=== PATIENT | male | born 1960 | race African-American/Black ===

== ENCOUNTER 2016-10-07 19:50 | Inpatient (IN) ==
--- NOTE | 2016-10-07 20:29 | CT Report ---
CT head/brain wo con Indication: Altered mental status. Comparison: None. Technique: CT of the brain was performed without administration of intravenous contrast. The CT examination was performed using one or more of the following dose reduction techniques: Automatic exposure control, adjustment of the mA and kV according to patient size, use of acute or iterative reconstruction techniques. Findings: There is no evidence of acute intracranial hemorrhage, mass, or infarction. Ventricles appear within normal limits. The basal cisterns are patent. No significant abnormality is demonstrated to involve the posterior fossa or cerebellum. Orbits and globes demonstrate no evidence of significant pathology. The paranasal sinuses are clear. No significant abnormality is demonstrated to involve the mastoid air cells. The calvarium and overlying soft tissues demonstrate no evidence of acute pathology. Impression: 1. No CT evidence of acute intracranial pathology. 10/07/2016 8:25 PM PROCEDURE INTERPRETED AT [facility] DEPARTMENT OF RADIOLOGY Final Report Signed by: Dr. Braulio Lucia
[2016-10-07] MEDS ORDERED: SODIUM CHLORIDE 0.9% 500 ML IV STA (20:33)
[2016-10-07 20:43] LABS: Basophils % 0.1 % (0.0-0.8); Eosinophils # 0.1 10*3/uL (0.0-0.87); Eosinophils % 0.3 % (0.00-10.9); Hematocrit 35.8 VOL% (42.0-52.0); Hemoglobin 11.7 GM/DL (14.0-18.0); Immature Granulocytes % 0.6 %; Lymphocytes # 2.3 10*3/uL (1.4-4.0); Lymphocytes % 14.6 % (21.2-54.2); Mean Corpuscular HGB Conc 32.7 GM/DL (32-36); Mean Corpuscular Hemoglobin 32 PG (27-34); Mean Corpuscular Volume 97.5 FL (87-102); Mean Platelet Volume 12.6 FL (9.6-12.0); Monocytes # 1.4 10*3/uL (0.11-0.8); Monocytes % 9.1 % (1.7-12.7); Neutrophils # 11.7 10*3/uL (1.4-7.4); Neutrophils % 75.3 % (38.7-73.9); Platelet Count 181 T/CUMM (130-400); Red Blood Count 3.67 MC/CUMM (3.8-5.5); Red Cell Distribution Width 12.9 % (9.3-17.3); White Blood Count 15.5 T/CUMM (4-12)
[2016-10-07 20:50] LABS: Apearance,Urine CLOUDY (Clear); Bilirubin,Urine Negative (Negative); Blood, Urine Negative (Negative); Glucose,Urine (UA) Negative (Negative); Ketones,Urine Negative (Negative); Nitrite,Urine Negative (Negative); PT Patient Result 11.1 SECS; Protein,Urine 30 MG/DL; Urine Color Yellow (Yellow); Urine Specific Gravity 1.005 (1.001-1.035); Urine Urobilinogen < 2.0 EU/DL (0.2-1.0)
--- NOTE | 2016-10-07 20:56 | Emergency Department Note ---
Waylon Alves Mantricia, am scribing for, and in the presence of, Wilfredo Ryan MD 20:54. Connor Alves Charles R, MD, personally performed the services described in this documentation, ascribed by Poncho Connors in my presence, and it is both accurate and complete . Arrival - Arrival Chief Complaint: Neuro Stated Complaint: Possible stroke ED Nursing Triage Note: Spous states she found her brother this morning at approx 0630 this morning with altered mental and not speaking right. States he is normally able to walk, talk, and take care of himself normally. Last known well time per sister is 0630 this morning. Has right side paralysis. Mode of Arrival: Wheelchair Limitations: No Limitations Source: Family Time Seen by Provider: 10/07/16 20:04 - History of Present Illness HPI Narrative: Pt is a 56 y/o black male arriving to ED via wheelchair with c/o AMS that onset 0630 this morning. Sister reports that pt has not been able to talk or move. She reports that she noticed that pt had been shaking last night in his sleep, so she thought he was having a seizure. Pt has no Hx of seizures. She states that he is normally able to talk and ambulate on his own. Pt see Dr. Garrison regarding his blood pressure and back pain. Family admits that pt drinks a lot and they are not sure if he has consumed any marijuana. Sister reports that pt followed a normal routine yesterday; they went to a neighbor's and pt seemed normal. However, she states that pt and neighbor had known one another since youth days and think that he may be depressed from the . Pt is currently taking amitriptyline and topamax for depression and has a PMHx of right sided paralysis. During exam, pt is unresponsive and will not talk. However, when stated that a aparicio catheter would be placed, pt aroused and began to laugh and talk normally. The weird episode began to continue to and now pt is unresponsive again. No other complaints were reported to ED. Onset (ago): hour(s) Consistency: constant Severity: mild Allergies/Adverse Reactions: Allergies Allergy/AdvReac Type Severity Reaction Status Date / Time No Known Allergies Allergy Unverified 12/27/14 15:18 Home Medications: Home Medications Medication Instructions Recorded Confirmed Type Acetic Acid 2% Otic Soln [Vosol 2% 5 drop LEFT EAR QID #15 ml 12/27/14 Rx Otic Soln] Amitriptyline [Elavil] 25 mg PO BEDTIME 12/27/14 12/27/14 History Atorvastatin [Lipitor] 40 mg PO DAILY 12/27/14 12/27/14 History Citalopram [CeleXA] 40 mg PO DAILY 12/27/14 12/27/14 History Lisinopril 20 mg PO DAILY 12/27/14 12/27/14 History Metoprolol Tartrate 50 mg PO BID 12/27/14 12/27/14 History Ranitidine Tab [Zantac Tab] 150 mg PO BID 12/27/14 12/27/14 History Trazodone HCl 1 - 2 tablet PO BEDTIME PRN 12/27/14 12/27/14 History amLODIPine [Norvasc] 10 mg PO DAILY 12/27/14 12/27/14 History Review of System - Review of System 12 point system: reviewed and no additional remarkable complaints except as stated - Review of System Constitutional: Present: other (AMS episodes ). Absent: chills, diaphoresis, fever Eyes: Absent: pain Respiratory: Absent: cough Cardiovascular: Absent: chest pain, palpitations Gastrointestinal: Absent: abdominal pain, nausea, vomiting, diarrhea Musculoskeletal: Absent: arm pain, back pain, leg pain, neck pain Skin: Absent: rash, lesions Medical,Surgical,& Family Hx - Medical History Cardio: History of: Hypertension, Cardiovascular Problems (HEART MURMUR) Endocrine: History of: Dyslipidemia No history of: Diabetes Mellitus (IDDM), Diabetes Mellitus (NIDDM) Respiratory: No history of: Asthma, Bronchitis, Pneumonia Renal: No history of: Renal Failure, Renal Problems Gastrointestinal: No history of: Gastrointestinal Bleed, Liver Problems, GI Problems - Social History Smoking Status: Unknown if ever smoked Frequency of Alcohol Use: Unknown Type of Drug Use: Unknown Exam Vital Signs: Vital Signs Temperature 98.3 F 10/07/16 19:55 Pulse Rate 100 H 10/07/16 19:55 Respiratory Rate 14 10/07/16 19:55 Blood Pressure 108/68 10/07/16 19:55 O2 Sat by Pulse Oximetry 95 10/07/16 21:19 - General General appearance: alert, in no apparent distress, other (full ROM) - Head Head exam: Present: atraumatic, normocephalic, normal inspection - Eye Eye exam: Present: normal appearance, PERRL, EOMI - ENT ENT exam: Present: normal exam, normal oropharynx, mucous membranes moist, TM's normal bilaterally, normal external ear exam - Neck Neck exam: Present: normal inspection, full ROM, trachea midline. Absent: tenderness - Chest Chest inspection: Present: normal inspection, symmetric chest wall rise. Absent : tenderness - Respiratory Respiratory exam: Present: rhonchi (bilateral), wheezes - Cardiovascular Cardiovascular exam: Present: regular rate, normal rhythm, murmur (3/6 systolic) - Abdominal Exam Abdominal exam: Present: soft, normal bowel sounds. Absent: distention, tenderness, guarding, rebound - Extremities Exam Extremities exam: Present: normal inspection, full ROM, normal capillary refill. Absent: tenderness, pedal edema - Back Exam Back exam: Present: normal inspection, full ROM. Absent: tenderness - Neurological Exam Neurological exam: Present: other (nonverbal during AMS; no facial droop) - Psychiatric Psychiatric exam: Present: normal affect, normal mood - Skin Skin exam: Present: warm, dry, intact, normal color Course Course Narrative: The patient came in almost a catatonic state decreased responsiveness would not talk to me was mute would not respond to pain very well but was breathing normally. We attempted to pick Aparicio catheter the patient became very awake talking and laughing inappropriately moving all extremities without difficulties and asked him back to his normal self according family. I just checked on the patient at 2130 hrs. and the patient is back to his near catatonic state. Looking at his labs the patient is acute renal failure is positive for cocaine and opiates he also has elevated prolactin level which one would think that possibly this patient had a seizure and has been post ictal most of the day. It looks like the patient may have been having multiple seizures throughout the day this is in question based on the information provided the family has no idea if he does drugs or not they said he does not drink or do drugs but obviously he does because is positive for opiates and cocaine. CT the head did not show any acute changes chest x-ray shows passive heart failure - Consultations Consultation #1: Hospitalist will admit patient Time: 21:36 Results - Labs CBC & BMP: 10/07/16 20:03 10/07/16 20:03 Lab Results: I have reviewed the patients labs Critical Care Time Critical Care Time: Yes Total Critical Care Time: 60 Disposition Clinical Impression: Acute renal failure, Altered mental status, Cocaine intoxication, Seizure postictal, Hyperkalemia, Polysubstance abuse, Congestive heart failure, Encephalopathy acute Case discussed with: patient, patient's family Disposition: Still a Patient Condition: Guarded Time of Disposition: 21:38
[2016-10-07 20:57] LABS: Barbiturates Screen,Urine Negative (Negative); Benzodiazepines Screen,Urine Negative (Negative); Cannabinoid Screen,Urine Negative (Negative); Opiate Screen,Urine Positive (Negative); Phencyclidine Screen,Urine Negative (Negative)
[2016-10-07 21:05] LABS: Alanine Aminotransferase 53 U/L (16-61); Albumin 3.4 G/DL (3.4-5.0); Alkaline Phosphatase 85 U/L (45-117); Aspartate Amino Transferase 120 U/L (0-37); Bilirubin,Total < 0.39 MG/DL (0.2-1.0); Blood Urea Nitrogen 47 MG/DL (7-18); Glucose 91 MG/DL (74-106); Magnesium 2.6 MG/DL (1.8-2.4); Osmolality,Calculated 277.4 MOS/KG (273-304); Potassium 5.5 MMOL/L (3.5-5.1); Sodium 133 MMOL/L (136-145); Total Protein 7.6 G/DL (6.4-8.3)
[2016-10-07 21:08] LABS: Troponin I Only 0.046 NG/ML (0.00-0.045)
[2016-10-07 21:25] LABS: Ammonia 29 UMOL/L (11-32)
[2016-10-07] MEDS ORDERED: CALCIUM GLUCONATE 1,000 MG in SODIUM CHLORIDE 0.9% 100 ML IV ONE (21:27)
[2016-10-07] MEDS ORDERED: SODIUM BICARBONATE 50 MEQ/50 ML VIAL IV STA (21:27)
[2016-10-07] MEDS ORDERED: SODIUM BICARBONATE 50 MEQ/50 ML SYRINGE IV ONE (21:30)
[2016-10-07] MEDS ORDERED: CALCIUM CHLORIDE 1,000 MG/10 ML SYRINGE IV ONE (21:31)
[2016-10-07] MEDS ORDERED: CALCIUM GLUCONATE 1,000 MG/10 ML VIAL IV ONE (21:33)
[2016-10-07] MEDS ORDERED: methylPREDNISolone SOD SUC 125 MG/2 ML VIAL IV STA (21:37)
[2016-10-07] MEDS ORDERED: ALBUTEROL NEB SOLN 5 MG/ML 20 ML/BOTTLE CONT NEB STA (21:37)
[2016-10-07] MEDS ORDERED: methylPREDNISolone SOD SUC 125 MG/2 ML VIAL ONE (21:41)
[2016-10-07 21:53] LABS: Sedimentation Rate-Westergren 68 MM/HR (0-20)
[2016-10-07 22:27] LABS: CKMB % 0.8 %
[2016-10-07 22:28] LABS: Troponin I Only 0.059 NG/ML (0.00-0.045)
[2016-10-07] MEDS ORDERED: LORazepam 2 MG/1 ML VIAL ONE ×2 (23:31→23:33)
[2016-10-07] MEDS ORDERED: LORazepam 2 MG/1 ML VIAL IV STA (23:40)
[2016-10-07] MEDS ORDERED: LACOSAMIDE INJ 100 MG in SODIUM CHLORIDE 0.9% 50 ML IV ONE (23:41)
[2016-10-07] MEDS ORDERED: DOBUTamine 500 MG/250 ML PREMIX IV ONE (23:52)
[2016-10-07] MEDS ORDERED: LACOSAMIDE 200 MG/20 ML VIAL IV ONE (23:53)
[2016-10-08] MEDS ORDERED: ALBUTEROL 2.5 MG/3 ML NEB RESP TX PRN (00:15)
[2016-10-08] MEDS ORDERED: ONDANSETRON 4 MG/2 ML VIAL IV PRN (00:15)
[2016-10-08] MEDS ORDERED: MAGNESIUM SULF RIDER 2 GM in PREMIX 1 EACH IV PRN (00:15)
[2016-10-08] MEDS ORDERED: MAGNESIUM SULF RIDER 4 GM in PREMIX 1 EACH IV PRN (00:15)
[2016-10-08] MEDS ORDERED: ETOMIDATE 20 MG/10 ML VIAL IV ONE ×2 (00:50→00:59)
[2016-10-08] MEDS ORDERED: VECURONIUM 10 MG VIAL IV STA (00:52)
--- NOTE | 2016-10-08 00:57 | Hospitalist History & Physical ---
Assessment and Plan (1) Acute renal failure Status: Acute Current Visit: Yes (2) Altered mental status Status: Acute Current Visit: Yes (3) Cocaine intoxication Status: Acute Current Visit: Yes (4) Hyperkalemia Status: Acute Current Visit: Yes (5) Polysubstance abuse Status: Acute Current Visit: Yes (6) Congestive heart failure Status: Acute Current Visit: Yes (7) Encephalopathy acute Status: Acute Assessment and plan: Patient is being transferred to the ICU. We are going to repeat labs including troponins and and potassium now. ABG will be done in 30 minutes. A.m. labs will be drawn. Will get an echo and renal ultrasound. Patient appears to be having DT type symptoms. Possible seizure activity. Patient airway is protected. Will consult cardiology nephrology and pulmonary. Patient has complex and is very ill. Seems to stem from cocaine use. Patient could not have a full neurological exam secondary to his altered mental status. CT scan of his head was negative. Patient has elevated CPK that we will continue to trend. He appears to have congestive heart failure also. Patient's blood pressure significantly low in hopefully will respond to dobutamine. Repeat potassium was normal. We will continue gentle hydration through the night. Current Visit: Yes History of Present Illness Chief complaint: Altered mental status, confusion History of present illness: Mr. Day is a 56 year old male with past medical history significant for hypertension, depression, alcohol and drug abuse, and chronic back pain who presents to our ER tonight. Patient's family reports that he was in his normal state of health and doing just fine yesterday. When the got over to his house today he was not acting right complaining about headache and some back pain. Sister does not know any history of cocaine use he was cocaine positive. They report that he is a heavy alcoholic. They deny any history of kidney disease. Patient is going in and out of consciousness. Patient needed to be intubated in the emergency room to protect his airway. Patient is artery been started on dobutamine. Repeat troponins and potassium have already been ordered. Patient will be transferred to the ICU Home Medications Medication Instructions Recorded Confirmed Type Acetic Acid 2% Otic Soln [Vosol 2% 5 drop LEFT EAR QID #15 ml 12/27/14 Rx Otic Soln] Amitriptyline [Elavil] 25 mg PO BEDTIME 12/27/14 12/27/14 History Atorvastatin [Lipitor] 40 mg PO DAILY 12/27/14 12/27/14 History Citalopram [CeleXA] 40 mg PO DAILY 12/27/14 12/27/14 History Lisinopril 40 mg PO DAILY 12/27/14 12/27/14 History Metoprolol Tartrate 50 mg PO BID 12/27/14 12/27/14 History Ranitidine Tab [Zantac Tab] 150 mg PO BID 12/27/14 12/27/14 History Trazodone HCl 100 mg PO BEDTIME PRN 12/27/14 12/27/14 History amLODIPine [Norvasc] 5 mg PO DAILY 12/27/14 12/27/14 History Buspirone HCl 10 mg PO 10/07/16 History Gabapentin Cap/Tab [Neurontin 400 mg PO BID 10/07/16 10/07/16 History Cap/Tab] Meloxicam 7.5 mg PO 10/07/16 History Rosuvastatin [Crestor] 40 mg PO DAILY 10/07/16 10/07/16 History Topiramate [Topamax] 50 mg PO BID 10/07/16 10/07/16 History hydroCHLOROthiazide 25 mg PO DAILY 10/07/16 10/07/16 History [Hydrochlorothiazide] Allergies Allergy/AdvReac Type Severity Reaction Status Date / Time No Known Allergies Allergy Unverified 12/27/14 15:18 Medical,Surgical,& Family Hx - Medical History Cardio: History of: Hypertension, Cardiovascular Problems (HEART MURMUR) Endocrine: History of: Dyslipidemia No history of: Diabetes Mellitus (IDDM), Diabetes Mellitus (NIDDM) Respiratory: No history of: Asthma, Bronchitis, Pneumonia Renal: No history of: Renal Failure, Renal Problems Gastrointestinal: No history of: Gastrointestinal Bleed, Liver Problems, GI Problems - Surgical History Surgical History: noncontributory (Unable to obtain) - Family History Family History: Reports;: Family Cancer, Family Diabetes, Family Heart Disease, Family Hematology, Family Hypertension, Family Stroke - Social History Smoking Status: Unknown if ever smoked Frequency of Alcohol Use: Unknown Type of Drug Use: Unknown ROS unobtainable: due to mental status Exam - Constitutional Vitals: Period Temp Pulse Resp BP Sys/Carbone Pulse Ox Last 24 Hr 98.3 F-98.3 F 100-100 14-18 108-108/68-68 95-98 General appearance: over weight - Head Head exam: Present: normal inspection - Eye Eye exam: Present: EOMI Pupils: Present: DAE (Sluggish) - ENT ENT exam: Present: normal exam - Neck Neck exam: Present: other (ET tube in place) - Respiratory Respiratory exam: Present: rales - Cardiovascular Cardiovascular exam: Present: tachycardia - GI/Abdominal GI/Abdominal exam: Present: hypoactive bowel sounds - Extremities Exam Extremities exam: Present: normal inspection - Back Exam Back exam: Present: normal inspection - Neurological Exam Neurological exam: Present: altered - Psychiatric Psychiatric exam: Present: normal affect - Skin Skin exam: Present: normal color Results - Labs CBC & BMP: 10/07/16 20:03 10/08/16 01:26 Quality Measures - Stroke Onset of Symptoms Date: 10/07/16
[2016-10-08] MEDS ORDERED: VECURONIUM 10 MG VIAL IV ONE (00:59)
[2016-10-08] MEDS ORDERED: SODIUM CHLORIDE 0.9% 1,000 ML IV SCH (01:41)
[2016-10-08] MEDS ORDERED: MIDAZOLAM 2 MG/2 ML VIAL IV ONE (01:41)
[2016-10-08 01:56] LABS: ABG Base Excess -9.7 MMOL/L (-2.5-2.5); ABG HCO3 16.7 MMOL/L (20-26); ABG Oxygen Saturation 99.8 % (95-100); ABG PCO2 43.2 MM HG (35-48); ABG PH 7.221 (7.35-7.45); ABG TCO2 16.5 MMOL/L (23-27); Allen Test Positive; Pt O2 Delivery Device Ventilator
[2016-10-08] MEDS: PANTOPRAZOLE 40 MG VIAL IV SCH (02:05)
[2016-10-08 02:22] LABS: CKMB % 0.6 %; Troponin I Only 0.077 NG/ML (0.00-0.045)
--- NOTE | 2016-10-08 02:22 | EKG Report ---
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
[2016-10-08] MEDS ORDERED: SODIUM BICARBONATE 50 MEQ/50 ML SYRINGE IV ONE (02:36)
[2016-10-08] MEDS: DOBUTamine 500 MG/250 ML PREMIX IV SCH ×2 (06:01)
[2016-10-08 07:34] LABS: Basophils % 0.1 % (0.0-0.8); Hemoglobin 9.4 GM/DL (14.0-18.0); Immature Granulocytes % 0.4 %; Immature Granulocytes Absolute 0.05 #; Lymphocytes # 0.5 10*3/uL (1.4-4.0); Lymphocytes % 4.6 % (21.2-54.2); Mean Corpuscular HGB Conc 33.6 GM/DL (32-36); Mean Corpuscular Hemoglobin 31 PG (27-34); Mean Corpuscular Volume 93.6 FL (87-102); Mean Platelet Volume 12.5 FL (9.6-12.0); Monocytes # 0.3 10*3/uL (0.11-0.8); Monocytes % 2.5 % (1.7-12.7); Neutrophils # 10.9 10*3/uL (1.4-7.4); Neutrophils % 92.4 % (38.7-73.9); Platelet Count 161 T/CUMM (130-400); Red Blood Count 2.99 MC/CUMM (3.8-5.5); Red Cell Distribution Width 12.9 % (9.3-17.3); White Blood Count 11.8 T/CUMM (4-12)
--- NOTE | 2016-10-08 07:36 | XRay Report ---
XR chest 1V portable Indication: Altered mental status Comparison: Chest x-ray dated December 24, 2014 Technique: Single frontal view of the chest. Findings: The cardiomediastinal silhouette is stable in configuration. Low lung volumes with bronchovascular crowding. Bibasilar atelectasis/consolidation and scattered small pulmonary opacities may reflect pulmonary edema or pneumonia. Visualized osseous and surrounding soft tissue structures appear grossly unchanged. IMPRESSION: As above. PROCEDURE INTERPRETED AT [facility] DEPARTMENT OF RADIOLOGY Final Report Signed by: Dr Grady Nava
[2016-10-08] MEDS ORDERED: PROPOFOL 1,000 MG/100 ML BOTTLE IV ONE ×2 (07:47→15:13)
[2016-10-08 08:01] LABS: Lymphocytes 5 % (20-55); Segmented Neutrophils 91 % (50-85); Total Cells Counted 100
[2016-10-08 08:02] LABS: Microcytosis 1+; Platelet Estimate Adequate
--- NOTE | 2016-10-08 08:07 | Cardiology Consult Note ---
<Bria Goode E - Last Filed: 10/08/16 08:43> Assessment and Plan - Time spent with patient Time spent with patient: Greater than 30 minutes (due to assessment, plan, and documentation) Time spent discussing smoking cessation with patient: 3 to 10 minutes (will need to reiterate once alert and off mechanical ventilator) (1) Congestive heart failure Status: Acute Assessment and plan: See plan of care listed below. Current Visit: Yes (2) Altered mental status Status: Acute Assessment and plan: See plan of care listed below. Current Visit: Yes (3) Acute renal failure Status: Acute Assessment and plan: See plan of care listed below. Current Visit: Yes (4) Encephalopathy acute Status: Acute Assessment and plan: See plan of care listed below. Current Visit: Yes (5) Cocaine intoxication Status: Acute Assessment and plan: See plan of care listed below. Current Visit: Yes (6) Hyperkalemia Status: Acute Assessment and plan: See plan of care listed below. Current Visit: Yes (7) Polysubstance abuse Status: Acute Assessment and plan: See plan of care listed below. Current Visit: Yes (8) Hypertension Status: Chronic Assessment and plan: See plan of care listed below. Current Visit: Yes (9) Dyslipidemia Status: Chronic Assessment and plan: See plan of care listed below. Current Visit: Yes (10) Elevated troponin Status: Acute Assessment and plan: See plan of care listed below. Current Visit: Yes (11) Acute respiratory failure Status: Acute Assessment and plan: See plan of care listed below. Current Visit: Yes History of Present Illness - Data of Consult Patient: known to practice within the last 3 years (seen by Dr. Valle in 2014 ) Consult date: 10/08/16 Requesting Physician: Nash Gonzalez - Consult Narrative Reason for consult: CHF History of present illness: [place] Maker: Dr. Valle (last seen in 2014) Mr. Day is intubated on the mechanical ventilator. There is no family present at this time. Much of the history is taken from the electronic health record. Mr. Day is a 56 year old male with a history of hypertension , dyslipidemia, depression, alcohol and drug abuse, and chronic back pain. According to his family, he was in his usual state of health prior to arrival yesterday and then began complaining of a headache and back pain and was not "acting right." He presented to the emergency room and was in and out of consciousness and subsequently required intubation to protect his airway. His sister who was present was unaware of any history of cocaine use. He was positive for cocaine upon arrival. He was started on Dobutamine and transferred to the CCU for further monitoring. We were consulted to see him due to congestive heart failure. Chest x-ray on arrival revealed bibasilar atelectasis/consolidation and scattered small pulmonary opacities which may reflect pulmonary edema or pneumonia. He was noted to have an elevated CPK of 5430 on admission with CK-MB of 43.4 and troponin of 0.046. Cardiac biomarkers have now risen to CPK 5774, CK-MB 37.3, and troponin 0.077. This is in the setting of an elevated creatinine of 11.4. He was previously seen in clinic by Dr. Valle on 06/11/14 and was noted to have a murmur consistent with aortic sclerosis vs stenosis with radiation to both sides of the neck, vs bruits. Echocardiogram has been ordered. ASSESSMENT/PLAN: 1. CONGESTIVE HEART FAILURE - BNP pending. Echocardiogram has been ordered. Nephrology has been consulted. He is currently on dobutamine infusion and has had no urine output since his arrival. 2. ALTERED MENTAL STATUS - Patient is now intubated on mechanical ventilation. 3. ACUTE RENAL FAILURE - Creatinine 13 this morning. Will avoid nephrotoxic agents. 4. ACUTE ENCEPHALOPATHY - CT of the head was negative. Patient is poorly responsive at the present time. 5. COCAINE INTOXICATION - Acute. 6. HYPERKALEMIA - 5.5 on admission now down to 4.6. Will continue to monitor BMP. 7. POLYSUBSTANCE ABUSE 8. HYPERTENSION - We will try to have his home medications confirmed. Currently well controlled. Will continue to monitor and adjust accordingly. 9. DYSLIPIDEMIA - Will check lipid panel. 10. ELEVATED TROPONIN - EKG has shown no acute changes. Troponin now up to 0.271 with fluctuating CPK and CK-MB ([place] zone). Echocardiogram is pending. 11. ACUTE RESPIRATORY FAILURE - Pulmonology has been consulted for vent management. CC: Raya Lim MD - Home Medications and Allergies Home Medications: Home Medications Medication Instructions Recorded Confirmed Type Acetic Acid 2% Otic Soln [Vosol 2% 5 drop LEFT EAR QID #15 ml 12/27/14 Rx Otic Soln] Amitriptyline [Elavil] 25 mg PO BEDTIME 12/27/14 12/27/14 History Atorvastatin [Lipitor] 40 mg PO DAILY 12/27/14 12/27/14 History Citalopram [CeleXA] 40 mg PO DAILY 12/27/14 12/27/14 History Lisinopril 40 mg PO DAILY 12/27/14 12/27/14 History Metoprolol Tartrate 50 mg PO BID 12/27/14 12/27/14 History Ranitidine Tab [Zantac Tab] 150 mg PO BID 12/27/14 12/27/14 History Trazodone HCl 100 mg PO BEDTIME PRN 12/27/14 12/27/14 History amLODIPine [Norvasc] 5 mg PO DAILY 12/27/14 12/27/14 History Buspirone HCl 10 mg PO 10/07/16 History Gabapentin Cap/Tab [Neurontin 400 mg PO BID 10/07/16 10/07/16 History Cap/Tab] Meloxicam 7.5 mg PO 10/07/16 History Rosuvastatin [Crestor] 40 mg PO DAILY 10/07/16 10/07/16 History Topiramate [Topamax] 50 mg PO BID 10/07/16 10/07/16 History hydroCHLOROthiazide 25 mg PO DAILY 10/07/16 10/07/16 History [Hydrochlorothiazide] Allergies/Adverse Reactions: Allergies Allergy/AdvReac Type Severity Reaction Status Date / Time No Known Allergies Allergy Unverified 12/27/14 15:18 ROS unobtainable: due to endotracheal tube, due to encephalopathy Medical,Surgical,& Family Hx - Medical History Cardio: History of: Hypertension, Cardiovascular Problems (HEART MURMUR) Endocrine: History of: Dyslipidemia No history of: Diabetes Mellitus (IDDM), Diabetes Mellitus (NIDDM) Respiratory: No history of: Asthma, Bronchitis, Pneumonia Renal: No history of: Renal Failure, Renal Problems Gastrointestinal: No history of: Gastrointestinal Bleed, Liver Problems, GI Problems - Family History Family History: Reports;: Family Cancer, Family Diabetes, Family Heart Disease, Family Hematology, Family Hypertension, Family Stroke - Social History Smoking Status: Unknown if ever smoked Frequency of Alcohol Use: Unknown Type of Drug Use: Unknown Marital Status: Single Functional capacity: independent ambulation Physical Examination Vital Signs Temp Pulse Resp BP Pulse Ox 98.3 F 100 H 14 108/68 98 10/07/16 19:55 10/07/16 19:55 10/07/16 19:55 10/07/16 19:55 10/07/16 19:55 Exam: General appearance: Orally intubated and sedated on ventilator. Overweight, no acute distress. - Head Head exam: Present: normal inspection, normocephalic, atraumatic. Absent: hematoma, laceration - Eye Eye exam: Present: EOMI. Absent: conjunctival injection, nystagmus, periorbital swelling, scleral icterus, laceration to eyelids Pupils: Present: PERRL. Absent: constricted, dilated, fixed, irregular, unequal - ENT ENT exam: Present: Orally intubated, normal external ear exam - Neck Neck exam: Present: normal inspection. Absent: lymphadenopathy, meningismus, tenderness, thyromegaly - Respiratory Respiratory exam: Present: Mechanically ventilated breath sounds with diffuse rhonchi. Absent: accessory muscle use - Cardiovascular Cardiovascular exam: Present: regular rate and rhythm, Bilateral carotid bruit vs radiation of murmur, systolic murmur. Absent: gallop, JVD, rubs - GI/Abdominal GI/Abdominal exam: Present: normal bowel sounds, soft. Absent: distended, firm , guarding, hernia, mass, tenderness, rebound. - Extremities Exam Extremities exam: Present: normal inspection, normal capillary refill. Upper extremity pulses 2+. Lower extremity pulses 2+. Absent: calf tenderness, edema - Back Exam Back exam: Present: Unable to examine due to habitus. Sedated on mechanical ventilator. - Neurological Exam Neurological exam: Present: Limited due to habitus (on ventilator). Arousable to tactile stimuli at times, has been in and out of consciousness. No resting or essential tremor. - Psychiatric Psychiatric exam: Present: Unable to adequately assess due to patient being sedated and on mechanical ventilation. - Skin Skin exam: Present: normal color, warm, dry, intact. Absent: cyanosis, diaphoretic, rash, urticaria Result/EKG - Labs CBC & BMP: 10/08/16 07:00 10/08/16 07:00 Lab Results: I have reviewed the past 24 hour labs Labs: Laboratory Results - last 24 hr 10/07/16 10/07/16 10/07/16 20:03 20:03 20:03 WBC 15.5 H RBC 3.67 L Hgb 11.7 L Hct 35.8 L MCV 97.5 MCH 32 MCHC 32.7 RDW 12.9 Plt Count 181 MPV 12.6 H Neut % (Auto) 75.3 H Lymph % (Auto) 14.6 L [place] % (Auto) 9.1 Eos % (Auto) 0.3 Baso % (Auto) 0.1 Neut # (Auto) 11.7 H Lymph # (Auto) 2.3 [place] # (Auto) 1.4 H Eos # (Auto) 0.1 Baso # (Auto) 0.0 Total Counted Immature Gran % 0.6 Nucleated RBC % 0.0 Immature Gran # 0.10 Segmented Neutrophils Lymphocytes Monocytes Nucleated RBCs # 0.00 Platelet Estimate Immature Plt Fraction 0.0 [facility]osis [facility] 1.0 PT Patient/Control Mix 11.1 ABG pH ABG pCO2 ABG pO2 ABG HCO3 ABG Total CO2 ABG O2 Saturation ABG Base Excess FiO2 Sodium Potassium Chloride Carbon Dioxide Anion Gap BUN Creatinine GFR Calculation BUN/Creatinine Ratio Glucose POC Glucose Calculated Osmolality Calcium Magnesium Total Bilirubin AST ALT Alkaline Phosphatase Ammonia Total Creatine Kinase CK-MB (CK-2) CK and CKMB Interp Troponin I Total Protein Albumin Globulin Albumin/Globulin Ratio Free T4 TSH 3rd Generation Prolactin Urine Color Yellow Urine Appearance Cloudy Urine pH 5.0 Ur Specific [place] 1.005 Urine Protein 30 Urine Glucose (UA) Negative Urine Ketones Negative Urine Blood Negative Urine Nitrate Negative Urine Bilirubin Negative Urine Urobilinogen < 2.0 H Urine Leukocytes Negative Ur Culture Indicated? Not indicated Urine Opiates Screen Ur Barbiturates Screen Ur Phencyclidine Scrn U Amphetamine/Methamph U Benzodiazepines Scrn U Cocaine Metab Screen U Cannabinoids Screen Serum Alcohol 10/07/16 10/07/16 10/07/16 20:03 20:03 20:03 WBC RBC Hgb Hct MCV MCH MCHC RDW Plt Count MPV Neut % (Auto) Lymph % (Auto) [place] % (Auto) Eos % (Auto) Baso % (Auto) Neut # (Auto) Lymph # (Auto) [place] # (Auto) Eos # (Auto) Baso # (Auto) Total Counted Immature Gran % Nucleated RBC % Immature Gran # Segmented Neutrophils Lymphocytes Monocytes Nucleated RBCs # Platelet Estimate Immature Plt Fraction Microcytosis ESR Westergren INR PT Patient/Control Mix ABG pH ABG pCO2 ABG pO2 ABG HCO3 ABG Total CO2 ABG O2 Saturation ABG Base Excess FiO2 Sodium 133 L Potassium 5.5 H Chloride 100 Carbon Dioxide 20 L Anion Gap 18.5 H BUN 47 H Creatinine 11.40 H GFR Calculation 6 BUN/Creatinine Ratio 4.00 L Glucose 91 POC Glucose Calculated Osmolality 277.4 Calcium 9.0 Magnesium 2.6 H Total Bilirubin < 0.39 AST 120 H ALT 53 Alkaline Phosphatase 85 Ammonia 29 Total Creatine Kinase CK-MB (CK-2) CK and CKMB Interp Troponin I 0.046 H Total Protein 7.6 Albumin 3.4 Globulin 4.2 H Albumin/Globulin Ratio 0.8 L Free T4 0.80 TSH 3rd Generation 1.260 Prolactin 71.6 Urine Color Urine Appearance Urine pH Ur Specific [place] Urine Protein Urine Glucose (UA) Urine Ketones Urine Blood Urine Nitrate Urine Bilirubin Urine Urobilinogen Urine Leukocytes Ur Culture Indicated? Urine Opiates Screen Positive H Ur Barbiturates Screen Negative Ur Phencyclidine Scrn Negative U Amphetamine/Methamph Negative U Benzodiazepines Scrn Negative U Cocaine Metab Screen Positive H U Cannabinoids Screen Negative Serum Alcohol < 15 L 10/07/16 10/07/16 10/08/16 20:03 20:11 01:26 WBC RBC Hgb Hct MCV MCH MCHC RDW Plt Count MPV Neut % (Auto) Lymph % (Auto) [place] % (Auto) Eos % (Auto) Baso % (Auto) Neut # (Auto) Lymph # (Auto) [place] # (Auto) Eos # (Auto) Baso # (Auto) Total Counted Immature Gran % Nucleated RBC % Immature Gran # Segmented Neutrophils Lymphocytes Monocytes Nucleated RBCs # Platelet Estimate Immature Plt Fraction Microcytosis ESR Westergren INR PT Patient/Control Mix ABG pH ABG pCO2 ABG pO2 ABG HCO3 ABG Total CO2 ABG O2 Saturation ABG Base Excess FiO2 Sodium Potassium Chloride Carbon Dioxide Anion Gap BUN Creatinine GFR Calculation BUN/Creatinine Ratio Glucose POC Glucose 117 H Calculated Osmolality Calcium Magnesium Total Bilirubin AST ALT Alkaline Phosphatase Ammonia Total Creatine Kinase 5430 H 5774 H CK-MB (CK-2) 43.4 H 37.3 H D CK and CKMB Interp 0.8 0.6 Troponin I 0.059 H D 0.077 H D Total Protein Albumin Globulin Albumin/Globulin Ratio Free T4 TSH 3rd Generation Prolactin Urine Color Urine Appearance Urine pH Ur Specific [place] Urine Protein Urine Glucose (UA) Urine Ketones Urine Blood Urine Nitrate Urine Bilirubin Urine Urobilinogen Urine Leukocytes Ur Culture Indicated? Urine Opiates Screen Ur Barbiturates Screen Ur Phencyclidine Scrn U Amphetamine/Methamph U Benzodiazepines Scrn U Cocaine Metab Screen U Cannabinoids Screen Serum Alcohol 10/08/16 10/08/16 10/08/16 01:26 01:36 07:00 WBC 11.8 RBC 2.99 L Hgb 9.4 L D Hct 28.0 L MCV 93.6 MCH 31 MCHC 33.6 RDW 12.9 Plt Count 161 MPV 12.5 H Neut % (Auto) 92.4 H Lymph % (Auto) 4.6 L [place] % (Auto) 2.5 Eos % (Auto) 0.0 Baso % (Auto) 0.1 Neut # (Auto) 10.9 H Lymph # (Auto) 0.5 L [place] # (Auto) 0.3 Eos # (Auto) 0.0 Baso # (Auto) 0.0 Total Counted 100 Immature Gran % 0.4 Nucleated RBC % 0.0 Immature Gran # 0.05 Segmented Neutrophils 91 H Lymphocytes 5 L Monocytes 4 Nucleated RBCs # 0.00 Platelet Estimate Adequate Immature Plt Fraction 0.0 Microcytosis 1+ ESR Westergren INR PT Patient/Control Mix ABG pH 7.221 L ABG pCO2 43.2 ABG pO2 229.0 H ABG HCO3 16.7 L ABG Total CO2 16.5 L ABG O2 Saturation 99.8 ABG Base Excess -9.7 L FiO2 100.00 Sodium Potassium 4.6 Chloride Carbon Dioxide Anion Gap BUN Creatinine GFR Calculation BUN/Creatinine Ratio Glucose POC Glucose Calculated Osmolality Calcium Magnesium Total Bilirubin AST ALT Alkaline Phosphatase Ammonia Total Creatine Kinase CK-MB (CK-2) CK and CKMB Interp Troponin I Total Protein Albumin Globulin Albumin/Globulin Ratio Free T4 TSH 3rd Generation Prolactin Urine Color Urine Appearance Urine pH Ur Specific [place] Urine Protein Urine Glucose (UA) Urine Ketones Urine Blood Urine Nitrate Urine Bilirubin Urine Urobilinogen Urine Leukocytes Ur Culture Indicated? Urine Opiates Screen Ur Barbiturates Screen Ur Phencyclidine Scrn U Amphetamine/Methamph U Benzodiazepines Scrn U Cocaine Metab Screen U Cannabinoids Screen Serum Alcohol - EKG EKG results: interpreted by me, sinus rhythm Quality Measures - Stroke Onset of Symptoms Date: 10/07/16 <Alexia Corral - Last Filed: 10/08/16 10:16> History of Present Illness - Consult Narrative History of present illness: I have personally interviewed and evaluated the patient, reviewed the chart and discussed medical decision-making with practitioner Russel. I have read this note and agree with her documentation here in. On my exam, the patient is actually arousable and seems to be appropriately somewhat interactive nodding his head and shaking his head. His breath sounds are clear to anterior auscultation on my exam. He does not appear to be in heart failure. There is no jugular venous distention, no lower extremity edema and the lungs are clear. We will try to wean the dobutamine. We will need to follow-up echocardiogram. His exam is consistent with either an LVOT gradient or aortic stenosis. I suspect his cardiac biomarkers were elevated from the cocaine, the CK is disproportionately elevated compared to the MB and the troponin, particularly in the setting of severe acute renal failure. In general his presentation appears to be a secondary event from his substance use. We will continue to monitor and provide supportive care, follow-up on echo. CC: Raya Lim MD Physical Examination Vital Signs Temp Pulse Resp BP Pulse Ox 98.3 F 100 H 14 108/68 98 10/07/16 19:55 10/07/16 19:55 10/07/16 19:55 10/07/16 19:55 10/07/16 19:55 Result/EKG - Labs CBC & BMP: 10/08/16 07:00 10/08/16 07:00 Labs: Laboratory Results - last 24 hr 10/07/16 10/07/16 10/07/16 20:03 20:03 20:03 WBC 15.5 H RBC 3.67 L Hgb 11.7 L Hct 35.8 L MCV 97.5 MCH 32 MCHC 32.7 RDW 12.9 Plt Count 181 MPV 12.6 H Neut % (Auto) 75.3 H Lymph % (Auto) 14.6 L [place] % (Auto) 9.1 Eos % (Auto) 0.3 Baso % (Auto) 0.1 Neut # (Auto) 11.7 H Lymph # (Auto) 2.3 [place] # (Auto) 1.4 H Eos # (Auto) 0.1 Baso # (Auto) 0.0 Total Counted Immature Gran % 0.6 Nucleated RBC % 0.0 Immature Gran # 0.10 Segmented Neutrophils Lymphocytes Monocytes Nucleated RBCs # 0.00 Platelet Estimate Immature Plt Fraction 0.0 Microcytosis ESR Westergren 68 H INR 1.0 PT Patient/Control Mix 11.1 ABG pH ABG pCO2 ABG pO2 ABG HCO3 ABG Total CO2 ABG O2 Saturation ABG Base Excess FiO2 Sodium Potassium Chloride Carbon Dioxide Anion Gap BUN Creatinine GFR Calculation BUN/Creatinine Ratio Glucose POC Glucose Calculated Osmolality Calcium Magnesium Total Bilirubin AST ALT Alkaline Phosphatase Ammonia Total Creatine Kinase CK-MB (CK-2) CK and CKMB Interp Troponin I B-Natriuretic Peptide Total Protein Albumin Globulin Albumin/Globulin Ratio Triglycerides Cholesterol LDL Cholesterol VLDL Cholesterol HDL Cholesterol Heart Disease Risk Ratio Free T4 TSH 3rd Generation Prolactin Urine Color Yellow Urine Appearance Cloudy Urine pH 5.0 Ur Specific [place] 1.005 Urine Protein 30 Urine Glucose (UA) Negative Urine Ketones Negative Urine Blood Negative Urine Nitrate Negative Urine Bilirubin Negative Urine Urobilinogen < 2.0 H Urine Leukocytes Negative Ur Culture Indicated? Not indicated Urine Opiates Screen Ur Barbiturates Screen Ur Phencyclidine Scrn U Amphetamine/Methamph U Benzodiazepines Scrn U Cocaine Metab Screen U Cannabinoids Screen Serum Alcohol 10/07/16 10/07/16 10/07/16 20:03 20:03 20:03 WBC RBC Hgb Hct MCV MCH MCHC RDW Plt Count MPV Neut % (Auto) Lymph % (Auto) [place] % (Auto) Eos % (Auto) Baso % (Auto) Neut # (Auto) Lymph # (Auto) [place] # (Auto) Eos # (Auto) Baso # (Auto) Total Counted Immature Gran % Nucleated RBC % Immature Gran # Segmented Neutrophils Lymphocytes Monocytes Nucleated RBCs # Platelet Estimate Immature Plt Fraction Microcytosis ESR Westergren INR PT Patient/Control Mix ABG pH ABG pCO2 ABG pO2 ABG HCO3 ABG Total CO2 ABG O2 Saturation ABG Base Excess FiO2 Sodium 133 L Potassium 5.5 H Chloride 100 Carbon Dioxide 20 L Anion Gap 18.5 H BUN 47 H Creatinine 11.40 H GFR Calculation 6 BUN/Creatinine Ratio 4.00 L Glucose 91 POC Glucose Calculated Osmolality 277.4 Calcium 9.0 Magnesium 2.6 H Total Bilirubin < 0.39 AST 120 H ALT 53 Alkaline Phosphatase 85 Ammonia 29 Total Creatine Kinase CK-MB (CK-2) CK and CKMB Interp Troponin I 0.046 H B-Natriuretic Peptide Total Protein 7.6 Albumin 3.4 Globulin 4.2 H Albumin/Globulin Ratio 0.8 L Triglycerides Cholesterol LDL Cholesterol VLDL Cholesterol HDL Cholesterol Heart Disease Risk Ratio Free T4 0.80 TSH 3rd Generation 1.260 Prolactin 71.6 Urine Color Urine Appearance Urine pH Ur Specific [place] Urine Protein Urine Glucose (UA) Urine Ketones Urine Blood Urine Nitrate Urine Bilirubin Urine Urobilinogen Urine Leukocytes Ur Culture Indicated? Urine Opiates Screen Positive H Ur Barbiturates Screen Negative Ur Phencyclidine Scrn Negative U Amphetamine/Methamph Negative U Benzodiazepines Scrn Negative U Cocaine Metab Screen Positive H U Cannabinoids Screen Negative Serum Alcohol < 15 L 10/07/16 10/07/16 10/08/16 20:03 20:11 01:26 WBC RBC Hgb Hct MCV MCH MCHC RDW Plt Count MPV Neut % (Auto) Lymph % (Auto) [place] % (Auto) Eos % (Auto) Baso % (Auto) Neut # (Auto) Lymph # (Auto) [place] # (Auto) Eos # (Auto) Baso # (Auto) Total Counted Immature Gran % Nucleated RBC % Immature Gran # Segmented Neutrophils Lymphocytes Monocytes Nucleated RBCs # Platelet Estimate Immature Plt Fraction Microcytosis ESR Westergren INR PT Patient/Control Mix ABG pH ABG pCO2 ABG pO2 ABG HCO3 ABG Total CO2 ABG O2 Saturation ABG Base Excess FiO2 Sodium Potassium Chloride Carbon Dioxide Anion Gap BUN Creatinine GFR Calculation BUN/Creatinine Ratio Glucose POC Glucose 117 H Calculated Osmolality Calcium Magnesium Total Bilirubin AST ALT Alkaline Phosphatase Ammonia Total Creatine Kinase 5430 H 5774 H CK-MB (CK-2) 43.4 H 37.3 H D CK and CKMB Interp 0.8 0.6 Troponin I 0.059 H D 0.077 H D B-Natriuretic Peptide Total Protein Albumin Globulin Albumin/Globulin Ratio Triglycerides Cholesterol LDL Cholesterol VLDL Cholesterol HDL Cholesterol Heart Disease Risk Ratio Free T4 TSH 3rd Generation Prolactin Urine Color Urine Appearance Urine pH Ur Specific [place] Urine Protein Urine Glucose (UA) Urine Ketones Urine Blood Urine Nitrate Urine Bilirubin Urine Urobilinogen Urine Leukocytes Ur Culture Indicated? Urine Opiates Screen Ur Barbiturates Screen Ur Phencyclidine Scrn U Amphetamine/Methamph U Benzodiazepines Scrn U Cocaine Metab Screen U Cannabinoids Screen Serum Alcohol 10/08/16 10/08/16 10/08/16 01:26 01:36 07:00 WBC 11.8 RBC 2.99 L Hgb 9.4 L D Hct 28.0 L MCV 93.6 MCH 31 MCHC 33.6 RDW 12.9 Plt Count 161 MPV 12.5 H Neut % (Auto) 92.4 H Lymph % (Auto) 4.6 L [place] % (Auto) 2.5 Eos % (Auto) 0.0 Baso % (Auto) 0.1 Neut # (Auto) 10.9 H Lymph # (Auto) 0.5 L [place] # (Auto) 0.3 Eos # (Auto) 0.0 Baso # (Auto) 0.0 Total Counted 100 Immature Gran % 0.4 Nucleated RBC % 0.0 Immature Gran # 0.05 Segmented Neutrophils 91 H Lymphocytes 5 L Monocytes 4 Nucleated RBCs # 0.00 Platelet Estimate Adequate Immature Plt Fraction 0.0 Microcytosis 1+ ESR Westergren INR PT Patient/Control Mix ABG pH 7.221 L ABG pCO2 43.2 ABG pO2 229.0 H ABG HCO3 16.7 L ABG Total CO2 16.5 L ABG O2 Saturation 99.8 ABG Base Excess -9.7 L FiO2 100.00 Sodium Potassium 4.6 Chloride Carbon Dioxide Anion Gap BUN Creatinine GFR Calculation BUN/Creatinine Ratio Glucose POC Glucose Calculated Osmolality Calcium Magnesium Total Bilirubin AST ALT Alkaline Phosphatase Ammonia Total Creatine Kinase CK-MB (CK-2) CK and CKMB Interp Troponin I B-Natriuretic Peptide Total Protein Albumin Globulin Albumin/Globulin Ratio Triglycerides Cholesterol LDL Cholesterol VLDL Cholesterol HDL Cholesterol Heart Disease Risk Ratio Free T4 TSH 3rd Generation Prolactin Urine Color Urine Appearance Urine pH Ur Specific [place] Urine Protein Urine Glucose (UA) Urine Ketones Urine Blood Urine Nitrate Urine Bilirubin Urine Urobilinogen Urine Leukocytes Ur Culture Indicated? Urine Opiates Screen Ur Barbiturates Screen Ur Phencyclidine Scrn U Amphetamine/Methamph U Benzodiazepines Scrn U Cocaine Metab Screen U Cannabinoids Screen Serum Alcohol 10/08/16 10/08/16 10/08/16 07:00 07:00 07:00 WBC RBC Hgb Hct MCV MCH MCHC RDW Plt Count MPV Neut % (Auto) Lymph % (Auto) [place] % (Auto) Eos % (Auto) Baso % (Auto) Neut # (Auto) Lymph # (Auto) [place] # (Auto) Eos # (Auto) Baso # (Auto) Total Counted Immature Gran % Nucleated RBC % Immature Gran # Segmented Neutrophils Lymphocytes Monocytes Nucleated RBCs # Platelet Estimate Immature Plt Fraction Microcytosis ESR Westergren INR PT Patient/Control Mix ABG pH ABG pCO2 ABG pO2 ABG HCO3 ABG Total CO2 ABG O2 Saturation ABG Base Excess FiO2 Sodium 136 Potassium 4.1 Chloride 101 Carbon Dioxide 22 Anion Gap 17.1 H BUN 55 H Creatinine 13.00 H GFR Calculation 5 BUN/Creatinine Ratio 4.00 L Glucose 169 H POC Glucose Calculated Osmolality 290.0 Calcium 7.9 L Magnesium Total Bilirubin 0.90 AST 113 H ALT 48 Alkaline Phosphatase 64 Ammonia Total Creatine Kinase 5425 H CK-MB (CK-2) 33.3 H CK and CKMB Interp 0.6 Troponin I 0.271 H D B-Natriuretic Peptide 62 Total Protein 6.1 L Albumin 2.6 L Globulin 3.5 Albumin/Globulin Ratio 0.7 L Triglycerides Cholesterol LDL Cholesterol VLDL Cholesterol HDL Cholesterol Heart Disease Risk Ratio Free T4 TSH 3rd Generation Prolactin Urine Color Urine Appearance Urine pH Ur Specific [place] Urine Protein Urine Glucose (UA) Urine Ketones Urine Blood Urine Nitrate Urine Bilirubin Urine Urobilinogen Urine Leukocytes Ur Culture Indicated? Urine Opiates Screen Ur Barbiturates Screen Ur Phencyclidine Scrn U Amphetamine/Methamph U Benzodiazepines Scrn U Cocaine Metab Screen U Cannabinoids Screen Serum Alcohol 10/08/16 07:00 WBC RBC Hgb Hct MCV MCH MCHC RDW Plt Count MPV Neut % (Auto) Lymph % (Auto) [place] % (Auto) Eos % (Auto) Baso % (Auto) Neut # (Auto) Lymph # (Auto) [place] # (Auto) Eos # (Auto) Baso # (Auto) Total Counted Immature Gran % Nucleated RBC % Immature Gran # Segmented Neutrophils Lymphocytes Monocytes Nucleated RBCs # Platelet Estimate Immature Plt Fraction Microcytosis ESR [place] INR PT Patient/Control Mix ABG pH ABG pCO2 ABG pO2 ABG HCO3 ABG Total CO2 ABG O2 Saturation ABG Base Excess FiO2 Sodium Potassium Chloride Carbon Dioxide Anion Gap BUN Creatinine GFR Calculation BUN/Creatinine Ratio Glucose POC Glucose Calculated Osmolality Calcium Magnesium Total Bilirubin AST ALT Alkaline Phosphatase Ammonia Total Creatine Kinase CK-MB (CK-2) CK and CKMB Interp Troponin I B-Natriuretic Peptide Total Protein Albumin Globulin Albumin/Globulin Ratio Triglycerides 106 Cholesterol 191 LDL Cholesterol 120.0 VLDL Cholesterol 21.2 HDL Cholesterol 33 L Heart Disease Risk Ratio 5.79 Free T4 TSH 3rd Generation Prolactin Urine Color Urine Appearance Urine pH Ur Specific [place] Urine Protein Urine Glucose (UA) Urine Ketones Urine Blood Urine Nitrate Urine Bilirubin Urine Urobilinogen Urine Leukocytes Ur Culture Indicated? Urine Opiates Screen Ur Barbiturates Screen Ur Phencyclidine Scrn U Amphetamine/Methamph U Benzodiazepines Scrn U Cocaine Metab Screen U Cannabinoids Screen Serum Alcohol
[2016-10-08 08:08] LABS: Albumin 2.6 G/DL (3.4-5.0); Bilirubin,Total 0.9 MG/DL (0.2-1.0); Calcium 7.9 MG/DL (8.5-10.1); Potassium 4.1 MMOL/L (3.5-5.1); Total Protein 6.1 G/DL (6.4-8.3)
--- NOTE | 2016-10-08 08:08 | Pulmonology Consult Note ---
Assessment and Plan (1) Acute respiratory failure Status: Acute Assessment and plan: Patient came in obtunded and is now on the ventilator. Will continue with ventilatory support. Current Visit: Yes (2) Acute renal failure Status: Acute Assessment and plan: The patient's creatinine is over 11 now. Current Visit: Yes (3) Cocaine intoxication Status: Acute Assessment and plan: Patient apparently has had cocaine abuse. Current Visit: Yes (4) Polysubstance abuse Status: Acute Assessment and plan: The patient has a history of substance abuse. Current Visit: Yes (5) Encephalopathy acute Status: Acute Assessment and plan: Patient is poorly responsive at the present time. Current Visit: Yes History of Present Illness Chief complaint: Ventilator management History of present illness: Mr. Day is a 56 year old black male that apparently has a history of hypertension and depression and alcohol abuse. He apparently has a history of chronic back pain. The family reported that he was complaining of headaches and back pain. He apparently drinks fairly regularly. The patient came poorly responsive and was brought to the emergency room. He would arouse and then go back to sleep. He had to be intubated and started on pressors. He had a positive drug screen for narcotics and cocaine. He is not very responsive now on the ventilator. He does have a creatinine of over 11 and a metabolic acidosis. He is still on low-dose dobutamine. Home Medications Medication Instructions Recorded Confirmed Type Acetic Acid 2% Otic Soln [Vosol 2% 5 drop LEFT EAR QID #15 ml 12/27/14 Rx Otic Soln] Amitriptyline [Elavil] 25 mg PO BEDTIME 12/27/14 12/27/14 History Atorvastatin [Lipitor] 40 mg PO DAILY 12/27/14 12/27/14 History Citalopram [CeleXA] 40 mg PO DAILY 12/27/14 12/27/14 History Lisinopril 40 mg PO DAILY 12/27/14 12/27/14 History Metoprolol Tartrate 50 mg PO BID 12/27/14 12/27/14 History Ranitidine Tab [Zantac Tab] 150 mg PO BID 12/27/14 12/27/14 History Trazodone HCl 100 mg PO BEDTIME PRN 12/27/14 12/27/14 History amLODIPine [Norvasc] 5 mg PO DAILY 12/27/14 12/27/14 History Buspirone HCl 10 mg PO 10/07/16 History Gabapentin Cap/Tab [Neurontin 400 mg PO BID 10/07/16 10/07/16 History Cap/Tab] Meloxicam 7.5 mg PO 10/07/16 History Rosuvastatin [Crestor] 40 mg PO DAILY 10/07/16 10/07/16 History Topiramate [Topamax] 50 mg PO BID 10/07/16 10/07/16 History hydroCHLOROthiazide 25 mg PO DAILY 10/07/16 10/07/16 History [Hydrochlorothiazide] Allergies Allergy/AdvReac Type Severity Reaction Status Date / Time No Known Allergies Allergy Unverified 12/27/14 15:18 ROS unobtainable: due to endotracheal tube (Unable to give a history.) Exam (Pulmonay) H&P - Constitutional Vitals: Period Temp Pulse Resp BP Sys/Carbone Pulse Ox Last 24 Hr 98.3 F-99.1 F 88-109 12-18 92-118/46-68 95-100 General appearance: normal weight, no acute distress (The patient is unresponsive on the ventilator.) - Head Head exam: Present: normal inspection, normocephalic - Eye Eye exam: Absent: scleral icterus Pupils: Present: constricted - ENT ENT exam: Present: other (ET tube is in good position.) - Neck Neck exam: Present: normal inspection. Absent: lymphadenopathy, thyromegaly - Respiratory Respiratory exam: Present: clear to auscultation bilaterally. Absent: wheezes - Cardiovascular Cardiovascular exam: Present: regular rate and rhythm, tachycardia. Absent: gallop - GI/Abdominal GI/Abdominal exam: Present: hypoactive bowel sounds, soft. Absent: organomegaly , tenderness - Extremities Exam Extremities exam: Absent: calf tenderness, edema - Neurological Exam Neurological exam: Present: other (Patient is unresponsive on the ventilator.) - Psychiatric Psychiatric exam: Absent: anxious - Skin Skin exam: Present: warm, dry Medical,Surgical,& Family Hx - Medical History Cardio: History of: Hypertension, Cardiovascular Problems (HEART MURMUR) Endocrine: History of: Dyslipidemia No history of: Diabetes Mellitus (IDDM), Diabetes Mellitus (NIDDM) Respiratory: No history of: Asthma, Bronchitis, Pneumonia Renal: No history of: Renal Failure, Renal Problems Gastrointestinal: No history of: Gastrointestinal Bleed, Liver Problems, GI Problems - Family History Family History: Reports;: Family Cancer, Family Diabetes, Family Heart Disease, Family Hematology, Family Hypertension, Family Stroke - Social History Smoking Status: Unknown if ever smoked Frequency of Alcohol Use: Unknown Type of Drug Use: Unknown Results - Labs CBC & BMP: 10/08/16 07:00 10/08/16 01:26 - Diagnostic Findings Procedure: Chest x-ray: image reviewed by me, report reviewed by me (Chest x- ray shows small lung volumes before intubation.) Quality Measures - Stroke Onset of Symptoms Date: 10/07/16
[2016-10-08] MEDS: PROPOFOL 1,000 MG/100 ML BOTTLE IV SCH ×3 (08:12→21:40)
[2016-10-08 08:22] LABS: CKMB % 0.6 %
[2016-10-08 08:23] LABS: Troponin I Only 0.271 NG/ML (0.00-0.045)
[2016-10-08] MEDS: SODIUM CHLORIDE 0.9% 2,000 ML IV SCH ×2 (08:45→22:20)
[2016-10-08 08:51] LABS: Risk Ratio 5.79; VLDL CHOLESTEROL 21.2 MG/DL
--- NOTE | 2016-10-08 09:16 | EKG Report ---
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
[2016-10-08] MEDS: THIAMINE 200 MG/2 ML VIAL IV SCH (09:43)
[2016-10-08] MEDS: LACOSAMIDE INJ 100 MG in SODIUM CHLORIDE 0.9% 50 ML IV SCH ×2 (09:45→21:39)
[2016-10-08] MEDS: ENOXAPARIN 30 MG/0.3 ML SYRINGE SUBCUT SCH (09:46)
[2016-10-08] MEDS: MULTIVITAMIN (CENTRUM) TABLET PO SCH (09:46)
[2016-10-08] MEDS: FOLIC ACID 1 MG TABLET PO SCH (09:46)
--- NOTE | 2016-10-08 10:06 | Ultrasound Report ---
US carotid duplex BI Indication: Carotid bruit. Stroke. CAROTID ULTRASOUND Comparison: None. Findings: Grayscale, color Doppler and pulsed Doppler interrogation of the carotid and vertebral arteries performed. Severity of stenosis based on flow velocity measurements using NASCET criteria. Distal right ICA diameter: 4.0 mm Distal left ICA diameter: 3.3 mm Peak systolic flow velocities in centimeters per second are as follows: Right: CCA: 146 cm/s Proximal ICA: 222 Distal ICA: 108 ICA/CCA ratio: 1.5 Left: CCA: 172 cm/s Proximal ICA: 176 Distal ICA: 131 ICA/CCA ratio: 1.0 External carotid arteries: Both are patent with antegrade flow. Vertebral arteries: Both are patent with antegrade flow. Grayscale and color Doppler images: Diffuse mixed calcified and fibrofatty plaque deposition identified, with normal color Doppler flow present. Pulse Doppler waveform interrogation: No significant spectral broadening. Peak diastolic velocities of both ICA 40 cm/s or less. Impression: Elevated bilateral common carotid artery flow velocities detailed above with normal ICA/CCA ratios. With elevated bilateral ICA flow velocities, normal peak diastolic flow velocities of both ICA origins, and normal peak diastolic ratios present, there is 41 - 59% diameter stenosis of both ICA origins present. PROCEDURE INTERPRETED AT [facility] DEPARTMENT OF RADIOLOGY Final Report Signed by: Nash Chowdhury M.D.
--- NOTE | 2016-10-08 10:13 | Ultrasound Report ---
US renal Bilateral Indication: Kidney failure. Comparison: None. Technique: Multiple longitudinal and transverse real-time sonographic images of the kidneys are obtained. Findings: The right kidney measures 9.8 cm, and the left kidney measures 10.7 cm. There is no evidence of hydronephrosis. Bilateral cortical thinning suggested. Renal parenchyma somewhat hyperechoic suggestive of medical renal disease. IMPRESSION: Medical renal disease/renal atrophy without evidence of hydronephrosis. PROCEDURE INTERPRETED AT [facility] DEPARTMENT OF RADIOLOGY Final Report Signed by: Dr Grady Nava
--- NOTE | 2016-10-08 10:22 | XRay Report ---
XR chest 1V portable Indication: Tube placement Comparison: Chest x-ray dated October 07, 2016 Technique: Single frontal view of the chest. Findings: Interval placement of endotracheal tube with tip at the T2-3 level. Enteric tube tip projects over the proximal stomach. Interval increase atelectasis/consolidation within the left mid and lower lung. Scattered small pulmonary opacities and right basilar atelectasis/consolidation again noted. Low lung volumes again demonstrated. Visualized osseous and surrounding soft tissue structures appear grossly unchanged.. IMPRESSION: As above. PROCEDURE INTERPRETED AT [facility] DEPARTMENT OF RADIOLOGY Final Report Signed by: Dr Grady Nava
--- NOTE | 2016-10-08 13:04 | Nephrology Consult Note ---
History of Present Illness Chief complaint: Increased BUN and creatinine History of present illness: Mr. Day is a 56 year old male who was admitted on 10/08/2016 for altered mentation. The patient presented to the emergency room with altered mentation he was in and out of consciousness but his respiratory status continued to deteriorate while in the emergency room and required intubation. The patient apparently was found down by his sister on the day of admission. Patient was reportedly in normal state of health the day prior talking and walking without difficulty. We are asked see the patient for increased creatinine, yesterday his creatinine was around 11 mg/dL today it is up to 13 mg/dL. The patient apparently has no history of kidney problems. He does have a history of hypertension he was also positive for cocaine on drug screening as well as opiates on admission. The patient is followed by Dr. Garrison in the outpatient setting. The history is taken from the chart as the patient is unable to contribute to the history. Patient has been on IV fluid since admission. He has not received any contrast. He is not getting any nonsteroidal anti-inflammatory medications. The patient's CPK was elevated at 5300. Patient's urine output recorded since admission is around 300 cc. He does have a Jorgensen catheter in place. Renal ultrasound showed no masses or hydronephrosis it did show some thinning of the cortex consistent with medical renal disease. ROS unable to be obtained due to patient's medical condition PE: General: Acutely ill-appearing Eyes: Pupils are round and reactive, conjunctivae are clear ENT: Nose is clear, O/P is benign, he has a NG tube in place as well as an ET tube. Neck: Supple, no thyromegaly Lymphatics: No cervical, supraclavicular or axillary adenopathy Heart: Regular rate and rhythm, no edema Lungs: Clear to auscultation anteriorly, chest expansion symmetric Abdomen: Soft, normoactive bowel sounds, no hepatomegaly Musculoskeletal: No joint erythema or effusions or joint asymmetry Skin: Normal turgor, normal hydration, no rash Neuro/Psych: Patient is intubated and sedate, he has no response to verbal or pain stimuli, his extremities are nonrigid Home Medications Medication Instructions Recorded Confirmed Type Acetic Acid 2% Otic Soln [Vosol 2% 5 drop LEFT EAR QID #15 ml 12/27/14 Rx Otic Soln] Amitriptyline [Elavil] 25 mg PO BEDTIME 12/27/14 12/27/14 History Atorvastatin [Lipitor] 40 mg PO DAILY 12/27/14 12/27/14 History Citalopram [CeleXA] 40 mg PO DAILY 12/27/14 12/27/14 History Lisinopril 40 mg PO DAILY 12/27/14 12/27/14 History Metoprolol Tartrate 50 mg PO BID 12/27/14 12/27/14 History Ranitidine Tab [Zantac Tab] 150 mg PO BID 12/27/14 12/27/14 History Trazodone HCl 100 mg PO BEDTIME PRN 12/27/14 12/27/14 History amLODIPine [Norvasc] 5 mg PO DAILY 12/27/14 12/27/14 History Buspirone HCl 10 mg PO 10/07/16 History Gabapentin Cap/Tab [Neurontin 400 mg PO BID 10/07/16 10/07/16 History Cap/Tab] Meloxicam 7.5 mg PO 10/07/16 History Rosuvastatin [Crestor] 40 mg PO DAILY 10/07/16 10/07/16 History Topiramate [Topamax] 50 mg PO BID 10/07/16 10/07/16 History hydroCHLOROthiazide 25 mg PO DAILY 10/07/16 10/07/16 History [Hydrochlorothiazide] Allergies Allergy/AdvReac Type Severity Reaction Status Date / Time No Known Allergies Allergy Unverified 12/27/14 15:18 Medical,Surgical,& Family Hx - Medical History Cardio: History of: Hypertension, Cardiovascular Problems (HEART MURMUR) Endocrine: History of: Dyslipidemia No history of: Diabetes Mellitus (IDDM), Diabetes Mellitus (NIDDM) Respiratory: No history of: Asthma, Bronchitis, Pneumonia Renal: No history of: Renal Failure, Renal Problems Gastrointestinal: No history of: Gastrointestinal Bleed, Liver Problems, GI Problems - Family History Family History: Reports;: Family Cancer, Family Diabetes, Family Heart Disease, Family Hematology, Family Hypertension, Family Stroke - Social History Smoking Status: Unknown if ever smoked Frequency of Alcohol Use: Unknown Type of Drug Use: Cocaine Exam - Vital Signs Vital signs: Period Temp Pulse Resp BP Sys/Carbone Pulse Ox Last 24 Hr 97.1 F-99.1 F 88-109 7-24 75-121/45-68 95-100 Results - Labs CBC & BMP: 10/08/16 07:00 10/08/16 07:00 Assessment and Plan (1) Acute renal failure Status: Acute Assessment and plan: This patient presented with a creatinine of 11 is up to 13 mg/dL today. He had cocaine in his system his blood pressure has been at the low end of normal since admission. He is getting dobutamine. He has no history of kidney failure in the past. Will try and get some previous lab from Dr. Garrison's office. To see what his baseline creatinine is been. The patient is also noted to have an elevated CPK level. I would worry that he has an ATN injury related to his cocaine use also contributing could be his elevated CPK level. We will continue IV fluids for now and monitor for improvement. I do not see any acute indication for hemodialysis at this time. With his decreased urine output I am going to decrease his IV fluids to 150 cc an hour from 200 cc an hour. Current Visit: Yes (2) Anemia Status: Acute Assessment and plan: Patient's hematocrit is 28% Current Visit: Yes (3) Acute respiratory failure Status: Acute Assessment and plan: Continue vent support Current Visit: Yes (4) Altered mental status Status: Acute Current Visit: Yes (5) Cocaine intoxication Status: Acute Current Visit: Yes (6) Hyperkalemia Status: Acute Assessment and plan: His potassium is returning to the normal range Current Visit: Yes (7) Dyslipidemia Status: Chronic Current Visit: Yes (8) Hypertension Status: Chronic Assessment and plan: Patient's blood pressures at the low end of normal he is on dobutamine Current Visit: Yes (9) Metabolic acidosis Status: Acute Assessment and plan: Patient's bicarb is improved to 22 from 20 Current Visit: Yes
--- NOTE | 2016-10-08 13:44 | Hospitalist Progress Note ---
Assessment and Plan (1) Acute respiratory failure Status: Acute Assessment and plan: Intubated with bilateral opacities, BNP is normal, concerned about aspiration pneumonia will start Zosyn and add duonebs Current Visit: Yes (2) Acute renal failure Status: Acute Assessment and plan: Dr. Rob has seen him and feels the patient has ATN secondary to cocaine intoxication. Continue IV fluids and 150 an hour. Continue to monitor creatinine. Renal ultrasound scan shows medical renal disease suggesting he has baseline chronic kidney disease. Current Visit: Yes (3) Hyperkalemia Status: Acute Assessment and plan: Resolved. Current Visit: Yes (4) Polysubstance abuse Status: Acute Assessment and plan: Patient was positive for opiates and cocaine. Current Visit: Yes (5) Congestive heart failure Status: Acute Assessment and plan: Patient currently on dobutamine. BNP normal, Echocardiogram has been ordered but is pending Current Visit: Yes (6) Encephalopathy acute Status: Acute Assessment and plan: Possibly due to polysubstance abuse. Will get EEG to ensure no seizures. Current Visit: Yes (7) Elevated troponin Status: Acute Assessment and plan: Serial troponins positive, most likely due to cocaine abuse, cardiology is following, echo is pending Current Visit: Yes (8) Anemia Status: Acute Assessment and plan: Hemoglobin is dropped from 11.7 down to 9.4. I will guaiac his stool and continue him on protonix, monitor for bleeding Current Visit: Yes (9) Hypotension Status: Acute Assessment and plan: ns at 150 ml/hr Current Visit: Yes (10) Ileus Status: Acute Assessment and plan: KUB, hold off to feedings for now continue NG to low wall suction Current Visit: Yes Hospitalist: Subjective Interval history: Patient has bilateral rhonchi consistent with congestive heart failure however his creatinine has deteriorated and increased to 13. I have asked Dr. Rob to see him today. His normal saline was currently at 50 ML's per hour have increased it to [address] Rob is dropped back down to 150 ML's per hour. His creatinine does not improve he may require urgent dialysis. Patient becomes extremely agitated when his sedation is lightened. Exam - Constitutional Vitals: Period Temp Pulse Resp BP Sys/Carbone Pulse Ox Last 24 Hr 97.1 F-99.1 F 88-109 7-24 75-121/45-68 95-100 Exam: Heart Rate-[tachy] Lungs-[bilateral rhonchi ] GI-[diminished bs soft, NT] Ext-[no edema] Neuro moving all extremities, sedated on vent psych cannot assess General [no acute distress] Results - Labs CBC & BMP: 10/08/16 07:00 10/08/16 07:00 Lab Results: I have reviewed the past 24 hour labs Labs: Serial CPKs only in the 5000. Serial troponins are positive and increasing. Urine drug screen positive for opiates and cocaine. - Diagnostic Findings Procedure: Chest x-ray: image reviewed by me (Scattered bilateral opacities and right atelectasis), Ultrasound: report reviewed by me (Bilateral stenosis between 41 and 59%, renal ultrasound shows medical renal disease without evidence of hydronephrosis,) Quality Measures - Stroke Onset of Symptoms Date: 10/07/16
--- NOTE | 2016-10-08 14:35 | XRay Report ---
XR KUB Indication: Diminished bowel sounds. Comparison: None. Technique: Supine AP image of the abdomen was obtained. Findings: Lung bases are clear. There is no evidence of organomegaly. Bowel gas pattern is unremarkable. Renal contours are bilaterally symmetric. Bones and soft tissues demonstrate no significant abnormalities. NG tube is present within the gastric fundus. The tip is directed towards the left lateral abdominal wall. Impression: 1. No active process is demonstrated within the abdomen or pelvis. 10/08/2016 2:31 PM PROCEDURE INTERPRETED AT [facility] DEPARTMENT OF RADIOLOGY Final Report Signed by: Dr. Braulio Lucia
[2016-10-08] MEDS: PIPERACILLIN/TAZOBACTAM 3,375 MG in SODIUM CHLORIDE 0.9% 100 ML IV SCH (15:15)
[2016-10-08] MEDS: ALBUTEROL/IPRATROPIUM 3 ML NEB RESP TX SCH (19:33)
[2016-10-09] MEDS: ALBUTEROL/IPRATROPIUM 3 ML NEB RESP TX SCH ×4 (00:28→19:08)
[2016-10-09] MEDS: PROPOFOL 1,000 MG/100 ML BOTTLE IV SCH ×5 (02:21→23:35)
[2016-10-09] MEDS: PANTOPRAZOLE 40 MG VIAL IV SCH (02:25)
[2016-10-09] MEDS: PIPERACILLIN/TAZOBACTAM 3,375 MG in SODIUM CHLORIDE 0.9% 100 ML IV SCH ×2 (02:26→15:06)
[2016-10-09 03:48] LABS: Basophils % 0.1 % (0.0-0.8); Hematocrit 26.5 VOL% (42.0-52.0); Hemoglobin 8.9 GM/DL (14.0-18.0); Immature Granulocytes % 0.4 %; Immature Granulocytes Absolute 0.06 #; Lymphocytes # 0.7 10*3/uL (1.4-4.0); Lymphocytes % 4.5 % (21.2-54.2); Mean Corpuscular HGB Conc 33.6 GM/DL (32-36); Mean Corpuscular Hemoglobin 31 PG (27-34); Mean Corpuscular Volume 93.6 FL (87-102); Mean Platelet Volume 12.2 FL (9.6-12.0); Monocytes % 6.8 % (1.7-12.7); Neutrophils # 13.5 10*3/uL (1.4-7.4); Neutrophils % 88.2 % (38.7-73.9); Platelet Count 163 T/CUMM (130-400); Red Blood Count 2.83 MC/CUMM (3.8-5.5); Red Cell Distribution Width 12.6 % (9.3-17.3); White Blood Count 15.3 T/CUMM (4-12)
[2016-10-09 04:22] LABS: Calcium 7.3 MG/DL (8.5-10.1); Magnesium 2.6 MG/DL (1.8-2.4); Osmolality,Calculated 292.8 MOS/KG (273-304)
[2016-10-09 04:33] LABS: Anisocytosis Slight; Band Neutrophils 4 % (0-10); Lymphocytes 4 % (20-55); Microcytosis Slight; Platelet Estimate Normal; Segmented Neutrophils 86 % (50-85); Total Cells Counted 100
[2016-10-09 04:34] LABS: Potassium 6.2 MMOL/L (3.5-5.1)
[2016-10-09 04:36] LABS: Pt O2 Delivery Device Ventilator
[2016-10-09 04:45] LABS: ABG Base Excess -9.4 MMOL/L (-2.5-2.5); ABG HCO3 16.8 MMOL/L (20-26); ABG Oxygen Saturation 99.2 % (95-100); ABG PCO2 35.7 MM HG (35-48); ABG PH 7.276 (7.35-7.45); ABG TCO2 15.6 MMOL/L (23-27)
[2016-10-09] MEDS: SODIUM CHLORIDE 0.9% 2,000 ML IV SCH ×2 (04:45→10:26)
[2016-10-09] MEDS ORDERED: SODIUM POLYSTYRENE SULFATE 15 GM/60 ML BOTTLE PO ONE ×2 (06:06→08:45)
[2016-10-09] MEDS ORDERED: CALCIUM GLUCONATE 1,000 MG in SODIUM CHLORIDE 0.9% 100 ML IV ONE (06:06)
--- NOTE | 2016-10-09 06:48 | ECHO Report ---
Ernesto Day 10/08/2016 Exam Date: 08:59 Referring Physician: Ariana Prieto Technologist: NOMI Age: 56 Ht (in): 66 Wt (lb): 200 MExam Location: [facility] [place] Gender: Echo [id number]: Altered mental status, Acute kidney Indications:failure, unspecified, Cocaine intoxication, Hyperkalemia, Polysubstance abuse, Heart failure, unspecified, Essential (primary) hypertension, Acute encephalopathy BP: 104 / 50 HR: 102 SinusRhythm: PoorTechnical Quality: IMPRESSIONS Normal LV systolic and diastolic function. Mild mitral and tricuspid regurgitation. Mild aortic stenosis. Mild pulmonary hypertension, pulmonary artery pressure estimated at 46 mmHg. MEASUREMENTS (Male / Female) Normal Values 2D ECHO LV Diastolic Diameter PLAX 5.4 cm 4.2 - 5.9 / 3.9 - 5.3 cm LV Systolic Diameter PLAX 4.2 cm LV Fractional Shortening PLAX 22.9 % IVS Diastolic Thickness 1.1 cm 0.6 - 1.0 / 0.6 - 0.9 cm LVPW Diastolic Thickness 1.1 cm 0.6 - 1.0 / 0.6 - 0.9 cm RV Internal Dim ED PLAX 2.1 cm Aortic Root Diameter 3.2 cm LA Systolic Diameter LX 3.8 cm 3.0 - 4.0 / 2.7 - 3.8 cm DOPPLER TR Peak Velocity 299.0 cm/s TR Peak Gradient 35.8 mmHg FINDINGS Left Ventricle Normal left ventricular cavity size. Mild left ventricular hypertrophy. Left ventricular ejection fraction is estimated at 60%. Right Ventricle The right ventricle is normal in size and function. Right Atrium The right atrium is normal in size. Left Atrium The left atrium is normal in size. Mitral Valve Morphologically normal mitral valve. Mild mitral valve regurgitation. Aortic Valve Moderate aortic valve calcification. Mean gradient 21 mmHg, YOSSI 1.4 cm. No aortic valve regurgitation. Tricuspid Valve Morphologically normal tricuspid valve. Mild tricuspid valve regurgitation. Tricuspid regurgitation velocities suggest a PAP of 46 mmHg. Pulmonic Valve Morphologically normal pulmonic valve without significant stenosis. There is no pulmonic regurgitation. Pericardium Normal pericardium without effusion. Aorta Normal ascending aorta dimension. Alexia Corral MD (Electronically Signed) 09 October 2016 Final Date: 06:47
--- NOTE | 2016-10-09 07:57 | Cardiology Progress Note ---
<Bria Goode E - Last Filed: 10/09/16 11:59> Assessment and Plan - Time spent with patient Time spent with patient: Less than 30 minutes (1) Altered mental status Status: Acute Assessment and plan: See plan of care listed below. Current Visit: Yes (2) Acute renal failure Status: Acute Assessment and plan: See plan of care listed below. Current Visit: Yes (3) Encephalopathy acute Status: Acute Assessment and plan: See plan of care listed below. Current Visit: Yes (4) Cocaine intoxication Status: Acute Assessment and plan: See plan of care listed below. Current Visit: Yes (5) Hyperkalemia Status: Acute Assessment and plan: See plan of care listed below. Current Visit: Yes (6) Polysubstance abuse Status: Acute Assessment and plan: See plan of care listed below. Current Visit: Yes (7) Hypertension Status: Chronic Assessment and plan: See plan of care listed below. Current Visit: Yes (8) Dyslipidemia Status: Chronic Assessment and plan: See plan of care listed below. Current Visit: Yes (9) Elevated troponin Status: Acute Assessment and plan: See plan of care listed below. Current Visit: Yes (10) Acute respiratory failure Status: Acute Assessment and plan: See plan of care listed below. 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 Day is a 56 year old male with a history of hypertension, dyslipidemia, depression, alcohol and drug abuse, and chronic back pain who was admitted with altered mental status and subsequently intubated in the emergency room. He was positive for cocaine upon arrival. He was started on Dobutamine and transferred to the CCU for further monitoring. He was noted to have elevated cardiac biomarkers and suspected CHF and we were consulted to see him. Echocardiogram on 10/08/16 revealed normal systolic and diastolic function, mild MR, mild , mild pulmonary hypertension with PA pressure 46 mmHg. Carotid doppler ultrasound revealed 41-59% diameter stenosis of both ICA origins present. OCTOBER 09, 2016 UPDATE: Upon exam this morning, Mr. Day is on CPAP trial. His sedation has been decreased for this; however, he is very agitated and is continually attempting to reach for his ET tube. BNP yesterday was 62 and he has normal systolic and diastolic function per his echo. His lung sounds are clear and he has no perpheral edema. He does not appear to be in heart failure at this time. He has been weaned from the dobutamine. He remains in NSR with borderline hypotension, on diprivan for sedation. At this time, he is stable from a cardiac standpoint. Will further disuss with Dr. Corral and await her additional recommendations. ASSESSMENT/PLAN: 1. ALTERED MENTAL STATUS - Patient is now intubated on mechanical ventilation. 2. ACUTE RENAL FAILURE - Creatinine up to 13.6. Nephrology is following. 3. ACUTE ENCEPHALOPATHY - CT of the head was negative. 4. COCAINE INTOXICATION - Acute. 5. HYPERKALEMIA - Potassium 6.4 today. He has been given Kayexalate this morning. 6. POLYSUBSTANCE ABUSE 7. HYPERTENSION - We will try to have his home medications confirmed. Currently well controlled. Will continue to monitor and adjust accordingly. 8. DYSLIPIDEMIA - Lipid panel revealed triglycerides 106, cholesterol 191, LDL 120, HDL 33. 9. ELEVATED TROPONIN - EKG has shown no acute changes. Suspect his cardiac biomarkers were elevated from the cocaine, the CK is disproportionately elevated compared to the MB and the troponin, particularly in the setting of severe acute renal failure. 10. ACUTE RESPIRATORY FAILURE - Pulmonology has been consulted for vent management. Exam (Progress Note) - Constitutional Vitals: Period Temp Pulse Resp BP Sys/Carbone Pulse Ox Last 24 Hr 98 F-98.9 F 70-108 7-22 75-122/45-73 95-100 Exam: General appearance: Orally intubated and sedated on ventilator. Overweight, no acute distress. - Head Head exam: Present: normal inspection, normocephalic, atraumatic. Absent: hematoma, laceration - Eye Eye exam: Present: EOMI. Absent: conjunctival injection, nystagmus, periorbital swelling, scleral icterus, laceration to eyelids Pupils: Present: PERRL. Absent: constricted, dilated, fixed, irregular, unequal - ENT ENT exam: Present: Orally intubated, normal external ear exam - Neck Neck exam: Present: normal inspection. Absent: lymphadenopathy, meningismus, tenderness, thyromegaly - Respiratory Respiratory exam: Present: Mechanically ventilated breath sounds. Absent: accessory muscle use - Cardiovascular Cardiovascular exam: Present: regular rate and rhythm, Bilateral carotid bruit, systolic murmur. Absent: gallop, JVD, rubs - GI/Abdominal GI/Abdominal exam: Present: normal bowel sounds, soft. Absent: distended, firm , guarding, hernia, mass, tenderness, rebound. - Extremities Exam Extremities exam: Present: normal inspection, normal capillary refill. Upper extremity pulses 2+. Lower extremity pulses 2+. Absent: calf tenderness, edema - Back Exam Back exam: Present: Unable to examine due to habitus. Sedated on mechanical ventilator. - Neurological Exam Neurological exam: Present: Limited due to habitus (on ventilator). Agitated at present, attempting to pull ETT. Will sometimes follow commands. Moves all extremities spontaneously without difficulty. No resting or essential tremor. - Psychiatric Psychiatric exam: Present: Unable to adequately assess due to patient being sedated and on mechanical ventilation. - Skin Skin exam: Present: normal color, warm, dry, intact. Absent: cyanosis, diaphoretic, rash, urticaria Result/EKG - Labs CBC & BMP: 10/09/16 03:18 10/09/16 04:56 Lab Results: I have reviewed the past 24 hour labs Labs: Laboratory Results - last 24 hr 10/08/16 10/08/16 10/08/16 07:00 07:00 07:00 WBC RBC Hgb Hct MCV MCH MCHC RDW Plt Count MPV Neut % (Auto) Lymph % (Auto) [place] % (Auto) Eos % (Auto) Baso % (Auto) Neut # (Auto) Lymph # (Auto) [place] # (Auto) Eos # (Auto) Baso # (Auto) Total Counted 100 Immature Gran % Nucleated RBC % Immature Gran # Segmented Neutrophils 91 H Band Neutrophils Lymphocytes 5 L Monocytes 4 Nucleated RBCs # Platelet Estimate Adequate Immature Plt Fraction Anisocytosis Microcytosis 1+ ABG pH ABG pCO2 ABG pO2 ABG HCO3 ABG Total CO2 ABG O2 Saturation ABG Base Excess FiO2 Sodium 136 Potassium 4.1 Chloride 101 Carbon Dioxide 22 Anion Gap 17.1 H BUN 55 H Creatinine 13.00 H GFR Calculation 5 BUN/Creatinine Ratio 4.00 L Glucose 169 H Calculated Osmolality 290.0 Calcium 7.9 L Magnesium Total Bilirubin 0.90 AST 113 H ALT 48 Alkaline Phosphatase 64 Total Creatine Kinase CK-MB (CK-2) CK and CKMB Interp Troponin I B-Natriuretic Peptide 62 Total Protein 6.1 L Albumin 2.6 L Globulin 3.5 Albumin/Globulin Ratio 0.7 L Triglycerides Cholesterol LDL Cholesterol VLDL Cholesterol HDL Cholesterol Heart Disease Risk Ratio 10/08/16 10/08/16 10/09/16 07:00 07:00 03:18 WBC 15.3 H RBC 2.83 L Hgb 8.9 L Hct 26.5 L MCV 93.6 MCH 31 MCHC 33.6 RDW 12.6 Plt Count 163 MPV 12.2 H Neut % (Auto) 88.2 H Lymph % (Auto) 4.5 L [place] % (Auto) 6.8 Eos % (Auto) 0.0 Baso % (Auto) 0.1 Neut # (Auto) 13.5 H Lymph # (Auto) 0.7 L [place] # (Auto) 1.0 H Eos # (Auto) 0.0 Baso # (Auto) 0.0 Total Counted 100 Immature Gran % 0.4 Nucleated RBC % 0.0 Immature Gran # 0.06 Segmented Neutrophils 86 H Band Neutrophils 4 Lymphocytes 4 L Monocytes 6 Nucleated RBCs # 0.00 Platelet Estimate Normal Immature Plt Fraction 0.0 Anisocytosis Slight Microcytosis Slight ABG pH ABG pCO2 ABG pO2 ABG HCO3 ABG Total CO2 ABG O2 Saturation ABG Base Excess FiO2 Sodium Potassium Chloride Carbon Dioxide Anion Gap BUN Creatinine GFR Calculation BUN/Creatinine Ratio Glucose Calculated Osmolality Calcium Magnesium Total Bilirubin AST ALT Alkaline Phosphatase Total Creatine Kinase 5425 H CK-MB (CK-2) 33.3 H CK and CKMB Interp 0.6 Troponin I 0.271 H D B-Natriuretic Peptide Total Protein Albumin Globulin Albumin/Globulin Ratio Triglycerides 106 Cholesterol 191 LDL Cholesterol 120.0 VLDL Cholesterol 21.2 HDL Cholesterol 33 L Heart Disease Risk Ratio 5.79 10/09/16 10/09/16 10/09/16 03:18 04:30 04:56 WBC RBC Hgb Hct MCV MCH MCHC RDW Plt Count MPV Neut % (Auto) Lymph % (Auto) [place] % (Auto) Eos % (Auto) Baso % (Auto) Neut # (Auto) Lymph # (Auto) [place] # (Auto) Eos # (Auto) Baso # (Auto) Total Counted Immature Gran % Nucleated RBC % Immature Gran # Segmented Neutrophils Band Neutrophils Lymphocytes Monocytes Nucleated RBCs # Platelet Estimate Immature Plt Fraction Anisocytosis Microcytosis ABG pH 7.276 L ABG pCO2 35.7 ABG pO2 178.0 H ABG HCO3 16.8 L ABG Total CO2 15.6 L ABG O2 Saturation 99.2 ABG Base Excess -9.4 L FiO2 60.00 Sodium 137 Potassium 6.2 H* D 6.4 H* Chloride 104 Carbon Dioxide 19 L Anion Gap 20.2 H BUN 65 H D Creatinine 13.60 H GFR Calculation 5 BUN/Creatinine Ratio 4.00 L Glucose 112 H Calculated Osmolality 292.8 Calcium 7.3 L Magnesium 2.6 H Total Bilirubin AST ALT Alkaline Phosphatase Total Creatine Kinase CK-MB (CK-2) CK and CKMB Interp Troponin I B-Natriuretic Peptide Total Protein Albumin Globulin Albumin/Globulin Ratio Triglycerides Cholesterol LDL Cholesterol VLDL Cholesterol HDL Cholesterol Heart Disease Risk Ratio - EKG EKG results: interpreted by me, sinus rhythm Quality Measures - Stroke Onset of Symptoms Date: 10/07/16 <Alexia Corral - Last Filed: 10/09/16 19:54> Cardiology - PN: Subj Interval history: I have personally interviewed and evaluated the patient, reviewed the chart and discussed medical decision-making with practitioner Russel. I have read this note and agree with her documentation here in. No new recommendations Exam (Progress Note) - Constitutional Vitals: Period Temp Pulse Resp BP Sys/Carbone Pulse Ox Last 24 Hr 97.2 F-98.9 F 68-83 11-26 80-113/44-79 92-100 Result/EKG - Labs CBC & BMP: 10/09/16 03:18 10/09/16 11:55 Labs: Laboratory Results - last 24 hr 10/09/16 10/09/16 10/09/16 03:18 03:18 04:30 WBC 15.3 H RBC 2.83 L Hgb 8.9 L Hct 26.5 L MCV 93.6 MCH 31 MCHC 33.6 RDW 12.6 Plt Count 163 MPV 12.2 H Neut % (Auto) 88.2 H Lymph % (Auto) 4.5 L [place] % (Auto) 6.8 Eos % (Auto) 0.0 Baso % (Auto) 0.1 Neut # (Auto) 13.5 H Lymph # (Auto) 0.7 L [place] # (Auto) 1.0 H Eos # (Auto) 0.0 Baso # (Auto) 0.0 Total Counted 100 Immature Gran % 0.4 Nucleated RBC % 0.0 Immature Gran # 0.06 Segmented Neutrophils 86 H Band Neutrophils 4 Lymphocytes 4 L Monocytes 6 Nucleated RBCs # 0.00 Platelet Estimate Normal Immature Plt Fraction 0.0 Anisocytosis Slight Microcytosis Slight ABG pH 7.276 L ABG pCO2 35.7 ABG pO2 178.0 H ABG HCO3 16.8 L ABG Total CO2 15.6 L ABG O2 Saturation 99.2 ABG Base Excess -9.4 L FiO2 60.00 Sodium 137 Potassium 6.2 H* D Chloride 104 Carbon Dioxide 19 L Anion Gap 20.2 H BUN 65 H D Creatinine 13.60 H GFR Calculation 5 BUN/Creatinine Ratio 4.00 L Glucose 112 H POC Glucose Calculated Osmolality 292.8 Calcium 7.3 L Magnesium 2.6 H 10/09/16 10/09/16 10/09/16 04:56 11:43 11:55 WBC RBC Hgb Hct MCV MCH MCHC RDW Plt Count MPV Neut % (Auto) Lymph % (Auto) [place] % (Auto) Eos % (Auto) Baso % (Auto) Neut # (Auto) Lymph # (Auto) [place] # (Auto) Eos # (Auto) Baso # (Auto) Total Counted Immature Gran % Nucleated RBC % Immature Gran # Segmented Neutrophils Band Neutrophils Lymphocytes Monocytes Nucleated RBCs # Platelet Estimate Immature Plt Fraction Anisocytosis Microcytosis ABG pH ABG pCO2 ABG pO2 ABG HCO3 ABG Total CO2 ABG O2 Saturation ABG Base Excess FiO2 Sodium Potassium 6.4 H* 5.5 H Chloride Carbon Dioxide Anion Gap BUN Creatinine GFR Calculation BUN/Creatinine Ratio Glucose POC Glucose 189 H Calculated Osmolality Calcium Magnesium 10/09/16 17:29 WBC RBC Hgb Hct MCV MCH MCHC RDW Plt Count MPV Neut % (Auto) Lymph % (Auto) [place] % (Auto) Eos % (Auto) Baso % (Auto) Neut # (Auto) Lymph # (Auto) [place] # (Auto) Eos # (Auto) Baso # (Auto) Total Counted Immature Gran % Nucleated RBC % Immature Gran # Segmented Neutrophils Band Neutrophils Lymphocytes Monocytes Nucleated RBCs # Platelet Estimate Immature Plt Fraction Anisocytosis Microcytosis ABG pH ABG pCO2 ABG pO2 ABG HCO3 ABG Total CO2 ABG O2 Saturation ABG Base Excess FiO2 Sodium Potassium Chloride Carbon Dioxide Anion Gap BUN Creatinine GFR Calculation BUN/Creatinine Ratio Glucose POC Glucose 126 H Calculated Osmolality Calcium Magnesium
--- NOTE | 2016-10-09 08:23 | XRay Report ---
XR chest 1V portable Indication: Intubated Comparison: Chest x-ray dated October 08, 2016 at 12:58 AM Technique: Single frontal view of the chest. Findings: Endotracheal tube stable in positioning. Mild interval increase aeration of lungs. Low lung volumes are maintained. There is bibasilar atelectasis/consolidation with probable small left pleural fluid. Visualized osseous and surrounding soft tissue structures appear grossly unchanged.. IMPRESSION: As above. PROCEDURE INTERPRETED AT [facility] DEPARTMENT OF RADIOLOGY Final Report Signed by: Dr Grady Nava
[2016-10-09] MEDS ORDERED: DEXTROSE 50% 25 GM/50 ML SYRINGE IV ONE (08:45)
--- NOTE | 2016-10-09 08:45 | Pulmonology Progress Note ---
Pulmonary - PN: Subj Interval history: Patient is a 56-year-old black man that has a history of hypertension and alcohol abuse. He has had some chronic pain issues. He came into the emergency room lethargic and had positive drug screen for cocaine and opiates. He has been put on the ventilator. He has also developed acute renal failure. He had a fairly good night and now is waking up okay. He has been comfortable on the ventilator. His oxygenation has been excellent. His urine output is on the low side. His creatinine is still over 13. Exam (Progress Note) - Constitutional Vitals: Period Temp Pulse Resp BP Sys/Carbone Pulse Ox Last 24 Hr 98 F-98.9 F 70-108 7-15 75-122/45-73 96-100 Exam: General appearance: normal weight, no acute distress (The patient is responding easily now and is comfortable on the ventilator.) - Head Head exam: Present: normal inspection, normocephalic - Eye Eye exam: Absent: scleral icterus Pupils: Present: constricted - ENT ENT exam: Present: other (ET tube is in good position.) - Neck Neck exam: Present: normal inspection. Absent: lymphadenopathy, thyromegaly - Respiratory Respiratory exam: Present: clear to auscultation bilaterally. He has good breath sounds bilaterally is moving air well without any wheezing. - Cardiovascular Cardiovascular exam: Present: regular rate and rhythm, tachycardia. Absent: gallop - GI/Abdominal GI/Abdominal exam: Present: hypoactive bowel sounds, soft. Absent: organomegaly , tenderness - Extremities Exam Extremities exam: Absent: calf tenderness, edema - Neurological Exam Neurological exam: Present: other (Patient is more awake now.) - Psychiatric Psychiatric exam: Absent: anxious - Skin Skin exam: Present: warm, dry Results - Labs CBC & BMP: 10/09/16 03:18 10/09/16 04:56 Labs: His PO2 is 178 with a PCO2 of 35 and a pH of 7.27 - Diagnostic Findings Procedure: Chest x-ray: image reviewed by me, report reviewed by me (Chest x- ray is fairly clear.) Assessment and Plan (1) Acute respiratory failure Status: Acute Assessment and plan: Patient came in obtunded and is now on the ventilator. Will continue with ventilatory support. We will start CPAP trials. Current Visit: Yes (2) Acute renal failure Status: Acute Assessment and plan: The patient's creatinine is over 13 now. Current Visit: Yes (3) Cocaine intoxication Status: Acute Assessment and plan: Patient apparently has had cocaine abuse. Current Visit: Yes (4) Polysubstance abuse Status: Acute Assessment and plan: The patient has a history of substance abuse. Current Visit: Yes (5) Encephalopathy acute Status: Acute Assessment and plan: Patient is more alert and responding to commands now. Current Visit: Yes
[2016-10-09] MEDS ORDERED: INSULIN REGULAR 100 UNIT/ML IV ONE (08:46)
[2016-10-09] MEDS ORDERED: SODIUM POLYSTYRENE SULFATE 15 GM/60 ML BOTTLE RECTAL PRN (09:14)
[2016-10-09] MEDS ORDERED: SODIUM POLYSTYRENE SULFATE 15 GM/60 ML BOTTLE PO PRN (09:14)
--- NOTE | 2016-10-09 09:15 | Physician Query Form ---
CLICK EDIT DOCUMENT TO SELECT QUERY ANSWER --> OK --> SIGN Lety Lucia RN, CCDS Certified Clinical Flight Engineer Instructor W) [phone] (f) [phone] [email or web address] PROVIDERS: Make your selection(s) from the choices in EACH section by typing an "x" and enter comments in the comment section. Please use your independent medical judgment in providing your response. This request does not imply that any particular answer is desired or expected. CLINICAL INDICATORS: (Providers should not edit this section) The medical record indicates that the patient was admitted with cocaine intoxication, "needed to be intubated in the emergency room to protect his airway" and then "Acute respiratory failure" is mentioned. As the attending MD can you please clarify the status of the intubation? Based on the above, could you clarify the appropriate diagnosis, if significant , that supports the above abnormalities and additional evaluation, monitoring, and/or treatment rendered: ( x) Intubation was for airway protection ( ) Intubation was for respiratory failure ( ) Intubation was for airway protection and respiratory failure ( ) Other, please specify: ( ) Clinically unable to determine COMMENTS: PLEASE ALSO DOCUMENT RESPONSE IN PROGRESS NOTES AND/OR DISCHARGE SUMMARY Use of terms such as suspected, likely, or probable (associated with a specific diagnosis that is being evaluated, monitored, or treated as if it exists) are acceptable and can be restated in the discharge summary if not ruled out. MTDD
--- NOTE | 2016-10-09 09:32 | Hospitalist Progress Note ---
Assessment and Plan (1) Acute respiratory failure Status: Acute Assessment and plan: Intubated with bilateral opacities, cont zosyn to cover aspiration, patient not tolerating CPAP trails due to agitation, Dr Pelayo does not want to extubate until dialysis determined Current Visit: Yes (2) Acute renal failure Status: Acute Assessment and plan: Dr. Rob does not want to do dialysis, treating hyperkalemia with IV insulin, calcium gluconate, Kayexalate, amp of D50, recheck potassium at noon Current Visit: Yes (3) Hyperkalemia Status: Acute Assessment and plan: Treat with calcium gluconate, IV insulin, amp of D50, Kayexalate Current Visit: Yes (4) Polysubstance abuse Status: Acute Assessment and plan: Patient was positive for opiates and cocaine. Current Visit: Yes (5) Congestive heart failure Status: Acute Assessment and plan: Echocardiogram showed an EF of 65% and a normal BNP no evidence to suggest or support congestive heart failure at this time. Current Visit: Yes (6) Encephalopathy acute Status: Acute Assessment and plan: Possibly due to polysubstance abuse. Will get EEG to ensure no seizures. Current Visit: Yes (7) Elevated troponin Status: Acute Assessment and plan: Serial troponins positive, most likely due to cocaine abuse, cardiology is following, Current Visit: Yes (8) Anemia Status: Acute Assessment and plan: Hemoglobin trending down but not an alarming rate. Cont protonix Current Visit: Yes (9) Hypotension Status: Acute Assessment and plan: blood pressure better today cont at 100 ml/hr Current Visit: Yes (10) Ileus Status: Acute Assessment and plan: start tube feeding at low rate. Current Visit: Yes Hospitalist: Subjective Interval history: Patient extremely agitated. We renewed his restraints. He is can be very difficult to extubate. We try to put him on CPAP trials and becomes very combative and agitated. His urine output is only about 5/h. His potassium is rising and have notified Dr. Rob. Dr. Pelayo does not want to attempt to extubate him until we know if we have to dialyze Exam - Constitutional Vitals: Period Temp Pulse Resp BP Sys/Carbone Pulse Ox Last 24 Hr 98 F-98.9 F 70-108 12-13 75-122/45-73 96-100 Exam: Heart Rate-[regular rate and rhythm] Lungs-[bilateral rhonchi ] GI-[diminished bs soft, NT] Ext-[no edema] Neuro moving all extremities, sedated on vent psych cannot assess General [no acute distress] Results - Labs CBC & BMP: 10/09/16 03:18 10/09/16 04:56 Lab Results: I have reviewed the past 24 hour labs Labs: Blood cultures 2 negative no growth - Diagnostic Findings Procedure: Chest x-ray: report reviewed by me (Bilateral atelectasis), KUB x-ray : report reviewed by me (Nonspecific bowel gas pattern) Quality Measures - Stroke Onset of Symptoms Date: 10/07/16
[2016-10-09] MEDS: LACOSAMIDE INJ 100 MG in SODIUM CHLORIDE 0.9% 50 ML IV SCH ×2 (10:21→22:06)
[2016-10-09] MEDS: MULTIVITAMIN (CENTRUM) TABLET PO SCH (10:22)
[2016-10-09] MEDS: THIAMINE 200 MG/2 ML VIAL IV SCH (10:22)
[2016-10-09] MEDS: FOLIC ACID 1 MG TABLET PO SCH (10:23)
[2016-10-09] MEDS: ENOXAPARIN 30 MG/0.3 ML SYRINGE SUBCUT SCH (10:25)
[2016-10-09] MEDS: SODIUM BICARB INJ 150 MEQ in DEXTROSE 5% 1,000 ML IV SCH ×2 (10:25→22:50)
[2016-10-09] MEDS ORDERED: GLUCAGON 1 MG VIAL IM PRN (11:22)
--- NOTE | 2016-10-09 13:11 | Nephrology Progress Note ---
Nephrology - PN: Subj Interval history: Patient remains intubated and sedate. Physical exam general the patient is chronically ill-appearing, heart is regular rate and rhythm, he has no pitting edema, lungs are clear to auscultation anteriorly, abdomen is soft with positive bowel sounds Assessment/plan 1. Acute renal failure-patient's creatinine is around 13.6 mg/ dL, his blood urea nitrogen is around 70, his urine output is marginal. We will continue to monitor for improvement. I had like to try and give him a few more days to recover prior to initiating hemodialysis however if his potassium or metabolic acidosis become more problematic we may be forced to dialyze him sooner rather than later. 2. Hyperkalemia-patient's potassium is down to 5.5 with Kayexalate will continue to monitor this 2. Metabolic acidosis-we will continue his bicarb infusion 3. Cocaine toxicity 4. Respiratory failure continue vent support Exam (PN)-Nephrology - Vital Signs Vital signs: Period Temp Pulse Resp BP Sys/Carbone Pulse Ox Last 24 Hr 97.4 F-98.9 F 68-96 12-19 93-122/48-73 96-100 - Lab 10/09/16 03:18 10/09/16 11:55 Most recent lab results ABG pH 7.276 (7.35-7.45) L 10/09/16 04:30 ABG pCO2 35.7 MM HG (35-48) 10/09/16 04:30 ABG pO2 178.0 MM HG (80-95) H 10/09/16 04:30 ABG HCO3 16.8 MMOL/L (20-26) L 10/09/16 04:30 ABG O2 Saturation 99.2 % (95-100) 10/09/16 04:30 Calcium 7.3 MG/DL (8.5-10.1) L 10/09/16 03:18 Magnesium 2.6 MG/DL (1.8-2.4) H 10/09/16 03:18 Assessment and Plan (1) Acute renal failure Status: Acute Assessment and plan: This patient presented with a creatinine of 11 is up to 13 mg/dL today. He had cocaine in his system his blood pressure has been at the low end of normal since admission. He is getting dobutamine. He has no history of kidney failure in the past. Will try and get some previous lab from Dr. Garrison's office. To see what his baseline creatinine is been. The patient is also noted to have an elevated CPK level. I would worry that he has an ATN injury related to his cocaine use also contributing could be his elevated CPK level. We will continue IV fluids for now and monitor for improvement. I do not see any acute indication for hemodialysis at this time. With his decreased urine output I am going to decrease his IV fluids to 150 cc an hour from 200 cc an hour. Current Visit: Yes (2) Anemia Status: Acute Assessment and plan: Patient's hematocrit is 28% Current Visit: Yes (3) Acute respiratory failure Status: Acute Assessment and plan: Continue vent support Current Visit: Yes (4) Altered mental status Status: Acute Current Visit: Yes (5) Cocaine intoxication Status: Acute Current Visit: Yes (6) Hyperkalemia Status: Acute Assessment and plan: His potassium is returning to the normal range Current Visit: Yes (7) Dyslipidemia Status: Chronic Current Visit: Yes (8) Hypertension Status: Chronic Assessment and plan: Patient's blood pressures at the low end of normal he is on dobutamine Current Visit: Yes (9) Metabolic acidosis Status: Acute Assessment and plan: Patient's bicarb is improved to 22 from 20 Current Visit: Yes
[2016-10-09] MEDS: INSULIN REGULAR 100 UNIT/ML SUBCUT SCH ×2 (15:43→18:12)
[2016-10-09] MEDS: ERYTHROMYCIN INJ 250 MG in SODIUM CHLORIDE 0.9% 100 ML IV SCH ×2 (16:12→22:09)
[2016-10-10] MEDS: LORazepam 2 MG/1 ML VIAL IV PRN (00:06)
[2016-10-10] MEDS: INSULIN REGULAR 100 UNIT/ML SUBCUT SCH ×4 (00:17→18:17)
[2016-10-10] MEDS: ALBUTEROL/IPRATROPIUM 3 ML NEB RESP TX SCH ×4 (01:18→20:05)
[2016-10-10] MEDS: ERYTHROMYCIN INJ 250 MG in SODIUM CHLORIDE 0.9% 100 ML IV SCH ×4 (02:17→21:16)
[2016-10-10] MEDS: PANTOPRAZOLE 40 MG VIAL IV SCH (02:17)
[2016-10-10] MEDS: PROPOFOL 1,000 MG/100 ML BOTTLE IV SCH ×7 (02:30→21:32)
[2016-10-10] MEDS: PIPERACILLIN/TAZOBACTAM 3,375 MG in SODIUM CHLORIDE 0.9% 100 ML IV SCH ×2 (02:33→15:53)
[2016-10-10 02:54] LABS: ABG Base Excess -5.1 MMOL/L (-2.5-2.5); ABG HCO3 20.1 MMOL/L (20-26); ABG PH 7.351 (7.35-7.45); ABG PO2 63.9 MM HG (80-95); ABG TCO2 18.4 MMOL/L (23-27); Allen Test Positive; Pt O2 Delivery Device Ventilator
[2016-10-10] MEDS ORDERED: VECURONIUM 10 MG VIAL IV ONE (02:59)
[2016-10-10 04:14] LABS: Eosinophils % 0.2 % (0.00-10.9); Hematocrit 29.7 VOL% (42.0-52.0); Hemoglobin 10.4 GM/DL (14.0-18.0); Immature Granulocytes % 0.5 %; Immature Granulocytes Absolute 0.04 #; Lymphocytes % 12.6 % (21.2-54.2); Mean Corpuscular Hemoglobin 33 PG (27-34); Mean Corpuscular Volume 94.3 FL (87-102); Mean Platelet Volume 12.2 FL (9.6-12.0); Monocytes # 0.5 10*3/uL (0.11-0.8); Neutrophils # 6.6 10*3/uL (1.4-7.4); Neutrophils % 80.7 % (38.7-73.9); Platelet Count 162 T/CUMM (130-400); Red Blood Count 3.15 MC/CUMM (3.8-5.5); Red Cell Distribution Width 12.9 % (9.3-17.3); White Blood Count 8.2 T/CUMM (4-12)
[2016-10-10 04:44] LABS: Calcium 6.9 MG/DL (8.5-10.1); Magnesium 2.3 MG/DL (1.8-2.4); Osmolality,Calculated 299.5 MOS/KG (273-304); Potassium 4.2 MMOL/L (3.5-5.1)
[2016-10-10 05:58] LABS: Magnesium 2.3 MG/DL (1.8-2.4); Phosphorous 6.3 MG/DL (2.5-4.9); Prealbumin 21.9 MG/DL (20-40)
--- NOTE | 2016-10-10 07:41 | XRay Report ---
XR chest 1V portable Indication: Intubated Comparison: Chest x-ray dated October 09, 2016 Technique: Single frontal view of the chest. Findings: Cardiomediastinal silhouette is partially obscured. There has been interval increased opacification within them bilateral mid and lower lungs, greater on the left, suggesting pneumonia or pulmonary edema. Suspect small left pleural fluid. Low lung volumes are again noted. Visualized osseous and surrounding soft tissue structures appear grossly unchanged. Endotracheal tube stable in positioning. IMPRESSION: As above. PROCEDURE INTERPRETED AT [facility] DEPARTMENT OF RADIOLOGY Final Report Signed by: Dr Grady Nava
--- NOTE | 2016-10-10 07:43 | Nephrology Progress Note ---
Nephrology - PN: Subj Interval history: Patient remains intubated and sedate. The patient does follow commands per report, however he became very agitated on the ventilator last night and required re-sedation. Physical exam general the patient chronically ill-appearing, heart is regular rate and rhythm, he has no pitting edema, lungs are clear to auscultation anteriorly, abdomen is soft with positive bowel sounds Urine output is 4 cc in the past 24 hours Assessment/plan 1. Acute renal failure-this patient's urine output is minimal his creatinine is increased to 14 mg/dL his blood urea nitrogen level is 70, at this point it seems as injury is very dense to his kidneys, I do not foresee any significant improvement in the next few days. Will go ahead and ask surgery for a HD catheter placement and will anticipate initiating dialysis within the next 1-2 days. 2. Cocaine toxicity 3. Hyperkalemia this has normalized 4. Metabolic acidosis his bicarbonate is 22 today. Exam (PN)-Nephrology - Vital Signs Vital signs: Period Temp Pulse Resp BP Sys/Carbone Pulse Ox Last 24 Hr 97.2 F-99.9 F 68-108 11-28 80-121/41-79 81-100 - Lab 10/10/16 03:35 10/10/16 03:35 Most recent lab results ABG pH 7.351 (7.35-7.45) 10/10/16 02:35 ABG pCO2 36.0 MM HG (35-48) 10/10/16 02:35 ABG pO2 63.9 MM HG (80-95) L 10/10/16 02:35 ABG HCO3 20.1 MMOL/L (20-26) 10/10/16 02:35 ABG O2 Saturation 91.0 % (95-100) L 10/10/16 02:35 Calcium 6.9 MG/DL (8.5-10.1) L 10/10/16 03:35 Phosphorus 6.3 MG/DL (2.5-4.9) H 10/10/16 03:35 Magnesium 2.3 MG/DL (1.8-2.4) 10/10/16 03:35 Assessment and Plan (1) Acute renal failure Status: Acute Assessment and plan: This patient presented with a creatinine of 11 is up to 13 mg/dL today. He had cocaine in his system his blood pressure has been at the low end of normal since admission. He is getting dobutamine. He has no history of kidney failure in the past. Will try and get some previous lab from Dr. Garrison's office. To see what his baseline creatinine is been. The patient is also noted to have an elevated CPK level. I would worry that he has an ATN injury related to his cocaine use also contributing could be his elevated CPK level. We will continue IV fluids for now and monitor for improvement. I do not see any acute indication for hemodialysis at this time. With his decreased urine output I am going to decrease his IV fluids to 150 cc an hour from 200 cc an hour. Current Visit: Yes (2) Anemia Status: Acute Assessment and plan: Patient's hematocrit is 28% Current Visit: Yes (3) Acute respiratory failure Status: Acute Assessment and plan: Continue vent support Current Visit: Yes (4) Altered mental status Status: Acute Current Visit: Yes (5) Cocaine intoxication Status: Acute Current Visit: Yes (6) Hyperkalemia Status: Acute Assessment and plan: His potassium is returning to the normal range Current Visit: Yes (7) Dyslipidemia Status: Chronic Current Visit: Yes (8) Hypertension Status: Chronic Assessment and plan: Patient's blood pressures at the low end of normal he is on dobutamine Current Visit: Yes (9) Metabolic acidosis Status: Acute Assessment and plan: Patient's bicarb is improved to 22 from 20 Current Visit: Yes
--- NOTE | 2016-10-10 08:56 | Pulmonology Progress Note ---
Pulmonary - PN: Subj Interval history: Patient is a 56-year-old black man that has a history of hypertension and alcohol abuse. He has had some chronic pain issues. He came into the emergency room lethargic and had positive drug screen for cocaine and opiates. He has been put on the ventilator. He has also developed acute renal failure. During the night he had worsening hypoxemia and is on more PEEP and FiO2. His chest x-ray is getting worse. His creatinine is over 14 now. He is sedated on the ventilator. Exam (Progress Note) - Constitutional Vitals: Period Temp Pulse Resp BP Sys/Carbone Pulse Ox Last 24 Hr 97.2 F-99.9 F 68-108 11-28 80-121/41-79 81-100 Exam: General appearance: normal weight, no acute distress (The patient is sedated now. ) - Head Head exam: Present: normal inspection, normocephalic - Eye Eye exam: Absent: scleral icterus Pupils: Present: constricted - ENT ENT exam: Present: other (ET tube is in good position.) - Neck Neck exam: Present: normal inspection. Absent: lymphadenopathy, thyromegaly - Respiratory Respiratory exam: Present: He has good breath sounds bilaterally but they are coarse. - Cardiovascular Cardiovascular exam: Present: regular rate and rhythm, tachycardia. Absent: gallop - GI/Abdominal GI/Abdominal exam: Present: hypoactive bowel sounds, soft. Absent: organomegaly , tenderness - Extremities Exam Extremities exam: Absent: calf tenderness, edema - Neurological Exam Neurological exam: Present: Patient is sedated at present. - Psychiatric Psychiatric exam: Absent: anxious - Skin Skin exam: Present: warm, dry Results - Labs CBC & BMP: 10/10/16 03:35 10/10/16 03:35 Labs: PO2 63 with a PCO2 of 36 and a pH of 7.35 - Diagnostic Findings Procedure: Chest x-ray: image reviewed by me, report reviewed by me (Chest x- ray is worse with bilateral infiltrates.) Assessment and Plan (1) Acute respiratory failure Status: Acute Assessment and plan: Patient came in obtunded and is now on the ventilator. The patient's chest x- ray is getting worse and requiring more PEEP and FiO2. He will probably need dialysis soon. Current Visit: Yes (2) Acute renal failure Status: Acute Assessment and plan: The patient's creatinine is over 14 now. Current Visit: Yes (3) Cocaine intoxication Status: Acute Assessment and plan: Patient apparently has had cocaine abuse. Current Visit: Yes (4) Polysubstance abuse Status: Acute Assessment and plan: The patient has a history of substance abuse. Current Visit: Yes (5) Encephalopathy acute Status: Acute Assessment and plan: Patient is more alert and responding to commands now. He did have to require sedation on the ventilator. Current Visit: Yes
[2016-10-10] MEDS: SODIUM BICARB INJ 150 MEQ in DEXTROSE 5% 1,000 ML IV SCH (10:02)
--- NOTE | 2016-10-10 10:21 | Physician Query Form ---
CLICK EDIT DOCUMENT TO SELECT QUERY ANSWER --> OK --> SIGN Lety Lucia RN, CCDS Certified Clinical [employer] Technician W) [phone] (f) [phone] [email or web address] PROVIDERS: Make your selection(s) from the choices in EACH section by typing an "x" and enter comments in the comment section. Please use your independent medical judgment in providing your response. This request does not imply that any particular answer is desired or expected. CLINICAL INDICATORS: (Providers should not edit this section) The medical record indicates that the patient was admitted with cocaine intoxication, encephalopathy {acute} is mentioned, and the patient had a CT of the brain done. Can you please provide further clarification regarding Encephalopathy? ETIOLOGY: ( ) Alcoholic ( ) Hepatic ( ) with Coma ( ) without Coma ( ) Hypertensive ( ) Toxic ( ) Traumatic (x ) Metabolic ( ) Septic ( ) Drug Induced ( ) Due to other condition, please specify: ( ) Clinically unable to determine COMMENTS: PLEASE ALSO DOCUMENT RESPONSE IN PROGRESS NOTES AND/OR DISCHARGE SUMMARY Use of terms such as suspected, likely, or probable (associated with a specific diagnosis that is being evaluated, monitored, or treated as if it exists) are acceptable and can be restated in the discharge summary if not ruled out. MTDD
--- NOTE | 2016-10-10 10:42 | XRay Report ---
XR chest 1V portable Indication: HD catheter placement Comparison: Chest x-ray dated October 10, 2016 at 3:21 AM Technique: Single frontal view of the chest. Findings: Right-sided internal jugular approach central venous catheter tip projects over the atriocaval junction. Endotracheal tube tip remains at the clavicular level. Cardiomediastinal silhouette remains obscured. Mildly progressed bilateral pulmonary consolidation. Low lung volumes remain. Visualized osseous and surrounding soft tissue structures appear grossly unchanged. IMPRESSION: As above. PROCEDURE INTERPRETED AT [facility] DEPARTMENT OF RADIOLOGY Final Report Signed by: Dr Grady Nava
--- NOTE | 2016-10-10 10:53 | Cardiology Progress Note ---
<Bria Goode E - Last Filed: 10/10/16 10:49> Assessment and Plan - Time spent with patient Time spent with patient: Less than 30 minutes (1) Altered mental status Status: Acute Assessment and plan: See plan of care listed below. Current Visit: Yes (2) Acute renal failure Status: Acute Assessment and plan: See plan of care listed below. Current Visit: Yes (3) Encephalopathy acute Status: Acute Assessment and plan: See plan of care listed below. Current Visit: Yes (4) Cocaine intoxication Status: Acute Assessment and plan: See plan of care listed below. Current Visit: Yes (5) Hyperkalemia Status: Acute Assessment and plan: See plan of care listed below. Current Visit: Yes (6) Polysubstance abuse Status: Acute Assessment and plan: See plan of care listed below. Current Visit: Yes (7) Hypertension Status: Chronic Assessment and plan: See plan of care listed below. Current Visit: Yes (8) Dyslipidemia Status: Chronic Assessment and plan: See plan of care listed below. Current Visit: Yes (9) Elevated troponin Status: Acute Assessment and plan: See plan of care listed below. Current Visit: Yes (10) Acute respiratory failure Status: Acute Assessment and plan: See plan of care listed below. Current Visit: Yes Cardiology - PN: Subj Interval history: Global Compensation Director: Dr. Valle (last seen in 2014) SUMMARY: Mr. Day is a 56 year old male with a history of hypertension, dyslipidemia, depression, alcohol and drug abuse, and chronic back pain who was admitted with altered mental status and subsequently intubated in the emergency room. He was positive for cocaine upon arrival. He was started on Dobutamine and transferred to the CCU for further monitoring. He was noted to have elevated cardiac biomarkers and suspected CHF and we were consulted to see him. Echocardiogram on 10/08/16 revealed normal systolic and diastolic function, mild MR, mild , mild pulmonary hypertension with PA pressure 46 mmHg. Carotid doppler ultrasound revealed 41-59% diameter stenosis of both ICA origins present. OCTOBER 10, 2016 UPDATE: Upon exam this morning, Mr. Day is sedated and resting comfortably on the mechanical ventilator. BNP was 62 and he has normal systolic and diastolic function per his echo. He has no perpheral edema. He does not appear to be in heart failure at this time. He has been weaned from the dobutamine. He remains in NSR with borderline hypotension, on diprivan for sedation. At this time, he is stable from a cardiac standpoint. Will further disuss with Dr. Corral and await her additional recommendations. ASSESSMENT/PLAN: 1. ALTERED MENTAL STATUS - Patient is now intubated on mechanical ventilation. 2. ACUTE RENAL FAILURE - Creatinine up to 14.6. Nephrology is following. He is to start dialysis today. 3. ACUTE ENCEPHALOPATHY - CT of the head was negative. 4. COCAINE INTOXICATION - Acute. 5. HYPERKALEMIA - Potassium 4.2 today. 6. POLYSUBSTANCE ABUSE 7. HYPERTENSION - We will try to have his home medications confirmed. Currently well controlled. Will continue to monitor and adjust accordingly. 8. DYSLIPIDEMIA - Lipid panel revealed triglycerides 106, cholesterol 191, LDL 120, HDL 33. 9. ELEVATED TROPONIN - EKG has shown no acute changes. Suspect his cardiac biomarkers were elevated from the cocaine, the CK is disproportionately elevated compared to the MB and the troponin, particularly in the setting of severe acute renal failure. 10. ACUTE RESPIRATORY FAILURE - Pulmonology has been consulted for vent management. Chest x-ray this morning shows mildly progressed bilateral pulmonary consolidation. Exam (Progress Note) - Constitutional Vitals: Period Temp Pulse Resp BP Sys/Carbone Pulse Ox Last 24 Hr 97.2 F-99.9 F 71-108 11-28 80-121/41-79 81-100 Exam: General appearance: Orally intubated and sedated on ventilator. Overweight, no acute distress. - Head Head exam: Present: normal inspection, normocephalic, atraumatic. Absent: hematoma, laceration - Eye Eye exam: Present: EOMI. Absent: conjunctival injection, nystagmus, periorbital swelling, scleral icterus, laceration to eyelids Pupils: Present: PERRL. Absent: constricted, dilated, fixed, irregular, unequal - ENT ENT exam: Present: Orally intubated, normal external ear exam - Neck Neck exam: Present: normal inspection. Absent: lymphadenopathy, meningismus, tenderness, thyromegaly - Respiratory Respiratory exam: Present: Mechanically ventilated breath sounds, more coarse today. Absent: accessory muscle use - Cardiovascular Cardiovascular exam: Present: regular rate and rhythm, Bilateral carotid bruit, systolic murmur. Absent: gallop, JVD, rubs - GI/Abdominal GI/Abdominal exam: Present: normal bowel sounds, soft. Absent: distended, firm , guarding, hernia, mass, tenderness, rebound. - Extremities Exam Extremities exam: Present: normal inspection, normal capillary refill. Upper extremity pulses 2+. Lower extremity pulses 2+. Absent: calf tenderness, edema - Back Exam Back exam: Present: Unable to examine due to habitus. Sedated on mechanical ventilator. - Neurological Exam Neurological exam: Present: Limited due to habitus (on ventilator). Will sometimes follow commands. Moves all extremities spontaneously without difficulty. No resting or essential tremor. - Psychiatric Psychiatric exam: Present: Unable to adequately assess due to patient being sedated and on mechanical ventilation. - Skin Skin exam: Present: normal color, warm, dry, intact. Absent: cyanosis, diaphoretic, rash, urticaria Result/EKG - Labs CBC & BMP: 10/10/16 03:35 10/10/16 03:35 Lab Results: I have reviewed the past 24 hour labs Labs: Laboratory Results - last 24 hr 10/09/16 10/09/16 10/09/16 11:43 11:55 17:29 WBC RBC Hgb Hct MCV MCH MCHC RDW Plt Count MPV Neut % (Auto) Lymph % (Auto) [place] % (Auto) Eos % (Auto) Baso % (Auto) Neut # (Auto) Lymph # (Auto) [place] # (Auto) Eos # (Auto) Baso # (Auto) Immature Gran % Nucleated RBC % Immature Gran # Nucleated RBCs # Immature Plt Fraction ABG pH ABG pCO2 ABG pO2 ABG HCO3 ABG Total CO2 ABG O2 Saturation ABG Base Excess FiO2 Sodium Potassium 5.5 H Chloride Carbon Dioxide Anion Gap BUN Creatinine GFR Calculation BUN/Creatinine Ratio Glucose POC Glucose 189 H 126 H Calculated Osmolality Calcium Phosphorus Magnesium Prealbumin 10/10/16 10/10/16 10/10/16 00:12 02:35 03:35 WBC RBC Hgb Hct MCV MCH MCHC RDW Plt Count MPV Neut % (Auto) Lymph % (Auto) [place] % (Auto) Eos % (Auto) Baso % (Auto) Neut # (Auto) Lymph # (Auto) [place] # (Auto) Eos # (Auto) Baso # (Auto) Immature Gran % Nucleated RBC % Immature Gran # Nucleated RBCs # Immature Plt Fraction ABG pH 7.351 ABG pCO2 36.0 ABG pO2 63.9 L ABG HCO3 20.1 ABG Total CO2 18.4 L ABG O2 Saturation 91.0 L ABG Base Excess -5.1 L FiO2 70.00 Sodium Potassium Chloride Carbon Dioxide Anion Gap BUN Creatinine GFR Calculation BUN/Creatinine Ratio Glucose POC Glucose 118 H Calculated Osmolality Calcium Phosphorus 6.3 H Magnesium 2.3 Prealbumin 21.9 10/10/16 10/10/16 10/10/16 03:35 03:35 06:19 WBC 8.2 D RBC 3.15 L Hgb 10.4 L Hct 29.7 L MCV 94.3 MCH 33 MCHC 35.0 RDW 12.9 Plt Count 162 MPV 12.2 H Neut % (Auto) 80.7 H Lymph % (Auto) 12.6 L [place] % (Auto) 6.0 Eos % (Auto) 0.2 Baso % (Auto) 0.0 Neut # (Auto) 6.6 Lymph # (Auto) 1.0 L [place] # (Auto) 0.5 Eos # (Auto) 0.0 Baso # (Auto) 0.0 Immature Gran % 0.5 Nucleated RBC % 0.0 Immature Gran # 0.04 Nucleated RBCs # 0.00 Immature Plt Fraction 0.0 ABG pH ABG pCO2 ABG pO2 ABG HCO3 ABG Total CO2 ABG O2 Saturation ABG Base Excess FiO2 Sodium 139 Potassium 4.2 Chloride 102 Carbon Dioxide 22 Anion Gap 19.2 H BUN 70 H Creatinine 14.60 H GFR Calculation 4 BUN/Creatinine Ratio 4.00 L Glucose 141 H POC Glucose 145 H Calculated Osmolality 299.5 Calcium 6.9 L Phosphorus Magnesium 2.3 Prealbumin 10/10/16 07:09 WBC RBC Hgb Hct MCV MCH MCHC RDW Plt Count MPV Neut % (Auto) Lymph % (Auto) [place] % (Auto) Eos % (Auto) Baso % (Auto) Neut # (Auto) Lymph # (Auto) [place] # (Auto) Eos # (Auto) Baso # (Auto) Immature Gran % Nucleated RBC % Immature Gran # Nucleated RBCs # Immature Plt Fraction ABG pH ABG pCO2 ABG pO2 ABG HCO3 ABG Total CO2 ABG O2 Saturation ABG Base Excess FiO2 Sodium Potassium Chloride Carbon Dioxide Anion Gap BUN Creatinine GFR Calculation BUN/Creatinine Ratio Glucose POC Glucose 124 H Calculated Osmolality Calcium Phosphorus Magnesium Prealbumin - EKG EKG results: interpreted by me, sinus rhythm Quality Measures - Stroke Onset of Symptoms Date: 10/07/16 <Alexia Corral - Last Filed: 10/10/16 16:18> Cardiology - PN: Subj Interval history: I have personally interviewed and evaluated the patient, reviewed the chart and discussed medical decision-making with practitioner Russel. I have read this note and agree with her documentation here in. The patient has required high support for oxygenation. He is undergoing dialysis for this reason. However, his BNP is only 62 despite his acute renal failure, suggesting that his respiratory failure may be confounded by an additional process. He has preserved systolic function. No further cardiac recommendations at this time. Exam (Progress Note) - Constitutional Vitals: Period Temp Pulse Resp BP Sys/Carbone Pulse Ox Last 24 Hr 98.4 F-99.9 F 74-108 11-28 80-125/41-79 79-99 Result/EKG - Labs CBC & BMP: 10/10/16 03:35 10/10/16 03:35 Labs: Laboratory Results - last 24 hr 10/09/16 10/10/16 10/10/16 17:29 00:12 02:35 WBC RBC Hgb Hct MCV MCH MCHC RDW Plt Count MPV Neut % (Auto) Lymph % (Auto) [place] % (Auto) Eos % (Auto) Baso % (Auto) Neut # (Auto) Lymph # (Auto) [place] # (Auto) Eos # (Auto) Baso # (Auto) Immature Gran % Nucleated RBC % Immature Gran # Nucleated RBCs # Immature Plt Fraction ABG pH 7.351 ABG pCO2 36.0 ABG pO2 63.9 L ABG HCO3 20.1 ABG Total CO2 18.4 L ABG O2 Saturation 91.0 L ABG Base Excess -5.1 L FiO2 70.00 Sodium Potassium Chloride Carbon Dioxide Anion Gap BUN Creatinine GFR Calculation BUN/Creatinine Ratio Glucose POC Glucose 126 H 118 H Calculated Osmolality Calcium Phosphorus Magnesium Prealbumin Hepatitis A IgM Ab Hep Bs Antigen Hep B Core IgM Ab Hepatitis C Antibody 10/10/16 10/10/16 10/10/16 03:35 03:35 03:35 WBC 8.2 D RBC 3.15 L Hgb 10.4 L Hct 29.7 L MCV 94.3 MCH 33 MCHC 35.0 RDW 12.9 Plt Count 162 MPV 12.2 H Neut % (Auto) 80.7 H Lymph % (Auto) 12.6 L [place] % (Auto) 6.0 Eos % (Auto) 0.2 Baso % (Auto) 0.0 Neut # (Auto) 6.6 Lymph # (Auto) 1.0 L [place] # (Auto) 0.5 Eos # (Auto) 0.0 Baso # (Auto) 0.0 Immature Gran % 0.5 Nucleated RBC % 0.0 Immature Gran # 0.04 Nucleated RBCs # 0.00 Immature Plt Fraction 0.0 ABG pH ABG pCO2 ABG pO2 ABG HCO3 ABG Total CO2 ABG O2 Saturation ABG Base Excess FiO2 Sodium 139 Potassium 4.2 Chloride 102 Carbon Dioxide 22 Anion Gap 19.2 H BUN 70 H Creatinine 14.60 H GFR Calculation 4 BUN/Creatinine Ratio 4.00 L Glucose 141 H POC Glucose Calculated Osmolality 299.5 Calcium 6.9 L Phosphorus 6.3 H Magnesium 2.3 2.3 Prealbumin 21.9 Hepatitis A IgM Ab Hep Bs Antigen Hep B Core IgM Ab Hepatitis C Antibody 10/10/16 10/10/16 10/10/16 06:19 07:09 11:14 WBC RBC Hgb Hct MCV MCH MCHC RDW Plt Count MPV Neut % (Auto) Lymph % (Auto) [place] % (Auto) Eos % (Auto) Baso % (Auto) Neut # (Auto) Lymph # (Auto) [place] # (Auto) Eos # (Auto) Baso # (Auto) Immature Gran % Nucleated RBC % Immature Gran # Nucleated RBCs # Immature Plt Fraction ABG pH ABG pCO2 ABG pO2 ABG HCO3 ABG Total CO2 ABG O2 Saturation ABG Base Excess FiO2 Sodium Potassium Chloride Carbon Dioxide Anion Gap BUN Creatinine GFR Calculation BUN/Creatinine Ratio Glucose POC Glucose 145 H 124 H 126 H Calculated Osmolality Calcium Phosphorus Magnesium Prealbumin Hepatitis A IgM Ab Hep Bs Antigen Hep B Core IgM Ab Hepatitis C Antibody 10/10/16 11:55 WBC RBC Hgb Hct MCV MCH MCHC RDW Plt Count MPV Neut % (Auto) Lymph % (Auto) [place] % (Auto) Eos % (Auto) Baso % (Auto) Neut # (Auto) Lymph # (Auto) [place] # (Auto) Eos # (Auto) Baso # (Auto) Immature Gran % Nucleated RBC % Immature Gran # Nucleated RBCs # Immature Plt Fraction ABG pH ABG pCO2 ABG pO2 ABG HCO3 ABG Total CO2 ABG O2 Saturation ABG Base Excess FiO2 Sodium Potassium Chloride Carbon Dioxide Anion Gap BUN Creatinine GFR Calculation BUN/Creatinine Ratio Glucose POC Glucose Calculated Osmolality Calcium Phosphorus Magnesium Prealbumin Hepatitis A IgM Ab Negative Hep Bs Antigen Negative Hep B Core IgM Ab Negative Hepatitis C Antibody Negative
[2016-10-10] MEDS: THIAMINE 200 MG/2 ML VIAL IV SCH (11:24)
[2016-10-10] MEDS: LACOSAMIDE INJ 100 MG in SODIUM CHLORIDE 0.9% 50 ML IV SCH ×2 (11:25→21:15)
[2016-10-10] MEDS: MULTIVITAMIN (CENTRUM) TABLET PO SCH (11:25)
[2016-10-10] MEDS: FOLIC ACID 1 MG TABLET PO SCH (11:25)
[2016-10-10] MEDS: ENOXAPARIN 30 MG/0.3 ML SYRINGE SUBCUT SCH (11:26)
--- NOTE | 2016-10-10 11:38 | Operative Note ---
Date of procedure: 10/10/16 Pre-op diagnosis: Acute renal failure Post-op diagnosis: same Procedure: Procedure performed placement of right internal jugular temporary hemodialysis catheter Procedure in detail: With the patient lying supine he was placed in Trendelenburg position and the right neck was prepped and draped in usual sterile fashion. Ultrasound was brought over through a sterile sleeve cover. After procedural pause ultrasound the right neck performed and there was a patent and compressible right internal jugular vein. Right internal jugular vein was then accessed using an 18-gauge Seldinger needle under ultrasound guidance on the first attempt. There is return of nonpulsatile dark red blood. Guidewire inserted without resistance. The guidewire seem to be coursing through the visualized portion of the right internal jugular vein on ultrasound. Small incision was made around the guidewire and the tract was dilated. A non-cuffed hemodialysis catheter was then placed over the guidewire using Seldinger technique. The guidewire was removed. All ports withdrew and flushed easily. They were locked with saline. The catheter was secured in place with 2-0 silk suture. Patient tolerated the procedure well. Anesthesia: local Surgeon / Physician: Regan Constantino Estimated blood loss: other (Less than 10 cc) Specimens: none sent Condition: stable Disposition: no change Results - Labs CBC & BMP: 10/10/16 03:35 10/10/16 03:35 Discharge Plan - Discharge Medications No Action Lisinopril 40 mg PO DAILY Citalopram [CeleXA] 40 mg PO DAILY Amitriptyline [Elavil] 25 mg PO BEDTIME amLODIPine [Norvasc] 5 mg PO DAILY Atorvastatin [Lipitor] 40 mg PO DAILY Trazodone HCl 100 mg PO BEDTIME PRN PRN Reason: Sleep Metoprolol Tartrate 50 mg PO BID Ranitidine Tab [Zantac Tab] 150 mg PO BID Acetic Acid 2% Otic Soln [Vosol 2% Otic Soln] 5 drop LEFT EAR QID #15 ml Rosuvastatin [Crestor] 40 mg PO DAILY Gabapentin Cap/Tab [Neurontin Cap/Tab] 400 mg PO BID Meloxicam 7.5 mg PO Buspirone HCl 10 mg PO hydroCHLOROthiazide [Hydrochlorothiazide] 25 mg PO DAILY Topiramate [Topamax] 50 mg PO BID - Follow Up or Referral - Forms/Instructions
--- NOTE | 2016-10-10 12:09 | Hospitalist Progress Note ---
Assessment and Plan (1) Acute respiratory failure Status: Acute Assessment and plan: Intubated with with pulmonary edema requiring maximum oxygenation with higher levels of PEEP. Despite all this his sats are dropping down to 81. Patient requires emergency dialysis, cont zosyn to cover aspiration, Dr Pelayo managing Current Visit: Yes (2) Acute renal failure Status: Acute Assessment and plan: Worsening renal failure practically no urine output requiring dialysis today. Dr. Rob Current Visit: Yes (3) Hyperkalemia Status: Acute Assessment and plan: Resolved Current Visit: Yes (4) Polysubstance abuse Status: Acute Assessment and plan: Patient was positive for opiates and cocaine. Current Visit: Yes (5) Congestive heart failure Status: Acute Assessment and plan: Echocardiogram showed an EF of 65%. Patient now in volume overload due to renal failure will require emergency dialysis Current Visit: Yes (6) Encephalopathy acute Status: Acute Assessment and plan: Patient has metabolic encephalopathy secondary to need for dialysis. EEG done but reading pending Current Visit: Yes (7) Elevated troponin Status: Acute Assessment and plan: Serial troponins positive, most likely due to cocaine abuse, cardiology is following, Current Visit: Yes (8) Anemia Status: Acute Assessment and plan: Hemoglobin trending down but increased today, Guaiac 3+ stool, cont protonix Current Visit: Yes (9) Hypotension Status: Acute Assessment and plan: will need pressors soon Current Visit: Yes (10) Ileus Status: Acute Assessment and plan: cont tube feeding at low rate. Current Visit: Yes Hospitalist: Subjective Interval history: Patient is not putting out any urine. We have stopped his IV fluids. He has developed worsening anasarca. Dialysis catheter was placed by Dr. Constantino today. We have contacted Dr. Rob to let him know that we can no longer keep his saturations within normal limits and he is on 100% FiO2 with a PEEP already at 7. Met patient's daughter yesterday she is 25 years old and will be the decision maker for her father. Exam - Constitutional Vitals: Period Temp Pulse Resp BP Sys/Carbone Pulse Ox Last 24 Hr 97.8 F-99.9 F 74-108 11-28 80-121/41-79 81-100 Exam: Heart Rate-[tacky] Lungs-[bilateral crackles ] GI-[diminished bs distended] Ext-anasarca Neuro sedated on vent psych cannot assess General [mod acute respiratory distress] Results - Labs CBC & BMP: 10/10/16 03:35 10/10/16 03:35 Lab Results: I have reviewed the past 24 hour labs Labs: Blood cultures negative no growth, stool is positive for 3+ blood. - Diagnostic Findings Procedure: Chest x-ray: report reviewed by me (Pulmonary edema) Quality Measures - Stroke Onset of Symptoms Date: 10/07/16
[2016-10-10] MEDS ORDERED: NOREPINEPHRINE 4 MG/4 ML VIAL IV ONE (12:33)
[2016-10-10 13:25] LABS: Hepatitis A Ab IgM Quant 0.14 Index; Hepatitis A Ab IgM Result Negative (Negative); Hepatitis B Core IgM Quant 0.16 Index; Hepatitis B Core IgM Result Negative (Negative); Hepatitis B Surface Ag Quant 0.29 Index; Hepatitis B Surface Ag Result Negative (Negative); Hepatitis C Virus Ab Quant 0.09 Index; Hepatitis C Virus Ab Result Negative (Negative)
[2016-10-10] MEDS: NOREPINEPHRINE 16 MG in SODIUM CHLORIDE 0.9% 234 ML IV SCH (14:21)
--- NOTE | 2016-10-10 14:59 | Neurology Consult Note ---
History of Present Illness History of present illness: Patient is unable to provide me any history. History basically obtained from the chart. Mr. aDy is a 56 year old -[place] gentleman with past medical history significant for hypertension, depression, alcohol abuse, chronic back pain, headaches history of drug abuse admitted to the hospital with the increasing headaches and back pain. He drinks fairly regularly. Patient came into the hospital and was poorly responsive. He would arouse and then go back to sleep. He had to be intubated and started on pressors agent. He had a positive drug screen for narcotics and cocaine. At the present time he would wake up and get very restless and agitated and try to get out of the bed. He was found to have a creatinine of over 11 and metabolic acidosis. He is getting dialysis now. Head CT and carotid ultrasound been unremarkable. Echocardiogram apparently is unremarkable as well. Home Medications Medication Instructions Recorded Confirmed Type Acetic Acid 2% Otic Soln [Vosol 2% 5 drop LEFT EAR QID #15 ml 12/27/14 Rx Otic Soln] Amitriptyline [Elavil] 25 mg PO BEDTIME 12/27/14 12/27/14 History Atorvastatin [Lipitor] 40 mg PO DAILY 12/27/14 12/27/14 History Citalopram [CeleXA] 40 mg PO DAILY 12/27/14 12/27/14 History Lisinopril 40 mg PO DAILY 12/27/14 12/27/14 History Metoprolol Tartrate 50 mg PO BID 12/27/14 12/27/14 History Ranitidine Tab [Zantac Tab] 150 mg PO BID 12/27/14 12/27/14 History Trazodone HCl 100 mg PO BEDTIME PRN 12/27/14 12/27/14 History amLODIPine [Norvasc] 5 mg PO DAILY 12/27/14 12/27/14 History Buspirone HCl 10 mg PO 10/07/16 History Gabapentin Cap/Tab [Neurontin 400 mg PO BID 10/07/16 10/07/16 History Cap/Tab] Meloxicam 7.5 mg PO 10/07/16 History Rosuvastatin [Crestor] 40 mg PO DAILY 10/07/16 10/07/16 History Topiramate [Topamax] 50 mg PO BID 07/30/17 07/30/17 History hydroCHLOROthiazide 25 mg PO DAILY 10/07/16 10/07/16 History [Hydrochlorothiazide] Allergies Allergy/AdvReac Type Severity Reaction Status Date / Time No Known Allergies Allergy Unverified 12/27/14 15:18 ROS unobtainable: due to endotracheal tube, due to mental status Medical,Surgical,& Family Hx - Medical History Cardio: History of: Hypertension, Cardiovascular Problems (HEART MURMUR) Endocrine: History of: Dyslipidemia No history of: Diabetes Mellitus (IDDM), Diabetes Mellitus (NIDDM) Respiratory: No history of: Asthma, Bronchitis, Pneumonia Renal: No history of: Renal Failure, Renal Problems Gastrointestinal: No history of: Gastrointestinal Bleed, Liver Problems, GI Problems - Family History Family History: Reports;: Family Cancer, Family Diabetes, Family Heart Disease, Family Hematology, Family Hypertension, Family Stroke - Social History Smoking Status: Unknown if ever smoked Frequency of Alcohol Use: Unknown Type of Drug Use: Cocaine Exam - Constitutional Vitals: Period Temp Pulse Resp BP Sys/Carbone Pulse Ox Last 24 Hr 97.8 F-99.9 F 74-108 11-28 80-125/41-79 79-99 Exam: GENERAL: Patient is in no acute distress. NECK: Neck is supple. There is no JVD. No carotid bruits present. No thyroid masses. CVS: First and second heart sounds are normal. There is no S3 present. Regular rate and rhythm. RESPIRATORY: Lungs are clear to auscultation without any rales or rhonchi. ABDOMEN: Soft and non-tender. Bowel sounds are present. There is no hepatosplenomegaly. EXT: There is no palpable edema. Peripheral pulses are present. Skin: No rashes Central Nervous system: General: Unresponsive and sedated Speech: None Comprehension: None Facial expressions: Normal Cranial Nerves: Pupils are equally reactive to light. Doll's head eye movements are positive. No facial asymmetry is seen Motor: Bulk and Tone is normal. Strength cannot be assessed Sensory: Cannot be assessed Reflexes: 1+ and symmetrical Cerebellar function: Cannot be assessed Toes: Equivocal Gait: Cannot be assessed Results - Labs CBC & BMP: 10/10/16 03:35 10/10/16 03:35 Assessment and Plan (1) Toxic metabolic encephalopathy Status: Acute Assessment and plan: Patient apparently suffering from toxic metabolic encephalopathy including acute kidney injury and cocaine abuse. No evidence of a stroke, seizures, epilepsy EEG done and will review it. Continue present supportive management at this time Thank you for the consult Current Visit: Yes
[2016-10-10] MEDS ORDERED: HEPARIN 10,000 UNIT/10 ML VIAL IV PRN (15:06)
[2016-10-10] MEDS: ACETAMINOPHEN 325 MG TABLET PO PRN (21:15)
[2016-10-11] MEDS: INSULIN REGULAR 100 UNIT/ML SUBCUT SCH ×5 (00:25→23:05)
[2016-10-11] MEDS: PROPOFOL 1,000 MG/100 ML BOTTLE IV SCH ×6 (00:46→19:43)
[2016-10-11] MEDS: ALBUTEROL/IPRATROPIUM 3 ML NEB RESP TX SCH ×4 (00:53→19:59)
[2016-10-11] MEDS: PANTOPRAZOLE 40 MG VIAL IV SCH (02:35)
[2016-10-11] MEDS: ERYTHROMYCIN INJ 250 MG in SODIUM CHLORIDE 0.9% 100 ML IV SCH ×4 (02:57→21:17)
[2016-10-11] MEDS: PIPERACILLIN/TAZOBACTAM 3,375 MG in SODIUM CHLORIDE 0.9% 100 ML IV SCH ×2 (02:57→14:41)
[2016-10-11] MEDS: ACETAMINOPHEN 325 MG TABLET PO PRN ×2 (02:58→07:23)
[2016-10-11 03:01] LABS: ABG Base Excess -4.2 MMOL/L (-2.5-2.5); ABG HCO3 20.8 MMOL/L (20-26); ABG Oxygen Saturation 91.2 % (95-100); ABG PCO2 38.8 MM HG (35-48); ABG PH 7.345 (7.35-7.45); ABG TCO2 19.4 MMOL/L (23-27)
[2016-10-11 04:58] LABS: Basophils % 0.1 % (0.0-0.8); Eosinophils # 0.1 10*3/uL (0.0-0.87); Eosinophils % 0.9 % (0.00-10.9); Hematocrit 26.3 VOL% (42.0-52.0); Hemoglobin 10.6 GM/DL (14.0-18.0); Immature Granulocytes % 0.9 %; Immature Granulocytes Absolute 0.12 #; Lymphocytes # 1.5 10*3/uL (1.4-4.0); Lymphocytes % 10.5 % (21.2-54.2); Mean Corpuscular HGB Conc 40.3 GM/DL (32-36); Mean Corpuscular Hemoglobin 38 PG (27-34); Mean Corpuscular Volume 92.9 FL (87-102); Mean Platelet Volume 12.8 FL (9.6-12.0); Monocytes # 0.8 10*3/uL (0.11-0.8); Monocytes % 5.9 % (1.7-12.7); Neutrophils # 11.3 10*3/uL (1.4-7.4); Neutrophils % 81.7 % (38.7-73.9); Platelet Count 151 T/CUMM (130-400); Red Blood Count 2.83 MC/CUMM (3.8-5.5); Red Cell Distribution Width 12.9 % (9.3-17.3); White Blood Count 13.8 T/CUMM (4-12)
[2016-10-11 05:13] LABS: Lymphocytes 9 % (20-55); Platelet Estimate Adequate; Segmented Neutrophils 87 % (50-85); Total Cells Counted 100
[2016-10-11 05:23] LABS: Calcium 6.2 MG/DL (8.5-10.1); Magnesium 1.9 MG/DL (1.8-2.4); Osmolality,Calculated 288.1 MOS/KG (273-304); Potassium 4.8 MMOL/L (3.5-5.1)
--- NOTE | 2016-10-11 08:04 | Pulmonology Progress Note ---
Pulmonary - PN: Subj Interval history: Patient is a 56-year-old black man that has a history of hypertension and alcohol abuse. He has had some chronic pain issues. He came into the emergency room lethargic and had positive drug screen for cocaine and opiates. He has been put on the ventilator. He has also developed acute renal failure. During the night he had worsening hypoxemia and is on more PEEP and FiO2. His chest x-ray is getting worse. Now he has bilateral infiltrates. His lung compliance is not terrible but he still has a large A-a O2 gradient. He did do fairly well on dialysis yesterday. He will continue with dialysis today. He continues to be sedated. He will continue full ventilatory support. Exam (Progress Note) - Constitutional Vitals: Period Temp Pulse Resp BP Sys/Carbone Pulse Ox Last 24 Hr 97.4 F-102.3 F 88-107 12-28 75-125/45-79 79-99 Exam: General appearance: normal weight, no acute distress (The patient is sedated now. His O2 saturations are still around 90%.) - Head Head exam: Present: normal inspection, normocephalic - Eye Eye exam: Absent: scleral icterus Pupils: Present: constricted - ENT ENT exam: Present: other (ET tube is in good position.) - Neck Neck exam: Present: normal inspection. Absent: lymphadenopathy, thyromegaly - Respiratory Respiratory exam: Present: He has good breath sounds bilaterally but they are coarse. His lung compliance is a little worse. - Cardiovascular Cardiovascular exam: Present: regular rate and rhythm, tachycardia. Absent: gallop - GI/Abdominal GI/Abdominal exam: Present: hypoactive bowel sounds, soft. Absent: organomegaly , tenderness - Extremities Exam Extremities exam: Absent: calf tenderness, edema - Neurological Exam Neurological exam: Present: Patient is sedated at present. - Psychiatric Psychiatric exam: Absent: anxious - Skin Skin exam: Present: warm, dry Results - Labs CBC & BMP: 10/11/16 03:32 10/11/16 03:32 Labs: His PO2 is 66 with a PCO2 of 38 and a pH of 7.34. This is on 100% O2 with PEEP of 10 - Diagnostic Findings Procedure: Chest x-ray: image reviewed by me, report reviewed by me (Chest x- ray shows bilateral infiltrates worse on the left.) Assessment and Plan (1) Acute respiratory failure Status: Acute Assessment and plan: Patient came in obtunded and is now on the ventilator. The patient's chest x- ray is getting worse and requiring more PEEP and FiO2. He may be developing ARDS. His lung compliance is not the greatest. Will adjust his ventilator. Current Visit: Yes (2) Acute renal failure Status: Acute Assessment and plan: The patient's creatinine is 12.7 and he had dialysis yesterday. He will probably have dialysis again today. Current Visit: Yes (3) Cocaine intoxication Status: Acute Assessment and plan: Patient apparently has had cocaine abuse. Current Visit: Yes (4) Polysubstance abuse Status: Acute Assessment and plan: The patient has a history of substance abuse. Current Visit: Yes (5) Encephalopathy acute Status: Acute Assessment and plan: Patient is more alert and responding to commands now. He does require sedation. He is getting an EEG. He is extremely ill at the present time. Current Visit: Yes
--- NOTE | 2016-10-11 08:15 | XRay Report ---
XR chest 1V portable Indication: Intubated Comparison: Chest x-ray dated October 10, 2016 Technique: Single frontal view of the chest. Findings: Lines and tubes appear grossly unchanged. Heart remains obscured. Continued low lung volumes with bilateral pulmonary opacification not significant changed considering change in technique. Visualized osseous and surrounding soft tissue structures appear grossly unchanged. IMPRESSION: No significant interval change. PROCEDURE INTERPRETED AT [facility] DEPARTMENT OF RADIOLOGY Final Report Signed by: Dr Grady Nava
--- NOTE | 2016-10-11 09:07 | Cardiology Progress Note ---
<Bria Goode E - Last Filed: 10/11/16 11:22> Assessment and Plan - Time spent with patient Time spent with patient: Less than 30 minutes (1) Altered mental status Status: Acute Assessment and plan: See plan of care listed below. Current Visit: Yes (2) Acute renal failure Status: Acute Assessment and plan: See plan of care listed below. Current Visit: Yes (3) Encephalopathy acute Status: Acute Assessment and plan: See plan of care listed below. Current Visit: Yes (4) Cocaine intoxication Status: Acute Assessment and plan: See plan of care listed below. Current Visit: Yes (5) Hyperkalemia Status: Acute Assessment and plan: See plan of care listed below. Current Visit: Yes (6) Polysubstance abuse Status: Acute Assessment and plan: See plan of care listed below. Current Visit: Yes (7) Hypertension Status: Chronic Assessment and plan: See plan of care listed below. Current Visit: Yes (8) Dyslipidemia Status: Chronic Assessment and plan: See plan of care listed below. Current Visit: Yes (9) Elevated troponin Status: Acute Assessment and plan: See plan of care listed below. Current Visit: Yes (10) Acute respiratory failure Status: Acute Assessment and plan: See plan of care listed below. 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 Valle (last seen in 2014) SUMMARY: Mr. Day is a 56 year old male with a history of hypertension, dyslipidemia, depression, alcohol and drug abuse, and chronic back pain who was admitted with altered mental status and subsequently intubated in the emergency room. He was positive for cocaine upon arrival. He was started on Dobutamine and transferred to the CCU for further monitoring. He was noted to have elevated cardiac biomarkers and suspected CHF and we were consulted to see him. Echocardiogram on 10/08/16 revealed normal systolic and diastolic function, mild MR, mild , mild pulmonary hypertension with PA pressure 46 mmHg. Carotid doppler ultrasound revealed 41-59% diameter stenosis of both ICA origins present. OCTOBER 11, 2016 UPDATE: Upon exam this morning, Mr. Day is sedated and resting comfortably on the mechanical ventilator. BNP was 62 and he has normal systolic and diastolic function per his echo. He has no perpheral edema. He does not appear to be in heart failure at this time but has required high support for oxygenation. He is undergoing dialysis for this reason. However, his BNP is only 62 despite his acute renal failure, suggesting that his respiratory failure may be confounded by an additional process, possibly infectious process. Initial blood cultures were negative but he has spiked a temperature of 102.9 with elevated WBC of 13.8 and left shift today. He is in sinus tachycardia today which I suspect is related to his fever or possibly his worsening pulmonary function. Will further disuss with Dr. Corral and await her additional recommendations. ASSESSMENT/PLAN: 1. ALTERED MENTAL STATUS - Patient is now intubated on mechanical ventilation. 2. ACUTE RENAL FAILURE - Creatinine remains elevated at 12.7. He was dialyzed yesterday and will dialyze again today. 3. ACUTE ENCEPHALOPATHY - CT of the head was negative. Neurology is following. 4. COCAINE INTOXICATION - Acute. 5. HYPERKALEMIA - Potassium 4.8 today. 6. POLYSUBSTANCE ABUSE 7. HYPERTENSION - Currently well controlled. Will continue to monitor and adjust accordingly. 8. DYSLIPIDEMIA - Lipid panel revealed triglycerides 106, cholesterol 191, LDL 120, HDL 33. 9. ELEVATED TROPONIN - EKG has shown no acute changes. Suspect his cardiac biomarkers were elevated from the cocaine, the CK is disproportionately elevated compared to the MB and the troponin, particularly in the setting of severe acute renal failure. 10. ACUTE RESPIRATORY FAILURE - Pulmonology has been consulted for vent management. Chest x-ray has been worsening and he is requiring higher PEEP and FiO2 on the ventilator. Exam (Progress Note) - Constitutional Vitals: Period Temp Pulse Resp BP Sys/Carbone Pulse Ox Last 24 Hr 97.4 F-102.3 F 90-112 12-29 75-125/45-79 79-99 Exam: General appearance: Orally intubated and sedated on ventilator. Overweight, no acute distress. - Head Head exam: Present: normal inspection, normocephalic, atraumatic. Absent: hematoma, laceration - Eye Eye exam: Present: EOMI. Absent: conjunctival injection, nystagmus, periorbital swelling, scleral icterus, laceration to eyelids Pupils: Present: PERRL. Absent: constricted, dilated, fixed, irregular, unequal - ENT ENT exam: Present: Orally intubated, normal external ear exam - Neck Neck exam: Present: normal inspection. Absent: lymphadenopathy, meningismus, tenderness, thyromegaly - Respiratory Respiratory exam: Present: Mechanically ventilated breath sounds, more coarse today. Absent: accessory muscle use - Cardiovascular Cardiovascular exam: Present: regular rate and rhythm, Bilateral carotid bruit, systolic murmur. Absent: gallop, JVD, rubs - GI/Abdominal GI/Abdominal exam: Present: normal bowel sounds, soft. Absent: distended, firm , guarding, hernia, mass, tenderness, rebound. - Extremities Exam Extremities exam: Present: normal inspection, normal capillary refill. Upper extremity pulses 2+. Lower extremity pulses 2+. Absent: calf tenderness, edema - Back Exam Back exam: Present: Unable to examine due to habitus. Sedated on mechanical ventilator. - Neurological Exam Neurological exam: Present: Limited due to habitus (sedated on ventilator). Will sometimes follow commands. No resting or essential tremor. - Psychiatric Psychiatric exam: Present: Unable to adequately assess due to patient being sedated and on mechanical ventilation. - Skin Skin exam: Present: normal color, warm, dry, intact. Absent: cyanosis, diaphoretic, rash, urticaria Result/EKG - Labs CBC & BMP: 10/11/16 03:32 10/11/16 03:32 Lab Results: I have reviewed the past 24 hour labs Labs: Laboratory Results - last 24 hr 10/10/16 10/10/16 10/10/16 11:14 11:55 17:57 WBC RBC Hgb Hct MCV MCH MCHC RDW Plt Count MPV Neut % (Auto) Lymph % (Auto) [place] % (Auto) Eos % (Auto) Baso % (Auto) Neut # (Auto) Lymph # (Auto) [place] # (Auto) Eos # (Auto) Baso # (Auto) Total Counted Immature Gran % Nucleated RBC % Immature Gran # Segmented Neutrophils Lymphocytes Monocytes Nucleated RBCs # Platelet Estimate Immature Plt Fraction ABG pH ABG pCO2 ABG pO2 ABG HCO3 ABG Total CO2 ABG O2 Saturation ABG Base Excess Sodium Potassium Chloride Carbon Dioxide Anion Gap BUN Creatinine GFR Calculation BUN/Creatinine Ratio Glucose POC Glucose 126 H 119 H Calculated Osmolality Calcium Magnesium Hepatitis A IgM Ab Negative Hep Bs Antigen Negative Hep B Core IgM Ab Negative Hepatitis C Antibody Negative 10/11/16 10/11/16 10/11/16 00:25 02:50 03:32 WBC 13.8 H D RBC 2.83 L Hgb 10.6 L Hct 26.3 L MCV 92.9 MCH 38 H MCHC 40.3 H RDW 12.9 Plt Count 151 MPV 12.8 H Neut % (Auto) 81.7 H Lymph % (Auto) 10.5 L [place] % (Auto) 5.9 Eos % (Auto) 0.9 Baso % (Auto) 0.1 Neut # (Auto) 11.3 H Lymph # (Auto) 1.5 [place] # (Auto) 0.8 Eos # (Auto) 0.1 Baso # (Auto) 0.0 Total Counted 100 Immature Gran % 0.9 Nucleated RBC % 0.0 Immature Gran # 0.12 Segmented Neutrophils 87 H Lymphocytes 9 L Monocytes 4 Nucleated RBCs # 0.00 Platelet Estimate Adequate Immature Plt Fraction 0.0 ABG pH 7.345 L ABG pCO2 38.8 ABG pO2 66.0 L ABG HCO3 20.8 ABG Total CO2 19.4 L ABG O2 Saturation 91.2 L ABG Base Excess -4.2 L Sodium Potassium Chloride Carbon Dioxide Anion Gap BUN Creatinine GFR Calculation BUN/Creatinine Ratio Glucose POC Glucose 134 H Calculated Osmolality Calcium Magnesium Hepatitis A IgM Ab Hep Bs Antigen Hep B Core IgM Ab Hepatitis C Antibody 10/11/16 10/11/16 03:32 06:08 WBC RBC Hgb Hct MCV MCH MCHC RDW Plt Count MPV Neut % (Auto) Lymph % (Auto) [place] % (Auto) Eos % (Auto) Baso % (Auto) Neut # (Auto) Lymph # (Auto) [place] # (Auto) Eos # (Auto) Baso # (Auto) Total Counted Immature Gran % Nucleated RBC % Immature Gran # Segmented Neutrophils Lymphocytes Monocytes Nucleated RBCs # Platelet Estimate Immature Plt Fraction ABG pH ABG pCO2 ABG pO2 ABG HCO3 ABG Total CO2 ABG O2 Saturation ABG Base Excess Sodium 135 L Potassium 4.8 Chloride 100 Carbon Dioxide 22 Anion Gap 17.8 H BUN 54 H D Creatinine 12.70 H GFR Calculation 5 BUN/Creatinine Ratio 4.00 L Glucose 177 H POC Glucose 124 H Calculated Osmolality 288.1 Calcium 6.2 L Magnesium 1.9 Hepatitis A IgM Ab Hep Bs Antigen Hep B Core IgM Ab Hepatitis C Antibody - EKG EKG results: interpreted by me, sinus rhythm EKG shows: tachycardia Quality Measures - Stroke Onset of Symptoms Date: 10/07/16 <Alexia Corral - Last Filed: 10/11/16 17:13> Cardiology - PN: Subj Interval history: I have personally interviewed and evaluated the patient, reviewed the chart and discussed medical decision-making with practitioner Russel. I have read this note and agree with her documentation here in. Exam (Progress Note) - Constitutional Vitals: Period Temp Pulse Resp BP Sys/Carbone Pulse Ox Last 24 Hr 98.4 F-102.9 F 81-115 12-29 75-158/45-91 87-99 Result/EKG - Labs CBC & BMP: 10/11/16 03:32 10/11/16 03:32 Labs: Laboratory Results - last 24 hr 10/10/16 10/11/16 10/11/16 17:57 00:25 02:50 WBC RBC Hgb Hct MCV MCH MCHC RDW Plt Count MPV Neut % (Auto) Lymph % (Auto) [place] % (Auto) Eos % (Auto) Baso % (Auto) Neut # (Auto) Lymph # (Auto) [place] # (Auto) Eos # (Auto) Baso # (Auto) Total Counted Immature Gran % Nucleated RBC % Immature Gran # Segmented Neutrophils Lymphocytes Monocytes Nucleated RBCs # Platelet Estimate Immature Plt Fraction ABG pH 7.345 L ABG pCO2 38.8 ABG pO2 66.0 L ABG HCO3 20.8 ABG Total CO2 19.4 L ABG O2 Saturation 91.2 L ABG Base Excess -4.2 L Sodium Potassium Chloride Carbon Dioxide Anion Gap BUN Creatinine GFR Calculation BUN/Creatinine Ratio Glucose POC Glucose 119 H 134 H Calculated Osmolality Calcium Magnesium 10/11/16 10/11/16 10/11/16 03:32 03:32 06:08 WBC 13.8 H D RBC 2.83 L Hgb 10.6 L Hct 26.3 L MCV 92.9 MCH 38 H MCHC 40.3 H RDW 12.9 Plt Count 151 MPV 12.8 H Neut % (Auto) 81.7 H Lymph % (Auto) 10.5 L [place] % (Auto) 5.9 Eos % (Auto) 0.9 Baso % (Auto) 0.1 Neut # (Auto) 11.3 H Lymph # (Auto) 1.5 [place] # (Auto) 0.8 Eos # (Auto) 0.1 Baso # (Auto) 0.0 Total Counted 100 Immature Gran % 0.9 Nucleated RBC % 0.0 Immature Gran # 0.12 Segmented Neutrophils 87 H Lymphocytes 9 L Monocytes 4 Nucleated RBCs # 0.00 Platelet Estimate Adequate Immature Plt Fraction 0.0 ABG pH ABG pCO2 ABG pO2 ABG HCO3 ABG Total CO2 ABG O2 Saturation ABG Base Excess Sodium 135 L Potassium 4.8 Chloride 100 Carbon Dioxide 22 Anion Gap 17.8 H BUN 54 H D Creatinine 12.70 H GFR Calculation 5 BUN/Creatinine Ratio 4.00 L Glucose 177 H POC Glucose 124 H Calculated Osmolality 288.1 Calcium 6.2 L Magnesium 1.9 10/11/16 11:49 WBC RBC Hgb Hct MCV MCH MCHC RDW Plt Count MPV Neut % (Auto) Lymph % (Auto) [place] % (Auto) Eos % (Auto) Baso % (Auto) Neut # (Auto) Lymph # (Auto) [place] # (Auto) Eos # (Auto) Baso # (Auto) Total Counted Immature Gran % Nucleated RBC % Immature Gran # Segmented Neutrophils Lymphocytes Monocytes Nucleated RBCs # Platelet Estimate Immature Plt Fraction ABG pH ABG pCO2 ABG pO2 ABG HCO3 ABG Total CO2 ABG O2 Saturation ABG Base Excess Sodium Potassium Chloride Carbon Dioxide Anion Gap BUN Creatinine GFR Calculation BUN/Creatinine Ratio Glucose POC Glucose 113 H Calculated Osmolality Calcium Magnesium
[2016-10-11] MEDS: FOLIC ACID 1 MG TABLET PO SCH (09:30)
[2016-10-11] MEDS: THIAMINE 200 MG/2 ML VIAL IV SCH (09:30)
[2016-10-11] MEDS: MULTIVITAMIN (CENTRUM) TABLET PO SCH (09:30)
[2016-10-11] MEDS: ENOXAPARIN 30 MG/0.3 ML SYRINGE SUBCUT SCH (09:30)
--- NOTE | 2016-10-11 10:11 | Nephrology Progress Note ---
Nephrology - PN: Subj Interval history: Patient is seen on hemodialysis, he is tolerating this well. He is going to have a 3 hour treatment time, his UF goal is around 3 EKGs his heart rates 98 his blood pressure is 84/64 his O2 sat is 98% Physical exam general patient is chronically ill-appearing, heart is regular rate and rhythm, he has no pitting edema, lungs are clear to auscultation anteriorly, abdomen is soft with positive bowel sounds Assessment/plan 1. Acute renal failure-we will continue hemodialysis support, he has minimal urine output presently, will continue to try and ultrafilter however his blood pressure seems to be becoming a little tenuous with ultrafiltration. I am not sure that his lung infiltrates are pure volume overload as opposed to an acute lung injury with inflammatory changes and capillary leakage of fluid, if this is the case it may prove difficult to improve his gas exchange with dialysis. 2. Cocaine toxicity 3. Respiratory failure-continue ventilator support 4. Anemia-patient's hematocrit around 26% Exam (PN)-Nephrology - Vital Signs Vital signs: Period Temp Pulse Resp BP Sys/Carbone Pulse Ox Last 24 Hr 97.4 F-102.3 F 90-112 12-29 75-125/45-79 79-99 - Lab 10/11/16 03:32 10/11/16 03:32 Most recent lab results ABG pH 7.345 (7.35-7.45) L 10/11/16 02:50 ABG pCO2 38.8 MM HG (35-48) 10/11/16 02:50 ABG pO2 66.0 MM HG (80-95) L 10/11/16 02:50 ABG HCO3 20.8 MMOL/L (20-26) 10/11/16 02:50 ABG O2 Saturation 91.2 % (95-100) L 10/11/16 02:50 Calcium 6.2 MG/DL (8.5-10.1) L 10/11/16 03:32 Phosphorus 6.3 MG/DL (2.5-4.9) H 10/10/16 03:35 Magnesium 1.9 MG/DL (1.8-2.4) 10/11/16 03:32 Assessment and Plan (1) Acute renal failure Status: Acute Assessment and plan: This patient presented with a creatinine of 11 is up to 13 mg/dL today. He had cocaine in his system his blood pressure has been at the low end of normal since admission. He is getting dobutamine. He has no history of kidney failure in the past. Will try and get some previous lab from Dr. Garrison's office. To see what his baseline creatinine is been. The patient is also noted to have an elevated CPK level. I would worry that he has an ATN injury related to his cocaine use also contributing could be his elevated CPK level. We will continue IV fluids for now and monitor for improvement. I do not see any acute indication for hemodialysis at this time. With his decreased urine output I am going to decrease his IV fluids to 150 cc an hour from 200 cc an hour. Current Visit: Yes (2) Anemia Status: Acute Assessment and plan: Patient's hematocrit is 28% Current Visit: Yes (3) Acute respiratory failure Status: Acute Assessment and plan: Continue vent support Current Visit: Yes (4) Altered mental status Status: Acute Current Visit: Yes (5) Cocaine intoxication Status: Acute Current Visit: Yes (6) Hyperkalemia Status: Acute Assessment and plan: His potassium is returning to the normal range Current Visit: Yes (7) Dyslipidemia Status: Chronic Current Visit: Yes (8) Hypertension Status: Chronic Assessment and plan: Patient's blood pressures at the low end of normal he is on dobutamine Current Visit: Yes (9) Metabolic acidosis Status: Acute Assessment and plan: Patient's bicarb is improved to 22 from 20 Current Visit: Yes
[2016-10-11] MEDS: LACOSAMIDE INJ 100 MG in SODIUM CHLORIDE 0.9% 50 ML IV SCH (10:15)
[2016-10-11] MEDS ORDERED: VECURONIUM 10 MG VIAL IV ONE (11:22)
[2016-10-11] MEDS: NOREPINEPHRINE 16 MG in SODIUM CHLORIDE 0.9% 234 ML IV SCH (11:41)
--- NOTE | 2016-10-11 15:41 | Hospitalist Progress Note ---
Assessment and Plan (1) Acute respiratory failure Status: Acute Assessment and plan: Spoke with Dr. Pelayo about his agonal breathing which improved with norcuron once and prn Current Visit: Yes (2) Acute renal failure Status: Acute Assessment and plan: Still not making urine. Dialysis again today. Current Visit: Yes (3) Hyperkalemia Status: Acute Assessment and plan: Resolved Current Visit: Yes (4) Polysubstance abuse Status: Acute Assessment and plan: Patient was positive for opiates and cocaine. Current Visit: Yes (5) Congestive heart failure Status: Acute Assessment and plan: Echocardiogram showed an EF of 65%. 1000 mL of fluid was removed by dialysis today. We are still unable to wean his FiO2. Current Visit: Yes (6) Encephalopathy acute Status: Acute Assessment and plan: Patient has metabolic encephalopathy due to kidney failure and cocaine abuse will do lumbar puncture in a.m. Current Visit: Yes (7) Elevated troponin Status: Acute Assessment and plan: Serial troponins positive, most likely due to cocaine abuse, cardiology is following, Current Visit: Yes (8) Anemia Status: Acute Assessment and plan: Hemoglobin stable today. Last Dr. Mario to see him due to 3+ blood in his stools. Continue to monitor Current Visit: Yes (9) Hypotension Status: Acute Assessment and plan: Blood pressure is holding no use of pressors required at this point. Current Visit: Yes (10) Ileus Status: Acute Assessment and plan: Patient is tolerating tube feedings. Current Visit: Yes (11) Leukocytosis Status: Acute Assessment and plan: Patient running fever today. He is having diarrhea. Will check for C. difficile. He is already on Zosyn for aspiration. Dr. Frances he has seen him today and recommends a lumbar puncture. Patient has already received DVT prophylaxis Lovenox today and it will be done tomorrow. We have repeated his head CT in preparation for lumbar puncture in am. Patient is not making any urine to test for infection. Will add vancomycin to Zosyn. repeat blood cx times 2 Current Visit: Yes (12) Altered mental status Status: Acute Assessment and plan: EEG is done but pending evaluation. Dr. Sierra does not feel patient has any evidence to suggest seizure activity. Patient was placed on Vimpat and as needed Ativan on October 08. This will affect her evaluation. We will stop the Vimpat for now. Current Visit: Yes Hospitalist: Subjective Interval history: Patient is running a fever today, patient is still having diarrhea will test for C. difficile, will collect a sputum specimen, we will DC his Jorgensen as he is not producing any urine. I have asked Dr. Frances to see him. His bowel sounds are still diminished. He is receiving dialysis today but they were only able to take off 800 mL's. He is more agonal breathing on the vent today. Also going Dr. Pelayo we will try giving Norcuron to see if additional sedation would benefit. He still requiring 100% FiO2 and high PEEP of 10 and his saturations are approximately still 92%. Patient is no longer agonal breathing after receiving Norcuron. Exam - Constitutional Vitals: Period Temp Pulse Resp BP Sys/Carbone Pulse Ox Last 24 Hr 97.4 F-102.9 F 81-115 12-29 75-158/45-91 87-99 Exam: Heart Rate-[tachy] Lungs-[bilateral crackles ] GI-[diminished bs ,nontender ] Ext-anasarca improving Neuro agonal breathing on vent psych cannot assess due to sedation General [mod acute respiratory distress, agonal breathing on vent ] Results - Labs CBC & BMP: 10/11/16 03:32 10/11/16 03:32 Lab Results: I have reviewed the past 24 hour labs - Diagnostic Findings Procedure: Chest x-ray: report reviewed by me (bilateral pulmonary opacities. ) Quality Measures - Stroke Onset of Symptoms Date: 10/07/16
[2016-10-11] MEDS ORDERED: VANCOMYCIN INJ 1,000 MG in SODIUM CHLORIDE 0.9% 250 ML IV ONE (15:56)
--- NOTE | 2016-10-11 15:58 | Infectious Disease Consult ---
History of Present Illness Chief complaint: Fever, leukocytosis History of present illness: History obtained from chart as patient sedated on the vent. Mr. Day is a 56 year old male who apparently abuses drugs but was well until the day before presentation. He was found down at home by assistance of brought to the emergency room. He was in and out of consciousness and had deteriorating respiratory status and he was intubated but on the vent. Over the past 24 hours he has had worsening respiratory status requiring maximum FiO2 and increased PEEP now to 10. He started having fever last night tube more than 101 and today spiked to 102.9. He has been on Zosyn since admission. No significant endotracheal secretions, he has been having diarrhea although that is a bit better today. He has been oliguric since admission and today is actually anuric. He started dialysis yesterday because of creatinine more than 10. Spell that his renal function probably will not return to normal. I am asked to assist with management in light of the new fever and also leukocytosis. Impression: 1. Fever and leukocytosis, cause unclear. There is a possibility of pneumonia given worsening chest x-ray and oxygen requirement since admission. Bloodstream infection also possibility. Because of the confusion I think we should rule out meningitis. No evidence of urinary tract infection. 2. Acute renal failure requiring dialysis 3. Polysubstance abuse Recommendations: 1. Send sputum for Gram stain and culture 2. Lumbar puncture to evaluate for possible meningitis. CSF samples to be sent for routine studies along with HSV PCR and West Nile virus antibodies 3. HIV serology 4. Add vancomycin for empiric MRSA coverage. Consult pharmacy to assist with dosing and monitoring. He will be dosed intermittently based on levels. 5. Continue Zosyn Thank you very much for the consult. Will follow Discussed with Dr. Lim Home Medications Medication Instructions Recorded Confirmed Type Acetic Acid 2% Otic Soln [Vosol 2% 5 drop LEFT EAR QID #15 ml 12/27/14 Rx Otic Soln] Amitriptyline [Elavil] 25 mg PO BEDTIME 12/27/14 12/27/14 History Atorvastatin [Lipitor] 40 mg PO DAILY 12/27/14 12/27/14 History Citalopram [CeleXA] 40 mg PO DAILY 12/27/14 12/27/14 History Lisinopril 40 mg PO DAILY 12/27/14 12/27/14 History Metoprolol Tartrate 50 mg PO BID 12/27/14 12/27/14 History Ranitidine Tab [Zantac Tab] 150 mg PO BID 12/27/14 12/27/14 History Trazodone HCl 100 mg PO BEDTIME PRN 12/27/14 12/27/14 History amLODIPine [Norvasc] 5 mg PO DAILY 12/27/14 12/27/14 History Buspirone HCl 10 mg PO 10/07/16 History Gabapentin Cap/Tab [Neurontin 400 mg PO BID 10/07/16 10/07/16 History Cap/Tab] Meloxicam 7.5 mg PO 10/07/16 History Rosuvastatin [Crestor] 40 mg PO DAILY 10/07/16 10/07/16 History Topiramate [Topamax] 50 mg PO BID 10/07/16 10/07/16 History hydroCHLOROthiazide 25 mg PO DAILY 10/07/16 10/07/16 History [Hydrochlorothiazide] Allergies Allergy/AdvReac Type Severity Reaction Status Date / Time No Known Allergies Allergy Unverified 12/27/14 15:18 ROS unobtainable: due to endotracheal tube, due to mental status Medical,Surgical,& Family Hx - Medical History Cardio: History of: Hypertension, Cardiovascular Problems (HEART MURMUR) Endocrine: History of: Dyslipidemia No history of: Diabetes Mellitus (IDDM), Diabetes Mellitus (NIDDM) Respiratory: No history of: Asthma, Bronchitis, Pneumonia Renal: No history of: Renal Failure, Renal Problems Gastrointestinal: No history of: Gastrointestinal Bleed, Liver Problems, GI Problems - Family History Family History: Reports;: Family Cancer, Family Diabetes, Family Heart Disease, Family Hematology, Family Hypertension, Family Stroke - Social History Smoking Status: Unknown if ever smoked Frequency of Alcohol Use: Unknown Type of Drug Use: Cocaine Infectious Disease Exam H&P - Constitutional Vitals: Vital Signs Temp Pulse Resp BP Pulse Ox 98.4 F 102 H 24 136/78 94 L 10/11/16 11:00 10/11/16 14:00 10/11/16 14:00 10/11/16 14:00 10/11/16 14:00 Intake and Output 10/10/16 10/11/16 10/11/16 23:59 07:59 15:59 Intake Total 650 / 650 595 / 595 290 / 290 Output Total 3920 / 3920 300 / 300 1000 / 1000 Balance -3270 / -3270 295 / 295 -710 / -710 Intake: IV 560 / 560 400 / 400 260 / 260 Erythromycin Inj 500 mg 200 / 200 100 / 100 100 / 100 In Ns 100 ml @ 100 mls/hr IV Q6H LIEN Rx#: [id number] Vimpat Inj 100 mg In Ns 60 / 60 60 / 60 50 ml @ 100 mls/hr IV BID LIEN Rx#:[id number] Zosyn 3,375 mg In Ns 100 100 / 100 100 / 100 ml @ 200 mls/hr IV Q12H [facility]EN Rx#:[id number] DIPRIVAN 1,000 mg In 100 200 / 200 300 / 300 ml @ 5 MCG/KG/MIN 2.474 mls/hr IV TITRATE LIEN Rx# :[id number] Tube Feeding Flush 90 / 90 120 / 120 30 / 30 Bowel Management Flush 75 / 75 Output: Urine 20 / 20 0 / 0 0 / 0 Stool 1000 / 1000 300 / 300 Hemodialysis 2900 / 2900 1000 / 1000 Other: Tube Feeding 30 30 30 Voiding Method Indwelling Catheter Indwelling Catheter Indwelling Catheter Weight 87.498 kg Patient Weight 10/11/16 23:59 Weight 87.498 kg Exam: General: Patient sedated and paralyzed on the vent HEENT: Mucous membranes pink and moist, anicteric acyanotic, DAE, ET tube in situ Neck: Supple, no thyroid gland enlargement Respiratory system: Breath sounds vesicular, no crepitations or wheezes Cardiovascular: Normal S1 and S2, no murmurs appreciated Abdomen: Normal bowel sounds, soft nontender throughout, no organomegaly or mass Genitourinary: No suprapubic pain or bladder distention, no urine from Jorgensen catheter Extremities: Mild to moderate bilateral lower extremity dependent edema Skin: No rash Reports - Labs CBC & BMP: 10/11/16 03:32 10/11/16 03:32 Labs: Laboratory Results - last 24 hr 10/10/16 10/11/16 10/11/16 17:57 00:25 02:50 WBC RBC Hgb Hct MCV MCH MCHC RDW Plt Count MPV Neut % (Auto) Lymph % (Auto) Hyde % (Auto) Eos % (Auto) Baso % (Auto) Neut # (Auto) Lymph # (Auto) Hyde # (Auto) Eos # (Auto) Baso # (Auto) Total Counted Immature Gran % Nucleated RBC % Immature Gran # Segmented Neutrophils Lymphocytes Monocytes Nucleated RBCs # Platelet Estimate Immature Plt Fraction ABG pH 7.345 L ABG pCO2 38.8 ABG pO2 66.0 L ABG HCO3 20.8 ABG Total CO2 19.4 L ABG O2 Saturation 91.2 L ABG Base Excess -4.2 L Sodium Potassium Chloride Carbon Dioxide Anion Gap BUN Creatinine GFR Calculation BUN/Creatinine Ratio Glucose POC Glucose 119 H 134 H Calculated Osmolality Calcium Magnesium 10/11/16 10/11/16 10/11/16 03:32 03:32 06:08 WBC 13.8 H D RBC 2.83 L Hgb 10.6 L Hct 26.3 L MCV 92.9 MCH 38 H MCHC 40.3 H RDW 12.9 Plt Count 151 MPV 12.8 H Neut % (Auto) 81.7 H Lymph % (Auto) 10.5 L Hyde % (Auto) 5.9 Eos % (Auto) 0.9 Baso % (Auto) 0.1 Neut # (Auto) 11.3 H Lymph # (Auto) 1.5 Hyde # (Auto) 0.8 Eos # (Auto) 0.1 Baso # (Auto) 0.0 Total Counted 100 Immature Gran % 0.9 Nucleated RBC % 0.0 Immature Gran # 0.12 Segmented Neutrophils 87 H Lymphocytes 9 L Monocytes 4 Nucleated RBCs # 0.00 Platelet Estimate Adequate Immature Plt Fraction 0.0 ABG pH ABG pCO2 ABG pO2 ABG HCO3 ABG Total CO2 ABG O2 Saturation ABG Base Excess Sodium 135 L Potassium 4.8 Chloride 100 Carbon Dioxide 22 Anion Gap 17.8 H BUN 54 H D Creatinine 12.70 H GFR Calculation 5 BUN/Creatinine Ratio 4.00 L Glucose 177 H POC Glucose 124 H Calculated Osmolality 288.1 Calcium 6.2 L Magnesium 1.9 10/11/16 11:49 WBC RBC Hgb Hct MCV MCH MCHC RDW Plt Count MPV Neut % (Auto) Lymph % (Auto) Hyde % (Auto) Eos % (Auto) Baso % (Auto) Neut # (Auto) Lymph # (Auto) Hyde # (Auto) Eos # (Auto) Baso # (Auto) Total Counted Immature Gran % Nucleated RBC % Immature Gran # Segmented Neutrophils Lymphocytes Monocytes Nucleated RBCs # Platelet Estimate Immature Plt Fraction ABG pH ABG pCO2 ABG pO2 ABG HCO3 ABG Total CO2 ABG O2 Saturation ABG Base Excess Sodium Potassium Chloride Carbon Dioxide Anion Gap BUN Creatinine GFR Calculation BUN/Creatinine Ratio Glucose POC Glucose 113 H Calculated Osmolality Calcium Magnesium - Reports Microbiology: Microbiology 10/07/16 21:15 Blood Culture - Preliminary Blood No growth at 3 days 10/07/16 20:50 Blood Culture - Preliminary Blood No growth at 3 days - Diagnostic Findings Procedure: Chest x-ray: image reviewed by me, report reviewed by me (Worsening specialist since admission with bilateral opacities, left more than right), CT: report reviewed by me (No acute pathology and CT head), Ultrasound: report reviewed by me (Medical renal disease on renal ultrasound)
[2016-10-11] MEDS: VECURONIUM 10 MG VIAL IV PRN (17:40)
[2016-10-11] MEDS ORDERED: VANCOMYCIN INJ 1,750 MG in SODIUM CHLORIDE 0.9% 500 ML IV ONE (18:30)
--- NOTE | 2016-10-11 18:31 | CT Report ---
CT head/brain wo con Indication: Unresponsiveness. Comparison: CT head 10/07/2016. Technique: CT of the brain was performed without administration of intravenous contrast. The CT examination was performed using one or more of the following dose reduction techniques: Automatic exposure control, adjustment of the mA and kV according to patient size, use of acute or iterative reconstruction techniques. Findings: Bilateral areas of periventricular white matter hypoattenuation are stable compared to previous study. There is no evidence of interval hemorrhage. No infarctions are present. Ventricles are stable. The basal cisterns are patent. No significant abnormality is demonstrated to involve the posterior fossa or cerebellum. Orbits and globes demonstrate no evidence of significant pathology. Mucoperiosteal thickening involving ethmoid air cells and bilateral sphenoid sinuses is present having increased somewhat since comparison study. No significant abnormality is demonstrated to involve the mastoid air cells. The calvarium and overlying soft tissues demonstrate no evidence of acute pathology. Impression: 1. No CT evidence of acute intracranial pathology. Stable interval appearance of the brain. 2. Worsening paranasal sinus disease is present. 10/11/2016 6:27 PM PROCEDURE INTERPRETED AT [facility] DEPARTMENT OF RADIOLOGY Final Report Signed by: Dr. Braulio Lucia
[2016-10-12] MEDS: ALBUTEROL/IPRATROPIUM 3 ML NEB RESP TX SCH ×4 (00:06→19:12)
[2016-10-12] MEDS: ACETAMINOPHEN 325 MG TABLET PO PRN ×2 (00:34→23:42)
[2016-10-12] MEDS: PROPOFOL 1,000 MG/100 ML BOTTLE IV SCH ×7 (00:34→23:34)
[2016-10-12] MEDS: VECURONIUM 10 MG VIAL IV PRN ×2 (01:49→14:02)
[2016-10-12 03:37] LABS: ABG Base Excess -5.8 MMOL/L (-2.5-2.5); ABG PCO2 46.5 MM HG (35-48); ABG PH 7.272 (7.35-7.45); ABG PO2 261.4 MM HG (80-95); ABG TCO2 22.4 MMOL/L (23-27)
[2016-10-12] MEDS: PANTOPRAZOLE 40 MG VIAL IV SCH (03:54)
[2016-10-12] MEDS: ERYTHROMYCIN INJ 250 MG in SODIUM CHLORIDE 0.9% 100 ML IV SCH ×4 (03:55→20:19)
[2016-10-12] MEDS: PIPERACILLIN/TAZOBACTAM 3,375 MG in SODIUM CHLORIDE 0.9% 100 ML IV SCH ×2 (03:55→16:34)
[2016-10-12] MEDS: INSULIN REGULAR 100 UNIT/ML SUBCUT SCH ×4 (05:56→23:51)
[2016-10-12 05:59] LABS: HIV Antigen/Antibody Result Nonreactive (Nonreactive)
[2016-10-12 06:04] LABS: Basophils % 0.1 % (0.0-0.8); Eosinophils # 0.2 10*3/uL (0.0-0.87); Eosinophils % 1.5 % (0.00-10.9); Hemoglobin 9.7 GM/DL (14.0-18.0); Immature Granulocytes % 0.6 %; Lymphocytes % 6.1 % (21.2-54.2); Mean Corpuscular HGB Conc 38.8 GM/DL (32-36); Mean Corpuscular Hemoglobin 36 PG (27-34); Mean Corpuscular Volume 92.6 FL (87-102); Mean Platelet Volume 12.4 FL (9.6-12.0); Monocytes # 1.1 10*3/uL (0.11-0.8); Monocytes % 7.2 % (1.7-12.7); Neutrophils # 13.2 10*3/uL (1.4-7.4); Neutrophils % 84.5 % (38.7-73.9); Platelet Count 154 T/CUMM (130-400); Red Cell Distribution Width 12.9 % (9.3-17.3); White Blood Count 15.6 T/CUMM (4-12)
[2016-10-12 06:16] LABS: Calcium 7.1 MG/DL (8.5-10.1); Magnesium 2.3 MG/DL (1.8-2.4); Osmolality,Calculated 284.8 MOS/KG (273-304); Potassium 5.2 MMOL/L (3.5-5.1)
[2016-10-12 06:20] LABS: Hypochromasia Slight; Microcytosis 2+
--- NOTE | 2016-10-12 07:04 | XRay Report ---
Exam: XR chest 1V portable Date: 10/12/2016 4:00 AM Indication: Follow-up ventilator respiratory failure Comparison: 10/11/2016 Technical AP Findings: Endotracheal tube nasogastric tube and right IJ catheter present. Mild cardiac prominence present. Alveolar edema is present. No obvious pneumothorax. Tiny effusions are present. Mediastinum is otherwise intact Impression: 1. No significant change in the life support tubing 2. Slight improving aeration in the bilateral perihilar regions with persistent patchy infiltrates present however there some clearing present left greater than right PROCEDURE INTERPRETED AT [facility] DEPARTMENT OF RADIOLOGY Final Report Signed by: Dr. Mayo Quijano
[2016-10-12] MEDS: THIAMINE 200 MG/2 ML VIAL IV SCH (08:04)
[2016-10-12] MEDS: MULTIVITAMIN (CENTRUM) TABLET PO SCH (08:07)
[2016-10-12] MEDS: FOLIC ACID 1 MG TABLET PO SCH (08:07)
[2016-10-12] MEDS ORDERED: VANCOMYCIN INJ 750 MG in SODIUM CHLORIDE 0.9% 250 ML IV PRN (09:00)
[2016-10-12 09:27] LABS: Allen Test Positive; Pt O2 Delivery Device Ventilator
[2016-10-12 09:28] LABS: ABG Base Excess -6.3 MMOL/L (-2.5-2.5); ABG HCO3 19.3 MMOL/L (20-26); ABG PCO2 40.5 MM HG (35-48); ABG PH 7.297 (7.35-7.45); ABG TCO2 18.5 MMOL/L (23-27)
--- NOTE | 2016-10-12 09:33 | Pulmonology Progress Note ---
Pulmonary - PN: Subj Interval history: Patient is a 56-year-old black man that has a history of hypertension and alcohol abuse. He has had some chronic pain issues. He came into the emergency room lethargic and had positive drug screen for cocaine and opiates. He has been put on the ventilator. He has also developed acute renal failure. Yesterday he is somewhat agitated and had to be paralyzed. He did have dialysis. His chest x-ray is better today and his oxygenation has improved. His creatinine is down to 9.8. He apparently is going for lumbar puncture later on. He actually is responding a little better also. Exam (Progress Note) - Constitutional Vitals: Period Temp Pulse Resp BP Sys/Carbone Pulse Ox Last 24 Hr 98.4 F-101.8 F 78-107 12-119 80-158/58-91 91-100 Exam: General appearance: normal weight, no acute distress (The patient is opening his eyes and looking around. He looks more comfortable today.) - Head Head exam: Present: normal inspection, normocephalic - Eye Eye exam: Absent: scleral icterus Pupils: Present: constricted - ENT ENT exam: Present: other (ET tube is in good position.) - Neck Neck exam: Present: normal inspection. Absent: lymphadenopathy, thyromegaly - Respiratory Respiratory exam: Present: He has good breath sounds bilaterally and his lungs sound a little better today. His lung compliance is better. - Cardiovascular Cardiovascular exam: Present: regular rate and rhythm, tachycardia. Absent: gallop - GI/Abdominal GI/Abdominal exam: Present: hypoactive bowel sounds, soft. Absent: organomegaly , tenderness - Extremities Exam Extremities exam: Absent: calf tenderness, edema - Neurological Exam Neurological exam: Present: Patient is opening his eyes and responding some. - Psychiatric Psychiatric exam: Absent: anxious - Skin Skin exam: Present: warm, dry Results - Labs CBC & BMP: 10/12/16 04:15 10/12/16 04:15 Labs: His PO2 is 154 with a PCO2 of 40 and a pH of 7.29 on 80% O2. - Diagnostic Findings Procedure: Chest x-ray: image reviewed by me, report reviewed by me (Chest x- ray is improving with less infiltrates.) Assessment and Plan (1) Acute respiratory failure Status: Acute Assessment and plan: Patient has had a difficult time and is on the ventilator with respiratory failure. His infiltrates are better now and his x-ray is improving. His oxygenation is better. Current Visit: Yes (2) Acute renal failure Status: Acute Assessment and plan: The patient has done fairly well with dialysis and his creatinine is down to 9.8. He will probably dialyze again today. Current Visit: Yes (3) Cocaine intoxication Status: Acute Assessment and plan: Patient apparently has had cocaine abuse. Current Visit: Yes (4) Polysubstance abuse Status: Acute Assessment and plan: The patient has a history of substance abuse. He certainly could have withdrawal symptoms. Current Visit: Yes (5) Encephalopathy acute Status: Acute Assessment and plan: Patient is more alert and responding to commands now. He is getting an LP later today. Current Visit: Yes
--- NOTE | 2016-10-12 11:04 | Nephrology Progress Note ---
Nephrology - PN: Subj Interval history: Patient is intubated and sedate. Physical exam general patient is chronically ill-appearing, heart is regular rate and rhythm, he has no pitting edema, lungs are clear to auscultation anteriorly, abdomen is soft with positive bowel sounds, neuro--the patient open his eyes spontaneously to verbal stimuli Assessment/plan 1. Acute renal failure-patient remains anuric-patient is dialyzed 2 days in a row, I am going to hold on his dialysis today and will plan on hemodialysis tomorrow 2. Cocaine abuse 3. Chronic pain 4. Hyperkalemia-patient's potassium is 5.2, this should be okay until dialysis tomorrow 5. Respiratory failure-patient continues on the ventilator, he has a component of respiratory acidosis as well as some metabolic acidosis Exam (PN)-Nephrology - Vital Signs Vital signs: Period Temp Pulse Resp BP Sys/Carbone Pulse Ox Last 24 Hr 99.1 F-101.8 F 78-107 12-119 98-158/58-91 91-100 - Lab 10/12/16 04:15 10/12/16 04:15 Most recent lab results ABG pH 7.297 (7.35-7.45) L 10/12/16 09:20 ABG pCO2 40.5 MM HG (35-48) 10/12/16 09:20 ABG pO2 154.0 MM HG (80-95) H 10/12/16 09:20 ABG HCO3 19.3 MMOL/L (20-26) L 10/12/16 09:20 ABG O2 Saturation 99.0 % (95-100) 10/12/16 09:20 Calcium 7.1 MG/DL (8.5-10.1) L 10/12/16 04:15 Phosphorus 6.3 MG/DL (2.5-4.9) H 10/10/16 03:35 Magnesium 2.3 MG/DL (1.8-2.4) 10/12/16 04:15 Assessment and Plan (1) Acute renal failure Status: Acute Assessment and plan: This patient presented with a creatinine of 11 is up to 13 mg/dL today. He had cocaine in his system his blood pressure has been at the low end of normal since admission. He is getting dobutamine. He has no history of kidney failure in the past. Will try and get some previous lab from Dr. Garrison's office. To see what his baseline creatinine is been. The patient is also noted to have an elevated CPK level. I would worry that he has an ATN injury related to his cocaine use also contributing could be his elevated CPK level. We will continue IV fluids for now and monitor for improvement. I do not see any acute indication for hemodialysis at this time. With his decreased urine output I am going to decrease his IV fluids to 150 cc an hour from 200 cc an hour. Current Visit: Yes (2) Anemia Status: Acute Assessment and plan: Patient's hematocrit is 28% Current Visit: Yes (3) Acute respiratory failure Status: Acute Assessment and plan: Continue vent support Current Visit: Yes (4) Altered mental status Status: Acute Current Visit: Yes (5) Cocaine intoxication Status: Acute Current Visit: Yes (6) Hyperkalemia Status: Acute Assessment and plan: His potassium is returning to the normal range Current Visit: Yes (7) Dyslipidemia Status: Chronic Current Visit: Yes (8) Hypertension Status: Chronic Assessment and plan: Patient's blood pressures at the low end of normal he is on dobutamine Current Visit: Yes (9) Metabolic acidosis Status: Acute Assessment and plan: Patient's bicarb is improved to 22 from 20 Current Visit: Yes
--- NOTE | 2016-10-12 11:40 | Gastrointestinal Consult Note ---
<RockyyessyLazara Kady - Last Filed: 10/12/16 11:34> Assessment and Plan (1) Anemia Status: Acute Assessment and plan: 10/12-findings of drop in H&H from admission in conjunction with 3+ positive stools for occult blood. Long-term history of cocaine and alcohol use. Currently on hemodialysis for acute renal failure. Lovenox injections on hold. No overt bleeding has been reported at this time. No prior history in facility database. Continue to monitor H&H at this time and transfuse as necessary. Further plan an addendum to follow Dr. Mario. Current Visit: Yes History of Present Illness Chief complaint: Anemia, Hemoccult stool positive History of present illness: Mr. Day is a 56 year old male who was admitted to the hospital on 10/08 with onset of altered mental status and confusion. Patient is currently sedated and intubated therefore information is obtained from chart review. Patient has a prior history of hypertension, depression, alcohol and drug abuse and chronic back pain. Patient was brought to the emergency room by family after being found with some changes in his mental status as well as going in and out of consciousness. Upon arrival to the emergency room he was immediately intubated and transferred to critical care unit. Patient has an current history of ongoing alcohol and cocaine use which was positive on his drug screen on admission. On admission CT scan of head was negative. He was initially on pressure support however this is been held at this time. Patient has no prior history of kidney disease however was found to have elevated creatinine of 13 and since admission has began hemodialysis and at this time remains anuric with a creatinine of 9.8. On admission his H&H was noted to be 11/35 however this is trended down now to / and he has findings of a 3+ positive occult blood in his stool. He currently has a BMS in place with negative findings for Clostridium difficile. He is also noted to be for a lumbar puncture this morning. He did have a negative hepatitis and HIV panel. Upon review patient' s home medications he is noted to take Mobic however uncertain as if this is current and daily. No known prior history of endoscopy in the past. Home Medications Medication Instructions Recorded Confirmed Type Acetic Acid 2% Otic Soln [Vosol 2% 5 drop LEFT EAR QID #15 ml 12/27/14 Rx Otic Soln] Amitriptyline [Elavil] 25 mg PO BEDTIME 12/27/14 12/27/14 History Atorvastatin [Lipitor] 40 mg PO DAILY 12/27/14 12/27/14 History Citalopram [CeleXA] 40 mg PO DAILY 12/27/14 12/27/14 History Lisinopril 40 mg PO DAILY 12/27/14 12/27/14 History Metoprolol Tartrate 50 mg PO BID 12/27/14 12/27/14 History Ranitidine Tab [Zantac Tab] 150 mg PO BID 12/27/14 12/27/14 History Trazodone HCl 100 mg PO BEDTIME PRN 12/27/14 12/27/14 History amLODIPine [Norvasc] 5 mg PO DAILY 12/27/14 12/27/14 History Buspirone HCl 10 mg PO 10/07/16 History Gabapentin Cap/Tab [Neurontin 400 mg PO BID 10/07/16 10/07/16 History Cap/Tab] Meloxicam 7.5 mg PO 10/07/16 History Rosuvastatin [Crestor] 40 mg PO DAILY 10/07/16 10/07/16 History Topiramate [Topamax] 50 mg PO BID 10/07/16 10/07/16 History hydroCHLOROthiazide 25 mg PO DAILY 10/07/16 10/07/16 History [Hydrochlorothiazide] Allergies Allergy/AdvReac Type Severity Reaction Status Date / Time No Known Allergies Allergy Unverified 12/27/14 15:18 Medical,Surgical,& Family Hx - Medical History Cardio: History of: Hypertension, Cardiovascular Problems (HEART MURMUR) Endocrine: History of: Dyslipidemia No history of: Diabetes Mellitus (IDDM), Diabetes Mellitus (NIDDM) Respiratory: No history of: Asthma, Bronchitis, Pneumonia Renal: No history of: Renal Failure, Renal Problems Gastrointestinal: No history of: Gastrointestinal Bleed, Liver Problems, GI Problems - Family History Family History: Reports;: Family Cancer, Family Diabetes, Family Heart Disease, Family Hematology, Family Hypertension, Family Stroke - Social History Smoking Status: Unknown if ever smoked Frequency of Alcohol Use: Unknown Type of Drug Use: Cocaine ROS unobtainable: due to mental status Exam - Constitutional Vitals: Period Temp Pulse Resp BP Sys/Carbone Pulse Ox Last 24 Hr 99.1 F-101.8 F 78-107 12-119 98-158/58-91 91-100 General appearance: normal weight, no acute distress - Head Head exam: Present: normal inspection, normocephalic - Eye Eye exam: Present: other (Lids and conjunctivae are unremarkable). Absent: scleral icterus - ENT ENT exam: Present: normal exam, normal oropharynx - Neck Neck exam: Present: normal inspection - Respiratory Respiratory exam: Present: clear to auscultation bilaterally. Absent: rales, rhonchi, wheezes - Cardiovascular Cardiovascular exam: Present: regular rate and rhythm. Absent: diastolic murmur , JVD, systolic murmur - GI/Abdominal GI/Abdominal exam: Present: normal bowel sounds, soft. Absent: ascites, distended, mass, organomegaly, tenderness - Extremities Exam Extremities exam: Present: normal inspection, full ROM - Back Exam Back exam: Present: normal inspection - Neurological Exam Neurological exam: Present: altered - Psychiatric Psychiatric exam: Present: other - Skin Skin exam: Present: normal color, warm, dry Results - Labs CBC & BMP: 10/12/16 04:15 10/12/16 04:15 Lab Results: I have reviewed the past 24 hour labs Quality Measures - Stroke Onset of Symptoms Date: 10/07/16 <Pancho Mario - Last Filed: 10/12/16 16:14> History of Present Illness History of present illness: Mr. Day is a 56 year old male Exam - Constitutional Vitals: Period Temp Pulse Resp BP Sys/Carbone Pulse Ox Last 24 Hr 97.9 F-101.8 F 74-119 13-119 98-147/57-103 91-100 Results - Labs CBC & BMP: 10/12/16 04:15 10/12/16 04:15
--- NOTE | 2016-10-12 11:54 | Infectious Disease Progress ---
Assessment and Plan (1) Pneumonia Status: Acute Assessment and plan: Pulmonary status somewhat improved today with less oxygen requirements with patient still having fever. Gram-negative rods growing in sputum. Recommendations: Continue current empiric antibiotics and follow-up finalized culture results. Current Visit: Yes (2) Acute renal failure Status: Acute Assessment and plan: Patient anuric and has had a few sessions of dialysis. Will likely continue to need dialysis. Current Visit: Yes (3) Acute respiratory failure Status: Acute Current Visit: Yes (4) Altered mental status Status: Acute Assessment and plan: LP is pending for today to make sure the patient does not have meningitis. Discussed with Dr. Lim. Current Visit: Yes (5) Cocaine intoxication Status: Acute Current Visit: Yes Infectious Disease - PN: Subj Interval history: Patient still having fever, up to 101.8 overnight. Pulmonary status somewhat improved with FiO2 down to 70% from 100% yesterday. Sedation also decreased and he is waking up some and not fighting the vent as much as before. He remains anuric. Infectious Disease Exam (PN) - Constitutional Vitals: Temp Pulse Resp BP Pulse Ox 99.1 F 78 19 115/59 100 10/12/16 04:00 10/12/16 07:43 10/12/16 11:08 10/12/16 06:00 10/12/16 07:43 General appearance: normal weight, no acute distress Exam: General appearance: Sedated but arousable - Eye Eye exam: Present: EOMI. no icterus Pupils: Present: DAE - ENT ENT exam: ET tube in situ - Respiratory Respiratory exam: Occasional rhonchi - Cardiovascular Cardiovascular exam: regular rate and rhythm, no murmurs - GI/Abdominal GI/Abdominal exam: normal bowel sounds, soft, non-tender, no organomegaly or mass - Extremities Exam Extremities exam: no edema - Skin Skin exam: no rash Results - Labs CBC & BMP: 10/12/16 04:15 10/12/16 04:15 Lab Results: I have reviewed the past 24 hour labs (Heavy growth of gram- negative rods from sputum, Gram stain had significant white blood cells, HIV serology negative) Quality Measures - Stroke Onset of Symptoms Date: 10/07/16
--- NOTE | 2016-10-12 12:46 | Hospitalist Progress Note ---
Assessment and Plan (1) Acute respiratory failure Status: Acute Assessment and plan: His agonal breathing has resolved. His infiltrates are improving on chest x- ray. We were able to wean down on his oxygen to 70% Current Visit: Yes (2) Acute renal failure Status: Acute Assessment and plan: Still not making urine. No dialysis today. Current Visit: Yes (3) Polysubstance abuse Status: Acute Assessment and plan: Patient was positive for opiates and cocaine. Current Visit: Yes (4) Congestive heart failure Status: Acute Assessment and plan: Echocardiogram showed an EF of 65%. No dialysis today. Current Visit: Yes (5) Encephalopathy acute Status: Acute Assessment and plan: Patient has metabolic encephalopathy due to kidney failure and cocaine abuse will do lumbar puncture in a.m. Current Visit: Yes (6) Elevated troponin Status: Acute Assessment and plan: Serial troponins positive, most likely due to cocaine abuse, cardiology is following, Current Visit: Yes (7) Anemia Status: Acute Assessment and plan: Hemoglobin drifting down but no blood in transfusion required at this time. Continue SCDs for DVT prophylaxis Current Visit: Yes (8) Hypotension Status: Acute Assessment and plan: Blood pressure is holding no use of pressors required at this point. He is developing some tachycardia but he cannot afford any beta blockers at this time. Current Visit: Yes (9) Ileus Status: Acute Assessment and plan: Resolved Current Visit: Yes (10) Leukocytosis Status: Acute Assessment and plan: White count continued to rise. Continues to have high temperatures of 100.2. Chest x-ray shows clearing of the infiltrates in his lung. His stool is negative for C. difficile. His sputum culture is showing gram-negative rods. His repeat blood cultures 2 were negative no growth Current Visit: Yes (11) Altered mental status Status: Acute Assessment and plan: Dr. Sierra does not feel patient has any evidence to suggest seizure activity. Spinal tap Current Visit: Yes Hospitalist: Subjective Interval history: Patient with had a head CT last night. We are waiting for his lumbar puncture today. He will not be dialyzed today. He is breathing much better and we are able to wean down his oxygen and PEEP. I have lowered his oxygen to 80% and his PEEP to 7. Dr. Pelayo has decreased his function down to 70% after reviewing his blood gas. Exam - Constitutional Vitals: Period Temp Pulse Resp BP Sys/Carbone Pulse Ox Last 24 Hr 99.1 F-101.8 F 78-107 13-119 98-158/58-91 91-100 Exam: Heart Rate-[tachy] Lungs-[bilateral rhonchi] GI-[+bs ,nontender ] Ext-anasarca improving Neuro following simple commands today. Agonal breathing has resolved psych cannot assess due to sedation General [no acute respiratory distress Results - Labs CBC & BMP: 10/12/16 04:15 10/12/16 04:15 Lab Results: I have reviewed the past 24 hour labs Labs: Sputum growing gram-negative rods, blood cultures 2 negative downgrowth. - Diagnostic Findings Procedure: Chest x-ray: report reviewed by me (Perihilar infiltrates are improving) Quality Measures - Stroke Onset of Symptoms Date: 10/07/16
--- NOTE | 2016-10-12 13:50 | Interventional Radiology Rpt ---
IR lumbar puncture diagnostic Indication: Altered mental status. Lumbar puncture with fluoroscopy Description: Formal timeout was performed. Maximum sterile barrier technique used. The patient was placed left lateral decubitus on the fluoroscopy table. The low back was prepped and draped in a sterile fashion. A midline lumbar puncture was then performed at the L3-4 interspace using a 22-gauge spinal needle. Fluoroscopic guidance was used and a captured image documents the needle position. An opening pressure of 40 cm water was obtained, although the patient is intubated and overbreathing the present causing quite a bit of straining. 8 cc clear, colorless CSF was withdrawn and sent to laboratory. Needle was removed and a bandage placed the puncture site. Fluoroscopy time: 1.1 minutes. Impression: Lumbar puncture as described. Elevated opening pressure 40 cm measured with the patient straining quite a bit. Suspect this pressure is elevated but not quite as severe as indicated on the manometer. PROCEDURE INTERPRETED AT [facility] DEPARTMENT OF RADIOLOGY Final Report Signed by: Nash Chowdhury M.D.
--- NOTE | 2016-10-12 14:44 | Cardiology Progress Note ---
<Bria Goode E - Last Filed: 10/12/16 16:42> Assessment and Plan - Time spent with patient Time spent with patient: Less than 30 minutes (1) Altered mental status Status: Acute Assessment and plan: See plan of care listed below. Current Visit: Yes (2) Acute renal failure Status: Acute Assessment and plan: See plan of care listed below. Current Visit: Yes (3) Encephalopathy acute Status: Acute Assessment and plan: See plan of care listed below. Current Visit: Yes (4) Cocaine intoxication Status: Acute Assessment and plan: See plan of care listed below. Current Visit: Yes (5) Hyperkalemia Status: Acute Assessment and plan: See plan of care listed below. Current Visit: Yes (6) Polysubstance abuse Status: Acute Assessment and plan: See plan of care listed below. Current Visit: Yes (7) Hypertension Status: Chronic Assessment and plan: See plan of care listed below. Current Visit: Yes (8) Dyslipidemia Status: Chronic Assessment and plan: See plan of care listed below. Current Visit: Yes (9) Elevated troponin Status: Acute Assessment and plan: See plan of care listed below. Current Visit: Yes (10) Acute respiratory failure Status: Acute Assessment and plan: See plan of care listed below. 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 Day is a 56 year old male with a history of hypertension, dyslipidemia, depression, alcohol and drug abuse, and chronic back pain who was admitted with altered mental status and subsequently intubated in the emergency room. He was positive for cocaine upon arrival. He was started on Dobutamine and transferred to the CCU for further monitoring. He was noted to have elevated cardiac biomarkers and suspected CHF and we were consulted to see him. Echocardiogram on 10/08/16 revealed normal systolic and diastolic function, mild MR, mild , mild pulmonary hypertension with PA pressure 46 mmHg. Carotid doppler ultrasound revealed 41-59% diameter stenosis of both ICA origins present. OCTOBER 12, 2016 UPDATE: Upon exam this morning, Mr. Day is sedated and resting comfortably on the mechanical ventilator. He has no perpheral edema. He does not appear to be in heart failure at this time but has required high support for oxygenation. He is undergoing dialysis for this reason. His BNP is only 62 despite his acute renal failure and he has normal systolic and diastolic function per his echo, suggesting that his respiratory failure may be confounded by an additional process, possibly infectious process. Initial blood cultures were negative but he has spiked a temperature of 102.9 with elevated WBC of 13.8 and left shift and has undergone lumbar punture today. He is in sinus tachycardia which I suspect is related to his fever or possibly his worsening pulmonary function. He has been hypotensive and would likely not tolerate beta kimberlee at this time. Will further discuss with Dr. Corral and await her additional recommendations. ASSESSMENT/PLAN: 1. ALTERED MENTAL STATUS - Patient is now intubated on mechanical ventilation. 2. ACUTE RENAL FAILURE - Creatinine remains elevated at 9.8. 3. ACUTE ENCEPHALOPATHY - CT of the head was negative. Neurology is following. 4. COCAINE INTOXICATION - Acute. 5. HYPERKALEMIA - Potassium 4.8 today. 6. POLYSUBSTANCE ABUSE 7. HYPERTENSION - Currently well controlled. Will continue to monitor and adjust accordingly. 8. DYSLIPIDEMIA - Lipid panel revealed triglycerides 106, cholesterol 191, LDL 120, HDL 33. 9. ELEVATED TROPONIN - EKG has shown no acute changes. Suspect his cardiac biomarkers were elevated from the cocaine, the CK is disproportionately elevated compared to the MB and the troponin, particularly in the setting of severe acute renal failure. 10. ACUTE RESPIRATORY FAILURE - Pulmonology has been consulted for vent management. Chest x-ray has been worsening and he is requiring higher PEEP and FiO2 on the ventilator. Exam (Progress Note) - Constitutional Vitals: Period Temp Pulse Resp BP Sys/Carbone Pulse Ox Last 24 Hr 97.9 F-101.8 F 74-119 13-119 98-150/57-103 91-100 Exam: General appearance: Orally intubated and sedated on ventilator. Overweight, no acute distress. - Head Head exam: Present: normal inspection, normocephalic, atraumatic. Absent: hematoma, laceration - Eye Eye exam: Present: EOMI. Absent: conjunctival injection, nystagmus, periorbital swelling, scleral icterus, laceration to eyelids Pupils: Present: PERRL. Absent: constricted, dilated, fixed, irregular, unequal - ENT ENT exam: Present: Orally intubated, normal external ear exam - Neck Neck exam: Present: normal inspection. Absent: lymphadenopathy, meningismus, tenderness, thyromegaly - Respiratory Respiratory exam: Present: Mechanically ventilated breath sounds, coarse. Absent: accessory muscle use - Cardiovascular Cardiovascular exam: Present: regular rate and rhythm, Bilateral carotid bruit, systolic murmur. Absent: gallop, JVD, rubs - GI/Abdominal GI/Abdominal exam: Present: normal bowel sounds, soft. Absent: distended, firm , guarding, hernia, mass, tenderness, rebound. - Extremities Exam Extremities exam: Present: normal inspection, normal capillary refill. Upper extremity pulses 2+. Lower extremity pulses 2+. Absent: calf tenderness, edema - Back Exam Back exam: Present: Unable to examine due to habitus. Sedated on mechanical ventilator. - Neurological Exam Neurological exam: Present: Limited due to habitus (sedated on ventilator). Will sometimes follow commands. No resting or essential tremor. - Psychiatric Psychiatric exam: Present: Unable to adequately assess due to patient being sedated and on mechanical ventilation. - Skin Skin exam: Present: normal color, warm, dry, intact. Absent: cyanosis, diaphoretic, rash, urticaria Result/EKG - Labs CBC & BMP: 10/12/16 04:15 10/12/16 04:15 Lab Results: I have reviewed the past 24 hour labs Labs: Laboratory Results - last 24 hr 10/11/16 10/11/16 10/11/16 03:33 18:09 22:58 WBC RBC Hgb Hct MCV MCH MCHC RDW Plt Count MPV Neut % (Auto) Lymph % (Auto) [place] % (Auto) Eos % (Auto) Baso % (Auto) Neut # (Auto) Lymph # (Auto) [place] # (Auto) Eos # (Auto) Baso # (Auto) Immature Gran % Nucleated RBC % Immature Gran # Nucleated RBCs # Immature Plt Fraction Hypochromasia Microcytosis ABG pH ABG pCO2 ABG pO2 ABG HCO3 ABG Total CO2 ABG O2 Saturation ABG Base Excess FiO2 Sodium Potassium Chloride Carbon Dioxide Anion Gap BUN Creatinine GFR Calculation BUN/Creatinine Ratio Glucose POC Glucose 148 H 126 H Calculated Osmolality Calcium Magnesium CSF Glucose CSF Total Protein HIV 1&2 Antigen & Ab Nonreactive 10/12/16 10/12/16 10/12/16 03:22 04:15 04:15 WBC 15.6 H RBC 2.70 L Hgb 9.7 L Hct 25.0 L MCV 92.6 MCH 36 H MCHC 38.8 H RDW 12.9 Plt Count 154 MPV 12.4 H Neut % (Auto) 84.5 H Lymph % (Auto) 6.1 L [place] % (Auto) 7.2 Eos % (Auto) 1.5 Baso % (Auto) 0.1 Neut # (Auto) 13.2 H Lymph # (Auto) 1.0 L [place] # (Auto) 1.1 H Eos # (Auto) 0.2 Baso # (Auto) 0.0 Immature Gran % 0.6 Nucleated RBC % 0.0 Immature Gran # 0.10 Nucleated RBCs # 0.00 Immature Plt Fraction 0.0 Hypochromasia Slight Microcytosis 2+ ABG pH 7.272 L ABG pCO2 46.5 ABG pO2 261.4 H ABG HCO3 21.0 ABG Total CO2 22.4 L ABG O2 Saturation 99.0 ABG Base Excess -5.8 L FiO2 Sodium 137 Potassium 5.2 H Chloride 101 Carbon Dioxide 21 Anion Gap 20.2 H BUN 42 H Creatinine 9.80 H GFR Calculation 7 BUN/Creatinine Ratio 4.00 L Glucose 125 H POC Glucose Calculated Osmolality 284.8 Calcium 7.1 L Magnesium 2.3 CSF Glucose CSF Total Protein HIV 1&2 Antigen & Ab 10/12/16 10/12/16 10/12/16 05:54 09:20 11:47 WBC RBC Hgb Hct MCV MCH MCHC RDW Plt Count MPV Neut % (Auto) Lymph % (Auto) [place] % (Auto) Eos % (Auto) Baso % (Auto) Neut # (Auto) Lymph # (Auto) [place] # (Auto) Eos # (Auto) Baso # (Auto) Immature Gran % Nucleated RBC % Immature Gran # Nucleated RBCs # Immature Plt Fraction Hypochromasia Microcytosis ABG pH 7.297 L ABG pCO2 40.5 ABG pO2 154.0 H ABG HCO3 19.3 L ABG Total CO2 18.5 L ABG O2 Saturation 99.0 ABG Base Excess -6.3 L FiO2 80.00 Sodium Potassium Chloride Carbon Dioxide Anion Gap BUN Creatinine GFR Calculation BUN/Creatinine Ratio Glucose POC Glucose 75 74 Calculated Osmolality Calcium Magnesium CSF Glucose CSF Total Protein HIV 1&2 Antigen & Ab 10/12/16 10/12/16 Unknown Unknown WBC RBC Hgb Hct MCV MCH MCHC RDW Plt Count MPV Neut % (Auto) Lymph % (Auto) [place] % (Auto) Eos % (Auto) Baso % (Auto) Neut # (Auto) Lymph # (Auto) [place] # (Auto) Eos # (Auto) Baso # (Auto) Immature Gran % Nucleated RBC % Immature Gran # Nucleated RBCs # Immature Plt Fraction Hypochromasia Microcytosis ABG pH ABG pCO2 ABG pO2 ABG HCO3 ABG Total CO2 ABG O2 Saturation ABG Base Excess FiO2 Sodium Potassium Chloride Carbon Dioxide Anion Gap BUN Creatinine GFR Calculation BUN/Creatinine Ratio Glucose POC Glucose Calculated Osmolality Calcium Magnesium CSF Glucose 50 CSF Total Protein 30 HIV 1&2 Antigen & Ab - EKG EKG results: interpreted by me, sinus rhythm EKG shows: tachycardia Quality Measures - Stroke Onset of Symptoms Date: 10/07/16 <Alexia Corral - Last Filed: 10/12/16 17:44> Cardiology - PN: Subj Interval history: I have personally interviewed and evaluated the patient, reviewed the chart and discussed medical decision-making with practitioner Russel. I have read this note and agree with her documentation here in. Exam (Progress Note) - Constitutional Vitals: Period Temp Pulse Resp BP Sys/Carbone Pulse Ox Last 24 Hr 97.9 F-101.8 F 74-119 13-119 98-147/57-103 91-100 Result/EKG - Labs CBC & BMP: 10/12/16 04:15 10/12/16 04:15 Labs: Laboratory Results - last 24 hr 10/11/16 10/11/16 10/11/16 03:33 18:09 22:58 WBC RBC Hgb Hct MCV MCH MCHC RDW Plt Count MPV Neut % (Auto) Lymph % (Auto) [place] % (Auto) Eos % (Auto) Baso % (Auto) Neut # (Auto) Lymph # (Auto) [place] # (Auto) Eos # (Auto) Baso # (Auto) Immature Gran % Nucleated RBC % Immature Gran # Nucleated RBCs # Immature Plt Fraction Hypochromasia Microcytosis ABG pH ABG pCO2 ABG pO2 ABG HCO3 ABG Total CO2 ABG O2 Saturation ABG Base Excess FiO2 Sodium Potassium Chloride Carbon Dioxide Anion Gap BUN Creatinine GFR Calculation BUN/Creatinine Ratio Glucose POC Glucose 148 H 126 H Calculated Osmolality Calcium Magnesium CSF Appearance CSF Color CSF WBC CSF RBC CSF Diff Total Count CSF Neutrophils CSF Lymphocytes CSF Monocytes CSF Glucose CSF Total Protein HIV 1&2 Antigen & Ab Nonreactive 10/12/16 10/12/16 10/12/16 03:22 04:15 04:15 WBC 15.6 H RBC 2.70 L Hgb 9.7 L Hct 25.0 L MCV 92.6 MCH 36 H MCHC 38.8 H RDW 12.9 Plt Count 154 MPV 12.4 H Neut % (Auto) 84.5 H Lymph % (Auto) 6.1 L [place] % (Auto) 7.2 Eos % (Auto) 1.5 Baso % (Auto) 0.1 Neut # (Auto) 13.2 H Lymph # (Auto) 1.0 L [place] # (Auto) 1.1 H Eos # (Auto) 0.2 Baso # (Auto) 0.0 Immature Gran % 0.6 Nucleated RBC % 0.0 Immature Gran # 0.10 Nucleated RBCs # 0.00 Immature Plt Fraction 0.0 Hypochromasia Slight Microcytosis 2+ ABG pH 7.272 L ABG pCO2 46.5 ABG pO2 261.4 H ABG HCO3 21.0 ABG Total CO2 22.4 L ABG O2 Saturation 99.0 ABG Base Excess -5.8 L FiO2 Sodium 137 Potassium 5.2 H Chloride 101 Carbon Dioxide 21 Anion Gap 20.2 H BUN 42 H Creatinine 9.80 H GFR Calculation 7 BUN/Creatinine Ratio 4.00 L Glucose 125 H POC Glucose Calculated Osmolality 284.8 Calcium 7.1 L Magnesium 2.3 CSF Appearance CSF Color CSF WBC CSF RBC CSF Diff Total Count CSF Neutrophils CSF Lymphocytes CSF Monocytes CSF Glucose CSF Total Protein HIV 1&2 Antigen & Ab 10/12/16 10/12/16 10/12/16 05:54 09:20 11:47 WBC RBC Hgb Hct MCV MCH MCHC RDW Plt Count MPV Neut % (Auto) Lymph % (Auto) [place] % (Auto) Eos % (Auto) Baso % (Auto) Neut # (Auto) Lymph # (Auto) [place] # (Auto) Eos # (Auto) Baso # (Auto) Immature Gran % Nucleated RBC % Immature Gran # Nucleated RBCs # Immature Plt Fraction Hypochromasia Microcytosis ABG pH 7.297 L ABG pCO2 40.5 ABG pO2 154.0 H ABG HCO3 19.3 L ABG Total CO2 18.5 L ABG O2 Saturation 99.0 ABG Base Excess -6.3 L FiO2 80.00 Sodium Potassium Chloride Carbon Dioxide Anion Gap BUN Creatinine GFR Calculation BUN/Creatinine Ratio Glucose POC Glucose 75 74 Calculated Osmolality Calcium Magnesium CSF Appearance CSF Color CSF WBC CSF RBC CSF Diff Total Count CSF Neutrophils CSF Lymphocytes CSF Monocytes CSF Glucose CSF Total Protein HIV 1&2 Antigen & Ab 10/12/16 10/12/16 10/12/16 17:07 Unknown Unknown WBC RBC Hgb Hct MCV MCH MCHC RDW Plt Count MPV Neut % (Auto) Lymph % (Auto) [place] % (Auto) Eos % (Auto) Baso % (Auto) Neut # (Auto) Lymph # (Auto) [place] # (Auto) Eos # (Auto) Baso # (Auto) Immature Gran % Nucleated RBC % Immature Gran # Nucleated RBCs # Immature Plt Fraction Hypochromasia Microcytosis ABG pH ABG pCO2 ABG pO2 ABG HCO3 ABG Total CO2 ABG O2 Saturation ABG Base Excess FiO2 Sodium Potassium Chloride Carbon Dioxide Anion Gap BUN Creatinine GFR Calculation BUN/Creatinine Ratio Glucose POC Glucose 77 Calculated Osmolality Calcium Magnesium CSF Appearance Clear CSF Color Colorless CSF WBC 4 CSF RBC 10 CSF Diff Total Count 100 CSF Neutrophils 10 CSF Lymphocytes 61 CSF Monocytes 29 CSF Glucose 50 CSF Total Protein HIV 1&2 Antigen & Ab 10/12/16 Unknown WBC RBC Hgb Hct MCV MCH MCHC RDW Plt Count MPV Neut % (Auto) Lymph % (Auto) [place] % (Auto) Eos % (Auto) Baso % (Auto) Neut # (Auto) Lymph # (Auto) [place] # (Auto) Eos # (Auto) Baso # (Auto) Immature Gran % Nucleated RBC % Immature Gran # Nucleated RBCs # Immature Plt Fraction Hypochromasia Microcytosis ABG pH ABG pCO2 ABG pO2 ABG HCO3 ABG Total CO2 ABG O2 Saturation ABG Base Excess FiO2 Sodium Potassium Chloride Carbon Dioxide Anion Gap BUN Creatinine GFR Calculation BUN/Creatinine Ratio Glucose POC Glucose Calculated Osmolality Calcium Magnesium CSF Appearance CSF Color CSF WBC CSF RBC CSF Diff Total Count CSF Neutrophils CSF Lymphocytes CSF Monocytes CSF Glucose CSF Total Protein 30 HIV 1&2 Antigen & Ab
[2016-10-12 15:25] LABS: Appearance,CSF Clear; Red Blood Cell,CSF 10 C/CUMM; White Blood Cell,CSF 4 C/CUMM
[2016-10-12 16:36] LABS: Lymphocytes,CSF 61 %; Monocytes,CSF 29 %; Neutrophils,CSF 10 %
[2016-10-12] MEDS: LORazepam 2 MG/1 ML VIAL IV PRN (23:28)
[2016-10-13] MEDS: ALBUTEROL/IPRATROPIUM 3 ML NEB RESP TX SCH ×4 (01:10→20:11)
[2016-10-13] MEDS: PANTOPRAZOLE 40 MG VIAL IV SCH (02:33)
[2016-10-13] MEDS: ERYTHROMYCIN INJ 250 MG in SODIUM CHLORIDE 0.9% 100 ML IV SCH ×4 (02:33→20:11)
[2016-10-13] MEDS: PIPERACILLIN/TAZOBACTAM 3,375 MG in SODIUM CHLORIDE 0.9% 100 ML IV SCH ×2 (02:33→15:20)
[2016-10-13] MEDS: PROPOFOL 1,000 MG/100 ML BOTTLE IV SCH ×8 (02:46→23:13)
[2016-10-13 05:22] LABS: Basophils % 0.1 % (0.0-0.8); Eosinophils # 0.4 10*3/uL (0.0-0.87); Eosinophils % 2.9 % (0.00-10.9); Hematocrit 22.7 VOL% (42.0-52.0); Hemoglobin 8.8 GM/DL (14.0-18.0); Immature Granulocytes % 1.1 %; Immature Granulocytes Absolute 0.16 #; Lymphocytes # 0.8 10*3/uL (1.4-4.0); Lymphocytes % 5.5 % (21.2-54.2); Mean Corpuscular HGB Conc 38.8 GM/DL (32-36); Mean Corpuscular Hemoglobin 36 PG (27-34); Mean Corpuscular Volume 91.9 FL (87-102); Mean Platelet Volume 11.4 FL (9.6-12.0); Monocytes % 6.6 % (1.7-12.7); Neutrophils # 12.2 10*3/uL (1.4-7.4); Neutrophils % 83.8 % (38.7-73.9); Platelet Count 168 T/CUMM (130-400); Red Blood Count 2.47 MC/CUMM (3.8-5.5); Red Cell Distribution Width 13.1 % (9.3-17.3); White Blood Count 14.5 T/CUMM (4-12)
[2016-10-13] MEDS: INSULIN REGULAR 100 UNIT/ML SUBCUT SCH ×4 (05:29→23:37)
[2016-10-13 05:56] LABS: Calcium 6.9 MG/DL (8.5-10.1); Magnesium 2.5 MG/DL (1.8-2.4); Osmolality,Calculated 289.1 MOS/KG (273-304); Potassium 5.6 MMOL/L (3.5-5.1)
[2016-10-13 06:07] LABS: Band Neutrophils 1 % (0-10); Eosinophils 1 % (0-10); Lymphocytes 3 % (20-55); Metamyelocytes 1 %; Segmented Neutrophils 92 % (50-85); Total Cells Counted 100
[2016-10-13 06:08] LABS: Platelet Estimate Normal
[2016-10-13] MEDS: PHENYLEPHRINE DRIP 40 MG/250 ML PREMIX IV SCH (06:22)
--- NOTE | 2016-10-13 06:40 | Pulmonology Progress Note ---
Pulmonary - PN: Subj Interval history: Patient is a 56-year-old black man that has a history of hypertension and alcohol abuse. He has had some chronic pain issues. He came into the emergency room lethargic and had positive drug screen for cocaine and opiates. He has been put on the ventilator. He has also developed acute renal failure. He did develop worsening infiltrates and was hard to ventilate. He may be a little better now. His chest x-ray has improved and his compliance is better. His oxygenation has been a little better. He did require some sedation during the night and his blood pressure is on the low side. He did have an LP yesterday that was unremarkable. He will probably get dialysis today. He will likely need pressors Exam (Progress Note) - Constitutional Vitals: Period Temp Pulse Resp BP Sys/Carbone Pulse Ox Last 24 Hr 97.7 F-100.2 F 74-119 14-27 75-140/46-103 90-100 Exam: General appearance: normal weight, no acute distress (The patient is mildly sedated now. ) - Head Head exam: Present: normal inspection, normocephalic - Eye Eye exam: Absent: scleral icterus Pupils: Present: constricted - ENT ENT exam: Present: other (ET tube is in good position.) - Neck Neck exam: Present: normal inspection. Absent: lymphadenopathy, thyromegaly - Respiratory Respiratory exam: Present: He has good breath sounds bilaterally and his lungs sound a little better today. His lung compliance is better. - Cardiovascular Cardiovascular exam: Present: regular rate and rhythm, tachycardia. Absent: gallop - GI/Abdominal GI/Abdominal exam: Present: hypoactive bowel sounds, soft. Absent: organomegaly , tenderness - Extremities Exam Extremities exam: Absent: calf tenderness, edema - Neurological Exam Neurological exam: Present: Patient is opening his eyes and responding some. - Psychiatric Psychiatric exam: Absent: anxious - Skin Skin exam: Present: warm, dry Results - Labs CBC & BMP: 10/13/16 05:06 10/13/16 05:06 - Diagnostic Findings Procedure: Chest x-ray: image reviewed by me, report reviewed by me (Chest x- ray is better but he still has some mild infiltrates.) Assessment and Plan (1) Acute respiratory failure Status: Acute Assessment and plan: Patient has had a difficult time and is on the ventilator with respiratory failure. His infiltrates are better now and his x-ray is improving. His oxygenation is better. He will continue with ventilatory support. Current Visit: Yes (2) Acute renal failure Status: Acute Assessment and plan: The patient has done fairly well with dialysis and his creatinine is 11.3. He will likely dialyze today. Current Visit: Yes (3) Cocaine intoxication Status: Acute Assessment and plan: Patient apparently has had cocaine abuse. Current Visit: Yes (4) Polysubstance abuse Status: Acute Assessment and plan: The patient has a history of substance abuse. He certainly could have withdrawal symptoms. Current Visit: Yes (5) Encephalopathy acute Status: Acute Assessment and plan: Patient is more alert and responding to commands now. His LP did not show signs of infection. Current Visit: Yes
[2016-10-13] MEDS: VECURONIUM 10 MG VIAL IV PRN (07:50)
--- NOTE | 2016-10-13 09:17 | Operative Note ---
Date of procedure: 10/13/16 Pre-op diagnosis: Respiratory failure Post-op diagnosis: other (Mucous plugging or retained secretions) Procedure: Patient is on the ventilator and is having some trouble with secretions. He is requiring an increased FiO2. A therapeutic bronchoscopy will be done to assess and clear airways. Procedure: The patient is sedated in the ICU. The fiberoptic bronchoscope was passed to the ET tube into the airways. The bronchopulmonary segment were identified and specimens obtained. Findings: There is a large plug in the distal ET tube that had to be removed with the bronchoscope. There is some thick secretions and plugs in the airways that were washed and cleared and sent for culture. The right upper lobe, right middle lobe, and right lower lobe are open. The left upper lobe, lingula, and left lower lobe are open. Once the airways were clear the procedure was stopped. He tolerated the procedure fairly well without problems. Impression: Mucous plugging and retained secretions . Plan: We will continue ventilatory support for now. Anesthesia: conscious sedation Surgeon / Physician: Jesus Alberto Pelayo Estimated blood loss: none Specimens: other (Washings were sent for culture.) Condition: critical Disposition: ICU Results - Labs CBC & BMP: 10/13/16 05:06 10/13/16 05:06 Discharge Plan - Discharge Medications No Action Lisinopril 40 mg PO DAILY Citalopram [CeleXA] 40 mg PO DAILY Amitriptyline [Elavil] 25 mg PO BEDTIME amLODIPine [Norvasc] 5 mg PO DAILY Atorvastatin [Lipitor] 40 mg PO DAILY Trazodone HCl 100 mg PO BEDTIME PRN PRN Reason: Sleep Metoprolol Tartrate 50 mg PO BID Ranitidine Tab [Zantac Tab] 150 mg PO BID Acetic Acid 2% Otic Soln [Vosol 2% Otic Soln] 5 drop LEFT EAR QID #15 ml Rosuvastatin [Crestor] 40 mg PO DAILY Gabapentin Cap/Tab [Neurontin Cap/Tab] 400 mg PO BID Meloxicam 7.5 mg PO Buspirone HCl 10 mg PO hydroCHLOROthiazide [Hydrochlorothiazide] 25 mg PO DAILY Topiramate [Topamax] 50 mg PO BID - Follow Up or Referral - Forms/Instructions
--- NOTE | 2016-10-13 09:26 | Hospitalist Progress Note ---
Assessment and Plan (1) Acute respiratory failure Status: Acute Assessment and plan: s/p bronch, cont vent support with paralytics as needed. Bilateral infiltrate on xray Current Visit: Yes (2) Acute renal failure Status: Acute Assessment and plan: Still not making urine. dialysis planned for today Current Visit: Yes (3) Polysubstance abuse Status: Acute Assessment and plan: Patient was positive for opiates and cocaine. Current Visit: Yes (4) Congestive heart failure Status: Acute Assessment and plan: Echocardiogram showed an EF of 65%. dialysis today. Current Visit: Yes (5) Encephalopathy acute Status: Acute Assessment and plan: Patient has metabolic encephalopathy. Lumbar puncture showed no evidence of meningitis Current Visit: Yes (6) Elevated troponin Status: Acute Assessment and plan: Serial troponins positive, most likely due to cocaine abuse, cardiology is following, Current Visit: Yes (7) Anemia Status: Acute Assessment and plan: 2 units of PRBC with dialysis Current Visit: Yes (8) Hypotension Status: Acute Assessment and plan: started pressors at 4 am Current Visit: Yes (9) Ileus Status: Acute Assessment and plan: KUB pending hold tube feeding Current Visit: Yes (10) Leukocytosis Status: Acute Assessment and plan: worsening infiltatrate, may be developing ards, s/p bronch with mucous plugs, cont vanco and zosyn Current Visit: Yes (11) Altered mental status Status: Acute Assessment and plan: Dr. Sierra does not feel patient has any evidence to suggest seizure activity. Spinal tap negative for meningitis Current Visit: Yes Hospitalist: Subjective Interval history: patient having more difficulty breathing, agonal, bilateral rhonchi, suctioning mccarty sputum out of ET. Called Dr. Pelayo concerned about pneumonia and mucous plugging. Saturation dropped to low 80s. Dr. Pelayo bronch him and he had alot of nasty secretions with large mucous plugs. Will attempt to wean down the vent after he recovers from bronch. Exam - Constitutional Vitals: Period Temp Pulse Resp BP Sys/Carbone Pulse Ox Last 24 Hr 97.7 F-100.2 F 81-119 14-27 75-140/46-103 90-99 Exam: Heart Rate-[tachy] Lungs-[bilateral rhonchi worse today] GI-[no bowel sound, abdomen distended and tender ] Ext-anasarca improving Neuro too agitated on cpap psych agitated General [severe acute respiratory distress Results - Labs CBC & BMP: 10/13/16 05:06 10/13/16 05:06 Lab Results: I have reviewed the past 24 hour labs Labs: Repeat blood cultures 2 negative no growth, sputum culture growing gram- negative rods. - Diagnostic Findings Procedure: Chest x-ray: image reviewed by me (bilateral infiltrates. ) Quality Measures - Stroke Onset of Symptoms Date: 10/07/16
--- NOTE | 2016-10-13 09:48 | XRay Report ---
History: Diminished bowel sounds Date: 10/13/2016 Study: KUB Comparison exam: October 08, 2016 The nasogastric tube overlies the proximal to mid stomach body level. There is no foreign bowel obstruction. There is a relative paucity of bowel gas over the abdomen. There is mild lumbar spondylosis. Impression: The nasogastric tube is well-positioned. No adverse interval changes. No definite acute process PROCEDURE INTERPRETED AT [facility] DEPARTMENT OF RADIOLOGY Final Report Signed by: Dr. Siri Renee
--- NOTE | 2016-10-13 09:51 | XRay Report ---
History: Patient on ventilator Date: 10/13/2016 Study: Chest x-ray AP portable Comparison exam: October 12, 2016 chest x-ray The endotracheal and nasogastric tubes remain in stable position. The right IJ central venous line is stable. The cardiomediastinal silhouette is unchanged. There is increasing patchy and hazy edema/infiltrate throughout the left lung compared to the previous study. Patchy and strandy atelectasis/obstructive the right lung base is actually improved to a mild degree. There may be a small amount of pleural effusion on the left. There is extrinsic tubing superimposed over the chest bilaterally. The osseous structures are unchanged. Impression: Increasing infiltrate throughout the left lung compared to the previous study. This could represent developing or worsening pneumonia. Slightly improved aeration in the right lung base PROCEDURE INTERPRETED AT [facility] DEPARTMENT OF RADIOLOGY Final Report Signed by: Dr. Siri Renee
[2016-10-13] MEDS: FOLIC ACID 1 MG TABLET PO SCH (10:05)
[2016-10-13] MEDS: THIAMINE 200 MG/2 ML VIAL IV SCH (10:06)
[2016-10-13] MEDS: MULTIVITAMIN (CENTRUM) TABLET PO SCH (10:14)
--- NOTE | 2016-10-13 10:18 | Nephrology Progress Note ---
Nephrology - PN: Subj Interval history: Pt intubated and sedated. Getting blood this am. Exam (PN)-Nephrology - Vital Signs Vital signs: Period Temp Pulse Resp BP Sys/Carbone Pulse Ox Last 24 Hr 97.7 F-100.2 F 81-121 14-28 75-140/46-103 90-99 - General Appearance General appearance: chronically ill, sedated on ventilator, intubated EENT: ATNC, mucous membranes dry Neck: no JVD, no thyromegaly Respiratory: no kyphosis, clear Cardiology: no murmurs, no rub Gastrointestinal: normoactive bowel sounds, no tenderness Integumentary: no rash, warm and dry Neurologic: obtunded Musculoskeletal: no deformities, no erythema - Lab 10/13/16 05:06 10/13/16 05:06 Most recent lab results ABG pH 7.297 (7.35-7.45) L 10/12/16 09:20 ABG pCO2 40.5 MM HG (35-48) 10/12/16 09:20 ABG pO2 154.0 MM HG (80-95) H 10/12/16 09:20 ABG HCO3 19.3 MMOL/L (20-26) L 10/12/16 09:20 ABG O2 Saturation 99.0 % (95-100) 10/12/16 09:20 Calcium 6.9 MG/DL (8.5-10.1) L 10/13/16 05:06 Phosphorus 6.3 MG/DL (2.5-4.9) H 10/10/16 03:35 Magnesium 2.5 MG/DL (1.8-2.4) H 10/13/16 05:06 Assessment and Plan (1) PHUC (acute kidney injury) Problem details: Requiring HD. Status: Acute Assessment and plan: Routine CHD today. Transfuse 2u while on HD. UF as tolerated by hemodynamics. Current Visit: Yes
[2016-10-13] MEDS ORDERED: SODIUM CHLORIDE 0.9% 250 ML IV PRN (12:06)
--- NOTE | 2016-10-13 12:26 | Gastrointestinal Progress Note ---
Assessment and Plan - Time spent with patient Time spent with patient: Greater than 30 minutes (1) Anemia Status: Acute Assessment and plan: PLEASE NOTE -- automatic citation of patient information is unavoidable in this electronic note. I have made a reasonable effort to review the information cited , but it is not a part of my evaluation, impression, or recommendation unless specifically discussed in the dictated text that follows. As well, voice recognition software was used in the creation of this clinical note. Reasonable effort was made to identify and correct gross errors. Despite proofreading, errors in special events driver may be present, including nonsense verbiage at times. If you encounter such an error, please contact me at [phone] for discussion and correction. -- Bill Chief complaint: Anemia with admission for altered mental status due to multi- substance abuse, no acute GI bleeding observed. Initially on pressors, requiring acute hemodialysis. Hemoglobin dropped from 11-9 after admission, 3+ positive occult blood in his stool. C. difficile negative home medications with Mobic, and chronic back pain. 24 hour events: Hemoglobin dropped from 9.7 to 8.8 today. Patient still ventilated. Underwent bronchoscopy today and found to have significant mucus plugging. Patient with rectal tube in place with continued stool output daily, no blood, no melena. Subjective: Mr. Day is intubated and sedated Medications: reviewed with no gastrointestinal related changes noted -Protonix IV daily REVIEW OF SYSTEMS: unable to assess due to intubation/sedation PHYSICAL EXAMINATION: CONSTITUTIONAL: Vital signs reviewed as documented above. Sedated and intubated EYES: closed MOUTH: ET tube, OG LUNGS: intubated. No increased work of breathing or accessory muscle use. GI/ABDOMEN: overweight abdomen, soft, mildly distended, but soft and compressible. SKIN: No concerning rash on face, arms, or hands. MUSCULOSKELETAL: Muscle tone appears normal without any abnormal movements. PSYCH: unable to assess Neuro: chemically sedated, unable to otherwise assess Laboratory: Personally reviewed Radiology: Personally reviewed reports and images with no pertinent changes unless noted here: Assessments: #Acute anemia. Continued drop today of additional unit. No evidence of GI bleeding at this time. Patient on NSAIDs as an outpatient based on prior medication list, cocaine and other drug toxicity would be risk factors for GI tract injury and blood loss. #Other specified counseling -- The patient was seen for greater than 30 minutes. The patient was counseled for greater than 50% of this time regarding differential diagnosis, likely diagnosis, diagnostic and therapeutic alternatives, risks/benefits/alternatives of medications and procedures, and plan of care generally. The patient expressed understanding and wishes to proceed. Recommendations: -no indication for acute endoscopy at this time -consider endoscopy once patient more stable, or if acute bleeding becomes evident -check iron and fasting ferritin at next lab draw-ordered -continue with IV PPI, if bleeding occurs, will need to increase to BID dosing -recommend restarting tube feeds to prevent bacterial translocation and reduce risk of sepsis. Patient appears to be moving his bowels well. Guerita Khan MD, MPH STAFF TRA[employer]ER MECH[employer]IC Current Visit: Yes Exam (Progress Note) - Constitutional Vitals: Period Temp Pulse Resp BP Sys/Carbone Pulse Ox Last 24 Hr 97.7 F-100.2 F 76-121 14-28 75-140/46-103 90-100 Results - Labs CBC & BMP: 10/13/16 05:06 10/13/16 05:06
[2016-10-13 12:50] LABS: Ferritin 427.8 ng/ml (26-388)
--- NOTE | 2016-10-13 13:06 | Cardiology Progress Note ---
Assessment and Plan (1) Acute renal failure Status: Acute Current Visit: Yes (2) Altered mental status Status: Acute Current Visit: Yes (3) Cocaine intoxication Status: Acute Current Visit: Yes (4) Hyperkalemia Status: Acute Current Visit: Yes (5) Polysubstance abuse Status: Acute Current Visit: Yes (6) Acute respiratory failure Status: Acute Current Visit: Yes (7) Hypertension Status: Chronic Current Visit: Yes (8) Dyslipidemia Status: Chronic Current Visit: Yes (9) Elevated troponin Status: Acute Current Visit: Yes (10) Anemia Status: Acute Current Visit: Yes Cardiology - PN: Subj Interval history: Interval history: Spring 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 Valle (last seen in 2014) SUMMARY:Hx of hypertension, dyslipidemia, depression, alcohol and drug abuse, and chronic back pain who was admitted with altered mental status and subsequently intubated in the emergency room. He was positive for cocaine upon arrival. He was noted to have elevated cardiac biomarkers and suspected CHF and we were consulted to see him. Echocardiogram on 10/08/16 revealed normal systolic and diastolic function, mild MR, mild , mild pulmonary hypertension with PA pressure 46 mmHg. Carotid doppler ultrasound revealed 41-59% diameter stenosis of both ICA origins present. OCTOBER 13, 2016 UPDATE: Overnight he had a deterioration with some hypotension, hypoxemia requiring increased ventilatory support. He underwent bronchoscopy and a large mainstem plug was removed which seemed to improve his hemodynamic and pulmonary status. He continues to spike temperatures intermittently, there has not been any meaningful neurologic interaction, although there is response to painful stimuli and some spontaneous movement. His hemoglobin has dropped and GI was consulted. ASSESSMENT/PLAN: 1. ALTERED MENTAL STATUS - Patient is now intubated on mechanical ventilation. There is likely anoxic encephalopathy. 2. ACUTE RENAL FAILURE -this persists and the patient undergoes hemodialysis. 3. ACUTE ENCEPHALOPATHY - CT of the head was negative. Neurology is following. This is likely due to his anoxia. 4. COCAINE INTOXICATION - Acute. 5. HYPERKALEMIA -he is to undergo dialysis. 6. POLYSUBSTANCE ABUSE 7. HYPERTENSION - Currently well controlled. Will continue to monitor and adjust accordingly. 8. DYSLIPIDEMIA - Lipid panel revealed triglycerides 106, cholesterol 191, LDL 120, HDL 33. 9. ELEVATED TROPONIN - EKG has shown no acute changes. Suspect his cardiac biomarkers were elevated from the cocaine, the CK is disproportionately elevated compared to the MB and the troponin, particularly in the setting of severe acute renal failure. He certainly not a candidate right now for invasive evaluation. 10. ACUTE RESPIRATORY FAILURE - Pulmonology is following and treating. 11. Anemia- he has heme positive stools, this is going to be managed conservatively currently. Exam (Progress Note) - Constitutional Vitals: Period Temp Pulse Resp BP Sys/Carbone Pulse Ox Last 24 Hr 97.7 F-100.2 F 76-121 14-28 75-127/46-103 90-100 Exam: General appearance: normal weight, no acute distress, intubated, not spontaneously arousable during the exam, although will respond to stimulation. - Head Head exam: Present: normocephalic, atraumatic,. Absent: hematoma, laceration - Eye Eye exam: Present: Periorbital swelling. Absent: laceration to eyelids Pupils: Present: DAE. Absent: constricted, dilated, fixed, irregular, unequal - ENT ENT exam: Present: normal exam, normal external ear exam - Neck Neck exam: Present: normal inspection. Absent: lymphadenopathy, meningismus, tenderness, thyromegaly - Respiratory Respiratory exam: Present: Upper airway rhonchi throughout bilaterally, there is normal rise with ventilated breaths. Absent: accessory muscle use, - Cardiovascular Cardiovascular exam: Present: regular rate and rhythm. Absent: carotid bruit, gallop, JVD, rubs - GI/Abdominal GI/Abdominal exam: Present: normal bowel sounds. Absent: distended, firm, guarding, hernia, mass, tenderness, rebound, soft - Extremities Exam Extremities exam: Present: Mild edema. Absent: Joint effusions - Back Exam Back exam: Unable to assess due to patient being on the ventilator - Neurological Exam Neurological exam: Unable to fully assess due to patient being on the ventilator. She does appear to move all 4 extremities. - Psychiatric Psychiatric exam: Unable to assess due to patient being on the ventilator. - Skin Skin exam: Present: normal color, warm, dry, intact. Absent: cyanosis, diaphoretic, rash, urticaria Result/EKG - Labs CBC & BMP: 10/13/16 05:06 10/13/16 05:06 Lab Results: I have reviewed the past 24 hour labs Labs: Laboratory Results - last 24 hr 10/12/16 10/12/16 10/12/16 17:07 23:30 Unknown WBC RBC Hgb Hct MCV MCH MCHC RDW Plt Count MPV Neut % (Auto) Lymph % (Auto) [place] % (Auto) Eos % (Auto) Baso % (Auto) Neut # (Auto) Lymph # (Auto) [place] # (Auto) Eos # (Auto) Baso # (Auto) Total Counted Immature Gran % Nucleated RBC % Immature Gran # Segmented Neutrophils Band Neutrophils Lymphocytes Monocytes Eosinophils Metamyelocytes Nucleated RBCs # Platelet Estimate Immature Plt Fraction Sodium Potassium Chloride Carbon Dioxide Anion Gap BUN Creatinine GFR Calculation BUN/Creatinine Ratio Glucose POC Glucose 77 68 L Calculated Osmolality Calcium Magnesium Iron Ferritin CSF Appearance Clear CSF Color Colorless CSF WBC 4 CSF RBC 10 CSF Diff Total Count 100 CSF Neutrophils 10 CSF Lymphocytes 61 CSF Monocytes 29 CSF Glucose CSF Total Protein Blood Type Antibody Screen Crossmatch 10/12/16 10/12/16 10/13/16 Unknown Unknown 04:53 WBC RBC Hgb Hct MCV MCH MCHC RDW Plt Count MPV Neut % (Auto) Lymph % (Auto) [place] % (Auto) Eos % (Auto) Baso % (Auto) Neut # (Auto) Lymph # (Auto) [place] # (Auto) Eos # (Auto) Baso # (Auto) Total Counted Immature Gran % Nucleated RBC % Immature Gran # Segmented Neutrophils Band Neutrophils Lymphocytes Monocytes Eosinophils Metamyelocytes Nucleated RBCs # Platelet Estimate Immature Plt Fraction Sodium Potassium Chloride Carbon Dioxide Anion Gap BUN Creatinine GFR Calculation BUN/Creatinine Ratio Glucose POC Glucose Calculated Osmolality Calcium Magnesium Iron 17 L Ferritin 427.8 H CSF Appearance CSF Color CSF WBC CSF RBC CSF Diff Total Count CSF Neutrophils CSF Lymphocytes CSF Monocytes CSF Glucose 50 CSF Total Protein 30 Blood Type Antibody Screen Crossmatch 10/13/16 10/13/16 10/13/16 05:06 05:06 05:26 WBC 14.5 H RBC 2.47 L Hgb 8.8 L Hct 22.7 L MCV 91.9 MCH 36 H MCHC 38.8 H RDW 13.1 Plt Count 168 MPV 11.4 Neut % (Auto) 83.8 H Lymph % (Auto) 5.5 L [place] % (Auto) 6.6 Eos % (Auto) 2.9 Baso % (Auto) 0.1 Neut # (Auto) 12.2 H Lymph # (Auto) 0.8 L [place] # (Auto) 1.0 H Eos # (Auto) 0.4 Baso # (Auto) 0.0 Total Counted 100 Immature Gran % 1.1 Nucleated RBC % 0.0 Immature Gran # 0.16 Segmented Neutrophils 92 H Band Neutrophils 1 Lymphocytes 3 L Monocytes 2 Eosinophils 1 Metamyelocytes 1 Nucleated RBCs # 0.00 Platelet Estimate Normal Immature Plt Fraction 0.0 Sodium 135 L Potassium 5.6 H Chloride 101 Carbon Dioxide 19 L Anion Gap 20.6 H BUN 64 H Creatinine 11.30 H GFR Calculation 6 BUN/Creatinine Ratio 5.00 L Glucose 127 H POC Glucose 98 Calculated Osmolality 289.1 Calcium 6.9 L Magnesium 2.5 H Iron Ferritin CSF Appearance CSF Color CSF WBC CSF RBC CSF Diff Total Count CSF Neutrophils CSF Lymphocytes CSF Monocytes CSF Glucose CSF Total Protein Blood Type Antibody Screen Crossmatch 10/13/16 10/13/16 10/13/16 11:13 12:14 Unknown WBC RBC Hgb Hct MCV MCH MCHC RDW Plt Count MPV Neut % (Auto) Lymph % (Auto) [place] % (Auto) Eos % (Auto) Baso % (Auto) Neut # (Auto) Lymph # (Auto) [place] # (Auto) Eos # (Auto) Baso # (Auto) Total Counted Immature Gran % Nucleated RBC % Immature Gran # Segmented Neutrophils Band Neutrophils Lymphocytes Monocytes Eosinophils Metamyelocytes Nucleated RBCs # Platelet Estimate Immature Plt Fraction Sodium Potassium Chloride Carbon Dioxide Anion Gap BUN Creatinine GFR Calculation BUN/Creatinine Ratio Glucose POC Glucose 96 Calculated Osmolality Calcium Magnesium Iron Ferritin CSF Appearance CSF Color CSF WBC CSF RBC CSF Diff Total Count CSF Neutrophils CSF Lymphocytes CSF Monocytes CSF Glucose CSF Total Protein Blood Type O POSITIVE O POSITIVE Antibody Screen Negative Crossmatch See Detail - Diagnostic Findings Procedure: Chest x-ray: report reviewed by me Quality Measures - Stroke Onset of Symptoms Date: 10/07/16
[2016-10-13] MEDS ORDERED: VANCOMYCIN INJ 750 MG in SODIUM CHLORIDE 0.9% 250 ML IV ONE (15:00)
[2016-10-13] MEDS: DEXTROSE 50% 25 GM/50 ML SYRINGE IV PRN (17:15)
[2016-10-13] MEDS: ACETAMINOPHEN 325 MG TABLET PO PRN (20:33)
[2016-10-14] MEDS: ALBUTEROL/IPRATROPIUM 3 ML NEB RESP TX SCH ×4 (02:08→19:29)
[2016-10-14] MEDS: ERYTHROMYCIN INJ 250 MG in SODIUM CHLORIDE 0.9% 100 ML IV SCH ×4 (02:27→20:00)
[2016-10-14] MEDS: PANTOPRAZOLE 40 MG VIAL IV SCH (02:27)
[2016-10-14] MEDS: PIPERACILLIN/TAZOBACTAM 3,375 MG in SODIUM CHLORIDE 0.9% 100 ML IV SCH (02:27)
[2016-10-14] MEDS: PROPOFOL 1,000 MG/100 ML BOTTLE IV SCH ×9 (02:28→23:31)
[2016-10-14] MEDS: INSULIN REGULAR 100 UNIT/ML SUBCUT SCH ×4 (05:21→23:31)
[2016-10-14 05:38] LABS: Basophils % 0.1 % (0.0-0.8); Eosinophils # 0.6 10*3/uL (0.0-0.87); Eosinophils % 4.4 % (0.00-10.9); Hematocrit 28.8 VOL% (42.0-52.0); Hemoglobin 10.9 GM/DL (14.0-18.0); Immature Granulocytes % 0.9 %; Immature Granulocytes Absolute 0.11 #; Lymphocytes # 0.6 10*3/uL (1.4-4.0); Lymphocytes % 4.9 % (21.2-54.2); Mean Corpuscular HGB Conc 37.8 GM/DL (32-36); Mean Corpuscular Hemoglobin 35 PG (27-34); Mean Corpuscular Volume 91.7 FL (87-102); Mean Platelet Volume 11.3 FL (9.6-12.0); Monocytes # 0.7 10*3/uL (0.11-0.8); Monocytes % 5.5 % (1.7-12.7); Neutrophils # 10.8 10*3/uL (1.4-7.4); Neutrophils % 84.2 % (38.7-73.9); Platelet Count 169 T/CUMM (130-400); Red Blood Count 3.14 MC/CUMM (3.8-5.5); Red Cell Distribution Width 13.8 % (9.3-17.3); White Blood Count 12.8 T/CUMM (4-12)
[2016-10-14 06:05] LABS: Eosinophils 6 % (0-10); Lymphocytes 7 % (20-55); Segmented Neutrophils 83 % (50-85); Total Cells Counted 100
[2016-10-14 06:06] LABS: Platelet Estimate Adequate
[2016-10-14] MEDS: LORazepam 2 MG/1 ML VIAL IV PRN (06:19)
[2016-10-14 07:22] LABS: Potassium 4.6 MMOL/L (3.5-5.1)
--- NOTE | 2016-10-14 07:39 | Pulmonology Progress Note ---
Pulmonary - PN: Subj Interval history: Patient is a 56-year-old black man that has a history of hypertension and alcohol abuse. He has had some chronic pain issues. He came into the emergency room lethargic and had positive drug screen for cocaine and opiates. He has been put on the ventilator. He has also developed acute renal failure. He did develop worsening infiltrates and was hard to ventilate. He may be a little better now. His chest x-ray has improved and his compliance is better. His oxygenation has been a little better. Yesterday we did a therapeutic bronchoscopy and remove some thick secretions. He has been relatively stable. He did get dialysis yesterday. His oxygenation is fair. His chest x-ray looks a little better. He is still very ill and will continue with support. Exam (Progress Note) - Constitutional Vitals: Period Temp Pulse Resp BP Sys/Carbone Pulse Ox Last 24 Hr 96.4 F-100.2 F 72-121 12-28 86-146/45-90 83-100 Exam: General appearance: normal weight, no acute distress (The patient is sedated and gets agitated easily. He apparently does follow commands however.) - Head Head exam: Present: normal inspection, normocephalic - Eye Eye exam: Absent: scleral icterus Pupils: Present: constricted - ENT ENT exam: Present: other (ET tube is in good position.) - Neck Neck exam: Present: normal inspection. Absent: lymphadenopathy, thyromegaly - Respiratory Respiratory exam: Present: He has good breath sounds bilaterally and he has fairly good air movement. He still has some coarse breath sounds. - Cardiovascular Cardiovascular exam: Present: regular rate and rhythm, tachycardia. Absent: gallop - GI/Abdominal GI/Abdominal exam: Present: hypoactive bowel sounds, soft. Absent: organomegaly , tenderness - Extremities Exam Extremities exam: Absent: calf tenderness, edema - Neurological Exam Neurological exam: Present: Patient is opening his eyes and responding some. He still requires a lot of sedation. - Psychiatric Psychiatric exam: Absent: anxious - Skin Skin exam: Present: warm, dry Results - Labs CBC & BMP: 10/14/16 04:30 10/13/16 05:06 - Diagnostic Findings Procedure: Chest x-ray: image reviewed by me, report reviewed by me (Chest x- ray still shows bilateral infiltrates but are better.) Assessment and Plan (1) Acute respiratory failure Status: Acute Assessment and plan: Patient has had a difficult time and is on the ventilator with respiratory failure. He is ventilating a little better and his x-ray is improving. We will continue supportive care. Current Visit: Yes (2) Acute renal failure Status: Acute Assessment and plan: The patient has done fairly well with dialysis and his creatinine is 11.3. He did dialyze yesterday. Current Visit: Yes (3) Cocaine intoxication Status: Acute Assessment and plan: Patient apparently has had cocaine abuse. Current Visit: Yes (4) Polysubstance abuse Status: Acute Assessment and plan: The patient has a history of substance abuse. He certainly could have withdrawal symptoms. Current Visit: Yes (5) Encephalopathy acute Status: Acute Assessment and plan: Patient is more alert and responding to commands now. His LP did not show signs of infection. Current Visit: Yes (6) Anemia Status: Acute Assessment and plan: The patient was transfused yesterday and hematocrit is 28.8 today. Current Visit: Yes
[2016-10-14 08:14] LABS: Calcium 8.3 MG/DL (8.5-10.1); Osmolality,Calculated 281.2 MOS/KG (273-304)
--- NOTE | 2016-10-14 09:03 | XRay Report ---
History: Patient on ventilator Date: 10/14/2016 Study: Chest x-ray AP portable Comparison exam: 10/13/2016 The supporting tubes are unchanged. The cardiomediastinal silhouette is stable. There is patchy and hazy and strandy parenchymal disease throughout the left lung and also in the right lower lung. These changes are slightly improved in the left lung base. There is no increasing pleural effusion. There is no pneumothorax. Osseous structures are similar. Impression: Continued bilateral infiltrate, left more than right. Improved aeration in the left lung base PROCEDURE INTERPRETED AT [facility] DEPARTMENT OF RADIOLOGY Final Report Signed by: Dr. Siri Renee
[2016-10-14] MEDS: CEFEPIME 1,000 MG in SODIUM CHLORIDE 0.9% 100 ML IV SCH (09:15)
[2016-10-14] MEDS ORDERED: PROPOFOL 200 MG/20 ML VIAL IV ONE (09:34)
[2016-10-14] MEDS ORDERED: SUCCINYLCHOLINE 200 MG/10 ML VIAL ONE (09:35)
--- NOTE | 2016-10-14 09:50 | Anesthesia Procedures ---
Anesthesia Procedures - Intubation Time out performed intubation: Yes Sedative: other (Propofol) Mg given sedative: 100 Paralytic: Succinylcholine Mg given paralytic: 200 Laryngoscope: other (GLidescope #3 Blade) Assist Device Used: Bougie ET Tube Size: other (The ET cuff migrated anteriorly of the glottic opening. Deflated the cuff and placed posteriorly of glottic opening and re-inflated cuff.) Tube Secured Depth (cm): 25 Tube Secured Location: teeth Tube Placement Confirmation: visualized tube passing through cords, equal breath sounds bilaterally, confirmation detector color change Patient tolerated procedure intubation: well Intubation Complications: none
--- NOTE | 2016-10-14 09:57 | Cardiology Progress Note ---
Assessment and Plan (1) Acute renal failure Status: Acute Current Visit: Yes (2) Altered mental status Status: Acute Current Visit: Yes (3) Cocaine intoxication Status: Acute Current Visit: Yes (4) Hyperkalemia Status: Acute Current Visit: Yes (5) Polysubstance abuse Status: Acute Current Visit: Yes (6) Acute respiratory failure Status: Acute Current Visit: Yes (7) Hypertension Status: Chronic Current Visit: Yes (8) Dyslipidemia Status: Chronic Current Visit: Yes (9) Elevated troponin Status: Acute Current Visit: Yes (10) Anemia Status: Acute Current Visit: Yes Cardiology - PN: Subj Interval history: Business Development Representative: Dr. Valle (last seen in 2014) SUMMARY:Hx of hypertension, dyslipidemia, depression, alcohol and drug abuse, and chronic back pain who was admitted with altered mental status and subsequently intubated in the emergency room. He was positive for cocaine upon arrival. He was noted to have elevated cardiac biomarkers and suspected CHF and we were consulted to see him. Echocardiogram on 10/08/16 revealed normal systolic and diastolic function, mild MR, mild , mild pulmonary hypertension with PA pressure 46 mmHg. Carotid doppler ultrasound revealed 41-59% diameter stenosis of both ICA origins present. OCTOBER 13, 2016 UPDATE: Overnight he had a deterioration with some hypotension, hypoxemia requiring increased ventilatory support. He underwent bronchoscopy and a large mainstem plug was removed which seemed to improve his hemodynamic and pulmonary status. He continues to spike temperatures intermittently, there has not been any meaningful neurologic interaction, although there is response to painful stimuli and some spontaneous movement. His hemoglobin has dropped and GI was consulted. October 14, 2016: Overall the evening was uneventful, he remains hemodynamically stable. He has developed an air leak and anesthesiology was changing out his tube. When sedation is lifted he does become "wild", he certainly moving all of his extremities. So far there has not been any meaningful neurologic interaction in this brief episodes. The cardiac status remained stable. ASSESSMENT/PLAN: 1. ALTERED MENTAL STATUS - There is likely anoxic encephalopathy. 2. ACUTE RENAL FAILURE -this persists and the patient undergoes hemodialysis. 3. ACUTE ENCEPHALOPATHY - CT of the head was negative. Neurology is following. This is likely due to his anoxia. 4. COCAINE INTOXICATION - Acute upon admission. 5. HYPERKALEMIA -he is undergoing dialysis as needed. 6. POLYSUBSTANCE ABUSE 7. HYPERTENSION - Currently well controlled. Will continue to monitor and adjust accordingly. 8. DYSLIPIDEMIA - Lipid panel revealed triglycerides 106, cholesterol 191, LDL 120, HDL 33. 9. ELEVATED TROPONIN - EKG has shown no acute changes. Suspect his cardiac biomarkers were elevated from the cocaine, the CK is disproportionately elevated compared to the MB and the troponin, particularly in the setting of severe acute renal failure. He certainly not a candidate right now for invasive evaluation. 10. ACUTE RESPIRATORY FAILURE - Pulmonology is following and treating. 11. Anemia- he has heme positive stools, this is going to be managed conservatively currently. Exam (Progress Note) - Constitutional Vitals: Period Temp Pulse Resp BP Sys/Carbone Pulse Ox Last 24 Hr 96.4 F-100.2 F 72-114 12-28 86-146/45-90 92-100 Exam: General appearance: normal weight, no acute distress, intubated, not spontaneously arousable during the exam, although will respond to stimulation. - Head Head exam: Present: normocephalic, atraumatic,. Absent: hematoma, laceration - Eye Eye exam: Present: Periorbital swelling. Absent: laceration to eyelids Pupils: Present: DAE. Absent: constricted, dilated, fixed, irregular, unequal - ENT ENT exam: Present: normal exam, normal external ear exam - Neck Neck exam: Present: normal inspection. Absent: lymphadenopathy, meningismus, tenderness, thyromegaly - Respiratory Respiratory exam: Present: Upper airway rhonchi throughout bilaterally, there is normal rise with ventilated breaths. Absent: accessory muscle use, - Cardiovascular Cardiovascular exam: Present: regular rate and rhythm. Absent: carotid bruit, gallop, JVD, rubs - GI/Abdominal GI/Abdominal exam: Present: normal bowel sounds. Absent: distended, firm, guarding, hernia, mass, tenderness, rebound, soft - Extremities Exam Extremities exam: Present: Mild edema. Absent: Joint effusions - Back Exam Back exam: Unable to assess due to patient being on the ventilator - Neurological Exam Neurological exam: Unable to fully assess due to patient being on the ventilator. She does appear to move all 4 extremities. - Psychiatric Psychiatric exam: Unable to assess due to patient being on the ventilator. - Skin Skin exam: Present: normal color, warm, dry, intact. Absent: cyanosis, diaphoretic, rash, urticaria Result/EKG - Labs CBC & BMP: 10/14/16 04:30 10/14/16 04:30 Lab Results: I have reviewed the past 24 hour labs Labs: Laboratory Results - last 24 hr 10/13/16 10/13/16 10/13/16 04:53 11:13 12:14 WBC RBC Hgb Hct MCV MCH MCHC RDW Plt Count MPV Neut % (Auto) Lymph % (Auto) [place] % (Auto) Eos % (Auto) Baso % (Auto) Neut # (Auto) Lymph # (Auto) [place] # (Auto) Eos # (Auto) Baso # (Auto) Total Counted Immature Gran % Nucleated RBC % Immature Gran # Segmented Neutrophils Lymphocytes Monocytes Eosinophils Nucleated RBCs # Platelet Estimate Immature Plt Fraction Pappenheimer Bodies Sodium Potassium Chloride Carbon Dioxide Anion Gap BUN Creatinine GFR Calculation BUN/Creatinine Ratio Glucose POC Glucose 96 Calculated Osmolality Calcium Iron 17 L Ferritin 427.8 H Blood Type O POSITIVE Antibody Screen Negative Crossmatch See Detail 10/13/16 10/13/16 10/13/16 17:07 17:38 23:30 WBC RBC Hgb Hct MCV MCH MCHC RDW Plt Count MPV Neut % (Auto) Lymph % (Auto) [place] % (Auto) Eos % (Auto) Baso % (Auto) Neut # (Auto) Lymph # (Auto) [place] # (Auto) Eos # (Auto) Baso # (Auto) Total Counted Immature Gran % Nucleated RBC % Immature Gran # Segmented Neutrophils Lymphocytes Monocytes Eosinophils Nucleated RBCs # Platelet Estimate Immature Plt Fraction Pappenheimer Bodies Sodium Potassium Chloride Carbon Dioxide Anion Gap BUN Creatinine GFR Calculation BUN/Creatinine Ratio Glucose POC Glucose 69 L 161 H 89 Calculated Osmolality Calcium Iron Ferritin Blood Type Antibody Screen Crossmatch 10/13/16 10/14/16 10/14/16 Unknown 04:30 04:30 WBC 12.8 H RBC 3.14 L D Hgb 10.9 L D Hct 28.8 L MCV 91.7 MCH 35 H MCHC 37.8 H RDW 13.8 Plt Count 169 MPV 11.3 Neut % (Auto) 84.2 H Lymph % (Auto) 4.9 L [place] % (Auto) 5.5 Eos % (Auto) 4.4 Baso % (Auto) 0.1 Neut # (Auto) 10.8 H Lymph # (Auto) 0.6 L [place] # (Auto) 0.7 Eos # (Auto) 0.6 Baso # (Auto) 0.0 Total Counted 100 Immature Gran % 0.9 Nucleated RBC % 0.0 Immature Gran # 0.11 Segmented Neutrophils 83 Lymphocytes 7 L Monocytes 4 Eosinophils 6 Nucleated RBCs # 0.00 Platelet Estimate Adequate Immature Plt Fraction 0.0 Pappenheimer Bodies [employer]addy Sodium 134 L Potassium 4.6 Chloride 98 Carbon Dioxide 21 Anion Gap 19.6 H BUN 46 H D Creatinine 7.90 H GFR Calculation 9 BUN/Creatinine Ratio 5.00 L Glucose 126 H POC Glucose Calculated Osmolality 281.2 Calcium 8.3 L D Iron Ferritin Blood Type O POSITIVE Antibody Screen Crossmatch 10/14/16 05:14 WBC RBC Hgb Hct MCV MCH MCHC RDW Plt Count MPV Neut % (Auto) Lymph % (Auto) [place] % (Auto) Eos % (Auto) Baso % (Auto) Neut # (Auto) Lymph # (Auto) [place] # (Auto) Eos # (Auto) Baso # (Auto) Total Counted Immature Gran % Nucleated RBC % Immature Gran # Segmented Neutrophils Lymphocytes Monocytes Eosinophils Nucleated RBCs # Platelet Estimate Immature Plt Fraction Pappenheimer Bodies Sodium Potassium Chloride Carbon Dioxide Anion Gap BUN Creatinine GFR Calculation BUN/Creatinine Ratio Glucose POC Glucose 80 Calculated Osmolality Calcium Iron Ferritin Blood Type Antibody Screen Crossmatch Quality Measures - Stroke Onset of Symptoms Date: 10/07/16
[2016-10-14] MEDS: PHENYLEPHRINE DRIP 40 MG/250 ML PREMIX IV SCH (10:00)
[2016-10-14] MEDS: MULTIVITAMIN (CENTRUM) TABLET PO SCH (10:05)
[2016-10-14] MEDS: FOLIC ACID 1 MG TABLET PO SCH (10:05)
[2016-10-14] MEDS: THIAMINE 200 MG/2 ML VIAL IV SCH (10:15)
--- NOTE | 2016-10-14 10:23 | Gastrointestinal Progress Note ---
Assessment and Plan - Time spent with patient Time spent with patient: Greater than 30 minutes (1) Anemia Status: Acute Assessment and plan: PLEASE NOTE -- automatic citation of patient information is unavoidable in this electronic note. I have made a reasonable effort to review the information cited , but it is not a part of my evaluation, impression, or recommendation unless specifically discussed in the dictated text that follows. As well, voice recognition software was used in the creation of this clinical note. Reasonable effort was made to identify and correct gross errors. Despite proofreading, errors in shredder picker may be present, including nonsense verbiage at times. If you encounter such an error, please contact me at [phone] for discussion and correction. -- Bill Chief complaint: Anemia with admission for altered mental status due to multi- substance abuse, no acute GI bleeding observed. Initially on pressors, requiring acute hemodialysis. Hemoglobin dropped from 11-9 after admission, 3+ positive occult blood in his stool. C. difficile negative home medications with Mobic, and chronic back pain. 24 hour events: Hemoglobin stable and >10, iron returned low at 17. bronch yesterday with mucus plugging, NG tubes have been off for approx 24 hours. Patient still ventilated. Patient with rectal tube in place with continued stool output daily, no blood, no melena. Subjective: Mr. Day is intubated and sedated Medications: reviewed with no gastrointestinal related changes noted -Protonix IV daily -NG tube feeds held REVIEW OF SYSTEMS: unable to assess due to intubation/sedation PHYSICAL EXAMINATION: CONSTITUTIONAL: Vital signs reviewed as documented above. Sedated and intubated EYES: closed MOUTH: ET tube, OG LUNGS: intubated. No increased work of breathing or accessory muscle use. GI/ABDOMEN: trace bowel sounds, overweight abdomen, soft, mildly distended, but soft and compressible. SKIN: No concerning rash on face, arms, or hands. MUSCULOSKELETAL: Muscle tone appears normal without any abnormal movements. PSYCH: unable to assess Neuro: chemically sedated, unable to otherwise assess Laboratory: Personally reviewed Hgb 10.7 iron 17 ferritin elevated Radiology: Personally reviewed reports and images with no pertinent changes unless noted here: Assessments: #Acute anemia. with iron deficiency. Stable Hgb now. No evidence of active bleeding. No evidence of GI bleeding at this time. Patient on NSAIDs as an outpatient based on prior medication list, cocaine and other drug toxicity would be risk factors for GI tract injury and blood loss. Iron deficiency component of anemia, most likely chronic, but could have acute component. #Other specified counseling -- The patient was seen for greater than 30 minutes. The patient was counseled for greater than 50% of this time regarding differential diagnosis, likely diagnosis, diagnostic and therapeutic alternatives, risks/benefits/alternatives of medications and procedures, and plan of care generally. The patient expressed understanding and wishes to proceed. Recommendations: -no indication for acute endoscopy at this time -consider endoscopy once patient more stable, or if acute bleeding becomes evident -replace iron, depending on transfusion load of iron given, with either IV supplementation or oral once able -continue with IV PPI, if bleeding occurs, will need to increase to BID dosing -recommend restarting tube feeds to prevent bacterial translocation and reduce risk of sepsis. Patient appears to be moving his bowels well. -OK from GI standpoint to restart lovenox, as benefit likely > risk in this critically ill patient After discussion with Dr. Lim, GI will sign off at this time, and re-engage GI when needed Guerita Khan MD, MPH STAFF [employer] Current Visit: Yes Exam (Progress Note) - Constitutional Vitals: Period Temp Pulse Resp BP Sys/Carbone Pulse Ox Last 24 Hr 96.4 F-100.2 F 72-114 12-28 86-146/45-90 92-100 Results - Labs CBC & BMP: 10/14/16 04:30 10/14/16 04:30
[2016-10-14] MEDS: ENOXAPARIN 30 MG/0.3 ML SYRINGE SUBCUT SCH (10:26)
--- NOTE | 2016-10-14 12:11 | Nephrology Progress Note ---
Nephrology - PN: Subj Interval history: Tolerated CHD yesterday s complications. Intubated, sedated. Exam (PN)-Nephrology - Vital Signs Vital signs: Period Temp Pulse Resp BP Sys/Carbone Pulse Ox Last 24 Hr 96.4 F-100.2 F 72-114 12-28 90-146/51-90 92-100 - General Appearance General appearance: sedated on ventilator, intubated EENT: ATNC, PERRL Neck: no JVD, no thyromegaly Respiratory: no kyphosis, clear Cardiology: no murmurs, no rub Gastrointestinal: normoactive bowel sounds, no tenderness Integumentary: no rash, warm and dry Neurologic: obtunded Musculoskeletal: no deformities, no erythema - Lab 10/14/16 04:30 10/14/16 04:30 Most recent lab results ABG pH 7.297 (7.35-7.45) L 10/12/16 09:20 ABG pCO2 40.5 MM HG (35-48) 10/12/16 09:20 ABG pO2 154.0 MM HG (80-95) H 10/12/16 09:20 ABG HCO3 19.3 MMOL/L (20-26) L 10/12/16 09:20 ABG O2 Saturation 99.0 % (95-100) 10/12/16 09:20 Calcium 8.3 MG/DL (8.5-10.1) L D 10/14/16 04:30 Phosphorus 6.3 MG/DL (2.5-4.9) H 10/10/16 03:35 Magnesium 2.5 MG/DL (1.8-2.4) H 10/13/16 05:06 Assessment and Plan (1) PHUC (acute kidney injury) Problem details: Requiring HD. Status: Acute Assessment and plan: No indication for HD today. Next scheduled for Saturday. Current Visit: Yes
--- NOTE | 2016-10-14 12:54 | Hospitalist Progress Note ---
Assessment and Plan (1) Acute respiratory failure Status: Acute Assessment and plan: s/p bronch, continue cefepime for Acinetobacter. Patient may need a trach. Gave an update to his daughter today. Current Visit: Yes (2) Acute renal failure Status: Acute Assessment and plan: Still not making urine. dialysis planned for saturday Current Visit: Yes (3) Polysubstance abuse Status: Acute Assessment and plan: Patient was positive for opiates and cocaine. Current Visit: Yes (4) Congestive heart failure Status: Acute Assessment and plan: Echocardiogram showed an EF of 65%. dialysis on Saturday Current Visit: Yes (5) Encephalopathy acute Status: Acute Assessment and plan: Patient has metabolic encephalopathy. Lumbar puncture showed no evidence of meningitis Current Visit: Yes (6) Elevated troponin Status: Acute Assessment and plan: No cardiac intervention planned at this point Current Visit: Yes (7) Anemia Status: Acute Assessment and plan: GI has seen him and still recommends DVT prophylaxis Lovenox. Would continue to follow hemoglobin and transfuse as needed. At some point she feels he needs an EGD and colonoscopy. Current Visit: Yes (8) Hypotension Status: Acute Assessment and plan: Off pressors Current Visit: Yes (9) Ileus Status: Acute Assessment and plan: KUB shows no obstruction restart low-dose tube feeding Current Visit: Yes (10) Leukocytosis Status: Acute Assessment and plan: s/p bronch with mucous plugs, white count improving cont cefepime Current Visit: Yes (11) Altered mental status Status: Acute Assessment and plan: Dr. Sierra does not feel patient has any evidence to suggest seizure activity. Spinal tap negative for meningitis Current Visit: Yes Hospitalist: Subjective Interval history: GI had seen patient and appreciate her input. She agrees with restarting the tube feedings. KUB is nonspecific. She also would restart him on DVT prophylaxis Lovenox. We have renewed his restraints. Patient is off pressors. Exam - Constitutional Vitals: Period Temp Pulse Resp BP Sys/Carbone Pulse Ox Last 24 Hr 96.4 F-100.2 F 72-114 12-28 90-146/54-90 92-100 Exam: Heart Rate-[tachy] Lungs-[clear] GI-[no bowel sound, abdomen less distended Ext-anasarca improving Neuro sedated and intubated psych sedated and intubated General [no acute respiratory distress Results - Labs CBC & BMP: 10/14/16 04:30 10/14/16 04:30 Lab Results: I have reviewed the past 24 hour labs Labs: Bronchial washings growing gram-negative rods. Sputum culture growing acid needed factor. Blood cultures 2 negative no growth. CSF no growth - Diagnostic Findings Procedure: Chest x-ray: report reviewed by me (Bilateral infiltrate) Quality Measures - Stroke Onset of Symptoms Date: 10/07/16
[2016-10-14] MEDS: ACETAMINOPHEN 325 MG TABLET PO PRN (20:01)
[2016-10-15] MEDS: ALBUTEROL/IPRATROPIUM 3 ML NEB RESP TX SCH ×4 (00:07→20:25)
[2016-10-15] MEDS: PANTOPRAZOLE 40 MG VIAL IV SCH (01:52)
[2016-10-15] MEDS: PROPOFOL 1,000 MG/100 ML BOTTLE IV SCH ×7 (02:47→20:38)
[2016-10-15] MEDS: ERYTHROMYCIN INJ 250 MG in SODIUM CHLORIDE 0.9% 100 ML IV SCH ×4 (02:47→21:44)
[2016-10-15 02:48] LABS: ABG Base Excess -8.2 MMOL/L (-2.5-2.5); ABG HCO3 17.8 MMOL/L (20-26); ABG Oxygen Saturation 99.1 % (95-100); ABG PCO2 34.1 MM HG (35-48); ABG PH 7.311 (7.35-7.45); ABG TCO2 15.8 MMOL/L (23-27); Allen Test Positive; Pt O2 Delivery Device Ventilator
[2016-10-15] MEDS: PHENYLEPHRINE DRIP 40 MG/250 ML PREMIX IV SCH (05:36)
[2016-10-15] MEDS: INSULIN REGULAR 100 UNIT/ML SUBCUT SCH ×4 (05:36→23:53)
[2016-10-15 07:39] LABS: Basophils % 0.1 % (0.0-0.8); Eosinophils # 0.5 10*3/uL (0.0-0.87); Eosinophils % 3.9 % (0.00-10.9); Hematocrit 26.6 VOL% (42.0-52.0); Hemoglobin 10.2 GM/DL (14.0-18.0); Immature Granulocytes % 1.4 %; Immature Granulocytes Absolute 0.18 #; Lymphocytes # 0.6 10*3/uL (1.4-4.0); Lymphocytes % 4.6 % (21.2-54.2); Mean Corpuscular HGB Conc 38.3 GM/DL (32-36); Mean Corpuscular Hemoglobin 36 PG (27-34); Mean Platelet Volume 11.2 FL (9.6-12.0); Monocytes # 0.6 10*3/uL (0.11-0.8); Monocytes % 4.2 % (1.7-12.7); Neutrophils # 11.3 10*3/uL (1.4-7.4); Neutrophils % 85.8 % (38.7-73.9); Platelet Count 193 T/CUMM (130-400); Red Blood Count 2.86 MC/CUMM (3.8-5.5); Red Cell Distribution Width 14.3 % (9.3-17.3); White Blood Count 13.2 T/CUMM (4-12)
--- NOTE | 2016-10-15 07:42 | Pulmonology Progress Note ---
Pulmonary - PN: Subj Interval history: Patient is a 56-year-old black man that has a history of hypertension and alcohol abuse. He has had some chronic pain issues. He came into the emergency room lethargic and had positive drug screen for cocaine and opiates. He has been put on the ventilator. He has also developed acute renal failure. He did develop worsening infiltrates and was hard to ventilate. He may be a little better now. His chest x-ray has improved and his compliance is better. His oxygenation has been a little better. He was fairly stable yesterday and is sedated and comfortable on the ventilator. He will probably have dialysis today. His PO2 is improved and will decrease his FiO2. Exam (Progress Note) - Constitutional Vitals: Period Temp Pulse Resp BP Sys/Carbone Pulse Ox Last 24 Hr 99.1 F-101.3 F 82-112 14-32 98-132/54-72 92-99 Exam: General appearance: normal weight, no acute distress (The patient is sedated and gets agitated easily. He apparently does follow commands however.) - Head Head exam: Present: normal inspection, normocephalic - Eye Eye exam: Absent: scleral icterus Pupils: Present: constricted - ENT ENT exam: Present: other (ET tube is in good position.) - Neck Neck exam: Present: normal inspection. Absent: lymphadenopathy, thyromegaly - Respiratory Respiratory exam: Present: He has good breath sounds bilaterally and he has fairly good air movement. His lungs sound a little better. - Cardiovascular Cardiovascular exam: Present: regular rate and rhythm, tachycardia. Absent: gallop - GI/Abdominal GI/Abdominal exam: Present: hypoactive bowel sounds, soft. Absent: organomegaly , tenderness - Extremities Exam Extremities exam: Absent: calf tenderness, edema - Neurological Exam Neurological exam: Present: Patient is opening his eyes and responding some. He still requires a lot of sedation. - Psychiatric Psychiatric exam: Absent: anxious - Skin Skin exam: Present: warm, dry Results - Labs CBC & BMP: 10/14/16 04:30 10/14/16 04:30 Labs: His PO2 is 178 with a PCO2 of 34 and a pH of 7.3 Assessment and Plan (1) Acute respiratory failure Status: Acute Assessment and plan: Patient has had a difficult time and is on the ventilator with respiratory failure. His lung compliance is better and his oxygenation has improved. Will adjust his ventilator. Current Visit: Yes (2) Acute renal failure Status: Acute Assessment and plan: The patient will continue to require dialysis. Current Visit: Yes (3) Cocaine intoxication Status: Acute Assessment and plan: Patient apparently has had cocaine abuse. Current Visit: Yes (4) Polysubstance abuse Status: Acute Assessment and plan: The patient has a history of substance abuse. He certainly could have withdrawal symptoms. He is sedated at present. Current Visit: Yes (5) Encephalopathy acute Status: Acute Assessment and plan: Patient is more alert and responding to commands now. His LP did not show signs of infection. Current Visit: Yes (6) Anemia Status: Acute Assessment and plan: The patient was transfused yesterday and hematocrit is 28.8 today. Current Visit: Yes
[2016-10-15 08:07] LABS: Hypochromasia 2+; Macrocytosis 1+; Microcytosis 2+
--- NOTE | 2016-10-15 08:10 | Cardiology Progress Note ---
<Bria Goode E - Last Filed: 10/15/16 08:11> Assessment and Plan - Time spent with patient Time spent with patient: Less than 30 minutes (1) Altered mental status Status: Acute Assessment and plan: See plan of care listed below. Current Visit: Yes (2) Acute renal failure Status: Acute Assessment and plan: See plan of care listed below. Current Visit: Yes (3) Encephalopathy acute Status: Acute Assessment and plan: See plan of care listed below. Current Visit: Yes (4) Cocaine intoxication Status: Acute Assessment and plan: See plan of care listed below. Current Visit: Yes (5) Hyperkalemia Status: Acute Assessment and plan: See plan of care listed below. Current Visit: Yes (6) Polysubstance abuse Status: Acute Assessment and plan: See plan of care listed below. Current Visit: Yes (7) Hypertension Status: Chronic Assessment and plan: See plan of care listed below. Current Visit: Yes (8) Dyslipidemia Status: Chronic Assessment and plan: See plan of care listed below. Current Visit: Yes (9) Elevated troponin Status: Acute Assessment and plan: See plan of care listed below. Current Visit: Yes (10) Acute respiratory failure Status: Acute Assessment and plan: See plan of care listed below. Current Visit: Yes (11) Anemia Status: Acute Assessment and plan: See plan of care listed below. 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 He was positive for cocaine upon arrival. He was noted to have elevated cardiac biomarkers and suspected CHF and we were consulted to see him. Echocardiogram on 10/08/16 revealed normal systolic and diastolic function, mild MR, mild , mild pulmonary hypertension with PA pressure 46 mmHg. Carotid doppler ultrasound revealed 41-59% diameter stenosis of both ICA origins present. OCTOBER 15, 2016 UPDATE: Patient remains sedated on mechanical ventilation. He will arouse when sedation is held but has not followed commands. He will move all extremities spontaneously. He remains hemodynamically stable. Over the weekend, he underwent bronchoscopy with removal of a large mainstem plug. Hemoglobin also dropped and GI was consulted. ASSESSMENT/PLAN: 1. ALTERED MENTAL STATUS - There is likely anoxic encephalopathy. 2. ACUTE RENAL FAILURE -this persists and the patient undergoes hemodialysis. 3. ACUTE ENCEPHALOPATHY - CT of the head was negative. Neurology is following. This is likely due to his anoxia. 4. COCAINE INTOXICATION - Acute upon admission. 5. HYPERKALEMIA -he is undergoing dialysis as needed. 6. POLYSUBSTANCE ABUSE 7. HYPERTENSION - Currently well controlled. Will continue to monitor and adjust accordingly. 8. DYSLIPIDEMIA - Lipid panel revealed triglycerides 106, cholesterol 191, LDL 120, HDL 33. 9. ELEVATED TROPONIN - EKG has shown no acute changes. Suspect his cardiac biomarkers were elevated from the cocaine, the CK is disproportionately elevated compared to the MB and the troponin, particularly in the setting of severe acute renal failure. He certainly not a candidate right now for invasive evaluation. 10. ACUTE RESPIRATORY FAILURE - Pulmonology is following and treating. 11. ANEMIA - he has heme positive stools, this is going to be managed conservatively currently. Exam (Progress Note) - Constitutional Vitals: Period Temp Pulse Resp BP Sys/Carbone Pulse Ox Last 24 Hr 99.1 F-101.3 F 82-112 14-32 98-132/54-72 92-99 Exam: General appearance: Orally intubated and sedated on ventilator. Overweight, no acute distress. - Head Head exam: Present: normal inspection, normocephalic, atraumatic. Absent: hematoma, laceration - Eye Eye exam: Absent: conjunctival injection, laceration to eyelids Pupils: Present: PERRL. Absent: constricted, dilated, fixed, irregular, unequal - ENT ENT exam: Present: Orally intubated, normal external ear exam - Neck Neck exam: Present: normal inspection. Absent: lymphadenopathy, meningismus, tenderness, thyromegaly - Respiratory Respiratory exam: Present: Mechanically ventilated breath sounds, coarse. Absent: accessory muscle use - Cardiovascular Cardiovascular exam: Present: regular rate and rhythm, Bilateral carotid bruit, systolic murmur. Absent: gallop, JVD, rubs - GI/Abdominal GI/Abdominal exam: Present: normal bowel sounds, soft. Absent: distended, firm , guarding, hernia, mass, tenderness, rebound. - Extremities Exam Extremities exam: Present: normal inspection, normal capillary refill. Upper extremity pulses 2+. Lower extremity pulses 2+. Absent: calf tenderness, edema - Back Exam Back exam: Present: Unable to examine due to habitus. Sedated on mechanical ventilator. - Neurological Exam Neurological exam: Present: Limited due to habitus (sedated on ventilator). He is opening his eyes and will move spontaneously but still requires a lot of sedation. No resting or essential tremor. - Psychiatric Psychiatric exam: Present: Unable to adequately assess due to patient being sedated and on mechanical ventilation. - Skin Skin exam: Present: normal color, warm, dry, intact. Absent: cyanosis, diaphoretic, rash, urticaria Result/EKG - Labs CBC & BMP: 10/15/16 06:56 10/14/16 04:30 Lab Results: I have reviewed the past 24 hour labs Labs: Laboratory Results - last 24 hr 10/14/16 10/14/16 10/14/16 04:30 11:57 12:39 WBC RBC Hgb Hct MCV MCH MCHC RDW Plt Count MPV Neut % (Auto) Lymph % (Auto) [place] % (Auto) Eos % (Auto) Baso % (Auto) Neut # (Auto) Lymph # (Auto) [place] # (Auto) Eos # (Auto) Baso # (Auto) Immature Gran % Nucleated RBC % Immature Gran # Nucleated RBCs # Immature Plt Fraction ABG pH ABG pCO2 ABG pO2 ABG HCO3 ABG Total CO2 ABG O2 Saturation ABG Base Excess FiO2 Sodium 134 L Potassium 4.6 Chloride 98 Carbon Dioxide 21 Anion Gap 19.6 H BUN 46 H D Creatinine 7.90 H GFR Calculation 9 BUN/Creatinine Ratio 5.00 L Glucose 126 H POC Glucose 71 L 98 Calculated Osmolality 281.2 Calcium 8.3 L D 10/14/16 10/14/16 10/15/16 18:16 23:24 02:40 WBC RBC Hgb Hct MCV MCH MCHC RDW Plt Count MPV Neut % (Auto) Lymph % (Auto) [place] % (Auto) Eos % (Auto) Baso % (Auto) Neut # (Auto) Lymph # (Auto) [place] # (Auto) Eos # (Auto) Baso # (Auto) Immature Gran % Nucleated RBC % Immature Gran # Nucleated RBCs # Immature Plt Fraction ABG pH 7.311 L ABG pCO2 34.1 L ABG pO2 178.0 H ABG HCO3 17.8 L ABG Total CO2 15.8 L ABG O2 Saturation 99.1 ABG Base Excess -8.2 L FiO2 70.00 Sodium Potassium Chloride Carbon Dioxide Anion Gap BUN Creatinine GFR Calculation BUN/Creatinine Ratio Glucose POC Glucose 94 103 Calculated Osmolality Calcium 10/15/16 10/15/16 05:34 06:56 WBC 13.2 H RBC 2.86 L Hgb 10.2 L Hct 26.6 L MCV 93.0 MCH 36 H MCHC 38.3 H RDW 14.3 Plt Count 193 MPV 11.2 Neut % (Auto) 85.8 H Lymph % (Auto) 4.6 L [place] % (Auto) 4.2 Eos % (Auto) 3.9 Baso % (Auto) 0.1 Neut # (Auto) 11.3 H Lymph # (Auto) 0.6 L [place] # (Auto) 0.6 Eos # (Auto) 0.5 Baso # (Auto) 0.0 Immature Gran % 1.4 Nucleated RBC % 0.0 Immature Gran # 0.18 Nucleated RBCs # 0.00 Immature Plt Fraction 0.0 ABG pH ABG pCO2 ABG pO2 ABG HCO3 ABG Total CO2 ABG O2 Saturation ABG Base Excess FiO2 Sodium Potassium Chloride Carbon Dioxide Anion Gap BUN Creatinine GFR Calculation BUN/Creatinine Ratio Glucose POC Glucose 133 H Calculated Osmolality Calcium - EKG EKG results: interpreted by me, sinus rhythm Quality Measures - Stroke Onset of Symptoms Date: 10/07/16 <Micheal Gaston - Last Filed: 10/15/16 08:37> Exam (Progress Note) - Constitutional Vitals: Period Temp Pulse Resp BP Sys/Carbone Pulse Ox Last 24 Hr 99.1 F-101.3 F 82-112 14-32 98-132/55-72 92-99 Result/EKG - Labs CBC & BMP: 10/15/16 06:56 10/14/16 04:30 Labs: Laboratory Results - last 24 hr 10/14/16 10/14/16 10/14/16 11:57 12:39 18:16 WBC RBC Hgb Hct MCV MCH MCHC RDW Plt Count MPV Neut % (Auto) Lymph % (Auto) [place] % (Auto) Eos % (Auto) Baso % (Auto) Neut # (Auto) Lymph # (Auto) [place] # (Auto) Eos # (Auto) Baso # (Auto) Immature Gran % Nucleated RBC % Immature Gran # Nucleated RBCs # Immature Plt Fraction Hypochromasia Microcytosis Macrocytosis ABG pH ABG pCO2 ABG pO2 ABG HCO3 ABG Total CO2 ABG O2 Saturation ABG Base Excess FiO2 POC Glucose 71 L 98 94 10/14/16 10/15/16 10/15/16 23:24 02:40 05:34 WBC RBC Hgb Hct MCV MCH MCHC RDW Plt Count MPV Neut % (Auto) Lymph % (Auto) [place] % (Auto) Eos % (Auto) Baso % (Auto) Neut # (Auto) Lymph # (Auto) [place] # (Auto) Eos # (Auto) Baso # (Auto) Immature Gran % Nucleated RBC % Immature Gran # Nucleated RBCs # Immature Plt Fraction Hypochromasia Microcytosis Macrocytosis ABG pH 7.311 L ABG pCO2 34.1 L ABG pO2 178.0 H ABG HCO3 17.8 L ABG Total CO2 15.8 L ABG O2 Saturation 99.1 ABG Base Excess -8.2 L FiO2 70.00 POC Glucose 103 133 H 10/15/16 06:56 WBC 13.2 H RBC 2.86 L Hgb 10.2 L Hct 26.6 L MCV 93.0 MCH 36 H MCHC 38.3 H RDW 14.3 Plt Count 193 MPV 11.2 Neut % (Auto) 85.8 H Lymph % (Auto) 4.6 L [place] % (Auto) 4.2 Eos % (Auto) 3.9 Baso % (Auto) 0.1 Neut # (Auto) 11.3 H Lymph # (Auto) 0.6 L [place] # (Auto) 0.6 Eos # (Auto) 0.5 Baso # (Auto) 0.0 Immature Gran % 1.4 Nucleated RBC % 0.0 Immature Gran # 0.18 Nucleated RBCs # 0.00 Immature Plt Fraction 0.0 Hypochromasia 2+ Microcytosis 2+ Macrocytosis 1+ ABG pH ABG pCO2 ABG pO2 ABG HCO3 ABG Total CO2 ABG O2 Saturation ABG Base Excess FiO2 POC Glucose
[2016-10-15 08:37] LABS: Osmolality,Calculated 284.7 MOS/KG (273-304); Potassium 4.4 MMOL/L (3.5-5.1)
[2016-10-15 08:41] LABS: Magnesium 2.9 MG/DL (1.8-2.4); Phosphorous 7.3 MG/DL (2.5-4.9)
[2016-10-15 08:42] LABS: Prealbumin 70.3 MG/DL (20-40)
--- NOTE | 2016-10-15 08:59 | Hospitalist Progress Note ---
Assessment and Plan (1) Altered mental status Status: Acute Assessment and plan: 1)metabolic encephalopathy- restless when diprivan turned down, does not follow commands. Dr Rigo avendaño. 2)CHF with preserved EF- dialysis 3)acute resp failure- FIO2 turned down to 50% this morning. Has not started CPAP trials. Dr Pelayo. 4)pneumonia due to acinetobacter- on Cefepime per ID. 5)elevated troponin 6)anemia- GI to scope when more stable. No foreign bleeding, but guaiac positive stool. transfuse prn. 7)nutrition- tolerating tube feeds that were restarted yesterday. 8)polysubstance abuse- alcoholic per family, positive for cocaine and opiates on arrival. 9)acute renal failure- HD per nephrology. 10)dispo- on vent, dialysis. excellent LTAC candidate, but no payor source at this time per . Current Visit: Yes (2) Acute renal failure Status: Acute Current Visit: Yes (3) Polysubstance abuse Status: Acute Current Visit: Yes (4) Congestive heart failure Status: Acute Current Visit: Yes (5) Encephalopathy acute Status: Acute Current Visit: Yes (6) Acute respiratory failure Status: Acute Current Visit: Yes (7) Elevated troponin Status: Acute Current Visit: Yes (8) Pneumonia Status: Acute Current Visit: Yes Hospitalist: Subjective Interval history: No events. Nurses report that he does not follow commands when his propofol is turned down, but does become very restless and moves all 4 extremities. He is tolerating tube feeds. Exam - Constitutional Vitals: Period Temp Pulse Resp BP Sys/Carbone Pulse Ox Last 24 Hr 99.1 F-101.3 F 82-112 14-32 98-132/55-72 92-99 General appearance: no acute distress, over weight - Eye Eye exam: Present: EOMI. Absent: scleral icterus - Respiratory Respiratory exam: Present: rhonchi - Cardiovascular Cardiovascular exam: Present: regular rate and rhythm, tachycardia - GI/Abdominal GI/Abdominal exam: Present: normal bowel sounds, soft. Absent: tenderness - Extremities Exam Extremities exam: Present: edema (hands puffy) - Skin Skin exam: Present: warm, dry Results - Labs CBC & BMP: 10/15/16 06:56 10/15/16 06:56 Lab Results: I have reviewed the past 24 hour labs Quality Measures - Stroke Onset of Symptoms Date: 10/07/16
--- NOTE | 2016-10-15 09:04 | Neurology Progress Note ---
Neurology - PN : Subjective Interval history: Patient seems to be doing about the same. No seizure-like activity reported. Moving extremities spontaneously but not following any commands. Exam (Progress Note) - Constitutional Vitals: Period Temp Pulse Resp BP Sys/Carbone Pulse Ox Last 24 Hr 99.1 F-101.3 F 82-112 14-32 98-132/55-72 92-99 Exam: GENERAL: Patient is in no acute distress. NECK: Neck is supple. There is no JVD. No carotid bruits present. No thyroid masses. CVS: First and second heart sounds are normal. There is no S3 present. Regular rate and rhythm. RESPIRATORY: Lungs are clear to auscultation without any rales or rhonchi. ABDOMEN: Soft and non-tender. Bowel sounds are present. There is no hepatosplenomegaly. EXT: There is no palpable edema. Peripheral pulses are present. Skin: No rashes Central Nervous system: General: Unresponsive and sedated Speech: None Comprehension: None Facial expressions: Normal Cranial Nerves: Pupils are equally reactive to light. Doll's head eye movements are positive. No facial asymmetry is seen Motor: Bulk and Tone is normal. Strength cannot be assessed Sensory: Cannot be assessed Reflexes: 1+ and symmetrical Cerebellar function: Cannot be assessed Toes: Equivocal Gait: Cannot be assessed Results - Labs CBC & BMP: 10/15/16 06:56 10/15/16 06:56 Assessment and Plan (1) Toxic metabolic encephalopathy Status: Acute Assessment and plan: Patient apparently suffering from toxic metabolic encephalopathy including acute kidney injury and cocaine abuse. No evidence of a stroke, seizures, epilepsy EEG revealed moderate to severe encephalopathy but no seizure activity Continue present supportive management at this time No new recommendations from neuro standpoint Current Visit: Yes Quality Measures - Stroke Onset of Symptoms Date: 10/07/16
[2016-10-15] MEDS: FOLIC ACID 1 MG TABLET PO SCH (09:56)
[2016-10-15] MEDS: MULTIVITAMIN (CENTRUM) TABLET PO SCH (09:56)
[2016-10-15] MEDS: ACETAMINOPHEN 325 MG TABLET PO PRN ×2 (09:56→20:21)
[2016-10-15] MEDS: ENOXAPARIN 30 MG/0.3 ML SYRINGE SUBCUT SCH (09:57)
[2016-10-15] MEDS: THIAMINE 200 MG/2 ML VIAL IV SCH (09:57)
[2016-10-15] MEDS: CEFEPIME 1,000 MG in SODIUM CHLORIDE 0.9% 100 ML IV SCH (10:00)
[2016-10-15] MEDS: LORazepam 2 MG/1 ML VIAL IV PRN ×2 (10:05→20:29)
--- NOTE | 2016-10-15 12:39 | Infectious Disease Progress ---
Assessment and Plan (1) Pneumonia Status: Acute Assessment and plan: Pneumonia due to Acinetobacter. Recommendations: Given presence of rash I am going to stop the cefepime up with the patient on levofloxacin. Current Visit: Yes (2) Acute renal failure Status: Acute Assessment and plan: Patient anuric and has had a few sessions of dialysis. Will likely continue to need dialysis. Current Visit: Yes (3) Acute respiratory failure Status: Acute Current Visit: Yes (4) Altered mental status Status: Acute Assessment and plan: CSF analysis negative for meningitis Current Visit: Yes (5) Cocaine intoxication Status: Acute Current Visit: Yes (6) Drug rash Status: Acute Assessment and plan: Patient has diffuse rash today not present on Saturday. Suspect medication induced, possibly beta lactams. He was on Zosyn before and was changed to cefepime yesterday. I will stop the cefepime and he will be put on levofloxacin for the Acinetobacter in the sputum. Current Visit: Yes Infectious Disease - PN: Subj Interval history: Patient doing fair, would wake up off sedation but gets very agitated and not following commands. Still with intermittent fevers. Infectious Disease Exam (PN) - Constitutional Vitals: Temp Pulse Resp BP Pulse Ox 100.6 F H 103 H 26 H 114/56 96 10/15/16 10:56 10/15/16 11:00 10/15/16 12:00 10/15/16 11:00 10/15/16 11:00 General appearance: no acute distress, over weight Exam: General appearance: Sedated - Eye Eye exam: Present: EOMI. no icterus Pupils: Present: DAE - ENT ENT exam: ET tube in situ - Respiratory Respiratory exam: No added sounds - Cardiovascular Cardiovascular exam: regular rate and rhythm, no murmurs - GI/Abdominal GI/Abdominal exam: normal bowel sounds, soft, non-tender, no organomegaly or mass - Extremities Exam Extremities exam: no edema - Skin Skin exam: Diffuse blanching erythematous macular rash all over body including face and limbs less so on the legs. Results - Labs CBC & BMP: 10/15/16 06:56 10/15/16 06:56 Lab Results: I have reviewed the past 24 hour labs (CSF analysis negative for meningitis, Acinetobacter from sputum culture) Quality Measures - Stroke Onset of Symptoms Date: 10/07/16
[2016-10-15] MEDS ORDERED: LEVOFLOXACIN INJ 750 MG in PREMIX 1 EACH IV ONE (13:00)
--- NOTE | 2016-10-15 13:07 | Nephrology Progress Note ---
Nephrology - PN: Subj Interval history: Patient is intubated and sedate. Physical exam general patient is chronically ill-appearing, heart is regular rate and rhythm, he has slight edema in his thighs, lungs are clear to auscultation anteriorly, abdomen is soft with positive bowel sounds Assessment/plan 1. Acute renal failure-this patient has minimal urine output his creatinine continues to rise at a anephric rate, will plan on thrice weekly dialysis for now. He will either dialyzed today or tomorrow depending on logistics. 2. Cocaine abuse 3. Hyperkalemia this is resolved 4. Metabolic acidosis this has improved with hemodialysis. Exam (PN)-Nephrology - Vital Signs Vital signs: Period Temp Pulse Resp BP Sys/Carbone Pulse Ox Last 24 Hr 98.8 F-101.3 F 82-119 14-32 98-145/55-93 93-99 - Lab 10/15/16 06:56 10/15/16 06:56 Most recent lab results ABG pH 7.311 (7.35-7.45) L 10/15/16 02:40 ABG pCO2 34.1 MM HG (35-48) L 10/15/16 02:40 ABG pO2 178.0 MM HG (80-95) H 10/15/16 02:40 ABG HCO3 17.8 MMOL/L (20-26) L 10/15/16 02:40 ABG O2 Saturation 99.1 % (95-100) 10/15/16 02:40 Calcium 7.0 MG/DL (8.5-10.1) L 10/15/16 06:56 Phosphorus 7.3 MG/DL (2.5-4.9) H 10/15/16 06:56 Magnesium 2.9 MG/DL (1.8-2.4) H 10/15/16 06:56 Assessment and Plan (1) Acute renal failure Status: Acute Assessment and plan: This patient presented with a creatinine of 11 is up to 13 mg/dL today. He had cocaine in his system his blood pressure has been at the low end of normal since admission. He is getting dobutamine. He has no history of kidney failure in the past. Will try and get some previous lab from Dr. Garrison's office. To see what his baseline creatinine is been. The patient is also noted to have an elevated CPK level. I would worry that he has an ATN injury related to his cocaine use also contributing could be his elevated CPK level. We will continue IV fluids for now and monitor for improvement. I do not see any acute indication for hemodialysis at this time. With his decreased urine output I am going to decrease his IV fluids to 150 cc an hour from 200 cc an hour. Current Visit: Yes (2) Anemia Status: Acute Assessment and plan: Patient's hematocrit is 28% Current Visit: Yes (3) Acute respiratory failure Status: Acute Assessment and plan: Continue vent support Current Visit: Yes (4) Altered mental status Status: Acute Current Visit: Yes (5) Cocaine intoxication Status: Acute Current Visit: Yes (6) Hyperkalemia Status: Acute Assessment and plan: His potassium is returning to the normal range Current Visit: Yes (7) Dyslipidemia Status: Chronic Current Visit: Yes (8) Hypertension Status: Chronic Assessment and plan: Patient's blood pressures at the low end of normal he is on dobutamine Current Visit: Yes (9) Metabolic acidosis Status: Acute Assessment and plan: Patient's bicarb is improved to 22 from 20 Current Visit: Yes
--- NOTE | 2016-10-15 13:48 | Physician Query Form ---
CLICK EDIT DOCUMENT TO SELECT QUERY ANSWER --> OK --> SIGN Lety Lucia RN, CCDS Certified Clinical Waste Paper [employer] Operator W) [phone] (f) [phone] [email or web address] PROVIDERS: Make your selection(s) from the choices in EACH section by typing an "x" and enter comments in the comment section. Please use your independent medical judgment in providing your response. This request does not imply that any particular answer is desired or expected. CLINICAL INDICATORS: (Providers should not edit this section) The below diagnosis was documented in the record, but is not consistently noted in subsequent documentation. The medical record indicates that the patient was admitted with cocaine intoxication, later developed acute renal failure, "I would worry that he has an ATN injury related to his cocaine use also contributing could be his elevated CPK level" and nephrology consultation. In your clinical opinion can you please clarify if the ATN was ? Diagnosis: ATN Please clarify the following: ( x) The above diagnosis was monitored, evaluated, and/or treated and is a confirmed diagnosis ( ) The above diagnosis was ruled out ( ) The above diagnosis is still a likely, suspected, probable diagnosis ( ) Other, please specify: ( ) Clinically unable to determine COMMENTS: PLEASE ALSO DOCUMENT RESPONSE IN PROGRESS NOTES AND/OR DISCHARGE SUMMARY Use of terms such as suspected, likely, or probable (associated with a specific diagnosis that is being evaluated, monitored, or treated as if it exists) are acceptable and can be restated in the discharge summary if not ruled out. MTDD
--- NOTE | 2016-10-15 15:38 | Electroencephalogram ---
HISTORY: A 56-year-old gentleman with a history of questionable seizures. INTRODUCTION: A digital EEG was performed using the standard 10/20 system of electrode placement wit h one channel of EKG monitoring. Photic stimulation was performed. DESCRIPTION OF RECORD: The background is very disorganized consists of 6 to 7 hertz low amplitude bi laterally symmetrical rhythm. Photic stimulation elicits a driving response at slower flash frequenc ies. Hyperventilation was not performed. There are no focal, sharp wave, spike or wave activity see n. Heart rate is 60 beats per minute. IMPRESSION: ABNORMAL ELECTROENCEPHALOGRAM DUE TO GENERALIZED SLOWING. 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 No epileptiform/seizure activity seen. Clinical correlation is suggested. CC:
[2016-10-16] MEDS: ALBUTEROL/IPRATROPIUM 3 ML NEB RESP TX SCH ×4 (01:27→20:02)
[2016-10-16] MEDS: ERYTHROMYCIN INJ 250 MG in SODIUM CHLORIDE 0.9% 100 ML IV SCH ×2 (03:00→09:17)
[2016-10-16] MEDS: PROPOFOL 1,000 MG/100 ML BOTTLE IV SCH ×5 (03:00→20:41)
[2016-10-16] MEDS: PANTOPRAZOLE 40 MG VIAL IV SCH (03:54)
[2016-10-16] MEDS: ACETAMINOPHEN 325 MG TABLET PO PRN (03:57)
[2016-10-16] MEDS: LORazepam 2 MG/1 ML VIAL IV PRN ×4 (04:29→19:00)
[2016-10-16] MEDS: IBUPROFEN 600 MG TABLET PO PRN ×2 (04:42→19:59)
[2016-10-16 04:48] LABS: Calcium 6.6 MG/DL (8.5-10.1); Osmolality,Calculated 286.1 MOS/KG (273-304); Potassium 4.8 MMOL/L (3.5-5.1)
[2016-10-16] MEDS: INSULIN REGULAR 100 UNIT/ML SUBCUT SCH ×4 (05:52→23:37)
[2016-10-16] MEDS: PHENYLEPHRINE DRIP 40 MG/250 ML PREMIX IV SCH ×3 (08:13→20:40)
--- NOTE | 2016-10-16 08:29 | Pulmonology Progress Note ---
Pulmonary - PN: Subj Interval history: Patient is a 56-year-old black man that has a history of hypertension and alcohol abuse. He has had some chronic pain issues. He came into the emergency room lethargic and had positive drug screen for cocaine and opiates. He has been put on the ventilator. He has also developed acute renal failure. He did develop worsening infiltrates and was hard to ventilate. He may be a little better now. His chest x-ray has improved and his compliance is better. His oxygenation has been a little better. He still gets tachypneic on the ventilator. His oxygenation looks okay however. He will continue with hemodialysis. Exam (Progress Note) - Constitutional Vitals: Period Temp Pulse Resp BP Sys/Carbone Pulse Ox Last 24 Hr 98.2 F-101.0 F 31-119 14-66 85-145/47-93 93-100 Exam: General appearance: normal weight, no acute distress (The patient is sedated and gets agitated easily. He apparently does follow commands however.) - Head Head exam: Present: normal inspection, normocephalic - Eye Eye exam: Absent: scleral icterus Pupils: Present: constricted - ENT ENT exam: Present: other (ET tube is in good position.) - Neck Neck exam: Present: normal inspection. Absent: lymphadenopathy, thyromegaly - Respiratory Respiratory exam: Present: He has good breath sounds bilaterally and he has fairly good air movement. He still has mild rhonchi present. - Cardiovascular Cardiovascular exam: Present: regular rate and rhythm, tachycardia. Absent: gallop - GI/Abdominal GI/Abdominal exam: Present: hypoactive bowel sounds, soft. Absent: organomegaly , tenderness - Extremities Exam Extremities exam: Absent: calf tenderness, edema - Neurological Exam Neurological exam: Present: Patient is opening his eyes and responding some. He still requires a lot of sedation. - Psychiatric Psychiatric exam: Absent: anxious - Skin Skin exam: Present: warm, dry Results - Labs CBC & BMP: 10/15/16 06:56 10/16/16 04:03 Assessment and Plan (1) Acute respiratory failure Status: Acute Assessment and plan: Patient has had a difficult time and is on the ventilator with respiratory failure. His lung compliance is better and his oxygenation has improved. He still gets tachypneic at times. Current Visit: Yes (2) Acute renal failure Status: Acute Assessment and plan: The patient will continue to require dialysis. Current Visit: Yes (3) Cocaine intoxication Status: Acute Assessment and plan: Patient apparently has had cocaine abuse. Current Visit: Yes (4) Polysubstance abuse Status: Acute Assessment and plan: The patient has a history of substance abuse. He certainly could have withdrawal symptoms. He is sedated at present. Current Visit: Yes (5) Encephalopathy acute Status: Acute Assessment and plan: Patient is more alert and responding to commands now. His LP did not show signs of infection. He does have an abnormal EEG. He has not had any seizures recently. Current Visit: Yes (6) Anemia Status: Acute Assessment and plan: The patient was transfused yesterday and hematocrit is 28.8. Current Visit: Yes
[2016-10-16] MEDS: MULTIVITAMIN (CENTRUM) TABLET PO SCH (09:17)
[2016-10-16] MEDS: THIAMINE 200 MG/2 ML VIAL IV SCH (09:17)
[2016-10-16] MEDS: FOLIC ACID 1 MG TABLET PO SCH (09:17)
--- NOTE | 2016-10-16 09:45 | Dialysis Note ---
Dialysis Note - Dialysis Note S: Pt seen on dialysis. Intubated,sedated mechanically ventilated. O: VS reviewed. A: [facility] requiring HD. Tolerating well s complications at this time. P: Continue routine CHD as prescribed.
[2016-10-16] MEDS: ENOXAPARIN 30 MG/0.3 ML SYRINGE SUBCUT SCH (10:47)
--- NOTE | 2016-10-16 11:12 | Hospitalist Progress Note ---
Assessment and Plan (1) Altered mental status Status: Acute Assessment and plan: 1)metabolic encephalopathy- restless when diprivan turned down, does not follow commands. Dr Sierra seeing. EEG without sign of seizure. LP without meningitis. 2)CHF with preserved EF- dialysis 3)acute resp failure- FIO2 turned down to 50% and his oxygenation has held. Has not started CPAP trials. Dr Pelayo. 4)pneumonia due to acinetobacter- on levaquin now since cefepime caused rash. still with some fever intermittently. 5)elevated troponin 6)anemia- GI to scope when more stable. No foreign bleeding, but guaiac positive stool. transfuse prn. 7)nutrition- tolerating tube feeds that were restarted yesterday. On erythromycin- hold and see if he needs it now that ileus resolved. 8)polysubstance abuse- alcoholic per family, positive for cocaine and opiates on arrival. 9)acute renal failure- HD per nephrology. 10)dispo- on vent, dialysis. excellent LTAC candidate, but no payor source at this time per . Current Visit: Yes (2) Acute renal failure Status: Acute Current Visit: Yes (3) Polysubstance abuse Status: Acute Current Visit: Yes (4) Congestive heart failure Status: Acute Current Visit: Yes (5) Encephalopathy acute Status: Acute Current Visit: Yes (6) Acute respiratory failure Status: Acute Current Visit: Yes (7) Elevated troponin Status: Acute Current Visit: Yes (8) Pneumonia Status: Acute Current Visit: Yes Hospitalist: Subjective Interval history: Mr Day has had no new events. He is on dilayisis this morning. He is sedated. He continues to move all 4 when his sedation is decreased but does not follow commands. Exam - Constitutional Vitals: Period Temp Pulse Resp BP Sys/Carbone Pulse Ox Last 24 Hr 98.2 F-101.0 F 31-115 14-66 54-126/36-83 94-100 General appearance: no acute distress, over weight - Eye Eye exam: Present: EOMI. Absent: scleral icterus - Respiratory Respiratory exam: Present: rales. Absent: wheezes - Cardiovascular Cardiovascular exam: Present: regular rate and rhythm - GI/Abdominal GI/Abdominal exam: Present: normal bowel sounds, soft. Absent: tenderness - Extremities Exam Extremities exam: Present: edema - Neurological Exam Neurological exam: Present: other (sedated) Results - Labs CBC & BMP: 10/15/16 06:56 10/16/16 04:03 Lab Results: I have reviewed the past 24 hour labs Quality Measures - Stroke Onset of Symptoms Date: 10/07/16
--- NOTE | 2016-10-16 12:22 | Nephrology Progress Note ---
Nephrology - PN: Subj Interval history: Patient intubated and sedate Physical exam general the patient is chronically ill-appearing, heart is regular rate and rhythm, he has no pitting edema, lungs are clear to auscultation anteriorly, abdomen is soft with positive bowel sounds Assessment/plan 1. End-stage renal disease-patient was dialyzed today 2. Respiratory failure continue vent support 3. Pneumonia continue antibiotics Exam (PN)-Nephrology - Vital Signs Vital signs: Period Temp Pulse Resp BP Sys/Carbone Pulse Ox Last 24 Hr 98.2 F-101.0 F 31-115 14-66 54-126/36-83 94-100 - Lab 10/15/16 06:56 10/16/16 04:03 Most recent lab results ABG pH 7.311 (7.35-7.45) L 10/15/16 02:40 ABG pCO2 34.1 MM HG (35-48) L 10/15/16 02:40 ABG pO2 178.0 MM HG (80-95) H 10/15/16 02:40 ABG HCO3 17.8 MMOL/L (20-26) L 10/15/16 02:40 ABG O2 Saturation 99.1 % (95-100) 10/15/16 02:40 Calcium 6.6 MG/DL (8.5-10.1) L 10/16/16 04:03 Phosphorus 7.3 MG/DL (2.5-4.9) H 10/15/16 06:56 Magnesium 2.9 MG/DL (1.8-2.4) H 10/15/16 06:56 Assessment and Plan (1) Acute renal failure Status: Acute Assessment and plan: This patient presented with a creatinine of 11 is up to 13 mg/dL today. He had cocaine in his system his blood pressure has been at the low end of normal since admission. He is getting dobutamine. He has no history of kidney failure in the past. Will try and get some previous lab from Dr. Garrison's office. To see what his baseline creatinine is been. The patient is also noted to have an elevated CPK level. I would worry that he has an ATN injury related to his cocaine use also contributing could be his elevated CPK level. We will continue IV fluids for now and monitor for improvement. I do not see any acute indication for hemodialysis at this time. With his decreased urine output I am going to decrease his IV fluids to 150 cc an hour from 200 cc an hour. Current Visit: Yes (2) Anemia Status: Acute Assessment and plan: Patient's hematocrit is 28% Current Visit: Yes (3) Acute respiratory failure Status: Acute Assessment and plan: Continue vent support Current Visit: Yes (4) Altered mental status Status: Acute Current Visit: Yes (5) Cocaine intoxication Status: Acute Current Visit: Yes (6) Hyperkalemia Status: Acute Assessment and plan: His potassium is returning to the normal range Current Visit: Yes (7) Dyslipidemia Status: Chronic Current Visit: Yes (8) Hypertension Status: Chronic Assessment and plan: Patient's blood pressures at the low end of normal he is on dobutamine Current Visit: Yes (9) Metabolic acidosis Status: Acute Assessment and plan: Patient's bicarb is improved to 22 from 20 Current Visit: Yes
--- NOTE | 2016-10-16 15:19 | Infectious Disease Progress ---
Assessment and Plan (1) Pneumonia Status: Acute Assessment and plan: Pneumonia due to Acinetobacter. Recommendations: Continue levofloxacin. Current Visit: Yes (2) Acute renal failure Status: Acute Assessment and plan: Patient anuric and still requiring dialysis Current Visit: Yes (3) Acute respiratory failure Status: Acute Current Visit: Yes (4) Altered mental status Status: Acute Assessment and plan: CSF analysis negative for meningitis Current Visit: Yes (5) Cocaine intoxication Status: Acute Current Visit: Yes (6) Drug rash Status: Acute Assessment and plan: Patient has diffuse rash which has not yet improved. Cause unclear. It is further worsened tomorrow then it would mean that beta lactams are not the cause. Current Visit: Yes Infectious Disease - PN: Subj Interval history: Patient doing fair, less FiO2 requirements. He has not had fever. Still has evidence of the rash even though stop beta lactams yesterday. Infectious Disease Exam (PN) - Constitutional Vitals: Temp Pulse Resp BP Pulse Ox 99.6 F 87 23 119/62 98 10/16/16 08:00 10/16/16 15:00 10/16/16 15:00 10/16/16 15:00 10/16/16 15:00 General appearance: no acute distress, over weight Exam: General appearance: Sedated - Eye Eye exam: Present: EOMI. no icterus Pupils: Present: DAE - ENT ENT exam: ET tube in situ - Respiratory Respiratory exam: No added sounds - Cardiovascular Cardiovascular exam: regular rate and rhythm, no murmurs - GI/Abdominal GI/Abdominal exam: normal bowel sounds, soft, non-tender, no organomegaly or mass - Extremities Exam Extremities exam: no edema - Skin Skin exam: Still with diffuse blanching erythematous macular rash all over body including face and limbs less so on the legs, it is not better but may be worse. Results - Labs CBC & BMP: 10/15/16 06:56 10/16/16 04:03 Lab Results: I have reviewed the past 24 hour labs Quality Measures - Stroke Onset of Symptoms Date: 10/07/16
[2016-10-16] MEDS ORDERED: MORPHINE 2 MG/1 ML SYRINGE IV PRN (21:11)
[2016-10-16] MEDS ORDERED: LORazepam 2 MG/1 ML VIAL IV ONE (21:12)
[2016-10-16] MEDS ORDERED: IBUPROFEN 600 MG TABLET PO ONE (21:13)
[2016-10-16] MEDS: DEXTROSE 50% 25 GM/50 ML SYRINGE IV PRN (23:21)
[2016-10-17] MEDS: ALBUTEROL/IPRATROPIUM 3 ML NEB RESP TX SCH ×5 (00:18→19:35)
[2016-10-17] MEDS: ACETAMINOPHEN 325 MG TABLET PO PRN ×3 (00:40→20:54)
[2016-10-17] MEDS: LORazepam 2 MG/1 ML VIAL IV PRN ×3 (00:40→20:56)
[2016-10-17] MEDS: PROPOFOL 1,000 MG/100 ML BOTTLE IV SCH ×3 (00:48→10:30)
[2016-10-17] MEDS: PANTOPRAZOLE 40 MG VIAL IV SCH (01:16)
[2016-10-17] MEDS: PHENYLEPHRINE DRIP 40 MG/250 ML PREMIX IV SCH ×3 (01:54→10:31)
[2016-10-17 03:33] LABS: ABG Base Excess -8.2 MMOL/L (-2.5-2.5); ABG HCO3 16.8 MMOL/L (20-26); ABG Oxygen Saturation 98.7 % (95-100); ABG PCO2 32.6 MM HG (35-48); ABG PH 7.329 (7.35-7.45); ABG PO2 182.1 MM HG (80-95); ABG TCO2 17.8 MMOL/L (23-27); Allen Test Positive; Pt O2 Delivery Device Ventilator
[2016-10-17] MEDS: INSULIN REGULAR 100 UNIT/ML SUBCUT SCH ×3 (05:23→18:59)
--- NOTE | 2016-10-17 07:56 | XRay Report ---
XR chest 1V portable Indication: Ventilator patient Comparison: 14 October 2016 Findings: The heart and mediastinum are stable in size and configuration. The lines and tubes are unchanged in position. The pulmonary vascularity is normal in caliber. Pain areas of pulmonary density are similar to previous exam. No other lung infiltrates, effusions, pneumothorax or other abnormality is demonstrated. Impression: No significant change PROCEDURE INTERPRETED AT [facility] DEPARTMENT OF RADIOLOGY Final Report Signed by: Dr. Jaspreet Simpson
--- NOTE | 2016-10-17 08:16 | Pulmonology Progress Note ---
Pulmonary - PN: Subj Interval history: Patient is a 56-year-old black man that has a history of hypertension and alcohol abuse. He has had some chronic pain issues. He came into the emergency room lethargic and had positive drug screen for cocaine and opiates. He has been put on the ventilator. He has also developed acute renal failure. He did develop worsening infiltrates and was hard to ventilate. Now he has been improving and his chest x-ray is much better. He did dialyze yesterday. He is hard to manage and does require sedation. His chest x-ray is much better and his oxygenation has improved. Hopefully we can extubate him soon. Exam (Progress Note) - Constitutional Vitals: Period Temp Pulse Resp BP Sys/Carbone Pulse Ox Last 24 Hr 98.3 F-102 F 78-114 12-50 71-142/38-83 94-100 Exam: General appearance: normal weight, no acute distress (The patient is sedated and gets agitated easily. He apparently does follow commands however.) - Head Head exam: Present: normal inspection, normocephalic - Eye Eye exam: Absent: scleral icterus Pupils: Present: constricted - ENT ENT exam: Present: other (ET tube is in good position.) - Neck Neck exam: Present: normal inspection. Absent: lymphadenopathy, thyromegaly - Respiratory Respiratory exam: Present: He has good breath sounds bilaterally and he has fairly good air movement. His lungs sound better overall. - Cardiovascular Cardiovascular exam: Present: regular rate and rhythm. Absent: gallop - GI/Abdominal GI/Abdominal exam: Present: hypoactive bowel sounds, soft. Absent: organomegaly , tenderness - Extremities Exam Extremities exam: Absent: calf tenderness, edema - Neurological Exam Neurological exam: Present: Patient is opening his eyes and responding some. He still requires a lot of sedation. - Psychiatric Psychiatric exam: Absent: anxious - Skin Skin exam: Present: warm, dry, he has a skin rash Results - Labs CBC & BMP: 10/15/16 06:56 10/16/16 04:03 Labs: His PO2 is 182 with a PCO2 of 32 and a pH of 7.32 - Diagnostic Findings Procedure: Chest x-ray: image reviewed by me, report reviewed by me (Chest x- ray has improved.) Assessment and Plan (1) Acute respiratory failure Status: Acute Assessment and plan: Patient has had a difficult time and is on the ventilator with respiratory failure. His lung compliance is better and his oxygenation has improved. He still gets agitated easily. Hopefully we can extubate him soon. Current Visit: Yes (2) Acute renal failure Status: Acute Assessment and plan: The patient will continue to require dialysis. He had dialysis yesterday. Current Visit: Yes (3) Cocaine intoxication Status: Acute Assessment and plan: Patient apparently has had cocaine abuse. Current Visit: Yes (4) Polysubstance abuse Status: Acute Assessment and plan: The patient has a history of substance abuse. He certainly could have withdrawal symptoms. He is sedated at present. Current Visit: Yes (5) Encephalopathy acute Status: Acute Assessment and plan: Patient still gets very restless and mainly has to get some sedation. Current Visit: Yes (6) Anemia Status: Acute Assessment and plan: The patient has an hematocrit of 26.6 yesterday. Current Visit: Yes
[2016-10-17] MEDS: THIAMINE 200 MG/2 ML VIAL IV SCH (09:10)
[2016-10-17] MEDS: FOLIC ACID 1 MG TABLET PO SCH (09:13)
[2016-10-17] MEDS: MULTIVITAMIN (CENTRUM) TABLET PO SCH (09:13)
[2016-10-17] MEDS ORDERED: VANCOMYCIN INJ 750 MG in SODIUM CHLORIDE 0.9% 250 ML IV PRN (10:01)
[2016-10-17] MEDS: MEROPENEM 500 MG in SODIUM CHLORIDE 0.9% 100 ML IV SCH (10:29)
[2016-10-17] MEDS: ENOXAPARIN 30 MG/0.3 ML SYRINGE SUBCUT SCH (10:29)
[2016-10-17] MEDS ORDERED: VANCOMYCIN INJ 1,750 MG in SODIUM CHLORIDE 0.9% 500 ML IV ONE (11:00)
--- NOTE | 2016-10-17 11:18 | Infectious Disease Progress ---
Assessment and Plan (1) Pneumonia Status: Acute Assessment and plan: Pneumonia due to Acinetobacter. Recommendations: Continue levofloxacin. Current Visit: Yes (2) Acute renal failure Status: Acute Assessment and plan: Patient anuric and still requiring dialysis Current Visit: Yes (3) Acute respiratory failure Status: Acute Current Visit: Yes (4) Altered mental status Status: Acute Assessment and plan: CSF analysis negative for meningitis. Likely multifactorial toxic metabolic encephalopathy. Current Visit: Yes (5) Cocaine intoxication Status: Acute Current Visit: Yes (6) Drug rash Status: Acute Assessment and plan: Patient has diffuse rash which has not yet improved. I do not think beta lactams are the cause as the rash of started improving by now with him having been off these drugs for over 48 hours. Need to consider another medication as the cause of this rash. Current Visit: Yes (7) Hypotension Status: Acute Assessment and plan: Hypotensive shock requiring vasopressor support. Possibly septic given the fever and prolonged hospitalization. Recommendations: 1. Add meropenem renally dose of 500 g daily 2. We add vancomycin 3. Continue levofloxacin for now 4. Follow-up blood cultures done last night Discussed with Dr. Lisa Current Visit: Yes Infectious Disease - PN: Subj Interval history: Patient continues to be febrile, up to 102 last night, and last night he developed persistent hypotension requiring vasopressor support. He still requiring a lot of sedation and even paralytics due to respiratory distress, with tachypnea in the 50s, when he is off sedation. Oxygen requirements have improved however with FiO2 down to 40%, and his PEEP is down to 5. Infectious Disease Exam (PN) - Constitutional Vitals: Temp Pulse Resp BP Pulse Ox 100.5 F H 117 H 28 H 119/62 95 10/17/16 08:00 10/17/16 10:00 10/17/16 11:10 10/17/16 10:00 10/17/16 10:00 General appearance: no acute distress, over weight Exam: General appearance: Sedated - Eye Eye exam: Present: EOMI. no icterus Pupils: Present: DAE - ENT ENT exam: ET tube in situ, a lot of oral secretions - Respiratory Respiratory exam: Decreased breath sounds in bases, no added sounds - Cardiovascular Cardiovascular exam: regular rate and rhythm, no murmurs - GI/Abdominal GI/Abdominal exam: normal bowel sounds, soft, non-tender, no organomegaly or mass - Extremities Exam Extremities exam: Generalized edema present - Skin Skin exam: There has been no improvement in the diffuse erythematous macular rash all over his body Results - Labs CBC & BMP: 10/15/16 06:56 10/16/16 04:03 Lab Results: I have reviewed the past 24 hour labs Quality Measures - Stroke Onset of Symptoms Date: 10/07/16
--- NOTE | 2016-10-17 12:50 | Hospitalist Progress Note ---
Assessment and Plan (1) Altered mental status Status: Acute Assessment and plan: 1)metabolic encephalopathy- restless when diprivan turned down, does not follow commands. Dr Sierra seeing. EEG without sign of seizure. LP without meningitis. concern for anoxic brain injury or withdrawal, though he has been here a long time and withdrawal should be finished. 2)CHF with preserved EF- dialysis 3)acute resp failure- FIO2 turned down to 40% and his oxygenation has held. Has not started CPAP trials today they are deferred due to hypotension. Dr Pelayo. 4)pneumonia due to acinetobacter- on levaquin now since cefepime caused rash. still with some fever intermittently. 5)sepsis- on pressors now. antibiotics broadened. bolus with 500cc NS. 6)anemia- GI to scope when more stable. No foreign bleeding, but guaiac positive stool. transfuse prn. 7)nutrition- tolerating tube feeds that were restarted yesterday. 8)polysubstance abuse- alcoholic per family, positive for cocaine and opiates on arrival. 9)acute renal failure- HD per nephrology. 10)dispo- on vent, dialysis. excellent LTAC candidate, but no payor source at this time per . I did not get an answer when I called his daughter Erum Martinez to update her. Current Visit: Yes (2) Acute renal failure Status: Acute Current Visit: Yes (3) Polysubstance abuse Status: Acute Current Visit: Yes (4) Congestive heart failure Status: Acute Current Visit: Yes (5) Encephalopathy acute Status: Acute Current Visit: Yes (6) Acute respiratory failure Status: Acute Current Visit: Yes (7) Elevated troponin Status: Acute Current Visit: Yes (8) Pneumonia Status: Acute Current Visit: Yes Hospitalist: Subjective Interval history: Mr Day is now hypotensive. He is on Rg. I discussed his case with Dr Yvrose Ritter to coordinate care and have added vanc and merrem. Confirmed that BCx were done last night. Exam - Constitutional Vitals: Period Temp Pulse Resp BP Sys/Carbone Pulse Ox Last 24 Hr 98.3 F-102.2 F 81-117 12-50 69-142/38-74 93-100 General appearance: no acute distress, over weight - Head Head exam: Present: normocephalic, atraumatic - Eye Eye exam: Present: EOMI. Absent: scleral icterus - Respiratory Respiratory exam: Present: clear to auscultation bilaterally, rhonchi - Cardiovascular Cardiovascular exam: Present: regular rate and rhythm - GI/Abdominal GI/Abdominal exam: Present: normal bowel sounds, soft. Absent: tenderness - Extremities Exam Extremities exam: Absent: edema - Neurological Exam Neurological exam: Present: alert, oriented X3 - Skin Skin exam: Present: warm, dry Results - Labs CBC & BMP: 10/15/16 06:56 10/16/16 04:03 Lab Results: I have reviewed the past 24 hour labs Quality Measures - Stroke Onset of Symptoms Date: 10/07/16
[2016-10-17] MEDS ORDERED: SODIUM CHLORIDE 0.9% 500 ML IV ONE ×2 (12:57→13:45)
[2016-10-17] MEDS: LEVOFLOXACIN INJ 500 MG in PREMIX 1 EACH IV SCH (13:09)
--- NOTE | 2016-10-17 13:21 | Nephrology Progress Note ---
Nephrology - PN: Subj Interval history: Patient remains intubated and sedate. Physical exam general the patient is chronically ill-appearing, heart is regular rate and rhythm, he has 1-2+ thigh edema, lungs are clear to auscultation anteriorly, abdomen is soft with positive bowel sounds Assessment/plan 1. Acute renal failure-we will continue hemodialysis support 2. Cocaine intoxication 3. Hyperkalemia this is resolved 4. Metabolic acidosis this is resolved 5. Pneumonia-continue antibiotics 6. Respiratory failure continue vent support Exam (PN)-Nephrology - Vital Signs Vital signs: Period Temp Pulse Resp BP Sys/Carbone Pulse Ox Last 24 Hr 98.3 F-102.2 F 81-117 12-50 69-142/38-74 93-100 - Lab 10/15/16 06:56 10/16/16 04:03 Most recent lab results ABG pH 7.329 (7.35-7.45) L 10/17/16 03:15 ABG pCO2 32.6 MM HG (35-48) L 10/17/16 03:15 ABG pO2 182.1 MM HG (80-95) H 10/17/16 03:15 ABG HCO3 16.8 MMOL/L (20-26) L 10/17/16 03:15 ABG O2 Saturation 98.7 % (95-100) 10/17/16 03:15 Calcium 6.6 MG/DL (8.5-10.1) L 10/16/16 04:03 Phosphorus 7.3 MG/DL (2.5-4.9) H 10/15/16 06:56 Magnesium 2.9 MG/DL (1.8-2.4) H 10/15/16 06:56 Assessment and Plan (1) Acute renal failure Status: Acute Assessment and plan: This patient presented with a creatinine of 11 is up to 13 mg/dL today. He had cocaine in his system his blood pressure has been at the low end of normal since admission. He is getting dobutamine. He has no history of kidney failure in the past. Will try and get some previous lab from Dr. Garrison's office. To see what his baseline creatinine is been. The patient is also noted to have an elevated CPK level. I would worry that he has an ATN injury related to his cocaine use also contributing could be his elevated CPK level. We will continue IV fluids for now and monitor for improvement. I do not see any acute indication for hemodialysis at this time. With his decreased urine output I am going to decrease his IV fluids to 150 cc an hour from 200 cc an hour. Current Visit: Yes (2) Anemia Status: Acute Assessment and plan: Patient's hematocrit is 28% Current Visit: Yes (3) Acute respiratory failure Status: Acute Assessment and plan: Continue vent support Current Visit: Yes (4) Altered mental status Status: Acute Current Visit: Yes (5) Cocaine intoxication Status: Acute Current Visit: Yes (6) Hyperkalemia Status: Acute Assessment and plan: His potassium is returning to the normal range Current Visit: Yes (7) Dyslipidemia Status: Chronic Current Visit: Yes (8) Hypertension Status: Chronic Assessment and plan: Patient's blood pressures at the low end of normal he is on dobutamine Current Visit: Yes (9) Metabolic acidosis Status: Acute Assessment and plan: Patient's bicarb is improved to 22 from 20 Current Visit: Yes
--- NOTE | 2016-10-17 14:53 | Neurology Progress Note ---
Neurology - PN : Subjective Interval history: Patient continued to remain same. He is back on multiple antibiotics. He does have a body rash as well and Dr. Frances is working on that part. No seizures or seizure-like activity reported Exam (Progress Note) - Constitutional Vitals: Period Temp Pulse Resp BP Sys/Carbone Pulse Ox Last 24 Hr 98.3 F-104 F 81-121 12-50 69-142/38-74 93-98 Exam: GENERAL: Patient is in no acute distress. NECK: Neck is supple. There is no JVD. No carotid bruits present. No thyroid masses. CVS: First and second heart sounds are normal. There is no S3 present. Regular rate and rhythm. RESPIRATORY: Lungs are clear to auscultation without any rales or rhonchi. ABDOMEN: Soft and non-tender. Bowel sounds are present. There is no hepatosplenomegaly. EXT: There is no palpable edema. Peripheral pulses are present. Skin: No rashes Central Nervous system: General: Unresponsive and sedated Speech: None Comprehension: None Facial expressions: Normal Cranial Nerves: Pupils are equally reactive to light. Doll's head eye movements are positive. No facial asymmetry is seen Motor: Bulk and Tone is normal. Strength cannot be assessed Sensory: Cannot be assessed Reflexes: 1+ and symmetrical Cerebellar function: Cannot be assessed Toes: Equivocal Gait: Cannot be assessed Results - Labs CBC & BMP: 10/15/16 06:56 10/16/16 04:03 Assessment and Plan (1) Toxic metabolic encephalopathy Status: Acute Assessment and plan: Patient apparently suffering from toxic metabolic encephalopathy including acute kidney injury and cocaine abuse. No evidence of a stroke, seizures, epilepsy No new recommendations from neuro standpoint Sign off please call as needed Current Visit: Yes Quality Measures - Stroke Onset of Symptoms Date: 10/07/16
[2016-10-17] MEDS ORDERED: MORPHINE 2 MG/1 ML SYRINGE ONE (16:06)
[2016-10-17] MEDS: MORPHINE 2 MG/1 ML SYRINGE IV PRN (16:07)
[2016-10-17] MEDS: MIDAZOLAM 100 MG in SODIUM CHLORIDE 0.9% 80 ML IV SCH (17:30)
[2016-10-17] MEDS: DEXTROSE 50% 25 GM/50 ML SYRINGE IV PRN (18:40)
[2016-10-18] MEDS: INSULIN REGULAR 100 UNIT/ML SUBCUT SCH ×4 (01:00→17:12)
[2016-10-18] MEDS: ALBUTEROL/IPRATROPIUM 3 ML NEB RESP TX SCH ×4 (01:07→19:42)
[2016-10-18] MEDS: PANTOPRAZOLE 40 MG VIAL IV SCH (02:30)
[2016-10-18] MEDS: ACETAMINOPHEN 325 MG TABLET PO PRN ×2 (02:30→18:04)
[2016-10-18 03:03] LABS: ABG Base Excess -10.6 MMOL/L (-2.5-2.5); ABG Oxygen Saturation 99.2 % (95-100); ABG PCO2 25.9 MM HG (35-48); ABG TCO2 12.9 MMOL/L (23-27); Allen Test Positive; Pt O2 Delivery Device Ventilator
[2016-10-18] MEDS: IBUPROFEN 600 MG TABLET PO PRN (04:18)
--- NOTE | 2016-10-18 07:47 | XRay Report ---
Portable chest Date: 10/18/2016 Clinical history: Ventilator Comparison: 10/17/2016 Technique: Portable AP sitting chest Findings: The heart is borderline in size with stable supportive devices. Reduced parenchymal findings with stable mediastinum and osseous structures. Impression: Improved pulmonary edema/infiltration with reduced atelectasis at the lung bases. The supportive devices remain in satisfactory position. PROCEDURE INTERPRETED AT [facility] DEPARTMENT OF RADIOLOGY Final Report Signed by: Dr. Nancy Paz
--- NOTE | 2016-10-18 07:51 | Pulmonology Progress Note ---
Pulmonary - PN: Subj Interval history: Patient is a 56-year-old black man that has a history of hypertension and alcohol abuse. He has had some chronic pain issues. He came into the emergency room lethargic and had positive drug screen for cocaine and opiates. He has been put on the ventilator. He has also developed acute renal failure. He did develop worsening infiltrates and was hard to ventilate. Now he has been improving and his chest x-ray is much better. He has adequate oxygenation and his chest x-ray is stable. He probably does have some sinusitis. He did have a temp to 103 last night. He does get very agitated when off sedation. Overall he is stable and will try to extubate him. Exam (Progress Note) - Constitutional Vitals: Period Temp Pulse Resp BP Sys/Carbone Pulse Ox Last 24 Hr 99.9 F-104 F 94-135 15-37 69-137/40-82 93-100 Exam: General appearance: normal weight, no acute distress (The patient is sedated and gets agitated easily. He apparently does follow commands however.) - Head Head exam: Present: normal inspection, normocephalic - Eye Eye exam: Absent: scleral icterus Pupils: Present: constricted - ENT ENT exam: Present: other (ET tube is in good position.) - Neck Neck exam: Present: normal inspection. Absent: lymphadenopathy, thyromegaly - Respiratory Respiratory exam: Present: He has good breath sounds bilaterally and he has fairly good air movement. His lungs sound better overall. His oxygenation and chest x-ray have improved nicely. - Cardiovascular Cardiovascular exam: Present: regular rate and rhythm. Absent: gallop - GI/Abdominal GI/Abdominal exam: Present: hypoactive bowel sounds, soft. Absent: organomegaly , tenderness - Extremities Exam Extremities exam: Absent: calf tenderness, edema - Neurological Exam Neurological exam: Present: Patient is opening his eyes and responding some. He still requires a lot of sedation. - Psychiatric Psychiatric exam: Absent: anxious - Skin Skin exam: Present: warm, dry, he has a skin rash Results - Labs CBC & BMP: 10/15/16 06:56 10/16/16 04:03 Labs: PO2 is 156 with a PCO2 of 25 and a pH of 7.34 - Diagnostic Findings Procedure: Chest x-ray: image reviewed by me, report reviewed by me (Chest x- ray looks much better) Assessment and Plan (1) Acute respiratory failure Status: Acute Assessment and plan: Patient has had a difficult time and is on the ventilator with respiratory failure. His lung compliance is better and his oxygenation has improved. He gets very agitated will try to let him wake up. His chest x-ray is much better and will try to extubate today. Current Visit: Yes (2) Acute renal failure Status: Acute Assessment and plan: The patient will continue to require dialysis. He will likely dialyze today. Current Visit: Yes (3) Cocaine intoxication Status: Acute Assessment and plan: Patient apparently has had cocaine abuse. Current Visit: Yes (4) Polysubstance abuse Status: Acute Assessment and plan: The patient has a history of substance abuse. He certainly could have withdrawal symptoms. He is sedated at present. Current Visit: Yes (5) Encephalopathy acute Status: Acute Assessment and plan: Patient still gets very restless and mainly has to get some sedation. We will try to hold sedation and see how alert he gets. Current Visit: Yes (6) Anemia Status: Acute Assessment and plan: The patient has an hematocrit of 26.6 yesterday. Current Visit: Yes
[2016-10-18 07:56] LABS: Basophils % 0.1 % (0.0-0.8); Eosinophils # 0.8 10*3/uL (0.0-0.87); Eosinophils % 3.5 % (0.00-10.9); Hematocrit 24.6 VOL% (42.0-52.0); Immature Granulocytes % 5.6 %; Immature Granulocytes Absolute 1.19 #; Lymphocytes # 1.8 10*3/uL (1.4-4.0); Lymphocytes % 8.5 % (21.2-54.2); Mean Corpuscular HGB Conc 36.6 GM/DL (32-36); Mean Corpuscular Hemoglobin 33 PG (27-34); Mean Corpuscular Volume 89.1 FL (87-102); Mean Platelet Volume 11.5 FL (9.6-12.0); Monocytes # 0.7 10*3/uL (0.11-0.8); Monocytes % 3.5 % (1.7-12.7); NRBC # 0.02 10*3/uL; Neutrophils # 16.9 10*3/uL (1.4-7.4); Neutrophils % 78.8 % (38.7-73.9); Platelet Count 292 T/CUMM (130-400); Red Blood Count 2.76 MC/CUMM (3.8-5.5); Red Cell Distribution Width 14.3 % (9.3-17.3); White Blood Count 21.4 T/CUMM (4-12)
[2016-10-18] MEDS: PROPOFOL 1,000 MG/100 ML BOTTLE IV SCH (08:00)
[2016-10-18] MEDS: PHENYLEPHRINE DRIP 40 MG/250 ML PREMIX IV SCH (08:01)
[2016-10-18 08:27] LABS: Magnesium 2.8 MG/DL (1.8-2.4); Osmolality,Calculated 290.7 MOS/KG (273-304); Phosphorous 6.8 MG/DL (2.5-4.9); Potassium 4.9 MMOL/L (3.5-5.1); Prealbumin 14.1 MG/DL (20-40)
[2016-10-18 09:31] LABS: Band Neutrophils 4 % (0-10); Eosinophils 1 % (0-10); Lymphocytes 6 % (20-55); Segmented Neutrophils 84 % (50-85); Total Cells Counted 100
[2016-10-18 09:32] LABS: Platelet Estimate Normal
--- NOTE | 2016-10-18 09:36 | Hospitalist Progress Note ---
Assessment and Plan (1) Altered mental status Status: Acute Assessment and plan: 1)metabolic encephalopathy- versed turned off (changed to versed from fede yesterday) Dr Sierra seeing. EEG without sign of seizure. LP without meningitis. concern for anoxic brain injury or withdrawal, though he has been here a long time and withdrawal should be finished. He is moving everything, will try extubation per Pulmonary and monitor neuro function. 2)CHF with preserved EF- on dialysis lungs have cleared. 3)acute resp failure- plan for extubation today. 4)pneumonia due to acinetobacter- on levaquin now since cefepime caused rash. still with some fever intermittently. 5)sepsis- on pressors now. antibiotics broadened to vanc and merrem after discussing with Dr Shan Scott. still having fever. 6)anemia- GI to scope when more stable. No foreign bleeding, but guaiac positive stool. transfuse prn. 7)nutrition- tolerating tube feeds that were restarted yesterday. these will stop when extubated. 8)polysubstance abuse- alcoholic per family, positive for cocaine and opiates on arrival. 9)acute renal failure- HD per nephrology. 10)dispo- on vent, dialysis. excellent LTAC candidate, but no payor source at this time per . I was not able to reach family by phone yesterday, will try again today. Current Visit: Yes (2) Acute renal failure Status: Acute Current Visit: Yes (3) Polysubstance abuse Status: Acute Current Visit: Yes (4) Congestive heart failure Status: Acute Current Visit: Yes (5) Encephalopathy acute Status: Acute Current Visit: Yes (6) Acute respiratory failure Status: Acute Current Visit: Yes (7) Elevated troponin Status: Acute Current Visit: Yes (8) Pneumonia Status: Acute Current Visit: Yes Hospitalist: Subjective Interval history: On Dialysis. Rg now down to 20. Waking up off versed in anticipation of extubation when HD finished per Dr Pelayo. Wakes to voice, not following commands yet. Exam - Constitutional Vitals: Period Temp Pulse Resp BP Sys/Carbone Pulse Ox Last 24 Hr 99.9 F-104 F 96-139 15-37 69-137/40-82 94-100 General appearance: mild distress, over weight - Head Head exam: Present: normocephalic, atraumatic - Eye Eye exam: Present: EOMI. Absent: scleral icterus Pupils: Present: DAE - Respiratory Respiratory exam: Present: clear to auscultation bilaterally - Cardiovascular Cardiovascular exam: Present: regular rate and rhythm, tachycardia - GI/Abdominal GI/Abdominal exam: Present: normal bowel sounds, soft. Absent: tenderness - Extremities Exam Extremities exam: Absent: edema Results - Labs CBC & BMP: 10/18/16 07:30 10/18/16 07:30 Lab Results: I have reviewed the past 24 hour labs Quality Measures - Stroke Onset of Symptoms Date: 10/07/16
[2016-10-18] MEDS: MULTIVITAMIN (CENTRUM) TABLET PO SCH (09:42)
[2016-10-18] MEDS: THIAMINE 200 MG/2 ML VIAL IV SCH (09:42)
[2016-10-18] MEDS: FOLIC ACID 1 MG TABLET PO SCH (09:42)
--- NOTE | 2016-10-18 11:44 | Physician Query Form ---
CLICK EDIT DOCUMENT TO SELECT QUERY ANSWER --> OK --> SIGN Lety Lucia RN, CCDS Certified Clinical Mirror Framer W) [phone] (f) [phone] [email or web address] PROVIDERS: Make your selection(s) from the choices in EACH section by typing an "x" and enter comments in the comment section. Please use your independent medical judgment in providing your response. This request does not imply that any particular answer is desired or expected. CLINICAL INDICATORS: (Providers should not edit this section) The medical record indicates that the patient was admitted with cocaine intoxication, on the : sepsis Is mentioned, " developed persistent hypotension requiring vasopressor support" AND the patient has been on DARRION. Please clarify which, if any, of the following is the etiology of the above symptoms and treatment rendered: ( ) Hypovolemic shock (x ) Septic shock ( ) Cardiogenic shock ( ) Hemorrhagic shock ( ) Traumatic shock ( ) Shock due to, please specify etiology: ( ) Shock, unknown etiology ( ) Drug induced, please specify substance: ( ) Iatrogenic Hypotension ( ) Orthostatic Hypotension ( ) Hypotension, unknown etiology ( ) Other, please specify: ( ) Clinically unable to determine COMMENTS: PLEASE ALSO DOCUMENT RESPONSE IN PROGRESS NOTES AND/OR DISCHARGE SUMMARY Use of terms such as suspected, likely, or probable (associated with a specific diagnosis that is being evaluated, monitored, or treated as if it exists) are acceptable and can be restated in the discharge summary if not ruled out. MTDD
[2016-10-18] MEDS: MEROPENEM 500 MG in SODIUM CHLORIDE 0.9% 100 ML IV SCH (12:30)
[2016-10-18] MEDS: ENOXAPARIN 30 MG/0.3 ML SYRINGE SUBCUT SCH (12:32)
--- NOTE | 2016-10-18 13:20 | Nephrology Progress Note ---
Nephrology - PN: Subj Interval history: Patient is extubated. He groans occasionally but was nonverbal otherwise. Physical exam general the patient chronically ill-appearing, heart is regular rate and rhythm, he has 1+ thigh edema, lungs are clear to auscultation, he has a increased respiratory rate, abdomen is soft with positive bowel sounds Assessment/plan 1. Acute renal failure-patient continues to require hemodialysis will continue this support 2. Cocaine intoxication 3. Metabolic acidosis-we will continue HD support 5. Hypokalemia this is resolved Exam (PN)-Nephrology - Vital Signs Vital signs: Period Temp Pulse Resp BP Sys/Carbone Pulse Ox Last 24 Hr 99.9 F-104 F 86-139 15-40 62-137/40-82 95-100 - Lab 10/18/16 07:30 10/18/16 07:30 Most recent lab results ABG pH 7.340 (7.35-7.45) L 10/18/16 02:55 ABG pCO2 25.9 MM HG (35-48) L 10/18/16 02:55 ABG pO2 156.0 MM HG (80-95) H 10/18/16 02:55 ABG HCO3 16.0 MMOL/L (20-26) L 10/18/16 02:55 ABG O2 Saturation 99.2 % (95-100) 10/18/16 02:55 Calcium 8.0 MG/DL (8.5-10.1) L D 10/18/16 07:30 Phosphorus 6.8 MG/DL (2.5-4.9) H 10/18/16 07:30 Magnesium 2.8 MG/DL (1.8-2.4) H 10/18/16 07:30 Assessment and Plan (1) Acute renal failure Status: Acute Assessment and plan: This patient presented with a creatinine of 11 is up to 13 mg/dL today. He had cocaine in his system his blood pressure has been at the low end of normal since admission. He is getting dobutamine. He has no history of kidney failure in the past. Will try and get some previous lab from Dr. Garrison's office. To see what his baseline creatinine is been. The patient is also noted to have an elevated CPK level. I would worry that he has an ATN injury related to his cocaine use also contributing could be his elevated CPK level. We will continue IV fluids for now and monitor for improvement. I do not see any acute indication for hemodialysis at this time. With his decreased urine output I am going to decrease his IV fluids to 150 cc an hour from 200 cc an hour. Current Visit: Yes (2) Anemia Status: Acute Assessment and plan: Patient's hematocrit is 28% Current Visit: Yes (3) Acute respiratory failure Status: Acute Assessment and plan: Continue vent support Current Visit: Yes (4) Altered mental status Status: Acute Current Visit: Yes (5) Cocaine intoxication Status: Acute Current Visit: Yes (6) Hyperkalemia Status: Acute Assessment and plan: His potassium is returning to the normal range Current Visit: Yes (7) Dyslipidemia Status: Chronic Current Visit: Yes (8) Hypertension Status: Chronic Assessment and plan: Patient's blood pressures at the low end of normal he is on dobutamine Current Visit: Yes (9) Metabolic acidosis Status: Acute Assessment and plan: Patient's bicarb is improved to 22 from 20 Current Visit: Yes
[2016-10-18] MEDS: MORPHINE 2 MG/1 ML SYRINGE IV PRN (13:31)
[2016-10-18] MEDS: LORazepam 2 MG/1 ML VIAL IV PRN (14:49)
--- NOTE | 2016-10-18 15:12 | Infectious Disease Progress ---
Assessment and Plan (1) Pneumonia Status: Acute Assessment and plan: Pneumonia due to Acinetobacter. Recommendations: Continue levofloxacin. Current Visit: Yes (2) Acute renal failure Status: Acute Assessment and plan: Patient anuric and still requiring dialysis Current Visit: Yes (3) Acute respiratory failure Status: Acute Current Visit: Yes (4) Altered mental status Status: Acute Assessment and plan: CSF analysis negative for meningitis. Likely multifactorial toxic metabolic encephalopathy. Current Visit: Yes (5) Cocaine intoxication Status: Acute Current Visit: Yes (6) Drug rash Status: Acute Assessment and plan: Patient has diffuse rash which to me has not yet improved, even though beta- lactam medications were stopped 3 days ago. I do not think beta lactams are the cause as the rash. Need to consider another medication as the cause of this rash. The patient is having a lot of fever and I am thinking it could be in response to water for drug he is allergic to, though we have rule out new infection. Current Visit: Yes (7) Hypotension Status: Acute Assessment and plan: Hypotensive shock requiring vasopressor support, resolved today. Possibly septic given the fever and prolonged hospitalization. He is off pressors today and may be the broaden antibiotic coverage is responsible for this. He has acute leukocytosis today but blood cultures so far negative however. Recommendations: Continue empiric broad-spectrum antibiotics and follow-up cultures. Current Visit: Yes Infectious Disease - PN: Subj Interval history: Patient still having very high fever, up to 103.2 this morning. Fortunately he was extubated this morning and is comfortable off the vent relatively speaking so he requires oxygen via nonrebreather. He came off vasopressors this morning. Infectious Disease Exam (PN) - Constitutional Vitals: Temp Pulse Resp BP Pulse Ox 100.7 F H 132 H 25 H 121/71 95 10/18/16 07:00 10/18/16 12:28 10/18/16 12:28 10/18/16 10:45 10/18/16 12:28 General appearance: mild distress, over weight Exam: General appearance: Easily arousable but confused and a bit agitated - Eye Eye exam: Present: EOMI. no icterus Pupils: Present: DAE - Respiratory Respiratory exam: Coarse rhonchi bilaterally - Cardiovascular Cardiovascular exam: regular rate and rhythm, no murmurs - GI/Abdominal GI/Abdominal exam: normal bowel sounds, soft, non-tender, no organomegaly or mass - Extremities Exam Extremities exam: Generalized edema present, worse than yesterday - Skin Skin exam: I still did not appreciate improvement in the diffuse erythroderma all over his body, there is mild exfoliation of the arms Results - Labs CBC & BMP: 10/18/16 07:30 10/18/16 07:30 Lab Results: I have reviewed the past 24 hour labs Quality Measures - Stroke Onset of Symptoms Date: 10/07/16
[2016-10-18] MEDS ORDERED: VECURONIUM 10 MG VIAL IV ONE (15:16)
[2016-10-18] MEDS ORDERED: ETOMIDATE 20 MG/10 ML VIAL IV ONE (15:17)
[2016-10-18] MEDS ORDERED: ZIPRASIDONE 20 MG CAPSULE NG PRN (15:23)
--- NOTE | 2016-10-18 15:32 | Anesthesia Procedures ---
Anesthesia Procedures - Intubation Time out performed intubation: Yes Sedative: Etomidate Mg given sedative: 10 Paralytic: Vecuronium Mg given paralytic: 10 Laryngoscope: Moore (2) ET Tube Size: 7.5 ET Tube Uncuffed: No Tube Secured Depth (cm): 23 Tube Secured Location: teeth Tube Placement Confirmation: visualized tube passing through cords, equal breath sounds bilaterally, no breath sounds over epigastrium, confirmation detector color change Patient tolerated procedure intubation: well, no complications Intubation Complications: none Additional Commets: Called by Dr Pelayo to re-intubate.
--- NOTE | 2016-10-18 15:49 | XRay Report ---
XR chest 1V portable Indication: Reintubation. Comparison: Chest x-ray October 18, 2016. Technique: Portable AP chest was performed. Findings: Endotracheal tube terminates at the level of the aortic knob. NG tube is present terminates within the gastric fundus. There has been marked interval worsening of bilateral airspace opacification in the perihilar regions and lung bases compatible with worsening pulmonary edema. Chest is otherwise stable. Impression: 1. Interval placement of endotracheal tube. 2. Worsened pulmonary edema is demonstrated with somewhat confluent bilateral airspace opacification in the perihilar lungs and lung bases. 10/18/2016 3:44 PM PROCEDURE INTERPRETED AT [facility] DEPARTMENT OF RADIOLOGY Final Report Signed by: Dr. Braulio Lucia
--- NOTE | 2016-10-18 15:50 | Event Note ---
critical care time- 45 minutes Mr Day was extubated this morning after HD but did not do well. He breathed 50 times a miunte and became increasingly restless. His sats began to drop and he required intubation. Anesthesia did the intubation because of the difficulties last time in getting him reintubated. His sats now on AC 20, TV 600 FIO2 1.0 and PEEP of 10 are 85 and gradually increasing. CXR showed ETT in good position. Bilateral lung oliveros had increased markings, right greater than left. On exam he has loud rhonchi. We are not able to suction anything from his lungs. ABG pending in a few minutes. I have restarted the Versed infusion with morphine prn. His BP has remained stable. He is in sinus tach and his heart rate has come dwn a bit since intubation. I have talked to his daughter Erum by phone just now to review the events of the day. Her questions were answered. She is agreeable with a trach which I suspect Dr Pelayo will recommend soon- he has been on vent 11 days and failed extubation twice (once was self extubation).
[2016-10-18 15:55] LABS: ABG Base Excess -10.5 MMOL/L (-2.5-2.5); ABG HCO3 17.3 MMOL/L (20-26); ABG Oxygen Saturation 85.1 % (95-100); ABG PCO2 47.3 MM HG (35-48); ABG PO2 60.8 MM HG (80-95); ABG TCO2 18.8 MMOL/L (23-27)
[2016-10-18 15:56] LABS: ABG PH 7.182 (7.35-7.45)
[2016-10-18] MEDS ORDERED: SODIUM BICARBONATE 50 MEQ/50 ML SYRINGE IV ONE (16:01)
[2016-10-18] MEDS: methylPREDNISolone SOD SUC 40 MG/1 ML VIAL IV SCH (16:04)
[2016-10-18] MEDS: MIDAZOLAM 100 MG in SODIUM CHLORIDE 0.9% 80 ML IV SCH ×2 (18:03→21:08)
[2016-10-18 20:28] LABS: ABG Base Excess -7.5 MMOL/L (-2.5-2.5); ABG HCO3 16.3 MMOL/L (20-26); ABG Oxygen Saturation 99.3 % (95-100); ABG PCO2 27.5 MM HG (35-48); ABG PH 7.392 (7.35-7.45); ABG PO2 590.7 MM HG (80-95); ABG TCO2 17.2 MMOL/L (23-27); Allen Test Positive; Pt O2 Delivery Device Ventilator
[2016-10-19] MEDS: INSULIN REGULAR 100 UNIT/ML SUBCUT SCH ×4 (00:35→17:57)
[2016-10-19] MEDS: methylPREDNISolone SOD SUC 40 MG/1 ML VIAL IV SCH ×3 (00:35→16:05)
[2016-10-19] MEDS: ALBUTEROL/IPRATROPIUM 3 ML NEB RESP TX SCH ×4 (00:42→20:01)
[2016-10-19] MEDS: ACETAMINOPHEN 325 MG TABLET PO PRN (01:40)
[2016-10-19] MEDS: LORazepam 2 MG/1 ML VIAL IV PRN ×5 (01:40→20:38)
[2016-10-19] MEDS: PANTOPRAZOLE 40 MG VIAL IV SCH (02:30)
[2016-10-19 03:41] LABS: ABG Base Excess -7.7 MMOL/L (-2.5-2.5); ABG HCO3 18.1 MMOL/L (20-26); ABG Oxygen Saturation 98.6 % (95-100); ABG PCO2 31.2 MM HG (35-48); ABG PH 7.349 (7.35-7.45); ABG TCO2 16.3 MMOL/L (23-27); Allen Test Positive; Pt O2 Delivery Device Ventilator
[2016-10-19 06:38] LABS: Basophils % 0.1 % (0.0-0.8); Eosinophils % 0.2 % (0.00-10.9); Hematocrit 22.2 VOL% (42.0-52.0); Immature Granulocytes % 4.1 %; Immature Granulocytes Absolute 0.81 #; Lymphocytes # 1.4 10*3/uL (1.4-4.0); Lymphocytes % 6.8 % (21.2-54.2); Mean Corpuscular HGB Conc 35.1 GM/DL (32-36); Mean Corpuscular Hemoglobin 32 PG (27-34); Mean Corpuscular Volume 89.9 FL (87-102); Mean Platelet Volume 11.5 FL (9.6-12.0); Monocytes # 0.4 10*3/uL (0.11-0.8); Monocytes % 1.9 % (1.7-12.7); Neutrophils # 17.3 10*3/uL (1.4-7.4); Neutrophils % 86.9 % (38.7-73.9); Platelet Count 294 T/CUMM (130-400); Red Blood Count 2.47 MC/CUMM (3.8-5.5); Red Cell Distribution Width 14.5 % (9.3-17.3); White Blood Count 19.9 T/CUMM (4-12)
[2016-10-19 06:55] LABS: Calcium 8.1 MG/DL (8.5-10.1); Osmolality,Calculated 298.1 MOS/KG (273-304); Potassium 5.5 MMOL/L (3.5-5.1)
[2016-10-19 06:59] LABS: Hemoglobin 7.8 GM/DL (14.0-18.0)
[2016-10-19 07:20] LABS: Band Neutrophils 6 % (0-10); Lymphocytes 6 % (20-55); Segmented Neutrophils 85 % (50-85); Total Cells Counted 100
[2016-10-19 07:21] LABS: Hypochromasia 1+; Microcytosis 1+; Platelet Estimate Normal
[2016-10-19] MEDS: PHENYLEPHRINE DRIP 40 MG/250 ML PREMIX IV SCH (07:47)
--- NOTE | 2016-10-19 07:56 | XRay Report ---
XR chest 1V portable Indication: Respiratory failure Comparison: 18 October 2016 Findings: The heart and mediastinum are stable in size and configuration. The lines and tubes are unchanged in position. The pulmonary vascularity is improved with decreasing pulmonary density. No other lung infiltrates, effusions, pneumothorax or other abnormality is demonstrated. Impression: Improving cardiac decompensation. PROCEDURE INTERPRETED AT [facility] DEPARTMENT OF RADIOLOGY Final Report Signed by: Dr. Jaspreet Simpson
--- NOTE | 2016-10-19 08:08 | Pulmonology Progress Note ---
Pulmonary - PN: Subj Interval history: Patient is a 56-year-old black man that has a history of hypertension and alcohol abuse. He has had some chronic pain issues. He came into the emergency room lethargic and had positive drug screen for cocaine and opiates. He has been put on the ventilator. He has also developed acute renal failure. He did develop worsening infiltrates and was hard to ventilate. Now he has been improving and his chest x-ray is much better. He has adequate oxygenation and his chest x-ray is stable. Yesterday we tried to let him wake up and extubate him. He was breathing okay for a while but he never was clear mentally. He remained extremely agitated and ultimately this led to reintubation. His oxygenation has still been okay. He still is requiring heavy sedation. He has had fever through the night. He likely will require a tracheostomy tube. Exam (Progress Note) - Constitutional Vitals: Period Temp Pulse Resp BP Sys/Carbone Pulse Ox Last 24 Hr 99.9 F-101.6 F 86-155 20-51 62-176/44-100 71-100 Exam: General appearance: normal weight, no acute distress (The patient is sedated but is still very restless at present.) - Head Head exam: Present: normal inspection, normocephalic - Eye Eye exam: Absent: scleral icterus Pupils: Present: constricted - ENT ENT exam: Present: other (ET tube is in good position.) - Neck Neck exam: Present: normal inspection. Absent: lymphadenopathy, thyromegaly - Respiratory Respiratory exam: Present: He has good breath sounds bilaterally and he has fairly good air movement. He does have some rhonchi but is moving air okay. - Cardiovascular Cardiovascular exam: Present: regular rate and rhythm. He has a sinus tachycardia. absent: gallop - GI/Abdominal GI/Abdominal exam: Present: hypoactive bowel sounds, soft. Absent: organomegaly , tenderness - Extremities Exam Extremities exam: Absent: calf tenderness, edema - Neurological Exam Neurological exam: Present: Patient is requiring heavy sedation and not responding much. - Psychiatric Psychiatric exam: he has been extremely agitated. - Skin Skin exam: Present: warm, dry, he has a skin rash Results - Labs CBC & BMP: 10/19/16 05:50 10/19/16 05:50 Labs: His PO2 is 124 with a PCO2 of 31 and pH of 7.34 - Diagnostic Findings Procedure: Chest x-ray: image reviewed by me, report reviewed by me (Chest x- ray shows mild haziness bilaterally) Assessment and Plan (1) Acute respiratory failure Status: Acute Assessment and plan: Patient was tried off the ventilator and did not do very well. He never was alert and remained extremely agitated. He is still very hard to sedate and will paralyze if needed. He likely will need a tracheostomy tube next week. Current Visit: Yes (2) Acute renal failure Status: Acute Assessment and plan: The patient will continue to require dialysis. His creatinine is 8.3 today. Current Visit: Yes (3) Cocaine intoxication Status: Acute Assessment and plan: Patient apparently has had cocaine abuse. He continues to have an encephalopathy. Current Visit: Yes (4) Polysubstance abuse Status: Acute Assessment and plan: The patient has a history of substance abuse. He certainly could have withdrawal symptoms. He is sedated at present. Current Visit: Yes (5) Encephalopathy acute Status: Acute Assessment and plan: Patient still gets very restless and mainly has to get some sedation. He never did really wake up very well and remains agitated. Current Visit: Yes (6) Anemia Status: Acute Assessment and plan: The patient has an hematocrit of 22.2 today. He likely will need transfusions. Current Visit: Yes
[2016-10-19] MEDS: THIAMINE 200 MG/2 ML VIAL IV SCH (09:00)
[2016-10-19] MEDS: MULTIVITAMIN (CENTRUM) TABLET PO SCH (09:01)
[2016-10-19] MEDS: FOLIC ACID 1 MG TABLET PO SCH (09:01)
[2016-10-19] MEDS: VECURONIUM 10 MG VIAL IV PRN ×3 (09:41→20:39)
[2016-10-19] MEDS: ENOXAPARIN 30 MG/0.3 ML SYRINGE SUBCUT SCH (10:03)
[2016-10-19] MEDS: MEROPENEM 500 MG in SODIUM CHLORIDE 0.9% 100 ML IV SCH (10:04)
[2016-10-19] MEDS: MORPHINE 2 MG/1 ML SYRINGE IV PRN ×3 (11:01→20:39)
--- NOTE | 2016-10-19 11:22 | Nephrology Progress Note ---
Nephrology - PN: Subj Interval history: Patient is intubated and sedated. Physical exam general the patient chronically ill-appearing, heart is regular rate and rhythm, he has 1+ thigh edema, lungs are clear to auscultation anteriorly, abdomen is soft with decreased bowel sounds Assessment/plan 1. Acute renal failure-patient's been requiring hemodialysis 3 times a week will plan on hemodialysis tomorrow, his kidney show no signs of improvement he continues to be a number 2. Respiratory failure continue vent support 3. Pneumonia continue IV antibiotics 4. Cocaine intoxication 5. Hyperkalemia-we will plan on dialyzing him on a 2K bath tomorrow 6. Metabolic acidosis-I am going to increase his bicarbonate bath on hemodialysis to help neutralize his acidosis. Exam (PN)-Nephrology - Vital Signs Vital signs: Period Temp Pulse Resp BP Sys/Carbone Pulse Ox Last 24 Hr 99.4 F-101.6 F 88-155 12-51 83-176/44-100 71-100 - Lab 10/19/16 05:50 10/19/16 05:50 Most recent lab results ABG pH 7.349 (7.35-7.45) L 10/19/16 03:30 ABG pCO2 31.2 MM HG (35-48) L 10/19/16 03:30 ABG pO2 124.0 MM HG (80-95) H 10/19/16 03:30 ABG HCO3 18.1 MMOL/L (20-26) L 10/19/16 03:30 ABG O2 Saturation 98.6 % (95-100) 10/19/16 03:30 Calcium 8.1 MG/DL (8.5-10.1) L 10/19/16 05:50 Phosphorus 6.8 MG/DL (2.5-4.9) H 10/18/16 07:30 Magnesium 2.8 MG/DL (1.8-2.4) H 10/18/16 07:30 Assessment and Plan (1) Acute renal failure Status: Acute Assessment and plan: This patient presented with a creatinine of 11 is up to 13 mg/dL today. He had cocaine in his system his blood pressure has been at the low end of normal since admission. He is getting dobutamine. He has no history of kidney failure in the past. Will try and get some previous lab from Dr. Garrison's office. To see what his baseline creatinine is been. The patient is also noted to have an elevated CPK level. I would worry that he has an ATN injury related to his cocaine use also contributing could be his elevated CPK level. We will continue IV fluids for now and monitor for improvement. I do not see any acute indication for hemodialysis at this time. With his decreased urine output I am going to decrease his IV fluids to 150 cc an hour from 200 cc an hour. Current Visit: Yes (2) Anemia Status: Acute Assessment and plan: Patient's hematocrit is 28% Current Visit: Yes (3) Acute respiratory failure Status: Acute Assessment and plan: Continue vent support Current Visit: Yes (4) Altered mental status Status: Acute Current Visit: Yes (5) Cocaine intoxication Status: Acute Current Visit: Yes (6) Hyperkalemia Status: Acute Assessment and plan: His potassium is returning to the normal range Current Visit: Yes (7) Dyslipidemia Status: Chronic Current Visit: Yes (8) Hypertension Status: Chronic Assessment and plan: Patient's blood pressures at the low end of normal he is on dobutamine Current Visit: Yes (9) Metabolic acidosis Status: Acute Assessment and plan: Patient's bicarb is improved to 22 from 20 Current Visit: Yes
--- NOTE | 2016-10-19 12:19 | Infectious Disease Progress ---
Assessment and Plan (1) Pneumonia Status: Acute Assessment and plan: Pneumonia due to Acinetobacter. Recommendations: Continue levofloxacin. Current Visit: Yes (2) Acute renal failure Status: Acute Assessment and plan: On dialysis Current Visit: Yes (3) Acute respiratory failure Status: Acute Assessment and plan: Patient failed extubation twice. Probably go for tracheostomy next week. Current Visit: Yes (4) Altered mental status Status: Acute Assessment and plan: CSF analysis negative for meningitis. Likely multifactorial toxic metabolic encephalopathy. There has not been any significant improvement since admission. Current Visit: Yes (5) Cocaine intoxication Status: Acute Current Visit: Yes (6) Drug rash Status: Acute Assessment and plan: Patient has diffuse rash which is slow to improve. I do not think beta lactams are the cause as the rash. Need to consider another medication as the cause of this rash. I think he has continued fevers associated with the rash and is being caused by what of his allergic to which to date we have not sure the culprit. Current Visit: Yes (7) Hypotension Status: Acute Current Visit: Yes (8) Fever Status: Acute Assessment and plan: Suspect drug-induced fever. His cultures have been negative, that his blood cultures. He however is on broad-spectrum antibiotics including meropenem, vancomycin, and levofloxacin. We will follow-up pending blood cultures from 3 days ago. Current Visit: Yes Infectious Disease - PN: Subj Interval history: Patient developed respiratory distress yesterday afternoon and had to be reintubated due to O2 sats in the 70s. This morning he was quite agitated and had to be paralyzed and FiO2 increased to 80% from 50%. He has been persistently febrile but BP has not been Said it is quite high this morning and he is quite tachycardic. Infectious Disease Exam (PN) - Constitutional Vitals: Temp Pulse Resp BP Pulse Ox 99.6 F 118 H 12 136/87 10 L 10/19/16 11:58 10/19/16 12:11 10/19/16 12:11 10/19/16 11:58 10/19/16 12:11 General appearance: mild distress, over weight Exam: General appearance: Sedated on the vent - Eye Eye exam: Present: EOMI. no icterus Pupils: Present: DAE - Respiratory Respiratory exam: No added sounds appreciated - Cardiovascular Cardiovascular exam: regular rate and rhythm, no murmurs - GI/Abdominal GI/Abdominal exam: normal bowel sounds, soft, non-tender, no organomegaly or mass - Extremities Exam Extremities exam: Generalized edema present - Skin Skin exam: Still has diffuse macular erythematous rash/erythroderma, possibly slightly improved today. There is some exfoliation of the arms. Results - Labs CBC & BMP: 10/19/16 05:50 10/19/16 05:50 Lab Results: I have reviewed the past 24 hour labs (Repeat blood cultures from 3 days ago negative) Quality Measures - Stroke Onset of Symptoms Date: 10/07/16
[2016-10-19] MEDS: LEVOFLOXACIN INJ 500 MG in PREMIX 1 EACH IV SCH (12:48)
[2016-10-19] MEDS: MIDAZOLAM 100 MG in SODIUM CHLORIDE 0.9% 80 ML IV SCH ×2 (12:48→17:05)
--- NOTE | 2016-10-19 13:50 | Hospitalist Progress Note ---
Assessment and Plan (1) Altered mental status Status: Acute Assessment and plan: 1)metabolic encephalopathy- no improvement in level of responsiveness or calmness. On versed and paralytics prn. repeat head CT. 2)CHF with preserved EF- on dialysis lungs have cleared. 3)acute resp failure- trach next week likely. 4)pneumonia due to acinetobacter- 5)sepsis- on pressors now. antibiotics broadened to vanc and merrem 2 days ago after discussing with Dr Shan Scott. still having fever. NO cultures positive other than sputum on 10/13. No skin lesions or infections, no purulence from nose to suggest sinus disease. These antibiotics should cover those possibilities including anything dental. 6)anemia- GI to scope when more stable. No foreign bleeding, but guaiac positive stool. transfuse prn- has not needed trasnfusion this week. 7)nutrition- restart tube feeds now that he is reintubated. 8)polysubstance abuse- alcoholic per family, positive for cocaine and opiates on arrival. He may have been using something else also given his very altered behavior. 9)acute renal failure- on HD per nephrology. 10)dispo- on vent, dialysis. excellent LTAC candidate, but no payor source at this time per . I was not able to reach family by phone yesterday, will try again today. Current Visit: Yes (2) Acute renal failure Status: Acute Current Visit: Yes (3) Polysubstance abuse Status: Acute Current Visit: Yes (4) Congestive heart failure Status: Acute Current Visit: Yes (5) Encephalopathy acute Status: Acute Current Visit: Yes (6) Acute respiratory failure Status: Acute Current Visit: Yes (7) Elevated troponin Status: Acute Current Visit: Yes (8) Pneumonia Status: Acute Current Visit: Yes Hospitalist: Subjective Interval history: Mr Day is stable on vent. Overnight is sats improved and Dr Pelayo this morning was able to wean his FIO2. He will probably need trach next week. When he was extubated he was restless and moving but not in response to our commands or questions. He did not focus on anyone or track with his eyes. He has been frequently febrile and is on cooling blanket now. Exam - Constitutional Vitals: Period Temp Pulse Resp BP Sys/Carbone Pulse Ox Last 24 Hr 99.4 F-101.6 F 88-155 12-51 83-176/51-100 71-100 General appearance: no acute distress, over weight - Head Head exam: Present: normocephalic, atraumatic - Eye Eye exam: Present: EOMI. Absent: scleral icterus - Respiratory Respiratory exam: Present: clear to auscultation bilaterally - Cardiovascular Cardiovascular exam: Present: regular rate and rhythm - GI/Abdominal GI/Abdominal exam: Present: normal bowel sounds, soft. Absent: tenderness - Extremities Exam Extremities exam: Absent: edema - Neurological Exam Neurological exam: Present: altered (sedated, paralyzed) - Skin Skin exam: Present: warm (febrile) Results - Labs CBC & BMP: 10/19/16 05:50 10/19/16 05:50 Lab Results: I have reviewed the past 24 hour labs Quality Measures - Stroke Onset of Symptoms Date: 10/07/16
--- NOTE | 2016-10-19 15:09 | CT Report ---
Referring physician: Mariana Lisa Exam: CT brain without contrast Date: 10/19/2016 Comparison: 10/11/2016 Reason: Unresponsive, on ventilator Technique: Axial images of the head were obtained without the use of contrast. Total DLP was 914.60 mGy*cm. Findings: No hydrocephalus or midline shift is present. There is no evidence of an acute infarction, recent intracranial hemorrhage or abnormal mass effect. Persistent atrophy and diffuse cerebral hypodensities. The osseous structures appear intact. Vascular calcifications are noted. Progressive mucosal thickening/fluid in the visualized paranasal sinuses, especially the sphenoid sinuses. Progressive fluid in the mastoid air cells bilaterally. Multiple scalp calcifications are noted. Impression: No acute intracranial abnormality is identified. Persistent atrophy and microvascular disease. Progressive sinusitis and fluid in the mastoid air cells bilaterally. The CT exam was performed using one or more of the following dose reduction techniques: Automated exposure control and adjustment of the mA and/or kV according to patient size. PROCEDURE INTERPRETED AT [facility] DEPARTMENT OF RADIOLOGY Final Report Signed by: Dr. Nancy Paz
[2016-10-20] MEDS: INSULIN REGULAR 100 UNIT/ML SUBCUT SCH ×4 (00:34→18:37)
[2016-10-20] MEDS: methylPREDNISolone SOD SUC 40 MG/1 ML VIAL IV SCH ×3 (00:34→16:00)
[2016-10-20] MEDS: MIDAZOLAM 100 MG in SODIUM CHLORIDE 0.9% 80 ML IV SCH ×3 (00:36→16:45)
[2016-10-20] MEDS: ALBUTEROL/IPRATROPIUM 3 ML NEB RESP TX SCH ×4 (00:57→19:18)
[2016-10-20] MEDS: PANTOPRAZOLE 40 MG VIAL IV SCH (01:30)
[2016-10-20] MEDS: LORazepam 2 MG/1 ML VIAL IV PRN ×3 (03:02→18:18)
[2016-10-20] MEDS: VECURONIUM 10 MG VIAL IV PRN ×3 (05:14→18:19)
[2016-10-20 06:02] LABS: Calcium 8.3 MG/DL (8.5-10.1); Osmolality,Calculated 308.2 MOS/KG (273-304)
[2016-10-20] MEDS: MORPHINE 2 MG/1 ML SYRINGE IV PRN ×3 (07:22→15:59)
[2016-10-20 07:30] LABS: Osmolality,Calculated 309.2 MOS/KG (273-304)
[2016-10-20 07:45] LABS: Potassium 6.2 MMOL/L (3.5-5.1)
--- NOTE | 2016-10-20 07:48 | Pulmonology Progress Note ---
Pulmonary - PN: Subj Interval history: 56-year-old man with cocaine abuse. On the ventilator. Did not tolerate being off the ventilator recently. Acute kidney failure on dialysis. Plans will be likely a tracheostomy next week. Difficulty controlling him with Versed. Changing him to propofol. We will see if blood pressure tolerates Exam (Progress Note) - Constitutional Vitals: Period Temp Pulse Resp BP Sys/Carbone Pulse Ox Last 24 Hr 97.8 F-99.6 F 86-147 12-40 88-158/50-97 90-100 Exam: Emaciated appearing man on the ventilator. Responsive. Vital signs normal. Pupils react to light. Orotracheal tube in place as well as a bite-block. Neck is supple no bruits. Chest reveals a few scattered rhonchi. Heart rapid rate normal rhythm no murmurs. Abdomen soft nontender no masses. Extremities no clubbing cyanosis or edema. Calves nontender Results - Labs CBC & BMP: 10/19/16 05:50 10/20/16 Unknown Lab Results: I have reviewed the past 24 hour labs - Diagnostic Findings Procedure: Chest x-ray: image reviewed by me (Interstitial edema bilaterally. ET tube in good position.) Assessment and Plan (1) Acute renal failure Status: Acute Assessment and plan: Being dialyzed regularly now. Creatinine is 9. Chest x-ray does look wet. Current Visit: Yes (2) Cocaine intoxication Status: Acute Assessment and plan: Underlying cause for most of his problems now. Current Visit: Yes (3) Acute respiratory failure Status: Acute Assessment and plan: ABGs acceptable. Continuing mechanical ventilation. Likely will need a trach. Current Visit: Yes
--- NOTE | 2016-10-20 08:14 | Hospitalist Progress Note ---
Assessment and Plan - Time spent with patient Time spent with patient: Less than 30 minutes (1) Sepsis Status: Acute Assessment and plan: Patient found to have sepsis requiring pressure. She has been seen by infectious disease and antibiotics have been broadened to vancomycin and Merrem. Continuing current care. Current Visit: Yes (2) Congestive heart failure Status: Chronic Assessment and plan: Patient has history of CHF with preserved ejection fraction. Lungs have cleared with hemodialysis Current Visit: Yes (3) Acute respiratory failure Status: Acute Assessment and plan: Patient had acute respiratory failure. He has been followed by pulmonary. He will likely need tracheostomy next week. Current Visit: Yes (4) Pneumonia Status: Acute Assessment and plan: Patient being treated for pneumonia with culture from bronchial washings revealing Acinetobacter. Pulmonary and infectious disease are following. Current Visit: Yes (5) PHUC (acute kidney injury) Problem details: Requiring HD. Status: Acute Assessment and plan: Patient has had acute renal failure and is being followed by nephrology and currently were receiving hemodialysis. Current Visit: Yes (6) Polysubstance abuse Status: Acute Current Visit: Yes (7) Anemia Status: Acute Assessment and plan: Patient has had anemia with slow decrease in hemoglobin and hematocrit. There has been no evidence of bleeding. We will continue to follow and transfuse as required. Current Visit: Yes Hospitalist: Subjective Interval history: Chart reviewed and patient examined. This 56-year-old -[place] male who presented unresponsive with aspiration pneumonia requiring prolonged ventilatory support. He continues to remain on the ventilator requiring sedation and paralytics as needed. He is currently receiving hemodialysis. Exam - Constitutional Vitals: Period Temp Pulse Resp BP Sys/Carbone Pulse Ox Last 24 Hr 97.8 F-99.6 F 86-147 12-40 88-158/50-97 90-100 General appearance: no acute distress, other (Intubated, sedated, on ventilator) - Head Head exam: Present: normocephalic - Eye Eye exam: Present: EOMI. Absent: scleral icterus Pupils: Present: DAE - ENT ENT exam: Present: other (ET tube in place) - Neck Neck exam: Present: normal inspection - Respiratory Respiratory exam: Present: clear to auscultation bilaterally - Cardiovascular Cardiovascular exam: Present: regular rate and rhythm. Absent: systolic murmur - GI/Abdominal GI/Abdominal exam: Present: normal bowel sounds, soft. Absent: mass, tenderness , rebound - Extremities Exam Extremities exam: Present: edema (Bilateral upper extremity edema, lower extremities without, compression devices to lower extremities bilaterally). Absent: calf tenderness - Neurological Exam Neurological exam: Present: other (Sedated and paralyzed on vent) - Skin Skin exam: Present: warm, dry. Absent: rash Results - Labs CBC & BMP: 10/19/16 05:50 10/20/16 Unknown Lab Results: I have reviewed the past 24 hour labs - Diagnostic Findings Procedure: Chest x-ray: image reviewed by me, CT: report reviewed by me (CT head without acute intracranial abnormality. There is progressive sinusitis) Quality Measures - Stroke Onset of Symptoms Date: 10/07/16
[2016-10-20] MEDS: FOLIC ACID 1 MG TABLET PO SCH (08:48)
[2016-10-20] MEDS: MULTIVITAMIN (CENTRUM) TABLET PO SCH (08:48)
[2016-10-20] MEDS: THIAMINE 200 MG/2 ML VIAL IV SCH (08:48)
--- NOTE | 2016-10-20 08:58 | XRay Report ---
Portable chest Date: 10/20/2016 Clinical history: Ventilator Comparison: 10/19/2016 Technique: Portable AP sitting chest Findings: The heart is minimally enlarged with supportive devices in satisfactory position. Progressive parenchymal findings in both lungs. Stable mediastinum and osseous structures. Impression: Supportive devices remain in satisfactory position. Progressive pulmonary edema/bilateral pneumonia. Progressive ill-defined densities especially at the right lung base and follow-up chest x-ray is recommended. PROCEDURE INTERPRETED AT [facility] DEPARTMENT OF RADIOLOGY Final Report Signed by: Dr. Nancy Paz
[2016-10-20] MEDS: PHENYLEPHRINE DRIP 40 MG/250 ML PREMIX IV SCH (09:16)
[2016-10-20] MEDS: MEROPENEM 500 MG in SODIUM CHLORIDE 0.9% 100 ML IV SCH (10:01)
[2016-10-20] MEDS: ENOXAPARIN 30 MG/0.3 ML SYRINGE SUBCUT SCH (10:01)
--- NOTE | 2016-10-20 11:20 | Dialysis Note ---
Dialysis Note - Dialysis Note Patient seen on dialysis he tolerated the procedure. Blood pressure is 138/77. Cardiovascular regular rate. Lungs are clear anterior. Abdomen soft. Potassium noted to be 6.2. Will get a post dialysis potassium
[2016-10-20] MEDS ORDERED: PROPOFOL 1,000 MG/100 ML BOTTLE IV ONE (11:58)
[2016-10-20] MEDS: PROPOFOL 1,000 MG/100 ML BOTTLE IV SCH ×3 (12:10→23:31)
[2016-10-21] MEDS: methylPREDNISolone SOD SUC 40 MG/1 ML VIAL IV SCH ×3 (00:13→14:54)
[2016-10-21] MEDS: INSULIN REGULAR 100 UNIT/ML SUBCUT SCH ×4 (00:15→17:39)
[2016-10-21] MEDS: MORPHINE 2 MG/1 ML SYRINGE IV PRN ×2 (00:18→05:45)
[2016-10-21] MEDS: LORazepam 2 MG/1 ML VIAL IV PRN ×4 (00:18→14:52)
[2016-10-21] MEDS: VECURONIUM 10 MG VIAL IV PRN ×2 (00:21→05:47)
[2016-10-21] MEDS: PANTOPRAZOLE 40 MG VIAL IV SCH (01:00)
[2016-10-21] MEDS: ALBUTEROL/IPRATROPIUM 3 ML NEB RESP TX SCH ×4 (01:10→19:32)
[2016-10-21] MEDS: PROPOFOL 1,000 MG/100 ML BOTTLE IV SCH ×6 (04:21→22:31)
[2016-10-21 06:28] LABS: Basophils % 0.1 % (0.0-0.8); Eosinophils % 0.1 % (0.00-10.9); Hematocrit 25.7 VOL% (42.0-52.0); Immature Granulocytes % 2.7 %; Immature Granulocytes Absolute 0.27 #; Lymphocytes # 0.5 10*3/uL (1.4-4.0); Lymphocytes % 4.8 % (21.2-54.2); Mean Corpuscular Hemoglobin 31 PG (27-34); Mean Corpuscular Volume 89.2 FL (87-102); Mean Platelet Volume 11.5 FL (9.6-12.0); Monocytes # 0.6 10*3/uL (0.11-0.8); Monocytes % 5.7 % (1.7-12.7); Neutrophils # 8.7 10*3/uL (1.4-7.4); Neutrophils % 86.6 % (38.7-73.9); Platelet Count 264 T/CUMM (130-400); Red Blood Count 2.88 MC/CUMM (3.8-5.5); Red Cell Distribution Width 14.5 % (9.3-17.3)
[2016-10-21 07:02] LABS: Calcium 7.7 MG/DL (8.5-10.1)
[2016-10-21 07:03] LABS: Osmolality,Calculated 299.2 MOS/KG (273-304); Potassium 4.1 MMOL/L (3.5-5.1)
[2016-10-21 07:21] LABS: Band Neutrophils 1 % (0-10); Eosinophils 1 % (0-10); Giant Platelets Few; Hypochromasia 1+; Lymphocytes 5 % (20-55); Microcytosis 1+; Platelet Estimate Adequate; Segmented Neutrophils 91 % (50-85); Total Cells Counted 100
--- NOTE | 2016-10-21 07:21 | Pulmonology Progress Note ---
Pulmonary - PN: Subj Interval history: 56-year-old man with cocaine abuse. On the ventilator. Did not tolerate being off the ventilator recently. Acute kidney failure on dialysis. Plans will be likely a tracheostomy next week. Difficulty controlling him with Versed. Changing him to propofol. We will see if blood pressure tolerates 10/21/2016 continuing with mechanical ventilatory support and sedation with propofol. ABGs are pending. Exam (Progress Note) - Constitutional Vitals: Period Temp Pulse Resp BP Sys/Carbone Pulse Ox Last 24 Hr 96.6 F-98.2 F 75-112 12-24 102-171/56-104 95-99 Exam: Emaciated appearing man on the ventilator. Responsive. Vital signs normal. Pupils react to light. Orotracheal tube in place as well as a bite-block. Neck is supple no bruits. Chest reveals a few scattered rhonchi. Heart rapid rate normal rhythm no murmurs. Abdomen soft nontender no masses. Extremities no clubbing cyanosis or edema. Calves nontender Results - Labs CBC & BMP: 10/21/16 06:04 10/21/16 06:04 Lab Results: I have reviewed the past 24 hour labs Assessment and Plan (1) Acute renal failure Status: Acute Assessment and plan: Being dialyzed regularly now. Creatinine is 9. Chest x-ray does look wet. 10/21/2016 creatinine down to 7 following dialysis. Chest x-ray looks a little less wet Current Visit: Yes (2) Cocaine intoxication Status: Acute Assessment and plan: Underlying cause for most of his problems now. Current Visit: Yes (3) Acute respiratory failure Status: Acute Assessment and plan: ABGs acceptable. Continuing mechanical ventilation. Likely will need a trach. 10/21/2016 patient has not tolerated being off the ventilator. Plans will be for tracheostomy next week. Current Visit: Yes
[2016-10-21 07:56] LABS: ABG Base Excess -6.1 MMOL/L (-2.5-2.5); ABG HCO3 19.4 MMOL/L (20-26); ABG Oxygen Saturation 97.9 % (95-100); ABG PCO2 41.5 MM HG (35-48); ABG PH 7.293 (7.35-7.45); ABG TCO2 18.4 MMOL/L (23-27); Pt O2 Delivery Device Ventilator
[2016-10-21] MEDS: MULTIVITAMIN (CENTRUM) TABLET PO SCH (08:49)
[2016-10-21] MEDS: THIAMINE 200 MG/2 ML VIAL IV SCH (08:49)
[2016-10-21] MEDS: FOLIC ACID 1 MG TABLET PO SCH (08:49)
--- NOTE | 2016-10-21 08:53 | XRay Report ---
Portable chest Date: 10/21/2016 Clinical history: Ventilator Comparison: 10/20/2016 Technique: Portable AP sitting chest Findings: The heart is minimally enlarged with the supportive devices in satisfactory position. Persistent diffuse parenchymal findings with progressive atelectasis at the right lung base with larger right pleural effusion. Stable mediastinum and osseous structures. Impression: Supportive devices remain in satisfactory position. Persistent diffuse edema/infiltration. Progressive atelectasis at the right lung base with larger right pleural effusion. PROCEDURE INTERPRETED AT [facility] DEPARTMENT OF RADIOLOGY Final Report Signed by: Dr. Nancy Paz
[2016-10-21] MEDS: MEROPENEM 500 MG in SODIUM CHLORIDE 0.9% 100 ML IV SCH (09:00)
--- NOTE | 2016-10-21 09:02 | Hospitalist Progress Note ---
Assessment and Plan - Time spent with patient Time spent with patient: Less than 30 minutes (1) Sepsis Status: Acute Assessment and plan: Patient found to have sepsis requiring pressure. She has been seen by infectious disease and antibiotics have been broadened to vancomycin and Merrem. Continuing current care. 10/21/16: Continue current IV antibiotic regimen of vancomycin and Merrem. Continuing ventilatory support. Pulmonary and infectious disease are following. Current Visit: Yes (2) Congestive heart failure Status: Chronic Assessment and plan: Patient has history of CHF with preserved ejection fraction. Lungs have cleared with hemodialysis Current Visit: Yes (3) Acute respiratory failure Status: Acute Assessment and plan: Patient had acute respiratory failure. He has been followed by pulmonary. He will likely need tracheostomy next week. Current Visit: Yes (4) Pneumonia Status: Acute Assessment and plan: Patient being treated for pneumonia with culture from bronchial washings revealing Acinetobacter. Pulmonary and infectious disease are following. Current Visit: Yes (5) PHUC (acute kidney injury) Problem details: Requiring HD. Status: Acute Assessment and plan: Patient has had acute renal failure and is being followed by nephrology and currently were receiving hemodialysis. 10/21/16: Patient was hemodialysis yesterday. Creatinine 7.0 today. Nephrology continues to manage. Current Visit: Yes (6) Polysubstance abuse Status: Acute Current Visit: Yes (7) Anemia Status: Acute Assessment and plan: Patient has had anemia with slow decrease in hemoglobin and hematocrit. There has been no evidence of bleeding. We will continue to follow and transfuse as required. 10/21/16: Hemoglobin and hematocrit are stable at 9.0 and 25.7 respectively. No evidence of bleeding. Continue to follow. Current Visit: Yes Hospitalist: Subjective Interval history: 56-year-old black male with aspiration pneumonia requiring prolonged ventilatory support. Continues to require sedation and paralytics. He also is requiring hemodialysis. Exam - Constitutional Vitals: Period Temp Pulse Resp BP Sys/Carbone Pulse Ox Last 24 Hr 95.4 F-98.2 F 74-112 12-24 102-171/63-104 95-100 General appearance: other (Sedated and paralyzed on ventilator) - Head Head exam: Present: normocephalic, atraumatic - Eye Eye exam: Present: EOMI, other (ET tube in) Pupils: Present: DAE - Neck Neck exam: Present: normal inspection - Respiratory Respiratory exam: Present: rhonchi (Bilateral rhonchi) - Cardiovascular Cardiovascular exam: Present: regular rate and rhythm - GI/Abdominal GI/Abdominal exam: Present: normal bowel sounds, soft. Absent: tenderness - Extremities Exam Extremities exam: Present: edema. Absent: calf tenderness - Neurological Exam Neurological exam: Present: other (Sedated and paralyzed on) - Skin Skin exam: Present: warm, dry Results - Labs CBC & BMP: 10/21/16 06:04 10/21/16 06:04 Lab Results: I have reviewed the past 24 hour labs - Diagnostic Findings Procedure: Chest x-ray: report reviewed by me Quality Measures - Stroke Onset of Symptoms Date: 10/07/16
[2016-10-21] MEDS: PHENYLEPHRINE DRIP 40 MG/250 ML PREMIX IV SCH (09:09)
[2016-10-21] MEDS: ENOXAPARIN 30 MG/0.3 ML SYRINGE SUBCUT SCH (10:55)
[2016-10-21] MEDS: LEVOFLOXACIN INJ 500 MG in PREMIX 1 EACH IV SCH (12:22)
[2016-10-21] MEDS ORDERED: FAMOTIDINE INJ 40 MG in SODIUM CHLORIDE 0.9% 100 ML IV SCH (13:00)
[2016-10-21] MEDS ORDERED: diphenhydrAMINE 50 MG/1 ML VIAL IV ONE (13:04)
[2016-10-21] MEDS ORDERED: FAMOTIDINE INJ 40 MG in SODIUM CHLORIDE 0.9% 100 ML IV ONE (13:25)
--- NOTE | 2016-10-21 13:48 | Nephrology Progress Note ---
Nephrology - PN: Subj Interval history: Patient underwent hemodialysis yesterday. He tolerated the procedure. Follow- up chest x-ray shows improvement in lung oliveros. Exam (PN)-Nephrology - Vital Signs Vital signs: Period Temp Pulse Resp BP Sys/Carbone Pulse Ox Last 24 Hr 95.4 F-99.5 F 74-113 12-24 107-171/63-104 95-100 - General Appearance General appearance: well-developed, well-nourished, intubated EENT: ATNC Neck: supple Respiratory: clear Cardiology: no edema, regular rate, regular rhythm Gastrointestinal: normoactive bowel sounds, no tenderness Integumentary: warm and dry - Lab 10/21/16 06:04 10/21/16 06:04 Most recent lab results ABG pH 7.293 (7.35-7.45) L 10/21/16 07:55 ABG pCO2 41.5 MM HG (35-48) 10/21/16 07:55 ABG pO2 135.0 MM HG (80-95) H 10/21/16 07:55 ABG HCO3 19.4 MMOL/L (20-26) L 10/21/16 07:55 ABG O2 Saturation 97.9 % (95-100) 10/21/16 07:55 Calcium 7.7 MG/DL (8.5-10.1) L 10/21/16 06:04 Phosphorus 6.8 MG/DL (2.5-4.9) H 10/18/16 07:30 Magnesium 2.8 MG/DL (1.8-2.4) H 10/18/16 07:30 Assessment and Plan (1) Acute renal failure Status: Acute Assessment and plan: Continue with schedule hemodialysis for this patient. Metabolic's are stable. Current Visit: Yes (2) Altered mental status Status: Acute Current Visit: Yes (3) Polysubstance abuse Status: Acute Current Visit: Yes (4) Congestive heart failure Status: Chronic Current Visit: Yes
[2016-10-21] MEDS ORDERED: VANCOMYCIN INJ 1,250 MG in SODIUM CHLORIDE 0.9% 250 ML IV ONE (23:00)
[2016-10-22] MEDS: methylPREDNISolone SOD SUC 40 MG/1 ML VIAL IV SCH ×4 (00:10→22:29)
[2016-10-22] MEDS: LORazepam 2 MG/1 ML VIAL IV PRN ×3 (00:11→06:42)
[2016-10-22] MEDS: ACETAMINOPHEN 325 MG TABLET PO PRN (00:11)
[2016-10-22] MEDS: INSULIN REGULAR 100 UNIT/ML SUBCUT SCH ×5 (00:15→23:10)
[2016-10-22] MEDS: ALBUTEROL/IPRATROPIUM 3 ML NEB RESP TX SCH ×4 (01:13→19:07)
[2016-10-22] MEDS: PANTOPRAZOLE 40 MG VIAL IV SCH (01:34)
[2016-10-22] MEDS: PROPOFOL 1,000 MG/100 ML BOTTLE IV SCH ×5 (01:36→20:49)
[2016-10-22 03:34] LABS: Allen Test Positive; Pt O2 Delivery Device Ventilator
[2016-10-22 03:44] LABS: ABG Base Excess -8.1 MMOL/L (-2.5-2.5); ABG HCO3 16.6 MMOL/L (20-26); ABG PCO2 30.9 MM HG (35-48); ABG PH 7.347 (7.35-7.45); ABG PO2 139.6 MM HG (80-95); ABG TCO2 17.5 MMOL/L (23-27)
[2016-10-22 06:34] LABS: Calcium 7.2 MG/DL (8.5-10.1); Magnesium 2.9 MG/DL (1.8-2.4); Osmolality,Calculated 308.2 MOS/KG (273-304); Phosphorous 9.9 MG/DL (2.5-4.9); Potassium 4.8 MMOL/L (3.5-5.1); Prealbumin 41.9 MG/DL (20-40)
--- NOTE | 2016-10-22 06:55 | XRay Report ---
XR chest 1V portable Indication: Shortness of breath. Chest one view: Since yesterday, endotracheal tube, NG tube, temporary dialysis catheter, normal heart size, low lung volumes and coarsened interstitial markings of the lung oliveros are stable. No new infiltrates are seen. Impression: No significant change. PROCEDURE INTERPRETED AT [facility] DEPARTMENT OF RADIOLOGY Final Report Signed by: Nash Chowdhury M.D.
[2016-10-22] MEDS: THIAMINE 200 MG/2 ML VIAL IV SCH (08:17)
[2016-10-22] MEDS: FOLIC ACID 1 MG TABLET PO SCH (08:18)
[2016-10-22] MEDS: MULTIVITAMIN (CENTRUM) TABLET PO SCH (08:18)
[2016-10-22] MEDS: ZIPRASIDONE 20 MG/1 ML VIAL IM PRN ×2 (08:20→16:16)
--- NOTE | 2016-10-22 08:37 | Pulmonology Progress Note ---
Pulmonary - PN: Subj Interval history: Patient is a 56-year-old black man that has a history of hypertension and alcohol abuse. He has had some chronic pain issues. He came into the emergency room lethargic and had positive drug screen for cocaine and opiates. He has been put on the ventilator. He has also developed acute renal failure. He did develop worsening infiltrates and was hard to ventilate. Now he has been improving and his chest x-ray is much better. He has adequate oxygenation and his chest x-ray is stable. Last week we tried extubate him and he did not do very well. His mental status was a significant problem. He has been reintubated and stable over the weekend. He still requires a lot of sedation and is quite agitated. He still does not follow any commands. His chest x-ray shows some mild haziness especially on the left. His PO2 is adequate. He will probably be best to trach him Exam (Progress Note) - Constitutional Vitals: Period Temp Pulse Resp BP Sys/Carbone Pulse Ox Last 24 Hr 95.4 F-100.0 F 75-113 12- 119-161/65-98 94-100 Exam: General appearance: normal weight, no acute distress (The patient is sedated but is still very restless at present. He has had a low-grade fever but stable vital signs on the ventilator) - Head Head exam: Present: normal inspection, normocephalic - Eye Eye exam: Absent: scleral icterus Pupils: Present: constricted - ENT ENT exam: Present: other (ET tube is in good position.) - Neck Neck exam: Present: normal inspection. Absent: lymphadenopathy, thyromegaly - Respiratory Respiratory exam: Present: He has good breath sounds bilaterally and he has fairly good air movement. He does have some rhonchi but is moving air okay. - Cardiovascular Cardiovascular exam: Present: regular rate and rhythm. He has a sinus tachycardia. absent: gallop - GI/Abdominal GI/Abdominal exam: Present: hypoactive bowel sounds, soft. Absent: organomegaly , tenderness - Extremities Exam Extremities exam: Absent: calf tenderness, edema - Neurological Exam Neurological exam: Present: Patient will moves extremities but does not follow commands. - Psychiatric Psychiatric exam: he has been extremely agitated. - Skin Skin exam: Present: warm, dry, he has a skin rash Results - Labs CBC & BMP: 10/21/16 06:04 10/22/16 05:30 Labs: PO2 is 139 with a PCO2 of 30 and a pH of 7.34 - Diagnostic Findings Procedure: Chest x-ray: image reviewed by me, report reviewed by me (Chest x- ray shows mild haziness in the left lung and right base.) Assessment and Plan (1) Acute respiratory failure Status: Acute Assessment and plan: Patient was tried off the ventilator and did not do very well. He never was alert and remained extremely agitated. He still requires a lot of sedation. He will likely need a tracheostomy tube this week. Current Visit: Yes (2) Acute renal failure Status: Acute Assessment and plan: The patient will continue to require dialysis. His creatinine is 8.2 today. Current Visit: Yes (3) Cocaine intoxication Status: Acute Assessment and plan: Patient apparently has had cocaine abuse. He continues to have an encephalopathy. Current Visit: Yes (4) Polysubstance abuse Status: Acute Assessment and plan: The patient has a history of substance abuse. He has a significant encephalopathy now. Current Visit: Yes (5) Encephalopathy acute Status: Acute Assessment and plan: Patient still gets very restless and mainly has to get some sedation. He never did really wake up very well and remains agitated. Current Visit: Yes (6) Anemia Status: Acute Assessment and plan: The patient has an hematocrit of 25.7. Current Visit: Yes
[2016-10-22] MEDS: ENOXAPARIN 30 MG/0.3 ML SYRINGE SUBCUT SCH (10:16)
--- NOTE | 2016-10-22 11:29 | Infectious Disease Progress ---
Assessment and Plan (1) Pneumonia Status: Acute Assessment and plan: Pneumonia due to Acinetobacter. Recommendations: Complete 10 days of levofloxacin therapy thus 2 more days to go after today. Current Visit: Yes (2) Acute renal failure Status: Acute Assessment and plan: On dialysis Current Visit: Yes (3) Acute respiratory failure Status: Acute Assessment and plan: Patient failed extubation twice. Probably go for tracheostomy this week. Current Visit: Yes (4) Altered mental status Status: Acute Assessment and plan: CSF analysis negative for meningitis. Likely multifactorial toxic metabolic encephalopathy. There has not been any significant improvement since admission. Current Visit: Yes (5) Cocaine intoxication Status: Acute Current Visit: Yes (6) Drug rash Status: Acute Assessment and plan: Patient has diffuse rash which is finally starting to improve. There was concern that it worsened with meropenem but I am doubtful. However the fevers seem to have come down since meropenem was stopped and I did think that fever may have been a responsive allergic reaction. Current Visit: Yes (7) Hypotension Status: Acute Current Visit: Yes (8) Fever Status: Acute Assessment and plan: Suspect drug-induced fever. Fever curve down since meropenem discontinued. All blood cultures have been negative. I am going to discontinue vancomycin. Current Visit: Yes Infectious Disease - PN: Subj Interval history: Patient remains adamant, confused, he does not follow commands. Still with intermittent low-grade fevers but temperature curve down. Meropenem was stopped over the weekend as there was concern that he had developed blisters from this drug. Infectious Disease Exam (PN) - Constitutional Vitals: Temp Pulse Resp BP Pulse Ox 99.3 F 80 21 146/81 100 10/22/16 11:00 10/22/16 11:00 10/22/16 11:08 10/22/16 11:00 10/22/16 11:00 General appearance: other (Sedated and paralyzed on ventilator) Exam: General appearance: Sedated on the vent - Eye Eye exam: Present: EOMI. no icterus Pupils: Present: DAE - Respiratory Respiratory exam: Scattered rhonchi bilaterally - Cardiovascular Cardiovascular exam: regular rate and rhythm, no murmurs - GI/Abdominal GI/Abdominal exam: normal bowel sounds, soft, non-tender, no organomegaly or mass - Extremities Exam Extremities exam: Generalized edema present but improved since last week - Skin Skin exam: diffuse macular erythematous rash/erythroderma notably improved since last week mainly now involving the thighs; there is more exfoliation of the skin generalized, possibly slightly improved today. Results - Labs CBC & BMP: 10/21/16 06:04 10/22/16 05:30 Lab Results: I have reviewed the past 24 hour labs (All blood cultures negative , only positive culture was Acinetobacter in the sputum) Quality Measures - Stroke Onset of Symptoms Date: 10/07/16
--- NOTE | 2016-10-22 14:16 | Nephrology Progress Note ---
Nephrology - PN: Subj Interval history: Patient remains intubated and sedate. Physical exam general patient chronically ill-appearing, heart is regular rate and rhythm, he has 1+ thigh edema, lungs are clear to auscultation anteriorly, abdomen is soft with positive bowel sounds Assessment/plan 1. Acute renal failure-patient continues to require dialysis, he continues with anuria, I am doubtful at this point that the patient will recover kidney function 2. Cocaine intoxication 3. Metabolic acidosis-this is marginally improved around 19 on his bicarb level today 4. Hyperkalemia this is controlled with dialysis 5. Anemia-patient's hematocrits around 25%, I will start him on some EPO Exam (PN)-Nephrology - Vital Signs Vital signs: Period Temp Pulse Resp BP Sys/Carbone Pulse Ox Last 24 Hr 98.1 F-100.0 F 73-110 13-33 135-161/68-98 92-100 - Lab 10/21/16 06:04 10/22/16 05:30 Most recent lab results ABG pH 7.347 (7.35-7.45) L 10/22/16 03:20 ABG pCO2 30.9 MM HG (35-48) L 10/22/16 03:20 ABG pO2 139.6 MM HG (80-95) H 10/22/16 03:20 ABG HCO3 16.6 MMOL/L (20-26) L 10/22/16 03:20 ABG O2 Saturation 98.0 % (95-100) 10/22/16 03:20 Calcium 7.2 MG/DL (8.5-10.1) L 10/22/16 05:30 Phosphorus 9.9 MG/DL (2.5-4.9) H 10/22/16 05:30 Magnesium 2.9 MG/DL (1.8-2.4) H 10/22/16 05:30 Assessment and Plan (1) Acute renal failure Status: Acute Assessment and plan: This patient presented with a creatinine of 11 is up to 13 mg/dL today. He had cocaine in his system his blood pressure has been at the low end of normal since admission. He is getting dobutamine. He has no history of kidney failure in the past. Will try and get some previous lab from Dr. Garrison's office. To see what his baseline creatinine is been. The patient is also noted to have an elevated CPK level. I would worry that he has an ATN injury related to his cocaine use also contributing could be his elevated CPK level. We will continue IV fluids for now and monitor for improvement. I do not see any acute indication for hemodialysis at this time. With his decreased urine output I am going to decrease his IV fluids to 150 cc an hour from 200 cc an hour. Current Visit: Yes (2) Anemia Status: Acute Assessment and plan: Patient's hematocrit is 28% Current Visit: Yes (3) Acute respiratory failure Status: Acute Assessment and plan: Continue vent support Current Visit: Yes (4) Altered mental status Status: Acute Current Visit: Yes (5) Cocaine intoxication Status: Acute Current Visit: Yes (6) Hyperkalemia Status: Acute Assessment and plan: His potassium is returning to the normal range Current Visit: Yes (7) Dyslipidemia Status: Chronic Current Visit: Yes (8) Hypertension Status: Chronic Assessment and plan: Patient's blood pressures at the low end of normal he is on dobutamine Current Visit: Yes (9) Metabolic acidosis Status: Acute Assessment and plan: Patient's bicarb is improved to 22 from 20 Current Visit: Yes
[2016-10-22] MEDS ORDERED: EPOETIN ALFA 10,000 UNIT/1 ML VIAL IV PRN (14:17)
[2016-10-22] MEDS: DESITIN 4OZ/NYSTATIN 15 GRAM MIXTURE PASTE TOP SCH ×2 (15:53→20:54)
--- NOTE | 2016-10-22 16:30 | Consultation ---
Assessment and Plan - Time spent with patient Time spent with patient: Less than 30 minutes (1) Ventilator dependent Status: Acute Assessment and plan: Ventilator dependent respiratory failure I recommend tracheostomy tube placement which we will schedule for tomorrow. Current Visit: Yes (2) Acute respiratory failure Status: Acute Current Visit: Yes (3) Toxic metabolic encephalopathy Status: Acute Current Visit: Yes History of Present Illness - Data of Consult Patient: new to practice Consult date: 10/22/16 Requesting Physician: Jesus Alberto Pelayo - Consult Narrative Reason for consult: Ventilator dependent respiratory failure History of present illness: Mr. Day is a 56 year old male multiple medical comorbidities who has tried and failed multiple extubation and weaning attempts from his endotracheal tube and ventilator. ENT is consulted for possible tracheostomy CC: Lory Lemus MD - Home Medications and Allergies Home Medications: Home Medications Medication Instructions Recorded Confirmed Type Acetic Acid 2% Otic Soln [Vosol 2% 5 drop LEFT EAR QID #15 ml 12/27/14 Rx Otic Soln] Amitriptyline [Elavil] 25 mg PO BEDTIME 12/27/14 12/27/14 History Atorvastatin [Lipitor] 40 mg PO DAILY 12/27/14 12/27/14 History Citalopram [CeleXA] 40 mg PO DAILY 12/27/14 12/27/14 History Lisinopril 40 mg PO DAILY 12/27/14 12/27/14 History Metoprolol Tartrate 50 mg PO BID 12/27/14 12/27/14 History Ranitidine Tab [Zantac Tab] 150 mg PO BID 12/27/14 12/27/14 History Trazodone HCl 100 mg PO BEDTIME PRN 12/27/14 12/27/14 History amLODIPine [Norvasc] 5 mg PO DAILY 12/27/14 12/27/14 History Buspirone HCl 10 mg PO 10/07/16 History Gabapentin Cap/Tab [Neurontin 400 mg PO BID 10/07/16 10/07/16 History Cap/Tab] Meloxicam 7.5 mg PO 10/07/16 History Rosuvastatin [Crestor] 40 mg PO DAILY 10/07/16 10/07/16 History Topiramate [Topamax] 50 mg PO BID 10/07/16 10/07/16 History hydroCHLOROthiazide 25 mg PO DAILY 10/07/16 10/07/16 History [Hydrochlorothiazide] Allergies/Adverse Reactions: Allergies Allergy/AdvReac Type Severity Reaction Status Date / Time Cephalosporins Allergy Severe RASH Verified 10/21/16 18:56 meropenem [From Merrem] Allergy Severe RASH Verified 10/21/16 18:52 ROS unobtainable: due to endotracheal tube Medical,Surgical,& Family Hx - Medical History Cardio: History of: Hypertension, Cardiovascular Problems (HEART MURMUR) Endocrine: History of: Dyslipidemia No history of: Diabetes Mellitus (IDDM), Diabetes Mellitus (NIDDM) Respiratory: No history of: Asthma, Bronchitis, Pneumonia Renal: No history of: Renal Failure, Renal Problems Gastrointestinal: No history of: Gastrointestinal Bleed, Liver Problems, GI Problems - Family History Family History: Reports;: Family Cancer, Family Diabetes, Family Heart Disease, Family Hematology, Family Hypertension, Family Stroke - Social History Smoking Status: Unknown if ever smoked Frequency of Alcohol Use: Unknown Type of Drug Use: Cocaine Exam - Constitutional Vitals: Period Temp Pulse Resp BP Sys/Carbone Pulse Ox Last 24 Hr 98.1 F-100.0 F 73-112 13-33 135-161/68-98 92-100 General appearance: normal weight, other (Intubated and on the ventilator) - Head Head exam: Present: normal inspection, normocephalic - ENT ENT exam: Present: normal exam, normal external ear exam, normal oropharynx, other (Obscured exam secondary to endotracheal and nasogastric tube no gross lesions or masses noted in the or nasal cavity) - Neck Neck exam: Present: normal inspection (No grossly abnormal cervical anatomy) - Respiratory Respiratory exam: Present: other (Intubated and on the ventilator) - GI/Abdominal GI/Abdominal exam: Present: soft - Extremities Exam Extremities exam: Present: normal inspection, normal capillary refill - Neurological Exam Neurological exam: Present: alert, oriented X3, CN II-XII intact - Psychiatric Psychiatric exam: Present: normal affect, normal mood - Skin Skin exam: Present: normal color, warm Results - Labs CBC & BMP: 10/21/16 06:04 10/22/16 05:30 Lab Results: I have reviewed the past 24 hour labs Quality Measures - Stroke Onset of Symptoms Date: 10/07/16
--- NOTE | 2016-10-22 17:51 | Hospitalist Progress Note ---
Assessment and Plan (1) Acute renal failure Status: Acute Assessment and plan: Patient remains anuric and requires dialysis. Nephrology following. Current Visit: Yes Qualifiers: Acute renal failure type: with acute tubular necrosis Qualified Code(s): N17.0 - Acute kidney failure with tubular necrosis (2) Polysubstance abuse Status: Chronic Current Visit: Yes (3) Encephalopathy acute Status: Acute Current Visit: Yes (4) Acute respiratory failure Status: Acute Assessment and plan: Plan for tracheostomy tomorrow. Current Visit: Yes Qualifiers: Respiratory failure complication: hypoxia Qualified Code(s): J96.01 - Acute respiratory failure with hypoxia (5) Metabolic acidosis Status: Acute Current Visit: Yes (6) Pneumonia Status: Acute Assessment and plan: Continue IV antibiotics. Infectious disease following. Current Visit: Yes (7) Ventilator dependent Status: Acute Current Visit: Yes Hospitalist: Subjective Interval history: Patient seen and examined. No acute events overnight. Case discussed with nursing staff. Labs reviewed. ENT and infectious disease consults reviewed. Plan for tracheostomy tomorrow. Patient remains ventilator dependent. Exam - Constitutional Vitals: Period Temp Pulse Resp BP Sys/Carbone Pulse Ox Last 24 Hr 98.1 F-100.0 F 73-112 13-36 135-161/68-98 92-100 Exam: Constitutional System: Moderately severe distress. No tremulousness. Intubated and sedated Head: Normocephalic, atraumatic. Ears, Nose and Throat System: No pain or tenderness. No epistaxis or discharge. endotracheal tube in place Eyes System: Pupils equal, round, and reactive. Extraocular muscles intact. Neck: Supple, without adenopathy, No jugular venous distention. No thyromegaly, neck mass, or prior surgery apparent. Respiratory System: Chest coarse bilaterally to auscultation. Cardiovascular System: Heart with tachycardic rate rate and rhythm. No murmur. GI System: Abdomen soft, nontender. Normo active bowel sounds present. Musculoskeletal System: limbs with bilateral edema in arms and legs. Full distal pulses. Neurological System: Unable to assess secondary to sedation Psychiatric System: Unable to assess secondary to patient's condition Results - Labs CBC & BMP: 10/21/16 06:04 10/22/16 05:30 Lab Results: I have reviewed the past 24 hour labs - Diagnostic Findings Procedure: Chest x-ray: report reviewed by me, image reviewed by me Quality Measures - Stroke Onset of Symptoms Date: 10/07/16
[2016-10-23] MEDS: PROPOFOL 1,000 MG/100 ML BOTTLE IV SCH ×7 (00:30→22:56)
[2016-10-23] MEDS: ALBUTEROL/IPRATROPIUM 3 ML NEB RESP TX SCH ×4 (01:05→19:17)
[2016-10-23] MEDS: ZIPRASIDONE 20 MG/1 ML VIAL IM PRN ×4 (02:21→22:30)
[2016-10-23] MEDS: PANTOPRAZOLE 40 MG VIAL IV SCH (02:21)
[2016-10-23] MEDS: INSULIN REGULAR 100 UNIT/ML SUBCUT SCH ×3 (05:47→18:51)
--- NOTE | 2016-10-23 07:12 | Nephrology Progress Note ---
Nephrology - PN: Subj Interval history: Patient opened his eyes spontaneously this morning, he really did not fix and follow that I can tell. He remains intubated and sedate Physical exam general the patient is chronically ill-appearing, heart is regular rate and rhythm, he has trace pretibial edema, lungs are clear to auscultation anteriorly, abdomen is soft with positive bowel sounds Assessment/plan 1. Acute renal failure-patient remains anuric, will continue hemodialysis support 2. Cocaine intoxication 3. Respiratory failure continue vent support 4. Pneumonia-continue antibiotics Exam (PN)-Nephrology - Vital Signs Vital signs: Period Temp Pulse Resp BP Sys/Carbone Pulse Ox Last 24 Hr 98.9 F-99.8 F 73-112 12-36 130-157/76-96 92-100 - Lab 10/21/16 06:04 10/22/16 05:30 Most recent lab results ABG pH 7.347 (7.35-7.45) L 10/22/16 03:20 ABG pCO2 30.9 MM HG (35-48) L 10/22/16 03:20 ABG pO2 139.6 MM HG (80-95) H 10/22/16 03:20 ABG HCO3 16.6 MMOL/L (20-26) L 10/22/16 03:20 ABG O2 Saturation 98.0 % (95-100) 10/22/16 03:20 Calcium 7.2 MG/DL (8.5-10.1) L 10/22/16 05:30 Phosphorus 9.9 MG/DL (2.5-4.9) H 10/22/16 05:30 Magnesium 2.9 MG/DL (1.8-2.4) H 10/22/16 05:30 Assessment and Plan (1) Acute renal failure Status: Acute Assessment and plan: This patient presented with a creatinine of 11 is up to 13 mg/dL today. He had cocaine in his system his blood pressure has been at the low end of normal since admission. He is getting dobutamine. He has no history of kidney failure in the past. Will try and get some previous lab from Dr. Garrison's office. To see what his baseline creatinine is been. The patient is also noted to have an elevated CPK level. I would worry that he has an ATN injury related to his cocaine use also contributing could be his elevated CPK level. We will continue IV fluids for now and monitor for improvement. I do not see any acute indication for hemodialysis at this time. With his decreased urine output I am going to decrease his IV fluids to 150 cc an hour from 200 cc an hour. Current Visit: Yes Qualifiers: Acute renal failure type: with acute tubular necrosis Qualified Code(s): N17.0 - Acute kidney failure with tubular necrosis (2) Anemia Status: Acute Assessment and plan: Patient's hematocrit is 28% Current Visit: Yes (3) Acute respiratory failure Status: Acute Assessment and plan: Continue vent support Current Visit: Yes Qualifiers: Respiratory failure complication: hypoxia Qualified Code(s): J96.01 - Acute respiratory failure with hypoxia (4) Altered mental status Status: Acute Current Visit: Yes (5) Cocaine intoxication Status: Acute Current Visit: Yes (6) Hyperkalemia Status: Acute Assessment and plan: His potassium is returning to the normal range Current Visit: Yes (7) Dyslipidemia Status: Chronic Current Visit: Yes (8) Hypertension Status: Chronic Assessment and plan: Patient's blood pressures at the low end of normal he is on dobutamine Current Visit: Yes (9) Metabolic acidosis Status: Acute Assessment and plan: Patient's bicarb is improved to 22 from 20 Current Visit: Yes
--- NOTE | 2016-10-23 07:37 | Pulmonology Progress Note ---
Pulmonary - PN: Subj Interval history: Patient is a 56-year-old black man that has a history of hypertension and alcohol abuse. He has had some chronic pain issues. He came into the emergency room lethargic and had positive drug screen for cocaine and opiates. He has been put on the ventilator. He has also developed acute renal failure. He did develop worsening infiltrates and was hard to ventilate. Now he has been improving and his chest x-ray is much better. He has adequate oxygenation and his chest x-ray is stable. Last week we tried extubate him and he did not do very well. His mental status was a significant problem. He has been reintubated and stable over the weekend. He still requires a lot of sedation and is quite agitated. He still does not follow any commands. His chest x-ray shows some mild haziness especially on the left. His fever is better and his rash is improving and he was felt to possibly have a reaction to meropenem. He is on Levaquin for Acinetobacter growing out of his washings. His respiratory status looks a little better. He still has a significant encephalopathy. ENT is evaluating for possible tracheostomy tube. Exam (Progress Note) - Constitutional Vitals: Period Temp Pulse Resp BP Sys/Carbone Pulse Ox Last 24 Hr 98.9 F-99.8 F 73-112 12-36 130-157/76-96 92-100 Exam: General appearance: normal weight, no acute distress (The patient is sedated and looks more comfortable and his fever is down.) - Head Head exam: Present: normal inspection, normocephalic - Eye Eye exam: Absent: scleral icterus Pupils: Present: constricted - ENT ENT exam: Present: other (ET tube is in good position.) - Neck Neck exam: Present: normal inspection. Absent: lymphadenopathy, thyromegaly - Respiratory Respiratory exam: Present: He has good breath sounds bilaterally and he has fairly good air movement. His lungs sound a little better now. - Cardiovascular Cardiovascular exam: Present: regular rate and rhythm. He has a sinus tachycardia. absent: gallop - GI/Abdominal GI/Abdominal exam: Present: hypoactive bowel sounds, soft. Absent: organomegaly , tenderness - Extremities Exam Extremities exam: Absent: calf tenderness, edema - Neurological Exam Neurological exam: Present: Patient will moves extremities but does not follow commands. - Psychiatric Psychiatric exam: he has been extremely agitated. - Skin Skin exam: Present: warm, dry, he has a skin rash Results - Labs CBC & BMP: 10/21/16 06:04 10/22/16 05:30 Assessment and Plan (1) Acute respiratory failure Status: Acute Assessment and plan: Patient was tried off the ventilator and did not do very well. He never was alert and remained extremely agitated. He still requires a lot of sedation. He appears to be a little more stable and should come off the ventilator with a tracheostomy tube. Current Visit: Yes Qualifiers: Respiratory failure complication: hypoxia Qualified Code(s): J96.01 - Acute respiratory failure with hypoxia (2) Acute renal failure Status: Acute Assessment and plan: The patient will continue to require dialysis. His creatinine is 8.2 today. He is tolerating dialysis fairly well. Current Visit: Yes Qualifiers: Acute renal failure type: with acute tubular necrosis Qualified Code(s): N17.0 - Acute kidney failure with tubular necrosis (3) Cocaine intoxication Status: Acute Assessment and plan: Patient apparently has had cocaine abuse. He continues to have an encephalopathy. Current Visit: Yes (4) Polysubstance abuse Status: Chronic Assessment and plan: The patient has a history of substance abuse. He has a significant encephalopathy now. Current Visit: Yes (5) Encephalopathy acute Status: Acute Assessment and plan: Patient still gets very restless and mainly has to get some sedation. He never did really wake up very well and remains agitated. He is comfortable at present with sedation. Current Visit: Yes (6) Anemia Status: Acute Assessment and plan: The patient has an hematocrit of 25.7. Current Visit: Yes
[2016-10-23] MEDS: THIAMINE 200 MG/2 ML VIAL IV SCH (08:37)
[2016-10-23] MEDS: methylPREDNISolone SOD SUC 40 MG/1 ML VIAL IV SCH ×2 (08:37→17:38)
[2016-10-23] MEDS: DESITIN 4OZ/NYSTATIN 15 GRAM MIXTURE PASTE TOP SCH ×2 (08:39→20:00)
[2016-10-23] MEDS ORDERED: LIDOCAINE 1%/EPI INJ 20 ML VIAL ONE (09:27)
--- NOTE | 2016-10-23 10:30 | Operative Note ---
Date of procedure: 10/23/16 Procedure: PRE-DIAGNOSES: Dependence on respirator/ventilator, Ventilator status Respiratory failure, Chronic; with hypoxia POST-DIAGNOSES: Dependence on respirator/ventilator, Ventilator status Respiratory failure, Chronic; with hypoxia PROCEDURES: Tracheostomy Type: Planned Sterile Technique(s): Large Sterile Drape; Gloves; Cap; Gown; Small Drape; Mask/Eye Shield Prep: Chlorhexidine Securing Method: Suture FINDINGS: Midline trach in normal anatomical position TECHNIQUE: After appropriate informed consent was signed and placed on the chart patient was taken back to the operative theater where timeout was performed to verify the correct patient with correct procedure. Patient was transferred to the operative table where anesthesia performed general anesthesia with endotracheal tube that was already in place from transfer unit. Patient was sterilely prepped and draped. The patient's trachea was palpated and a midline planned incision was drawn out and infiltrated with a total of 5 mL of 1% lidocaine with 1:100,000 epinephrine. Bovie cautery on a setting of 20 spray was used to cut and coagulate midline in a vertical direction in the preplanned incision through the subcutaneous fat and dissecting the strap muscles in the midline. The incision was then held open with [employer] [place] retractors and digital palpation was used to confirm the trachea. A cricoid hook was placed and used to hold the trachea midline while the intersection between the second and third tracheal rings were prepared for incision. A 15 blade scalpel was used to incise the between the second and third tracheal rings. A tracheal dilator was used to dilate the trachea. The patient's endotracheal tube was slowly removed under direct visualization and a #8 cuffed Shiley tracheostomy tube with an inner cannula was placed under direct visualization. The tracheostomy tube was sutured in place with 4 quadrant 2-0 nylon sutures in a simple interrupted fashion. A drain sponge was placed around the trach tube. The trach was then held in place with a trach tie. All instrumentation was removed and the patient was then transferred back to. Anesthesia: LAYLAA Surgeon / Physician: Michael Martinez Estimated blood loss: minimal Specimens: none sent Condition: stable Disposition: PACU Results - Labs CBC & BMP: 10/21/16 06:04 10/22/16 05:30 Discharge Plan - Discharge Medications No Action Lisinopril 40 mg PO DAILY Citalopram [CeleXA] 40 mg PO DAILY Amitriptyline [Elavil] 25 mg PO BEDTIME amLODIPine [Norvasc] 5 mg PO DAILY Atorvastatin [Lipitor] 40 mg PO DAILY Trazodone HCl 100 mg PO BEDTIME PRN PRN Reason: Sleep Metoprolol Tartrate 50 mg PO BID Ranitidine Tab [Zantac Tab] 150 mg PO BID Acetic Acid 2% Otic Soln [Vosol 2% Otic Soln] 5 drop LEFT EAR QID #15 ml Rosuvastatin [Crestor] 40 mg PO DAILY Gabapentin Cap/Tab [Neurontin Cap/Tab] 400 mg PO BID Meloxicam 7.5 mg PO Buspirone HCl 10 mg PO hydroCHLOROthiazide [Hydrochlorothiazide] 25 mg PO DAILY Topiramate [Topamax] 50 mg PO BID - Follow Up or Referral - Forms/Instructions
[2016-10-23] MEDS ORDERED: VECURONIUM 10 MG VIAL IV ONE (11:01)
[2016-10-23] MEDS ORDERED: MIDAZOLAM 2 MG/2 ML VIAL ONE (11:01)
[2016-10-23] MEDS ORDERED: SEVOFLURANE 1 UNIT/15 MINUTE INH ONE (11:01)
--- NOTE | 2016-10-23 11:19 | Anesthesia Post-Op ---
Anesthesia Post OP - Post Ansesthetic Evaluation Patient seen in post op: Yes Resp: within normal limits CV: within normal limits Mental: within normal limits Temp: within normal limits [id number]: within normal limits Nausea and Vomiting: within normal limits Pain: within normal limits
[2016-10-23] MEDS: MULTIVITAMIN (CENTRUM) TABLET PO SCH (13:28)
[2016-10-23] MEDS: ENOXAPARIN 30 MG/0.3 ML SYRINGE SUBCUT SCH (13:28)
[2016-10-23] MEDS: FOLIC ACID 1 MG TABLET PO SCH (13:29)
[2016-10-23] MEDS: LEVOFLOXACIN INJ 500 MG in PREMIX 1 EACH IV SCH (13:31)
--- NOTE | 2016-10-23 14:55 | Infectious Disease Progress ---
Assessment and Plan (1) Pneumonia Status: Acute Assessment and plan: Pneumonia due to Acinetobacter. Patient afebrile off about 4 days. Recommendations: Complete 10 days of levofloxacin therapy tomorrow. I will sign off now. Call again as needed. Current Visit: Yes (2) Acute renal failure Status: Acute Assessment and plan: On dialysis Current Visit: Yes Qualifiers: Acute renal failure type: with acute tubular necrosis Qualified Code(s): N17.0 - Acute kidney failure with tubular necrosis (3) Acute respiratory failure Status: Acute Assessment and plan: Patient failed extubation twice. Tracheostomy today. Current Visit: Yes Qualifiers: Respiratory failure complication: hypoxia Qualified Code(s): J96.01 - Acute respiratory failure with hypoxia (4) Altered mental status Status: Acute Assessment and plan: CSF analysis negative for meningitis. Likely multifactorial toxic metabolic encephalopathy. There has not been any significant improvement since admission. Current Visit: Yes (5) Cocaine intoxication Status: Acute Current Visit: Yes (6) Drug rash Status: Acute Assessment and plan: Patient has diffuse rash which is improving. Likely due to some beta-lactam antibiotics. Current Visit: Yes (7) Hypotension Status: Acute Current Visit: Yes (8) Fever Status: Acute Assessment and plan: Resolved since stopping meropenem. Blood cultures all negative. Current Visit: Yes Infectious Disease - PN: Subj Interval history: Patient seen and examined this morning. He was awake but confused and a bit agitated. He is getting ready to go for tracheostomy. No recurrence of fever for several days. Infectious Disease Exam (PN) - Constitutional Vitals: Temp Pulse Resp BP Pulse Ox 97.9 F 90 28 H 151/94 100 10/23/16 10:45 10/23/16 12:20 10/23/16 14:41 10/23/16 12:15 10/23/16 12:20 General appearance: normal weight, other (Intubated and on the ventilator) Exam: General appearance: Awake but agitated, he is a lot of oral secretions - Eye Eye exam: Present: EOMI. no icterus Pupils: Present: DAE - Respiratory Respiratory exam: Scattered rhonchi bilaterally - Cardiovascular Cardiovascular exam: regular rate and rhythm, no murmurs - GI/Abdominal GI/Abdominal exam: normal bowel sounds, soft, non-tender, no organomegaly or mass - Extremities Exam Extremities exam: Generalized edema present improving - Skin Skin exam: Rash much improved with general exfoliation Results - Labs CBC & BMP: 10/21/16 06:04 10/22/16 05:30 Lab Results: I have reviewed the past 24 hour labs Quality Measures - Stroke Onset of Symptoms Date: 10/07/16
--- NOTE | 2016-10-23 17:36 | Hospitalist Progress Note ---
Assessment and Plan (1) Acute renal failure Status: Acute Assessment and plan: Patient remains anuric and requires dialysis. Nephrology following. Current Visit: Yes Qualifiers: Acute renal failure type: with acute tubular necrosis Qualified Code(s): N17.0 - Acute kidney failure with tubular necrosis (2) Polysubstance abuse Status: Chronic Current Visit: Yes (3) Encephalopathy acute Status: Acute Current Visit: Yes (4) Acute respiratory failure Status: Acute Assessment and plan: Plan for tracheostomy Current Visit: Yes Qualifiers: Respiratory failure complication: hypoxia Qualified Code(s): J96.01 - Acute respiratory failure with hypoxia (5) Metabolic acidosis Status: Acute Current Visit: Yes (6) Pneumonia Status: Acute Assessment and plan: Continue IV antibiotics. Infectious disease following. Current Visit: Yes (7) Ventilator dependent Status: Acute Current Visit: Yes Hospitalist: Subjective Interval history: Patient seen and examined. No acute events overnight. Case discussed with nursing staff. Labs reviewed. Remains confused. tracheostomy today. Exam - Constitutional Vitals: Period Temp Pulse Resp BP Sys/Carbone Pulse Ox Last 24 Hr 97.9 F-99.8 F 72-135 12-29 112-167/76-104 96-100 Exam: Constitutional System: Moderately severe distress. No tremulousness. Intubated and sedated Head: Normocephalic, atraumatic. Ears, Nose and Throat System: No pain or tenderness. No epistaxis or discharge. endotracheal tube in place Eyes System: Pupils equal, round, and reactive. Extraocular muscles intact. Neck: Supple, without adenopathy, No jugular venous distention. No thyromegaly, neck mass, or prior surgery apparent. Respiratory System: Chest coarse bilaterally to auscultation. Cardiovascular System: Heart with tachycardic rate rate and rhythm. No murmur. GI System: Abdomen soft, nontender. Normo active bowel sounds present. Musculoskeletal System: limbs with bilateral edema in arms and legs. Full distal pulses. Neurological System: Unable to assess secondary to sedation Psychiatric System: Unable to assess secondary to patient's condition Results - Labs CBC & BMP: 10/21/16 06:04 10/22/16 05:30 Lab Results: I have reviewed the past 24 hour labs Quality Measures - Stroke Onset of Symptoms Date: 10/07/16
[2016-10-23] MEDS: LORazepam 2 MG/1 ML VIAL IV PRN (20:30)
--- NOTE | 2016-10-23 21:19 | Event Note ---
I was paged to bedside. Nursing informed me that patient was bleeding from his trach and sats were in the 70s. When I arrived it did appear that the blood was coming from the trach. We got Dr. Martinez involved and he evaluated his trach and it was in proper position. The blood was not coming from the trach according to Dr. Martinez. After his exam the O2 sats returned back to 99%. I ordered a chest x-ray. There does appear to be additional interstitial edema present on the chest x-ray. Will need to follow-up with the a.m. chest x-ray for further evaluation. Patient is currently stable without issue at this time
[2016-10-23] MEDS: MORPHINE 2 MG/1 ML SYRINGE IV PRN (22:32)
[2016-10-23] MEDS: VECURONIUM 10 MG VIAL IV PRN (22:34)
[2016-10-24] MEDS: PANTOPRAZOLE 40 MG VIAL IV SCH (00:59)
[2016-10-24] MEDS: methylPREDNISolone SOD SUC 40 MG/1 ML VIAL IV SCH ×4 (00:59→23:30)
[2016-10-24] MEDS: INSULIN REGULAR 100 UNIT/ML SUBCUT SCH ×5 (01:05→23:20)
[2016-10-24] MEDS: ALBUTEROL/IPRATROPIUM 3 ML NEB RESP TX SCH ×4 (01:23→19:24)
[2016-10-24] MEDS: LORazepam 2 MG/1 ML VIAL IV PRN ×5 (01:52→20:24)
[2016-10-24] MEDS: VECURONIUM 10 MG VIAL IV PRN ×3 (01:53→18:30)
[2016-10-24] MEDS: PROPOFOL 1,000 MG/100 ML BOTTLE IV SCH ×7 (02:31→20:28)
[2016-10-24 03:31] LABS: ABG Base Excess -8.8 MMOL/L (-2.5-2.5); ABG HCO3 17.3 MMOL/L (20-26); ABG Oxygen Saturation 94.5 % (95-100); ABG PCO2 47.7 MM HG (35-48); ABG PO2 88.8 MM HG (80-95); ABG TCO2 17.9 MMOL/L (23-27); Allen Test Positive; Pt O2 Delivery Device Ventilator
[2016-10-24 03:36] LABS: ABG PH 7.208 (7.35-7.45)
--- NOTE | 2016-10-24 06:27 | XRay Report ---
XR chest 1V portable Indication: Placement. Chest one view: Comparison 10/22/2016. Increased diffuse alveolar consolidation noted bilaterally with almost total white out of the lungs now present. Lung volumes are low. Tracheostomy, NG tube, dialysis catheter and normal heart size are stable. Impression: Worsening ARDS. PROCEDURE INTERPRETED AT [facility] DEPARTMENT OF RADIOLOGY Final Report Signed by: Nash Chowdhury M.D.
--- NOTE | 2016-10-24 07:46 | Progress Note ---
Assessment and Plan - Time spent with patient Time spent with patient: Greater than 30 minutes (1) Tracheostomy hemorrhage Status: Acute Assessment and plan: I was unable to visualize or find out where the hemorrhage came from it was quickly tampon noted and appears to no longer be active do not recommend any additional treatment his acute desaturations are from an unknown reason as to whether this was from over aggressive suctioning during the hemorrhage from an unknown cause or if the hemorrhage from an unknown cause could have been pulmonary in origin causing a momentary blockage on the because desaturation. Chest x-ray it appears that there is no new pneumothorax. There is unknown as to if there was a another systemic problem or there could have been a pulmonary embolus but this appears unlikely. Overall trach is in place and patent and functioning well at this time and I do not recommend any additional treatment. Please notify me again if there are any complications or problems. I will continue to follow this patient intermittently throughout his stay Current Visit: Yes (2) Ventilator dependent Status: Acute Assessment and plan: Ventilator dependent respiratory failure I recommend tracheostomy tube placement which we will schedule for tomorrow. Current Visit: Yes (3) Acute respiratory failure Status: Acute Current Visit: Yes Qualifiers: Respiratory failure complication: hypoxia Qualified Code(s): J96.01 - Acute respiratory failure with hypoxia (4) Toxic metabolic encephalopathy Status: Acute Current Visit: Yes (5) Tracheostomy malfunction Status: Acute Current Visit: Yes (6) Tracheostomy dependent Status: Acute Current Visit: Yes Family Medicine PN Sub Interval history: The patient underwent an acute desaturation down to the reported 50s on SPO2 nursing staff and had hemorrhage per tracheostomy per the lumen not necessarily around the tracheostomy this seemed to correspond with this. The whole event was in conjunction with the patient being restless and adding Ativan to help try to correct that. I was called emergently to the bedside to evaluate the patient and the tracheostomy which is fresh. The patient never coded throughout the procedure and hemorrhage was quickly controlled. By the time I arrived saturations were in the 80s and quickly/within minutes were back to the high 90s. Exam (Progress Note) - Constitutional Vitals: Period Temp Pulse Resp BP Sys/Carbone Pulse Ox Last 24 Hr 97.9 F-99.1 F 74-141 11-36 105-167/65-115 86-100 General appearance: normal weight, other (Sedated on the ventilator) - Head Head exam: Present: normal inspection, normocephalic - ENT ENT exam: Present: normal exam, normal external ear exam - Neck Neck exam: Present: normal inspection, other (Midline tracheostomy fresh in place patent no peristomal hemorrhage and evidence of mild less than 20 cc of hemorrhage visualized with an unknown source. Bedside tracheoscopy performed revealing that the trach is still perfectly in place there was some serosanguineous drainage throughout the bilateral bronchi trach but no evidence of any acute hemorrhage or dislodgment of the trach) - Respiratory Respiratory exam: Present: other (Currently on the ventilator now setting in the high 90s) - Cardiovascular Cardiovascular exam: Present: regular rate and rhythm - GI/Abdominal GI/Abdominal exam: Present: firm - Extremities Exam Extremities exam: Present: normal inspection, normal capillary refill - Neurological Exam Neurological exam: Present: other (Unable to assess as the patient is sedated and ventilated with the trach) - Psychiatric Psychiatric exam: Present: other (Unable to assess because patient is sedated) - Skin Skin exam: Present: normal color, warm Results - Labs CBC & BMP: 10/21/16 06:04 10/22/16 05:30 Lab Results: I have reviewed the past 24 hour labs - Diagnostic Findings Procedure: Chest x-ray: pending, image reviewed by me, report reviewed by me ( Reviewed no evidence of any acute change from previous trach is in place and patent) Quality Measures - Stroke Onset of Symptoms Date: 10/07/16
--- NOTE | 2016-10-24 07:48 | Pulmonology Progress Note ---
Pulmonary - PN: Subj Interval history: Patient is a 56-year-old black man that has a history of hypertension and alcohol abuse. He has had some chronic pain issues. He came into the emergency room lethargic and had positive drug screen for cocaine and opiates. He has been put on the ventilator. He has also developed acute renal failure. He did develop worsening infiltrates and was hard to ventilate. Now he has been improving and his chest x-ray is much better. He has adequate oxygenation and his chest x-ray is stable. Last week we tried to extubate him and he did not do very well. His mental status was a significant problem. He has been reintubated and stable over the weekend. He still requires a lot of sedation and is quite agitated. He still does not follow any commands. His chest x-ray shows some mild haziness especially on the left. He did go get a tracheostomy tube. Last night he had some bleeding and is up on his FiO2 now. He has not had any further fever. Repeat blood cultures have been negative. He still does not respond very well and require sedation. Exam (Progress Note) - Constitutional Vitals: Period Temp Pulse Resp BP Sys/Carbone Pulse Ox Last 24 Hr 97.9 F-99.1 F 74-141 11-36 105-167/65-115 86-100 Exam: General appearance: normal weight, no acute distress (The patient is still quite restless at times. His fever has been under 100.) - Head Head exam: Present: normal inspection, normocephalic - Eye Eye exam: Absent: scleral icterus Pupils: Present: constricted - ENT ENT exam: Present: Unremarkable - Neck Neck exam: Present: He has a tracheostomy tube in place now. - Respiratory Respiratory exam: Present: He has good breath sounds bilaterally and he has fairly good air movement. He does have coarse breath sounds with some rhonchi. - Cardiovascular Cardiovascular exam: Present: regular rate and rhythm. He has a sinus tachycardia. absent: gallop - GI/Abdominal GI/Abdominal exam: Present: hypoactive bowel sounds, soft. Absent: organomegaly , tenderness - Extremities Exam Extremities exam: Absent: calf tenderness, edema - Neurological Exam Neurological exam: Present: Patient will moves extremities but does not follow commands. - Psychiatric Psychiatric exam: he has been extremely agitated. He is sedated now. - Skin Skin exam: Present: warm, dry, he has a skin rash Results - Labs CBC & BMP: 10/21/16 06:04 10/22/16 05:30 Labs: His PO2 is 88 with a PCO2 of 47 and a pH of 7.2. - Diagnostic Findings Procedure: Chest x-ray: image reviewed by me, report reviewed by me (Chest x- ray shows some haziness bilaterally but not much change.) Assessment and Plan (1) Acute respiratory failure Status: Acute Assessment and plan: Patient was tried off the ventilator and did not do very well. He never was alert and remained extremely agitated. He still requires a lot of sedation. Yesterday he did get his tracheostomy tube. Current Visit: Yes Qualifiers: Qualified Code(s): J96.01 - Acute respiratory failure with hypoxia (2) Acute renal failure Status: Acute Assessment and plan: The patient will continue to require dialysis. His creatinine is 8.2 today. He is tolerating dialysis fairly well. Current Visit: Yes Qualifiers: Qualified Code(s): N17.0 - Acute kidney failure with tubular necrosis (3) Cocaine intoxication Status: Acute Assessment and plan: Patient apparently has had cocaine abuse. He continues to have an encephalopathy. Current Visit: Yes (4) Polysubstance abuse Status: Chronic Assessment and plan: The patient has a history of substance abuse. He has a significant encephalopathy now. Current Visit: Yes (5) Encephalopathy acute Status: Acute Assessment and plan: Patient still gets very restless and mainly has to get some sedation. He never did really wake up very well and remains agitated. He is comfortable at present with sedation. He is very difficult to manage when not on sedation. Current Visit: Yes (6) Anemia Status: Acute Assessment and plan: The patient has an hematocrit of 25.7. Current Visit: Yes
--- NOTE | 2016-10-24 08:33 | XRay Report ---
XR chest 1V portable Indication: Respiratory failure Comparison: Chest x-ray dated October 23, 2016 Technique: Single frontal view of the chest. Findings: Lines and tubes appear grossly unchanged. The cardiomediastinal silhouette is stable in configuration. Mildly improved diffuse bilateral pulmonary consolidation. Visualized osseous and surrounding soft tissue structures appear grossly unchanged.. IMPRESSION: Mildly improved diffuse bilateral pulmonary consolidation. PROCEDURE INTERPRETED AT [facility] DEPARTMENT OF RADIOLOGY Final Report Signed by: Dr Grady Nava
[2016-10-24] MEDS: THIAMINE 200 MG/2 ML VIAL IV SCH (10:24)
[2016-10-24] MEDS: FOLIC ACID 1 MG TABLET PO SCH (10:29)
[2016-10-24] MEDS: MULTIVITAMIN (CENTRUM) TABLET PO SCH (10:29)
[2016-10-24] MEDS: DESITIN 4OZ/NYSTATIN 15 GRAM MIXTURE PASTE TOP SCH ×2 (12:26→20:05)
--- NOTE | 2016-10-24 13:38 | Nephrology Progress Note ---
Nephrology - PN: Subj Interval history: Patient remains intubated, he does open his eyes and seemed fix and follow some. Physical exam general patient is chronically ill-appearing, heart is regular rate and rhythm, he has 1+ thigh edema, lungs are clear to auscultation anteriorly, abdomen is soft with decreased bowel sounds Assessment/plan 1. Acute renal failure-patient shows no signs of recovery we will continue hemodialysis 2. Cocaine toxicity 3. Hyperkalemia this is resolved 4. Metabolic acidosis this is resolved 5. Respiratory failure continue vent support Exam (PN)-Nephrology - Vital Signs Vital signs: Period Temp Pulse Resp BP Sys/Carbone Pulse Ox Last 24 Hr 97.7 F-99.1 F 74-141 11-43 100-167/62-115 86-100 - Lab 10/21/16 06:04 10/22/16 05:30 Most recent lab results ABG pH 7.208 (7.35-7.45) L* 10/24/16 03:00 ABG pCO2 47.7 MM HG (35-48) 10/24/16 03:00 ABG pO2 88.8 MM HG (80-95) 10/24/16 03:00 ABG HCO3 17.3 MMOL/L (20-26) L 10/24/16 03:00 ABG O2 Saturation 94.5 % (95-100) L 10/24/16 03:00 Calcium 7.2 MG/DL (8.5-10.1) L 10/22/16 05:30 Phosphorus 9.9 MG/DL (2.5-4.9) H 10/22/16 05:30 Magnesium 2.9 MG/DL (1.8-2.4) H 10/22/16 05:30 Assessment and Plan (1) Acute renal failure Status: Acute Assessment and plan: This patient presented with a creatinine of 11 is up to 13 mg/dL today. He had cocaine in his system his blood pressure has been at the low end of normal since admission. He is getting dobutamine. He has no history of kidney failure in the past. Will try and get some previous lab from Dr. Garrison's office. To see what his baseline creatinine is been. The patient is also noted to have an elevated CPK level. I would worry that he has an ATN injury related to his cocaine use also contributing could be his elevated CPK level. We will continue IV fluids for now and monitor for improvement. I do not see any acute indication for hemodialysis at this time. With his decreased urine output I am going to decrease his IV fluids to 150 cc an hour from 200 cc an hour. Current Visit: Yes Qualifiers: Acute renal failure type: with acute tubular necrosis Qualified Code(s): N17.0 - Acute kidney failure with tubular necrosis (2) Anemia Status: Acute Assessment and plan: Patient's hematocrit is 28% Current Visit: Yes (3) Acute respiratory failure Status: Acute Assessment and plan: Continue vent support Current Visit: Yes Qualifiers: Respiratory failure complication: hypoxia Qualified Code(s): J96.01 - Acute respiratory failure with hypoxia (4) Altered mental status Status: Acute Current Visit: Yes (5) Cocaine intoxication Status: Acute Current Visit: Yes (6) Hyperkalemia Status: Acute Assessment and plan: His potassium is returning to the normal range Current Visit: Yes (7) Dyslipidemia Status: Chronic Current Visit: Yes (8) Hypertension Status: Chronic Assessment and plan: Patient's blood pressures at the low end of normal he is on dobutamine Current Visit: Yes (9) Metabolic acidosis Status: Acute Assessment and plan: Patient's bicarb is improved to 22 from 20 Current Visit: Yes
[2016-10-24] MEDS: ZIPRASIDONE 20 MG/1 ML VIAL IM PRN (14:08)
--- NOTE | 2016-10-24 14:54 | Hospitalist Progress Note ---
Assessment and Plan (1) Acute renal failure Status: Acute Assessment and plan: Patient remains anuric and requires dialysis. Nephrology following. Current Visit: Yes Qualifiers: Acute renal failure type: with acute tubular necrosis Qualified Code(s): N17.0 - Acute kidney failure with tubular necrosis (2) Polysubstance abuse Status: Chronic Current Visit: Yes (3) Encephalopathy acute Status: Acute Current Visit: Yes (4) Acute respiratory failure Status: Acute Assessment and plan: Postop day #1 status post tracheostomy placement. Continue ventilator management and weaning per protocol. Will likely need placement. Current Visit: Yes Qualifiers: Respiratory failure complication: hypoxia Qualified Code(s): J96.01 - Acute respiratory failure with hypoxia (5) Metabolic acidosis Status: Acute Current Visit: Yes (6) Pneumonia Status: Acute Assessment and plan: Continue IV antibiotics. Infectious disease following. Current Visit: Yes (7) Ventilator dependent Status: Acute Assessment and plan: Followed by pulmonary Current Visit: Yes Hospitalist: Subjective Interval history: Postop day 1 status post tracheostomy placement. Patient seen and examined. No acute events overnight. Case discussed with nursing staff. Labs reviewed. Remains minimally responsive and unable to follow commands. This morning had bright red blood from the tracheostomy site/hemoptysis. Exam - Constitutional Vitals: Period Temp Pulse Resp BP Sys/Carbone Pulse Ox Last 24 Hr 97.7 F-99.1 F 74-141 11-43 100-167/62-115 86-100 Exam: Constitutional System: Moderately severe distress. No tremulousness. Intubated and sedated Head: Normocephalic, atraumatic. Ears, Nose and Throat System: No pain or tenderness. No epistaxis or discharge. Tracheostomy site noted with minimal bleeding Eyes System: Pupils equal, round, and reactive. Extraocular muscles intact. Neck: Supple, without adenopathy, No jugular venous distention. No thyromegaly, neck mass, or prior surgery apparent. Respiratory System: Chest coarse bilaterally to auscultation. Cardiovascular System: Heart with tachycardic rate rate and rhythm. No murmur. GI System: Abdomen soft, nontender. Normo active bowel sounds present. Musculoskeletal System: limbs with bilateral edema in arms and legs. Full distal pulses. Neurological System: Unable to assess secondary to sedation Psychiatric System: Unable to assess secondary to patient's condition Results - Labs CBC & BMP: 10/21/16 06:04 10/22/16 05:30 Lab Results: I have reviewed the past 24 hour labs - Diagnostic Findings Procedure: Chest x-ray: image reviewed by me, report reviewed by me Quality Measures - Stroke Onset of Symptoms Date: 10/07/16
[2016-10-25] MEDS: VECURONIUM 10 MG VIAL IV PRN (00:05)
[2016-10-25] MEDS: PROPOFOL 1,000 MG/100 ML BOTTLE IV SCH ×8 (00:45→22:51)
[2016-10-25] MEDS: ALBUTEROL/IPRATROPIUM 3 ML NEB RESP TX SCH ×4 (01:36→19:23)
[2016-10-25] MEDS: MORPHINE 2 MG/1 ML SYRINGE IV PRN (02:05)
[2016-10-25] MEDS: PANTOPRAZOLE 40 MG VIAL IV SCH (02:10)
[2016-10-25] MEDS: ZIPRASIDONE 20 MG/1 ML VIAL IM PRN ×3 (02:46→21:29)
[2016-10-25 03:30] LABS: Phosphorous 12.2 MG/DL (2.5-4.9); Prealbumin 44.5 MG/DL (20-40)
[2016-10-25] MEDS: LORazepam 2 MG/1 ML VIAL IV PRN ×4 (04:34→15:34)
[2016-10-25] MEDS: INSULIN REGULAR 100 UNIT/ML SUBCUT SCH ×3 (06:00→18:26)
--- NOTE | 2016-10-25 07:58 | Pulmonology Progress Note ---
Pulmonary - PN: Subj Interval history: Patient is a 56-year-old black man that has a history of hypertension and alcohol abuse. He has had some chronic pain issues. He came into the emergency room lethargic and had positive drug screen for cocaine and opiates. He has been put on the ventilator. He has also developed acute renal failure. He did develop worsening infiltrates and was hard to ventilate. Now he has been improving and his chest x-ray is much better. He has adequate oxygenation and his chest x-ray is stable. Last week we tried to extubate him and he did not do very well. His mental status was a significant problem. He has been reintubated and stable over the weekend. He still requires a lot of sedation and is quite agitated. He still does not follow any commands. His chest x-ray shows some mild haziness especially on the left. He did go get a tracheostomy tube. He has been relatively stable on the ventilator but does get agitated quite easily. He still is unable to cooperate and has a significant encephalopathy. His oxygenation has been adequate. He is not having any further bleeding. He will probably have dialysis today. Exam (Progress Note) - Constitutional Vitals: Period Temp Pulse Resp BP Sys/Carbone Pulse Ox Last 24 Hr 97.7 F-99.4 F 83-131 16-31 99-139/57-98 96-100 Exam: General appearance: normal weight, no acute distress (The patient is still quite restless at times. His fever has been under 100.) - Head Head exam: Present: normal inspection, normocephalic - Eye Eye exam: Absent: scleral icterus Pupils: Present: constricted - ENT ENT exam: Present: Unremarkable - Neck Neck exam: Present: He has a tracheostomy tube in place now. He is not having any further bleeding. - Respiratory Respiratory exam: Present: He has good breath sounds bilaterally and he has fairly good air movement. His lungs actually sound better now. - Cardiovascular Cardiovascular exam: Present: regular rate and rhythm. He has a sinus tachycardia. absent: gallop - GI/Abdominal GI/Abdominal exam: Present: hypoactive bowel sounds, soft. Absent: organomegaly , tenderness - Extremities Exam Extremities exam: Absent: calf tenderness, edema - Neurological Exam Neurological exam: Present: Patient will moves extremities but does not follow commands. - Psychiatric Psychiatric exam: he has been extremely agitated. He is sedated now. - Skin Skin exam: Present: warm, dry, he has a skin rash Results - Labs CBC & BMP: 10/21/16 06:04 10/22/16 05:30 Assessment and Plan (1) Acute respiratory failure Status: Acute Assessment and plan: Patient was tried off the ventilator and did not do very well. He never was alert and remained extremely agitated. He still requires a lot of sedation. Yesterday he did get his tracheostomy tube. So far he has not been able to wean. Current Visit: Yes Qualifiers: Respiratory failure complication: hypoxia Qualified Code(s): J96.01 - Acute respiratory failure with hypoxia (2) Acute renal failure Status: Acute Assessment and plan: The patient will continue to require dialysis. His creatinine is 8.2 today. He is tolerating dialysis fairly well. He will probably have dialysis today. Current Visit: Yes Qualifiers: Acute renal failure type: with acute tubular necrosis Qualified Code(s): N17.0 - Acute kidney failure with tubular necrosis (3) Cocaine intoxication Status: Acute Assessment and plan: Patient apparently has had cocaine abuse. He continues to have an encephalopathy. Current Visit: Yes (4) Polysubstance abuse Status: Chronic Assessment and plan: The patient has a history of substance abuse. He has a significant encephalopathy now. Current Visit: Yes (5) Encephalopathy acute Status: Acute Assessment and plan: Patient still gets very restless and mainly has to get some sedation. He never did really wake up very well and remains agitated. He is comfortable at present with sedation. He is very difficult to manage when not on sedation. Current Visit: Yes (6) Anemia Status: Acute Assessment and plan: The patient has an hematocrit of 25.7. Current Visit: Yes
--- NOTE | 2016-10-25 08:05 | Nephrology Progress Note ---
Nephrology - PN: Subj Interval history: Patient remains intubated and sedate Physical exam general patient is chronically ill-appearing, heart is regular rate and rhythm, he has trace to 1+ thigh edema, lungs are clear to auscultation anteriorly, abdomen is soft with positive bowel sounds Assessment/plan 1. Acute renal failure-we will continue hemodialysis support 2. Cocaine intoxication 3. Hyperphosphatemia-I am going to add Renvela to his medical regimen to try and bind his phosphorus 4. Metabolic acidosis we will continue dialysis support. Exam (PN)-Nephrology - Vital Signs Vital signs: Period Temp Pulse Resp BP Sys/Carbone Pulse Ox Last 24 Hr 97.7 F-99.4 F 83-131 16-31 99-139/57-98 96-100 - Lab 10/21/16 06:04 10/22/16 05:30 Most recent lab results ABG pH 7.208 (7.35-7.45) L* 10/24/16 03:00 ABG pCO2 47.7 MM HG (35-48) 10/24/16 03:00 ABG pO2 88.8 MM HG (80-95) 10/24/16 03:00 ABG HCO3 17.3 MMOL/L (20-26) L 10/24/16 03:00 ABG O2 Saturation 94.5 % (95-100) L 10/24/16 03:00 Calcium 7.2 MG/DL (8.5-10.1) L 10/22/16 05:30 Phosphorus 12.2 MG/DL (2.5-4.9) H 10/25/16 02:30 Magnesium 3.0 MG/DL (1.8-2.4) H 10/25/16 02:30 Assessment and Plan (1) Acute renal failure Status: Acute Assessment and plan: This patient presented with a creatinine of 11 is up to 13 mg/dL today. He had cocaine in his system his blood pressure has been at the low end of normal since admission. He is getting dobutamine. He has no history of kidney failure in the past. Will try and get some previous lab from Dr. Garrison's office. To see what his baseline creatinine is been. The patient is also noted to have an elevated CPK level. I would worry that he has an ATN injury related to his cocaine use also contributing could be his elevated CPK level. We will continue IV fluids for now and monitor for improvement. I do not see any acute indication for hemodialysis at this time. With his decreased urine output I am going to decrease his IV fluids to 150 cc an hour from 200 cc an hour. Current Visit: Yes Qualifiers: Acute renal failure type: with acute tubular necrosis Qualified Code(s): N17.0 - Acute kidney failure with tubular necrosis (2) Anemia Status: Acute Assessment and plan: Patient's hematocrit is 28% Current Visit: Yes (3) Acute respiratory failure Status: Acute Assessment and plan: Continue vent support Current Visit: Yes Qualifiers: Respiratory failure complication: hypoxia Qualified Code(s): J96.01 - Acute respiratory failure with hypoxia (4) Altered mental status Status: Acute Current Visit: Yes (5) Cocaine intoxication Status: Acute Current Visit: Yes (6) Hyperkalemia Status: Acute Assessment and plan: His potassium is returning to the normal range Current Visit: Yes (7) Dyslipidemia Status: Chronic Current Visit: Yes (8) Hypertension Status: Chronic Assessment and plan: Patient's blood pressures at the low end of normal he is on dobutamine Current Visit: Yes (9) Metabolic acidosis Status: Acute Assessment and plan: Patient's bicarb is improved to 22 from 20 Current Visit: Yes
[2016-10-25 08:16] LABS: ABG Base Excess -10.8 MMOL/L (-2.5-2.5); ABG HCO3 15.3 MMOL/L (20-26); ABG Oxygen Saturation 96.4 % (95-100); ABG PCO2 34.5 MM HG (35-48); ABG PH 7.264 (7.35-7.45); ABG PO2 104.5 MM HG (80-95); ABG TCO2 16.3 MMOL/L (23-27)
[2016-10-25] MEDS: methylPREDNISolone SOD SUC 40 MG/1 ML VIAL IV SCH ×2 (08:46→17:10)
[2016-10-25] MEDS: FOLIC ACID 1 MG TABLET PO SCH (08:48)
[2016-10-25] MEDS: MULTIVITAMIN (CENTRUM) TABLET PO SCH (08:48)
[2016-10-25] MEDS: THIAMINE 200 MG/2 ML VIAL IV SCH (08:54)
[2016-10-25] MEDS: DESITIN 4OZ/NYSTATIN 15 GRAM MIXTURE PASTE TOP SCH ×2 (08:56→19:30)
[2016-10-25] MEDS: SEVELAMER CARBONATE POWDER 2.4 GM PACK PO SCH ×4 (10:34→21:28)
--- NOTE | 2016-10-25 11:25 | Dialysis Note ---
Dialysis Note - Dialysis Note Patient seen on dialysis. Tolerating the procedure. Blood pressure is 126/70. Cardiovascular regular rate. Lungs are clear.
[2016-10-25] MEDS ORDERED: SKIN HEALING OINT (AQUAPHOR) 50 GM TUBE TOP PRN (12:41)
--- NOTE | 2016-10-25 17:32 | Hospitalist Progress Note ---
Assessment and Plan (1) Acute respiratory failure Status: Acute Assessment and plan: Postop day #2 status post tracheostomy placement. Continue ventilator management and weaning per protocol. Will likely need placement. Current Visit: Yes Qualifiers: Respiratory failure complication: hypoxia Qualified Code(s): J96.01 - Acute respiratory failure with hypoxia (2) Acute renal failure Status: Acute Assessment and plan: Patient requires dialysis. Nephrology following. Current Visit: Yes Qualifiers: Acute renal failure type: with acute tubular necrosis Qualified Code(s): N17.0 - Acute kidney failure with tubular necrosis (3) Polysubstance abuse Status: Chronic Current Visit: Yes (4) Encephalopathy acute Status: Acute Current Visit: Yes (5) Metabolic acidosis Status: Acute Current Visit: Yes (6) Pneumonia Status: Resolved Assessment and plan: The patient has completed a full course of IV antibiotics. He is currently not receiving any further antibiotic therapy. Infectious disease has signed off. He is followed by pulmonary. Remains ventilator dependent after tracheostomy. Current Visit: Yes (7) Ventilator dependent Status: Acute Assessment and plan: Followed by pulmonary. Status post tracheostomy. Current Visit: Yes Hospitalist: Subjective Interval history: Patient seen and examined. No acute events overnight. Case discussed with nursing staff. Labs reviewed. Hemoptysis has improved. Patient continues with sedation. He has not been tolerating tube feeds and they have been stopped. NG tube to suction. We will add Reglan. Remains ventilatory dependent Exam - Constitutional Vitals: Period Temp Pulse Resp BP Sys/Carbone Pulse Ox Last 24 Hr 98.2 F-99.4 F 83-131 16-31 101-142/57-98 10-100 Exam: Constitutional System: Moderately severe distress with tachypnea. No tremulousness. Intubated and sedated Head: Normocephalic, atraumatic. Ears, Nose and Throat System: No pain or tenderness. No epistaxis or discharge. Tracheostomy site noted with minimal bleeding Eyes System: Pupils equal, round, and reactive. Extraocular muscles intact. Neck: Supple, without adenopathy, No jugular venous distention. Respiratory System: Chest coarse bilaterally to auscultation. Cardiovascular System: Heart with tachycardic rate rate and rhythm. No murmur. GI System: Abdomen soft, nontender. Normo active bowel sounds present. Musculoskeletal System: limbs with bilateral edema in arms and legs. Full distal pulses. Neurological System: Unable to assess secondary to sedation Psychiatric System: Unable to assess secondary to patient's condition Results - Labs CBC & BMP: 10/21/16 06:04 10/22/16 05:30 Lab Results: I have reviewed the past 24 hour labs Quality Measures - Stroke Onset of Symptoms Date: 10/07/16
[2016-10-25] MEDS: METOCLOPRAMIDE 10 MG/2 ML VIAL IV SCH (21:28)
[2016-10-26] MEDS: INSULIN REGULAR 100 UNIT/ML SUBCUT SCH ×4 (00:11→18:15)
[2016-10-26] MEDS: methylPREDNISolone SOD SUC 40 MG/1 ML VIAL IV SCH ×3 (00:18→17:20)
[2016-10-26] MEDS: ALBUTEROL/IPRATROPIUM 3 ML NEB RESP TX SCH ×4 (01:13→20:13)
[2016-10-26] MEDS: PROPOFOL 1,000 MG/100 ML BOTTLE IV SCH ×7 (02:51→23:39)
[2016-10-26 02:53] LABS: ABG Base Excess -5.9 MMOL/L (-2.5-2.5); ABG HCO3 19.5 MMOL/L (20-26); ABG Oxygen Saturation 98.4 % (95-100); ABG PCO2 36.7 MM HG (35-48); ABG PH 7.332 (7.35-7.45); ABG TCO2 18.3 MMOL/L (23-27)
[2016-10-26] MEDS: PANTOPRAZOLE 40 MG VIAL IV SCH (02:59)
[2016-10-26] MEDS: METOCLOPRAMIDE 10 MG/2 ML VIAL IV SCH ×3 (03:00→18:38)
[2016-10-26 03:48] LABS: Basophils % 0.1 % (0.0-0.8); Eosinophils # 0.2 10*3/uL (0.0-0.87); Eosinophils % 0.9 % (0.00-10.9); Hematocrit 22.5 VOL% (42.0-52.0); Hemoglobin 7.7 GM/DL (14.0-18.0); Immature Granulocytes % 8.8 %; Immature Granulocytes Absolute 1.76 #; Lymphocytes # 0.7 10*3/uL (1.4-4.0); Lymphocytes % 3.3 % (21.2-54.2); Mean Corpuscular HGB Conc 34.2 GM/DL (32-36); Mean Corpuscular Hemoglobin 32 PG (27-34); Mean Corpuscular Volume 92.2 FL (87-102); Mean Platelet Volume 12.3 FL (9.6-12.0); Monocytes # 0.7 10*3/uL (0.11-0.8); Monocytes % 3.6 % (1.7-12.7); NRBC # 0.07 10*3/uL; Neutrophils # 16.7 10*3/uL (1.4-7.4); Neutrophils % 83.3 % (38.7-73.9); Platelet Count 251 T/CUMM (130-400); Red Blood Count 2.44 MC/CUMM (3.8-5.5); Red Cell Distribution Width 14.5 % (9.3-17.3); White Blood Count 20.1 T/CUMM (4-12)
[2016-10-26] MEDS: ZIPRASIDONE 20 MG/1 ML VIAL IM PRN ×3 (04:05→18:36)
[2016-10-26 04:30] LABS: Calcium 6.6 MG/DL (8.5-10.1); Magnesium 2.8 MG/DL (1.8-2.4); Osmolality,Calculated 295.8 MOS/KG (273-304); Potassium 5.4 MMOL/L (3.5-5.1)
[2016-10-26 05:18] LABS: Band Neutrophils 4 % (0-10); Eosinophils 1 % (0-10); Giant Platelets Few; Hypochromasia Slight; Lymphocytes 5 % (20-55); Microcytosis Slight; Myelocytes 1 %; Platelet Estimate Adequate; Segmented Neutrophils 86 % (50-85); Total Cells Counted 100
--- NOTE | 2016-10-26 07:01 | Pulmonology Progress Note ---
Pulmonary - PN: Subj Interval history: Patient is a 56-year-old black man that has a history of hypertension and alcohol abuse. He has had some chronic pain issues. He came into the emergency room lethargic and had positive drug screen for cocaine and opiates. He has been put on the ventilator. He has also developed acute renal failure. He did develop worsening infiltrates and was hard to ventilate. Now he has been improving and his chest x-ray is much better. He has adequate oxygenation and his chest x-ray is stable. Last week we tried to extubate him and he did not do very well. His mental status was a significant problem. He has been reintubated and stable over the weekend. He still requires a lot of sedation and is quite agitated. He still does not follow any commands. Through the night he did require a lot of suctioning and has some thick secretions. He still does not follow commands but is a little more awake today. His lung compliance is okay but he still has bibasilar infiltrates. His PO2 is adequate. Will plan a therapeutic bronchoscopy today. Exam (Progress Note) - Constitutional Vitals: Period Temp Pulse Resp BP Sys/Carbone Pulse Ox Last 24 Hr 97.0 F-99.2 F 87-127 16-36 96-166/53-106 10-100 Exam: General appearance: normal weight, no acute distress (The patient is a little more alert and still not having any fever now.) - Head Head exam: Present: normal inspection, normocephalic - Eye Eye exam: Absent: scleral icterus Pupils: Present: constricted - ENT ENT exam: Present: Unremarkable - Neck Neck exam: Present: He has a tracheostomy tube in place now. He is not having any further bleeding. - Respiratory Respiratory exam: Present: He has good breath sounds bilaterally but he does have some rhonchi and crackles toward the bases. - Cardiovascular Cardiovascular exam: Present: regular rate and rhythm. He has a sinus tachycardia. absent: gallop - GI/Abdominal GI/Abdominal exam: Present: hypoactive bowel sounds, soft. Absent: organomegaly , tenderness - Extremities Exam Extremities exam: Absent: calf tenderness, edema - Neurological Exam Neurological exam: Present: Patient will moves extremities but does not follow commands. He looks a little more awake today. - Psychiatric Psychiatric exam: he does look a little calmer today. - Skin Skin exam: Present: warm, dry, his skin rash is better. Results - Labs CBC & BMP: 10/26/16 03:15 10/26/16 03:15 Labs: Her PO2 is 135 with a PCO2 of 36 and a pH of 7.33 - Diagnostic Findings Procedure: Chest x-ray: image reviewed by me, report reviewed by me (Chest x- ray still shows bibasilar infiltrates.) Assessment and Plan (1) Acute respiratory failure Status: Acute Assessment and plan: Patient was tried off the ventilator and did not do very well. He looks a little more stable on the ventilator now. He does have a lot of secretions and will proceed with a therapeutic bronchoscopy this morning. Current Visit: Yes Qualifiers: Respiratory failure complication: hypoxia Qualified Code(s): J96.01 - Acute respiratory failure with hypoxia (2) Acute renal failure Status: Acute Assessment and plan: The patient will continue to require dialysis. His creatinine is down to 7.0 after dialysis yesterday. Current Visit: Yes Qualifiers: Acute renal failure type: with acute tubular necrosis Qualified Code(s): N17.0 - Acute kidney failure with tubular necrosis (3) Cocaine intoxication Status: Acute Assessment and plan: Patient apparently has had cocaine abuse. He continues to have an encephalopathy. Current Visit: Yes (4) Polysubstance abuse Status: Chronic Assessment and plan: The patient has a history of substance abuse. He has a significant encephalopathy now. Current Visit: Yes (5) Encephalopathy acute Status: Acute Assessment and plan: Patient still gets very restless but does seem a little more awake today. He still requires sedation at times. Current Visit: Yes (6) Anemia Status: Acute Assessment and plan: The patient has an hematocrit of 22.5. Current Visit: Yes
--- NOTE | 2016-10-26 07:31 | Operative Note ---
Date of procedure: 10/26/16 Pre-op diagnosis: Respiratory failure Post-op diagnosis: other (Mucous plugging and blood clots with bronchitis) Procedure: Patient is a 56-year-old black man on the ventilator with a tracheostomy tube. He is requiring a lot of suctioning and has a difficult time with secretions. A therapeutic bronchoscopy will be done to clear airways. The patient is sedated on the ventilator in the ICU. Procedure: The fiberoptic bronchoscope was passed to the trach tube into the airways. The bronchopulmonary segments were identified but no specimens obtained. Findings: The tracheostomy tube is in good position. The main bronchi are open. There is some thick blood-tinged secretions and clots present bilaterally. These were washed and cleared with the bronchoscope. There is some bronchitis present but no active bleeding. The right upper lobe, right middle lobe, right lower lobe are all open. The left upper lobe, lingula, left lower lobe are open. Once the thick secretions were cleared the procedure was stopped. He tolerated fairly well without problems. Impression: Mucous plugging and retained secretions with blood clots. Mild bronchitis. Plan: We will continue ventilatory support. Anesthesia: conscious sedation Surgeon / Physician: Jesus Alberto Pelayo Estimated blood loss: none Specimens: none sent Condition: critical Disposition: ICU Results - Labs CBC & BMP: 10/26/16 03:15 10/26/16 03:15 Discharge Plan - Discharge Medications No Action Lisinopril 40 mg PO DAILY Citalopram [CeleXA] 40 mg PO DAILY Amitriptyline [Elavil] 25 mg PO BEDTIME amLODIPine [Norvasc] 5 mg PO DAILY Atorvastatin [Lipitor] 40 mg PO DAILY Trazodone HCl 100 mg PO BEDTIME PRN PRN Reason: Sleep Metoprolol Tartrate 50 mg PO BID Ranitidine Tab [Zantac Tab] 150 mg PO BID Acetic Acid 2% Otic Soln [Vosol 2% Otic Soln] 5 drop LEFT EAR QID #15 ml Rosuvastatin [Crestor] 40 mg PO DAILY Gabapentin Cap/Tab [Neurontin Cap/Tab] 400 mg PO BID Meloxicam 7.5 mg PO Buspirone HCl 10 mg PO hydroCHLOROthiazide [Hydrochlorothiazide] 25 mg PO DAILY Topiramate [Topamax] 50 mg PO BID - Follow Up or Referral - Forms/Instructions
--- NOTE | 2016-10-26 08:21 | XRay Report ---
Portable chest Date: 10/26/2016 Clinical history: Ventilator Comparison: 10/24/2016 Technique: Portable AP sitting chest Findings: The heart is slightly larger in size with progressive diffuse parenchymal findings. Supportive devices are stable in position. No acute osseous findings. Impression: Supportive devices are in satisfactory position. Progressive atelectasis/infiltration/edema especially at the lung bases with small pleural effusions. PROCEDURE INTERPRETED AT [facility] DEPARTMENT OF RADIOLOGY Final Report Signed by: Dr. Nancy Paz
--- NOTE | 2016-10-26 09:39 | Nephrology Progress Note ---
Nephrology - PN: Subj Interval history: Patient is trached and sedate, he does open his eyes and seems to fixate on occasion. Physical exam general patient is chronically ill-appearing, heart is regular rate and rhythm, he has trace thigh edema, lungs are clear to auscultation anteriorly, abdomen is soft with positive bowel sounds Assessment/plan 1. Acute renal failure-we will continue hemodialysis support 2. Cocaine intoxication 3. Hyperkalemia-we will plan on dialysis tomorrow 4. Respiratory failure continue vent support 5. Anemia-patient is getting her erythropoietin 8000 units IV q. HD, will check his iron studies on dialysis tomorrow, will recheck a CBC on hemodialysis tomorrow Exam (PN)-Nephrology - Vital Signs Vital signs: Period Temp Pulse Resp BP Sys/Carboen Pulse Ox Last 24 Hr 97.0 F-99.2 F 87-127 16-36 96-166/53-106 92-100 - Lab 10/26/16 03:15 10/26/16 03:15 Most recent lab results ABG pH 7.332 (7.35-7.45) L 10/26/16 02:50 ABG pCO2 36.7 MM HG (35-48) 10/26/16 02:50 ABG pO2 135.0 MM HG (80-95) H 10/26/16 02:50 ABG HCO3 19.5 MMOL/L (20-26) L 10/26/16 02:50 ABG O2 Saturation 98.4 % (95-100) 10/26/16 02:50 Calcium 6.6 MG/DL (8.5-10.1) L 10/26/16 03:15 Phosphorus 12.2 MG/DL (2.5-4.9) H 10/25/16 02:30 Magnesium 2.8 MG/DL (1.8-2.4) H 10/26/16 03:15 Assessment and Plan (1) Acute renal failure Status: Acute Assessment and plan: This patient presented with a creatinine of 11 is up to 13 mg/dL today. He had cocaine in his system his blood pressure has been at the low end of normal since admission. He is getting dobutamine. He has no history of kidney failure in the past. Will try and get some previous lab from Dr. Garrison's office. To see what his baseline creatinine is been. The patient is also noted to have an elevated CPK level. I would worry that he has an ATN injury related to his cocaine use also contributing could be his elevated CPK level. We will continue IV fluids for now and monitor for improvement. I do not see any acute indication for hemodialysis at this time. With his decreased urine output I am going to decrease his IV fluids to 150 cc an hour from 200 cc an hour. Current Visit: Yes Qualifiers: Acute renal failure type: with acute tubular necrosis Qualified Code(s): N17.0 - Acute kidney failure with tubular necrosis (2) Anemia Status: Acute Assessment and plan: Patient's hematocrit is 28% Current Visit: Yes (3) Acute respiratory failure Status: Acute Assessment and plan: Continue vent support Current Visit: Yes Qualifiers: Respiratory failure complication: hypoxia Qualified Code(s): J96.01 - Acute respiratory failure with hypoxia (4) Altered mental status Status: Acute Current Visit: Yes (5) Cocaine intoxication Status: Acute Current Visit: Yes (6) Hyperkalemia Status: Acute Assessment and plan: His potassium is returning to the normal range Current Visit: Yes (7) Dyslipidemia Status: Chronic Current Visit: Yes (8) Hypertension Status: Chronic Assessment and plan: Patient's blood pressures at the low end of normal he is on dobutamine Current Visit: Yes (9) Metabolic acidosis Status: Acute Assessment and plan: Patient's bicarb is improved to 22 from 20 Current Visit: Yes
[2016-10-26] MEDS: MULTIVITAMIN (CENTRUM) TABLET PO SCH (09:43)
[2016-10-26] MEDS: SEVELAMER CARBONATE POWDER 2.4 GM PACK PO SCH ×4 (09:43→22:51)
[2016-10-26] MEDS: DESITIN 4OZ/NYSTATIN 15 GRAM MIXTURE PASTE TOP SCH ×2 (09:43→22:51)
[2016-10-26] MEDS: THIAMINE 200 MG/2 ML VIAL IV SCH (09:44)
[2016-10-26] MEDS: FOLIC ACID 1 MG TABLET PO SCH (09:44)
--- NOTE | 2016-10-26 19:16 | Hospitalist Progress Note ---
Hospitalist: Subjective Interval history: Patient is a 56 AAM that has a history of hypertension and alcohol abuse who is in the hospital over 2 weeks. He remains encephalopathic and on mechanical ventilator. He has a tracheostomy now. He is not in any sort of distress. Exam - Constitutional Vitals: Period Temp Pulse Resp BP Sys/Carbone Pulse Ox Last 24 Hr 97.0 F-99.3 F 88-130 16-37 96-166/62-106 92-100 Exam: Constitutional System: No distress. No tremulousness. Intubated and sedated Head: Normocephalic, atraumatic. Ears, Nose and Throat System: No pain or tenderness. No epistaxis or discharge. Tracheostomy site noted with minimal bleeding Eyes System: Pupils equal, round, and reactive. Extraocular muscles intact. Neck: Supple, without adenopathy, No jugular venous distention. Respiratory System: Chest coarse bilaterally to auscultation. Cardiovascular System: Heart with tachycardic rate rate and rhythm. No murmur. GI System: Abdomen soft, nontender. Normo active bowel sounds present. Musculoskeletal System: limbs with bilateral edema in arms and legs. Full distal pulses. Neurological System: Unable to assess secondary to sedation Results - Labs CBC & BMP: 10/26/16 03:15 10/26/16 03:15 - Impressions Assessment and Plan (1) Acute respiratory failure Status: Acute Assessment and plan: Postop day #2 status post tracheostomy placement. Continue ventilator management and weaning per protocol. Will likely need placement. Current Visit: Yes Qualifiers: Respiratory failure complication: hypoxia Qualified Code(s): J96.01 - Acute respiratory failure with hypoxia (2) Acute renal failure Status: Acute Assessment and plan: Patient requires dialysis. Nephrology following. Current Visit: Yes Qualifiers: Acute renal failure type: with acute tubular necrosis Qualified Code(s): N17.0 - Acute kidney failure with tubular necrosis (3) Polysubstance abuse Status: Chronic Current Visit: Yes (4) Encephalopathy acute Status: Acute Current Visit: Yes (5) Metabolic acidosis Status: Acute Current Visit: Yes (6) Pneumonia Status: Resolved Assessment and plan: The patient has completed a full course of IV antibiotics. He is currently not receiving any further antibiotic therapy. Infectious disease has signed off. He is followed by pulmonary. Remains ventilator dependent after tracheostomy. Current Visit: Yes (7) Ventilator dependent Status: Acute Assessment and plan: Followed by pulmonary. Status post tracheostomy. Current Visit: Yes Quality Measures - Stroke Onset of Symptoms Date: 10/07/16
[2016-10-26] MEDS: VECURONIUM 10 MG VIAL IV PRN (19:38)
[2016-10-27] MEDS: INSULIN REGULAR 100 UNIT/ML SUBCUT SCH ×4 (01:28→18:50)
[2016-10-27] MEDS: methylPREDNISolone SOD SUC 40 MG/1 ML VIAL IV SCH ×3 (01:32→17:06)
[2016-10-27] MEDS: PROPOFOL 1,000 MG/100 ML BOTTLE IV SCH ×7 (01:57→20:17)
[2016-10-27] MEDS: ALBUTEROL/IPRATROPIUM 3 ML NEB RESP TX SCH ×4 (02:13→19:26)
[2016-10-27] MEDS: PANTOPRAZOLE 40 MG VIAL IV SCH (03:45)
[2016-10-27] MEDS: METOCLOPRAMIDE 10 MG/2 ML VIAL IV SCH ×3 (03:46→18:49)
[2016-10-27] MEDS: ZIPRASIDONE 20 MG/1 ML VIAL IM PRN ×4 (03:47→20:18)
[2016-10-27 06:00] LABS: Basophils % 0.1 % (0.0-0.8); Eosinophils # 0.2 10*3/uL (0.0-0.87); Eosinophils % 0.6 % (0.00-10.9); Hematocrit 24.9 VOL% (42.0-52.0); Hemoglobin 8.7 GM/DL (14.0-18.0); Immature Granulocytes % 8.3 %; Immature Granulocytes Absolute 2.21 #; Lymphocytes # 0.8 10*3/uL (1.4-4.0); Lymphocytes % 2.9 % (21.2-54.2); Mean Corpuscular HGB Conc 34.9 GM/DL (32-36); Mean Corpuscular Hemoglobin 32 PG (27-34); Mean Corpuscular Volume 91.2 FL (87-102); Mean Platelet Volume 12.4 FL (9.6-12.0); Monocytes # 0.8 10*3/uL (0.11-0.8); NRBC # 0.09 10*3/uL; Neutrophils # 22.8 10*3/uL (1.4-7.4); Neutrophils % 85.1 % (38.7-73.9); Platelet Count 312 T/CUMM (130-400); Red Blood Count 2.73 MC/CUMM (3.8-5.5); Red Cell Distribution Width 14.4 % (9.3-17.3); White Blood Count 26.8 T/CUMM (4-12)
[2016-10-27 06:42] LABS: Band Neutrophils 3 % (0-10); Eosinophils 1 % (0-10); Hypochromasia 1+; Lymphocytes 1 % (20-55); Metamyelocytes 1 %; Nucleated Red Blood Cells 1 (0-5); Segmented Neutrophils 89 % (50-85); Total Cells Counted 100
[2016-10-27 06:43] LABS: Microcytosis Slight; Platelet Estimate Normal
--- NOTE | 2016-10-27 07:13 | Pulmonology Progress Note ---
Pulmonary - PN: Subj Interval history: Called last night by nursing, patient becoming agitated and desatting. Adjusted vent settings with higher peep and sats improved. CXR did not show any acute process. No further issues throughout the night. This morning patient is awake and alert, but does not appear to understand questions or engage meaningfully Exam (Progress Note) - Constitutional Vitals: Period Temp Pulse Resp BP Sys/Carbone Pulse Ox Last 24 Hr 98.2 F-99.3 F 95-130 16-40 107-166/62-101 90-100 General appearance: normal weight, no acute distress - Head Head exam: Present: normal inspection - ENT ENT exam: Present: normal exam - Neck Neck exam: Present: other (trach in place) - Respiratory Respiratory exam: Present: clear to auscultation bilaterally - Cardiovascular Cardiovascular exam: Present: tachycardia - GI/Abdominal GI/Abdominal exam: Present: normal bowel sounds Results - Labs CBC & BMP: 10/27/16 05:00 10/26/16 03:15 Lab Results: I have reviewed the past 24 hour labs - Diagnostic Findings Procedure: Chest x-ray: image reviewed by me (reviewd images, no acute effusion consolidation or pneumothorax to explain hypoxia. trach in place) Assessment and Plan (1) Acute respiratory failure Status: Acute Assessment and plan: Patient s/p respiratory failure and ARDS following substance intoxication. Suspect that patient may have either developed some pulmonary fibrosis following the ARDS or had underlying fibrosis from substance inhalation. No other obvious explanation for his difficulty wiht oxygenation at this time. Will continue to wean as tolerated over the weekend, but suspect that he may require supplemental oxygen indefinitely. Also not tolerating spontaeous well as he gets extremely agitated. Continue with vent supprt for now Current Visit: Yes Qualifiers: Respiratory failure complication: hypoxia Qualified Code(s): J96.01 - Acute respiratory failure with hypoxia
[2016-10-27 07:50] LABS: ABG Base Excess -9.4 MMOL/L (-2.5-2.5); ABG HCO3 16.9 MMOL/L (20-26); ABG Oxygen Saturation 97.9 % (95-100); ABG PCO2 30.6 MM HG (35-48); ABG PH 7.319 (7.35-7.45); ABG TCO2 14.5 MMOL/L (23-27); Allen Test Positive; Pt O2 Delivery Device Ventilator
--- NOTE | 2016-10-27 08:00 | XRay Report ---
XR chest 1V portable Indication: History provided by ordering clinician "check for plug". Tracheostomy. Chest one view: Comparison 0307 hours. Tracheostomy, dialysis catheter, NG tube, borderline cardiomegaly and interstitial haziness to the lung oliveros again shown. Right lung bases somewhat more obscured than previous whereas left lung base remains obscured, unchanged. Impression: Progressive right basilar atelectasis or pneumonia. Otherwise no change. PROCEDURE INTERPRETED AT [facility] DEPARTMENT OF RADIOLOGY Final Report Signed by: Nash Chowdhury M.D.
[2016-10-27] MEDS: SEVELAMER CARBONATE POWDER 2.4 GM PACK PO SCH ×4 (08:30→20:17)
[2016-10-27] MEDS: MULTIVITAMIN (CENTRUM) TABLET PO SCH (08:30)
[2016-10-27] MEDS: FOLIC ACID 1 MG TABLET PO SCH (08:30)
[2016-10-27] MEDS: THIAMINE 200 MG/2 ML VIAL IV SCH (08:31)
[2016-10-27] MEDS: DESITIN 4OZ/NYSTATIN 15 GRAM MIXTURE PASTE TOP SCH ×2 (08:32→20:17)
[2016-10-27] MEDS: VECURONIUM 10 MG VIAL IV PRN ×3 (09:21→18:00)
--- NOTE | 2016-10-27 09:49 | XRay Report ---
XR chest 1V portable Indication: Ventilator. Chest one view: Since yesterday, tracheostomy, NG tube, central line, borderline cardiomegaly and reticular prominence of the lung oliveros again shown. There is slightly improved aeration of both lung bases with improved delineation of the diaphragm. Impression: Improved aeration of the lung bases. PROCEDURE INTERPRETED AT [facility] DEPARTMENT OF RADIOLOGY Final Report Signed by: Nash Chowdhury M.D.
--- NOTE | 2016-10-27 12:08 | Nephrology Progress Note ---
Nephrology - PN: Subj Interval history: Patient remains intubated and sedate. Physical exam-general the patient chronically ill-appearing, heart is regular rate and rhythm, he has no pitting edema, lungs are clear to auscultation anteriorly, abdomen is soft with positive bowel sounds Assessment/plan 1. Acute renal failure-continue hemodialysis support patient was dialyzed today 2. Cocaine intoxication 3. Respiratory failure continue vent support Exam (PN)-Nephrology - Vital Signs Vital signs: Period Temp Pulse Resp BP Sys/Carbone Pulse Ox Last 24 Hr 98 F-99.8 F 95-142 16-45 109-151/62-101 90-100 - Lab 10/27/16 05:00 10/26/16 03:15 Most recent lab results ABG pH 7.319 (7.35-7.45) L 10/27/16 07:18 ABG pCO2 30.6 MM HG (35-48) L 10/27/16 07:18 ABG pO2 127.0 MM HG (80-95) H 10/27/16 07:18 ABG HCO3 16.9 MMOL/L (20-26) L 10/27/16 07:18 ABG O2 Saturation 97.9 % (95-100) 10/27/16 07:18 Calcium 6.6 MG/DL (8.5-10.1) L 10/26/16 03:15 Phosphorus 12.2 MG/DL (2.5-4.9) H 10/25/16 02:30 Magnesium 2.8 MG/DL (1.8-2.4) H 10/26/16 03:15 Assessment and Plan (1) Acute renal failure Status: Acute Assessment and plan: This patient presented with a creatinine of 11 is up to 13 mg/dL today. He had cocaine in his system his blood pressure has been at the low end of normal since admission. He is getting dobutamine. He has no history of kidney failure in the past. Will try and get some previous lab from Dr. Garrison's office. To see what his baseline creatinine is been. The patient is also noted to have an elevated CPK level. I would worry that he has an ATN injury related to his cocaine use also contributing could be his elevated CPK level. We will continue IV fluids for now and monitor for improvement. I do not see any acute indication for hemodialysis at this time. With his decreased urine output I am going to decrease his IV fluids to 150 cc an hour from 200 cc an hour. Current Visit: Yes Qualifiers: Acute renal failure type: with acute tubular necrosis Qualified Code(s): N17.0 - Acute kidney failure with tubular necrosis (2) Anemia Status: Acute Assessment and plan: Patient's hematocrit is 28% Current Visit: Yes (3) Acute respiratory failure Status: Acute Assessment and plan: Continue vent support Current Visit: Yes Qualifiers: Respiratory failure complication: hypoxia Qualified Code(s): J96.01 - Acute respiratory failure with hypoxia (4) Altered mental status Status: Acute Current Visit: Yes (5) Cocaine intoxication Status: Acute Current Visit: Yes (6) Hyperkalemia Status: Acute Assessment and plan: His potassium is returning to the normal range Current Visit: Yes (7) Dyslipidemia Status: Chronic Current Visit: Yes (8) Hypertension Status: Chronic Assessment and plan: Patient's blood pressures at the low end of normal he is on dobutamine Current Visit: Yes (9) Metabolic acidosis Status: Acute Assessment and plan: Patient's bicarb is improved to 22 from 20 Current Visit: Yes
--- NOTE | 2016-10-27 16:19 | Hospitalist Progress Note ---
Hospitalist: Subjective Interval history: Patient is a 56 AAM that has a history of hypertension and alcohol abuse who is in the hospital over 2 weeks. He remains encephalopathic and on mechanical ventilator. He has a tracheostomy now. Exam - Constitutional Vitals: Period Temp Pulse Resp BP Sys/Carbone Pulse Ox Last 24 Hr 98 F-99.8 F 95-142 17-45 95-151/55-97 90-100 Exam: Constitutional System: No distress. No tremulousness. Intubated and sedated Head: Normocephalic, atraumatic. Ears, Nose and Throat System: No pain or tenderness. No epistaxis or discharge. Tracheostomy site noted with minimal bleeding Eyes System: Pupils equal, round, and reactive. Extraocular muscles intact. Neck: Supple, without adenopathy, No jugular venous distention. Respiratory System: Chest coarse bilaterally to auscultation. Cardiovascular System: Heart with tachycardic rate rate and rhythm. No murmur. GI System: Abdomen soft, nontender. Normo active bowel sounds present. Musculoskeletal System: limbs with bilateral edema in arms and legs. Full distal pulses. Neurological System: Unable to assess secondary to sedation Results - Labs CBC & BMP: 10/27/16 05:00 10/26/16 03:15 - Impressions Assessment and Plan (1) Acute respiratory failure Status: Acute Assessment and plan: Postop day #2 status post tracheostomy placement. Continue ventilator management and weaning per protocol. Will likely need placement. Current Visit: Yes Qualifiers: Respiratory failure complication: hypoxia Qualified Code(s): J96.01 - Acute respiratory failure with hypoxia (2) Acute renal failure Status: Acute Assessment and plan: Patient requires dialysis. Nephrology following. Current Visit: Yes Qualifiers: Acute renal failure type: with acute tubular necrosis Qualified Code(s): N17.0 - Acute kidney failure with tubular necrosis (3) Polysubstance abuse Status: Chronic Current Visit: Yes (4) Encephalopathy acute Status: Acute Current Visit: Yes (5) Metabolic acidosis Status: Acute Current Visit: Yes (6) Pneumonia Status: Resolved Assessment and plan: The patient has completed a full course of IV antibiotics. He is currently not receiving any further antibiotic therapy. Infectious disease has signed off. He is followed by pulmonary. Remains ventilator dependent after tracheostomy. Current Visit: Yes (7) Ventilator dependent Status: Acute Assessment and plan: Followed by pulmonary. Status post tracheostomy. Current Visit: Yes Quality Measures - Stroke Onset of Symptoms Date: 10/07/16
[2016-10-27] MEDS: ACETAMINOPHEN 325 MG TABLET PO PRN (20:18)
[2016-10-28] MEDS: PROPOFOL 1,000 MG/100 ML BOTTLE IV SCH ×7 (00:12→21:45)
[2016-10-28] MEDS: INSULIN REGULAR 100 UNIT/ML SUBCUT SCH ×5 (00:45→23:55)
[2016-10-28] MEDS: methylPREDNISolone SOD SUC 40 MG/1 ML VIAL IV SCH ×4 (00:45→23:35)
[2016-10-28] MEDS: ALBUTEROL/IPRATROPIUM 3 ML NEB RESP TX SCH ×4 (01:18→19:43)
[2016-10-28] MEDS: ZIPRASIDONE 20 MG/1 ML VIAL IM PRN ×3 (01:42→17:57)
[2016-10-28] MEDS: ACETAMINOPHEN 325 MG TABLET PO PRN ×3 (01:42→20:13)
[2016-10-28] MEDS: VECURONIUM 10 MG VIAL IV PRN ×2 (01:42→14:44)
[2016-10-28] MEDS: METOCLOPRAMIDE 10 MG/2 ML VIAL IV SCH ×3 (02:06→18:02)
[2016-10-28] MEDS: PANTOPRAZOLE 40 MG VIAL IV SCH (02:06)
--- NOTE | 2016-10-28 07:57 | Pulmonology Progress Note ---
Pulmonary - PN: Subj Interval history: Patient did much better the last 24 hours from a pulmonary standpoint on pressure control instead of volume control. Has not had any further desaturation episodes Exam (Progress Note) - Constitutional Vitals: Period Temp Pulse Resp BP Sys/Carbone Pulse Ox Last 24 Hr 98 F-99.6 F 98-142 17-45 91-145/55-97 94-100 General appearance: no acute distress - Head Head exam: Present: normal inspection - Respiratory Respiratory exam: Present: clear to auscultation bilaterally. Absent: accessory muscle use, rales, rhonchi, stridor, wheezes Results - Labs CBC & BMP: 10/27/16 05:00 10/26/16 03:15 Lab Results: I have reviewed the past 24 hour labs Assessment and Plan (1) Acute respiratory failure Status: Acute Assessment and plan: Patient s/p respiratory failure and ARDS following substance intoxication. Patient doing better on PC. Will attempt to wean down Peep and Fio2 so he can resume CPAP weaning. 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
[2016-10-28 08:05] LABS: % Iron Saturation 20.9 % (18-50); Ferritin 1099.1 ng/ml (26-388)
[2016-10-28] MEDS: SEVELAMER CARBONATE POWDER 2.4 GM PACK PO SCH ×4 (08:38→20:12)
[2016-10-28] MEDS: FOLIC ACID 1 MG TABLET PO SCH (08:38)
[2016-10-28] MEDS: MULTIVITAMIN (CENTRUM) TABLET PO SCH (08:38)
[2016-10-28] MEDS: THIAMINE 200 MG/2 ML VIAL IV SCH (08:39)
[2016-10-28] MEDS: DESITIN 4OZ/NYSTATIN 15 GRAM MIXTURE PASTE TOP SCH ×2 (09:38→20:12)
[2016-10-28 09:49] LABS: Apearance,Urine CLOUDY (Clear); Bacteria,Urine Few /HPF (Few); Bilirubin,Urine Negative (Negative); Blood, Urine Moderate mg/dL (Negative); Glucose,Urine (UA) Negative (Negative); Ketones,Urine Negative (Negative); Mucus,Urine Occasional /LPF (Occasional); Nitrite,Urine Negative (Negative); Protein,Urine 100 MG/DL; RBC,Urine 648 /HPF (0-4); Squamous Epithelial Cell,Urine Occasional /HPF (0-10); Urine Specific Gravity 1.015 (1.001-1.035); Urine Urobilinogen < 2.0 EU/DL (0.2-1.0); WBC,Urine 268 /HPF (0-6)
[2016-10-28 09:50] LABS: Urine Color Yellow (Yellow)
--- NOTE | 2016-10-28 10:25 | Nephrology Progress Note ---
Nephrology - PN: Subj Interval history: Patient has his eyes open, he seems to fix and follow. He has a trach in place Physical exam general the patient chronically ill-appearing, heart is regular rate and rhythm, he has 1+ thigh edema, lungs are clear to auscultation anteriorly, abdomen is soft with positive bowel sounds Assessment/plan: 1. Acute renal failure-this patient continues to require hemodialysis support, he is making about 10-15 cc an hour now we will continue to monitor this 2. Cocaine intoxication 3. Respiratory failure continue ventilator support Exam (PN)-Nephrology - Vital Signs Vital signs: Period Temp Pulse Resp BP Sys/Carbone Pulse Ox Last 24 Hr 98 F-99.6 F 98-142 17-35 91-119/55-75 94-100 - Lab 10/27/16 05:00 10/26/16 03:15 Most recent lab results ABG pH 7.319 (7.35-7.45) L 10/27/16 07:18 ABG pCO2 30.6 MM HG (35-48) L 10/27/16 07:18 ABG pO2 127.0 MM HG (80-95) H 10/27/16 07:18 ABG HCO3 16.9 MMOL/L (20-26) L 10/27/16 07:18 ABG O2 Saturation 97.9 % (95-100) 10/27/16 07:18 Calcium 6.6 MG/DL (8.5-10.1) L 10/26/16 03:15 Phosphorus 12.2 MG/DL (2.5-4.9) H 10/25/16 02:30 Magnesium 2.8 MG/DL (1.8-2.4) H 10/26/16 03:15 Assessment and Plan (1) Acute renal failure Status: Acute Assessment and plan: This patient presented with a creatinine of 11 is up to 13 mg/dL today. He had cocaine in his system his blood pressure has been at the low end of normal since admission. He is getting dobutamine. He has no history of kidney failure in the past. Will try and get some previous lab from Dr. Garrison's office. To see what his baseline creatinine is been. The patient is also noted to have an elevated CPK level. I would worry that he has an ATN injury related to his cocaine use also contributing could be his elevated CPK level. We will continue IV fluids for now and monitor for improvement. I do not see any acute indication for hemodialysis at this time. With his decreased urine output I am going to decrease his IV fluids to 150 cc an hour from 200 cc an hour. Current Visit: Yes Qualifiers: Acute renal failure type: with acute tubular necrosis Qualified Code(s): N17.0 - Acute kidney failure with tubular necrosis (2) Anemia Status: Acute Assessment and plan: Patient's hematocrit is 28% Current Visit: Yes (3) Acute respiratory failure Status: Acute Assessment and plan: Continue vent support Current Visit: Yes Qualifiers: Respiratory failure complication: hypoxia Qualified Code(s): J96.01 - Acute respiratory failure with hypoxia (4) Altered mental status Status: Acute Current Visit: Yes (5) Cocaine intoxication Status: Acute Current Visit: Yes (6) Hyperkalemia Status: Acute Assessment and plan: His potassium is returning to the normal range Current Visit: Yes (7) Dyslipidemia Status: Chronic Current Visit: Yes (8) Hypertension Status: Chronic Assessment and plan: Patient's blood pressures at the low end of normal he is on dobutamine Current Visit: Yes (9) Metabolic acidosis Status: Acute Assessment and plan: Patient's bicarb is improved to 22 from 20 Current Visit: Yes
--- NOTE | 2016-10-28 16:01 | Hospitalist Progress Note ---
Hospitalist: Subjective Interval history: 56 AAM that has a history of hypertension and alcohol abuse who is in the hospital over 2 weeks. He remains encephalopathic and on mechanical ventilator. He has a tracheostomy now. Exam - Constitutional Vitals: Period Temp Pulse Resp BP Sys/Carbone Pulse Ox Last 24 Hr 98.2 F-99.6 F 98-143 17-33 91-163/56-94 94-100 Exam: Constitutional System: No distress. No tremulousness. Intubated and sedated Head: Normocephalic, atraumatic. Ears, Nose and Throat System: No pain or tenderness. No epistaxis or discharge. Tracheostomy site noted with minimal bleeding Eyes System: Pupils equal, round, and reactive. Extraocular muscles intact. Neck: Supple, without adenopathy, No jugular venous distention. Respiratory System: Chest coarse bilaterally to auscultation. Cardiovascular System: Heart with tachycardic rate rate and rhythm. No murmur. GI System: Abdomen soft, nontender. Normo active bowel sounds present. Musculoskeletal System: limbs with bilateral edema in arms and legs. Full distal pulses. Neurological System: Unable to assess secondary to sedation Results - Labs CBC & BMP: 10/27/16 05:00 10/26/16 03:15 - Impressions Assessment and Plan (1) Acute respiratory failure Status: Acute Assessment and plan: Postop day #2 status post tracheostomy placement. Continue ventilator management and weaning per protocol. Will likely need placement. Current Visit: Yes Qualifiers: Respiratory failure complication: hypoxia Qualified Code(s): J96.01 - Acute respiratory failure with hypoxia (2) Acute renal failure Status: Acute Assessment and plan: Patient is on HD. Nephrology following. Current Visit: Yes Qualifiers: Acute renal failure type: with acute tubular necrosis Qualified Code(s): N17.0 - Acute kidney failure with tubular necrosis (3) Polysubstance abuse Status: Chronic Current Visit: Yes (4) Encephalopathy acute Status: Acute Current Visit: Yes (5) Metabolic acidosis Status: Acute Current Visit: Yes (6) Pneumonia Status: Resolved Assessment and plan: The patient has completed a full course of IV antibiotics. He is currently not receiving any further antibiotic therapy. Infectious disease has signed off. He is followed by pulmonary. Remains ventilator dependent after tracheostomy. Current Visit: Yes (7) Ventilator dependent Status: Acute Assessment and plan: Followed by pulmonary. Status post tracheostomy. Current Visit: Yes Quality Measures - Stroke Onset of Symptoms Date: 10/07/16
[2016-10-28] MEDS: HYDROcod/ACETAMIN 7.5-325 MG/15 ML UDCUP PER TUBE PRN (18:12)
[2016-10-29] MEDS: VECURONIUM 10 MG VIAL IV PRN (00:10)
[2016-10-29] MEDS: HYDROcod/ACETAMIN 7.5-325 MG/15 ML UDCUP PER TUBE PRN ×3 (00:21→16:22)
[2016-10-29] MEDS: ZIPRASIDONE 20 MG/1 ML VIAL IM PRN ×4 (00:32→17:30)
[2016-10-29] MEDS: ALBUTEROL/IPRATROPIUM 3 ML NEB RESP TX SCH ×4 (01:07→20:17)
[2016-10-29] MEDS: PROPOFOL 1,000 MG/100 ML BOTTLE IV SCH ×9 (01:30→22:31)
[2016-10-29] MEDS: PANTOPRAZOLE 40 MG VIAL IV SCH (01:55)
[2016-10-29] MEDS: METOCLOPRAMIDE 10 MG/2 ML VIAL IV SCH ×3 (02:00→20:52)
[2016-10-29 05:54] LABS: Magnesium 3.1 MG/DL (1.8-2.4); Phosphorous 10.8 MG/DL (2.5-4.9)
[2016-10-29] MEDS: ACETAMINOPHEN 325 MG TABLET PO PRN (06:15)
[2016-10-29 06:20] LABS: Prealbumin 34.4 MG/DL (20-40)
[2016-10-29] MEDS: INSULIN REGULAR 100 UNIT/ML SUBCUT SCH ×4 (06:24→23:20)
--- NOTE | 2016-10-29 06:59 | Nephrology Progress Note ---
Nephrology - PN: Subj Interval history: Patient is trached and sedate, he does open his eyes this morning however is difficult to say whether he is fixing and following. Physical exam general the patient is chronically ill-appearing, heart is regular rate and rhythm, he has no pitting edema, lungs are clear to auscultation anteriorly, abdomen is soft with positive bowel sounds Assessment/plan 1. Acute renal failure-patient's urine output is increasing slightly said about 10-15 cc the past 8 hours or so per hour 2. Cocaine intoxication 3. Respiratory failure continue trach care Exam (PN)-Nephrology - Vital Signs Vital signs: Period Temp Pulse Resp BP Sys/Carbone Pulse Ox Last 24 Hr 98.1 F-99.5 F 76-143 16-38 97-163/56-94 95-100 - Lab 10/27/16 05:00 10/26/16 03:15 Most recent lab results ABG pH 7.319 (7.35-7.45) L 10/27/16 07:18 ABG pCO2 30.6 MM HG (35-48) L 10/27/16 07:18 ABG pO2 127.0 MM HG (80-95) H 10/27/16 07:18 ABG HCO3 16.9 MMOL/L (20-26) L 10/27/16 07:18 ABG O2 Saturation 97.9 % (95-100) 10/27/16 07:18 Calcium 6.6 MG/DL (8.5-10.1) L 10/26/16 03:15 Phosphorus 10.8 MG/DL (2.5-4.9) H 10/29/16 04:40 Magnesium 3.1 MG/DL (1.8-2.4) H 10/29/16 04:40 Assessment and Plan (1) Acute renal failure Status: Acute Assessment and plan: This patient presented with a creatinine of 11 is up to 13 mg/dL today. He had cocaine in his system his blood pressure has been at the low end of normal since admission. He is getting dobutamine. He has no history of kidney failure in the past. Will try and get some previous lab from Dr. Garrison's office. To see what his baseline creatinine is been. The patient is also noted to have an elevated CPK level. I would worry that he has an ATN injury related to his cocaine use also contributing could be his elevated CPK level. We will continue IV fluids for now and monitor for improvement. I do not see any acute indication for hemodialysis at this time. With his decreased urine output I am going to decrease his IV fluids to 150 cc an hour from 200 cc an hour. Current Visit: Yes Qualifiers: Acute renal failure type: with acute tubular necrosis Qualified Code(s): N17.0 - Acute kidney failure with tubular necrosis (2) Anemia Status: Acute Assessment and plan: Patient's hematocrit is 28% Current Visit: Yes (3) Acute respiratory failure Status: Acute Assessment and plan: Continue vent support Current Visit: Yes Qualifiers: Respiratory failure complication: hypoxia Qualified Code(s): J96.01 - Acute respiratory failure with hypoxia (4) Altered mental status Status: Acute Current Visit: Yes (5) Cocaine intoxication Status: Acute Current Visit: Yes (6) Hyperkalemia Status: Acute Assessment and plan: His potassium is returning to the normal range Current Visit: Yes (7) Dyslipidemia Status: Chronic Current Visit: Yes (8) Hypertension Status: Chronic Assessment and plan: Patient's blood pressures at the low end of normal he is on dobutamine Current Visit: Yes (9) Metabolic acidosis Status: Acute Assessment and plan: Patient's bicarb is improved to 22 from 20 Current Visit: Yes
--- NOTE | 2016-10-29 07:59 | Pulmonology Progress Note ---
Pulmonary - PN: Subj Interval history: Patient is a 56-year-old black man that has a history of hypertension and alcohol abuse. He has had some chronic pain issues. He came into the emergency room lethargic and had positive drug screen for cocaine and opiates. He has been put on the ventilator. He has also developed acute renal failure. He did develop worsening infiltrates and was hard to ventilate. Now he has been improving and his chest x-ray is much better. He has adequate oxygenation and his chest x-ray is stable. Last week we tried to extubate him and he did not do very well. His mental status was a significant problem. He has been reintubated and stable over the weekend. He still requires a lot of sedation and is quite agitated. He still does not follow any commands. Over the weekend he has done a little better. He was changed to pressure control ventilation and is compliant seems okay. He has been ventilating comfortably and did do a couple hours of CPAP. He is more awake but still does not follow commands. His oxygenation seems to be okay but he still in a good bit of PEEP. Otherwise he is reasonably stable. Exam (Progress Note) - Constitutional Vitals: Period Temp Pulse Resp BP Sys/Carbone Pulse Ox Last 24 Hr 98.1 F-99.5 F 76-143 15-38 97-163/56-94 95-100 Exam: General appearance: normal weight, no acute distress (The patient is awake at times but poorly responsive.) - Head Head exam: Present: normal inspection, normocephalic - Eye Eye exam: Absent: scleral icterus Pupils: Present: constricted - ENT ENT exam: Present: Unremarkable - Neck Neck exam: Present: He has a tracheostomy tube in place now. He is not having any further bleeding. - Respiratory Respiratory exam: Present: He has good breath sounds bilaterally and his lungs do sound a little better at present. - Cardiovascular Cardiovascular exam: Present: regular rate and rhythm. He has a sinus tachycardia. absent: gallop - GI/Abdominal GI/Abdominal exam: Present: hypoactive bowel sounds, soft. Absent: organomegaly , tenderness - Extremities Exam Extremities exam: He has minimal edema of the extremities and no tenderness. - Neurological Exam Neurological exam: Present: Patient will moves extremities but does not follow commands. He looks a little more awake today. - Psychiatric Psychiatric exam: he does look a little calmer today. - Skin Skin exam: Present: warm, dry, his skin rash is better. Results - Labs CBC & BMP: 10/27/16 05:00 10/26/16 03:15 Assessment and Plan (1) Acute respiratory failure Status: Acute Assessment and plan: Patient appears to be responding a little better and is doing CPAP some. He appears to be improving a little. Current Visit: Yes Qualifiers: Respiratory failure complication: hypoxia Qualified Code(s): J96.01 - Acute respiratory failure with hypoxia (2) Acute renal failure Status: Acute Assessment and plan: The patient will continue to require dialysis. His creatinine is down to 7.0 after dialysis . He will probably have dialysis today. Current Visit: Yes Qualifiers: Acute renal failure type: with acute tubular necrosis Qualified Code(s): N17.0 - Acute kidney failure with tubular necrosis (3) Cocaine intoxication Status: Acute Assessment and plan: Patient apparently has had cocaine abuse. He continues to have an encephalopathy. Current Visit: Yes (4) Polysubstance abuse Status: Chronic Assessment and plan: The patient has a history of substance abuse. He has a significant encephalopathy now. Current Visit: Yes (5) Encephalopathy acute Status: Acute Assessment and plan: Patient is a little more alert and moving around a little bit. He still does not follow commands. Current Visit: Yes (6) Anemia Status: Acute Assessment and plan: The patient has an hematocrit of 24.9 Current Visit: Yes
[2016-10-29] MEDS: methylPREDNISolone SOD SUC 40 MG/1 ML VIAL IV SCH ×2 (08:38→16:21)
[2016-10-29] MEDS: THIAMINE 200 MG/2 ML VIAL IV SCH (08:38)
[2016-10-29] MEDS: SEVELAMER CARBONATE POWDER 2.4 GM PACK PO SCH ×4 (08:39→20:52)
[2016-10-29] MEDS: DESITIN 4OZ/NYSTATIN 15 GRAM MIXTURE PASTE TOP SCH ×2 (08:39→20:52)
[2016-10-29] MEDS: MULTIVITAMIN (CENTRUM) TABLET PO SCH (08:39)
[2016-10-29] MEDS: FOLIC ACID 1 MG TABLET PO SCH (08:40)
--- NOTE | 2016-10-29 14:28 | Hospitalist Progress Note ---
Hospitalist: Subjective Interval history: 56 yo AAAureliano was admitted with respiratory failure requiring chemical ventilation as well as acute renal failure requiring hemodialysis. The patient did require tracheostomy ultimately. He did develop worsening infiltrates and was hard to ventilate. He has been improving and his chest x-ray is now much better. He has adequate oxygenation and his chest x-ray is stable. He failed extubation attempts last week as his mental status was a significant problem, and required re-intubation. He is still requiring a lot of sedation and is quite agitated. He still does not follow any commands, but is otherwise stable. Exam - Constitutional Vitals: Period Temp Pulse Resp BP Sys/Carbone Pulse Ox Last 24 Hr 98.1 F-99 F 76-143 15-40 97-163/57-101 83-100 Exam: Constitutional System: No distress. No tremulousness. Intubated and sedated Head: Normocephalic, atraumatic. Ears, Nose and Throat System: No pain or tenderness. No epistaxis or discharge. Tracheostomy site noted with minimal bleeding Eyes System: Pupils equal, round, and reactive. Extraocular muscles intact. Neck: Supple, without adenopathy, No jugular venous distention. Respiratory System: Chest coarse bilaterally to auscultation. Cardiovascular System: Heart with tachycardic rate rate and rhythm. No murmur. GI System: Abdomen soft, nontender. Normo active bowel sounds present. Musculoskeletal System: limbs with bilateral edema in arms and legs. Full distal pulses. Neurological System: Unable to assess secondary to sedation Results - Labs CBC & BMP: 10/27/16 05:00 10/26/16 03:15 - Impressions Assessment and Plan (1) Acute hypoxemic respiratory failure Status: Acute Has Tracheostomy, and mechanically ventilated. He is doing some CPAP. (2) Acute renal failure Status: Acute Assessment and plan: Patient is on HD. Nephrology following. Current Visit: Yes Qualifiers: Acute renal failure type: with acute tubular necrosis Qualified Code(s): N17.0 - Acute kidney failure with tubular necrosis (3) Polysubstance abuse Status: Chronic Current Visit: Yes (4) Encephalopathy acute/altered mental status Status: Acute Current Visit: Yes (5) Metabolic acidosis Status: Acute Current Visit: Yes (6) Pneumonia Status: Resolved Assessment and plan: The patient has completed a full course of IV antibiotics. He is currently not receiving any further antibiotic therapy. Infectious disease has signed off. Current Visit: Yes (7) Ventilator dependent Status: Acute Assessment and plan: Followed by pulmonary. Status post tracheostomy. Current Visit: Yes Quality Measures - Stroke Onset of Symptoms Date: 10/07/16
[2016-10-29] MEDS: LORazepam 2 MG/1 ML VIAL IV PRN ×3 (18:15→22:11)
[2016-10-30] MEDS: ALBUTEROL/IPRATROPIUM 3 ML NEB RESP TX SCH ×4 (00:25→19:45)
[2016-10-30] MEDS: PROPOFOL 1,000 MG/100 ML BOTTLE IV SCH ×8 (00:51→20:11)
[2016-10-30] MEDS: methylPREDNISolone SOD SUC 40 MG/1 ML VIAL IV SCH ×3 (01:19→16:55)
[2016-10-30] MEDS: HYDROcod/ACETAMIN 7.5-325 MG/15 ML UDCUP PER TUBE PRN ×2 (01:22→09:39)
[2016-10-30] MEDS: ZIPRASIDONE 20 MG/1 ML VIAL IM PRN ×3 (03:12→22:10)
[2016-10-30] MEDS: PANTOPRAZOLE 40 MG VIAL IV SCH (03:13)
[2016-10-30] MEDS: METOCLOPRAMIDE 10 MG/2 ML VIAL IV SCH ×3 (03:14→20:10)
[2016-10-30 03:23] LABS: ABG Base Excess -10.4 MMOL/L (-2.5-2.5); ABG HCO3 13.8 MMOL/L (20-26); ABG Oxygen Saturation 94.1 % (95-100); ABG PCO2 24.4 MM HG (35-48); ABG PH 7.369 (7.35-7.45); ABG PO2 76.6 MM HG (80-95); ABG TCO2 14.5 MMOL/L (23-27); Allen Test Positive; Pt O2 Delivery Device Ventilator
[2016-10-30] MEDS: LORazepam 2 MG/1 ML VIAL IV PRN ×3 (05:11→19:19)
[2016-10-30 05:46] LABS: Calcium 7.3 MG/DL (8.5-10.1); Osmolality,Calculated 298.1 MOS/KG (273-304)
[2016-10-30] MEDS: INSULIN REGULAR 100 UNIT/ML SUBCUT SCH ×3 (06:00→18:29)
[2016-10-30 06:13] LABS: Potassium 6.2 MMOL/L (3.5-5.1)
[2016-10-30 06:21] LABS: Basophils % 0.1 % (0.0-0.8); Eosinophils # 0.1 10*3/uL (0.0-0.87); Eosinophils % 0.4 % (0.00-10.9); Hematocrit 20.8 VOL% (42.0-52.0); Immature Granulocytes % 1.8 %; Immature Granulocytes Absolute 0.35 #; Lymphocytes # 0.5 10*3/uL (1.4-4.0); Lymphocytes % 2.4 % (21.2-54.2); Mean Corpuscular HGB Conc 38.5 GM/DL (32-36); Mean Corpuscular Hemoglobin 35 PG (27-34); Mean Corpuscular Volume 90.8 FL (87-102); Mean Platelet Volume 12.1 FL (9.6-12.0); Monocytes # 0.4 10*3/uL (0.11-0.8); Monocytes % 2.1 % (1.7-12.7); NRBC # 0.08 10*3/uL; Neutrophils # 18.2 10*3/uL (1.4-7.4); Neutrophils % 93.2 % (38.7-73.9); Platelet Count 283 T/CUMM (130-400); Red Blood Count 2.29 MC/CUMM (3.8-5.5); Red Cell Distribution Width 15.2 % (9.3-17.3); White Blood Count 19.5 T/CUMM (4-12)
[2016-10-30 06:45] LABS: Band Neutrophils 2 % (0-10); Lymphocytes 4 % (20-55); Segmented Neutrophils 93 % (50-85); Total Cells Counted 100
[2016-10-30 06:46] LABS: Platelet Estimate Normal
[2016-10-30] MEDS ORDERED: NOREPINEPHRINE 4 MG/4 ML VIAL IV ONE (06:53)
[2016-10-30] MEDS: NOREPINEPHRINE 8 MG in SODIUM CHLORIDE 0.9% 242 ML IV SCH (07:00)
--- NOTE | 2016-10-30 07:17 | Pulmonology Progress Note ---
Pulmonary - PN: Subj Interval history: Patient is a 56-year-old black man that has a history of hypertension and alcohol abuse. He has had some chronic pain issues. He came into the emergency room lethargic and had positive drug screen for cocaine and opiates. He has been put on the ventilator. He has also developed acute renal failure. He did develop worsening infiltrates and was hard to ventilate. Now he has been improving and his chest x-ray is much better. He has adequate oxygenation and his chest x-ray is stable. Last week we tried to extubate him and he did not do very well. His mental status was a significant problem. He has been reintubated and stable over the weekend. He still requires a lot of sedation and is quite agitated. He still does not follow any commands. This morning he has become very hypotensive. He will likely need pressors. He did not get dialysis yesterday. He is on pressure control ventilation and has a rapid respiratory rate. He is ventilating okay however but still has a metabolic acidosis. His oxygenation is a little worse and his chest x-ray shows diffuse infiltrates. He still does not follow commands. Exam (Progress Note) - Constitutional Vitals: Period Temp Pulse Resp BP Sys/Carbone Pulse Ox Last 24 Hr 97.4 F-99.8 F 87-139 18-46 82-182/55-136 83-100 Exam: General appearance: normal weight, no acute distress (The patient is quite tachypneic this morning and is hypotensive.) - Head Head exam: Present: normal inspection, normocephalic - Eye Eye exam: Absent: scleral icterus Pupils: Present: constricted - ENT ENT exam: Present: Unremarkable - Neck Neck exam: Present: He has a tracheostomy tube in place now. He is not having any further bleeding. - Respiratory Respiratory exam: Present: He has good breath sounds bilaterally although they are coarse with some rhonchi. - Cardiovascular Cardiovascular exam: Present: regular rate and rhythm. He has a sinus tachycardia. absent: gallop - GI/Abdominal GI/Abdominal exam: Present: hypoactive bowel sounds, soft. Absent: organomegaly , tenderness - Extremities Exam Extremities exam: He has minimal edema of the extremities and no tenderness. - Neurological Exam Neurological exam: Present: Patient will moves extremities but does not follow commands. He is not as alert now. - Psychiatric Psychiatric exam: he does look a little calmer today. - Skin Skin exam: Present: warm, dry, his skin rash is better. Results - Labs CBC & BMP: 10/30/16 04:00 10/30/16 04:00 Labs: His PO2 76 with a PCO2 of 24 and a pH of 7.36 - Diagnostic Findings Procedure: Chest x-ray: image reviewed by me, report reviewed by me (Chest x- ray shows bilateral infiltrates.) Assessment and Plan (1) Acute respiratory failure Status: Acute Assessment and plan: Patient has more respiratory distress now his chest x-ray is worse. His oxygenation is not as good today. Current Visit: Yes Qualifiers: Respiratory failure complication: hypoxia Qualified Code(s): J96.01 - Acute respiratory failure with hypoxia (2) Acute renal failure Status: Acute Assessment and plan: The patient will continue to require dialysis. His creatinine is 8.9 today and will require dialysis. Current Visit: Yes Qualifiers: Acute renal failure type: with acute tubular necrosis Qualified Code(s): N17.0 - Acute kidney failure with tubular necrosis (3) Cocaine intoxication Status: Acute Assessment and plan: Patient apparently has had cocaine abuse. He continues to have an encephalopathy. His prognosis is poor. Current Visit: Yes (4) Polysubstance abuse Status: Chronic Assessment and plan: The patient has a history of substance abuse. He has a significant encephalopathy now. Current Visit: Yes (5) Encephalopathy acute Status: Acute Assessment and plan: Patient is not as responsive but does get agitated and require sedation. Current Visit: Yes (6) Anemia Status: Acute Assessment and plan: The patient has an hematocrit of 20.8. He will likely require transfusions. Current Visit: Yes
--- NOTE | 2016-10-30 08:45 | XRay Report ---
XR chest 1V portable Indication: Ventilator patient Comparison: 27 October 2016 Findings: The heart and mediastinum are stable in size and configuration. The lines and tubes are unchanged in position. The pulmonary vascularity is increased with increasing interstitial pulmonary density. No other lung infiltrates, effusions, pneumothorax or other abnormality is demonstrated. Impression: Findings suggest increasing cardiac decompensation. PROCEDURE INTERPRETED AT [facility] ([facility]) DEPARTMENT OF RADIOLOGY Final Report Signed by: Dr. Jaspreet Simpson
[2016-10-30] MEDS: FOLIC ACID 1 MG TABLET PO SCH (09:30)
[2016-10-30] MEDS: THIAMINE 200 MG/2 ML VIAL IV SCH (09:30)
[2016-10-30] MEDS: MULTIVITAMIN (CENTRUM) TABLET PO SCH (09:30)
[2016-10-30] MEDS: SEVELAMER CARBONATE POWDER 2.4 GM PACK PO SCH ×4 (09:31→20:10)
[2016-10-30] MEDS: DESITIN 4OZ/NYSTATIN 15 GRAM MIXTURE PASTE TOP SCH ×2 (10:59→20:33)
--- NOTE | 2016-10-30 11:24 | Hospitalist Progress Note ---
Assessment and Plan (1) Altered mental status Status: Acute Assessment and plan: 1)respiratory failure- now he has a trach. He has worsening infiltrates on CXR, due for HD today. His oxygenation is not as good today as it has been. On nebs. 2)fever- BCx and sputum culture this morning. UCx negative so far- he still makes some urine. WBC increased. begin vanc and levaquin given worsened CXR infiltrates as this should cover pneumonia as well as other possible infections. One concern is his subclavian HD catheter which has been used since admission. It has a port that we have used for infusions also. This could be possible source of infection. 3)metabolic encephalopathy- a little improved per nurses, more responsive when sedation turned down. 4)anemia- GIB happened early in course, no bleeding since. transfuse a unit of PRBC. 5)nutrition- tolerating tube feeds well 6)polysubstance abuse- we suspect this is the cause of his encephalopathy. 7)acute renal failure- on HD now. Current Visit: Yes (2) Acute renal failure Status: Acute Current Visit: Yes Qualifiers: Acute renal failure type: with acute tubular necrosis Qualified Code(s): N17.0 - Acute kidney failure with tubular necrosis (3) Polysubstance abuse Status: Chronic Current Visit: Yes (4) Congestive heart failure Status: Chronic Current Visit: Yes (5) Encephalopathy acute Status: Acute Current Visit: Yes (6) Acute respiratory failure Status: Acute Current Visit: Yes Qualifiers: Respiratory failure complication: hypoxia Qualified Code(s): J96.01 - Acute respiratory failure with hypoxia (7) Elevated troponin Status: Acute Current Visit: Yes (8) Pneumonia Status: Resolved Current Visit: Yes Hospitalist: Subjective Interval history: New fever today to 101.9 this morning. Has been off antibiotics for a while. Since I last saw him he has been trached. His CXR has increased infiltrates. He is scheduled for dialysis today. Jorgensen was replaced a couple of days ago. I ordered repeat BCx and sputum cultures. UCx done yesterday. Exam - Constitutional Vitals: Period Temp Pulse Resp BP Sys/Carbone Pulse Ox Last 24 Hr 97.4 F-101.9 F 103-146 18-48 79-182/52-136 83-100 General appearance: no acute distress, over weight - Head Head exam: Present: normocephalic, atraumatic - Eye Eye exam: Absent: EOMI, scleral icterus Pupils: Present: DAE - Respiratory Respiratory exam: Present: rales, rhonchi - Cardiovascular Cardiovascular exam: Present: regular rate and rhythm - GI/Abdominal GI/Abdominal exam: Present: normal bowel sounds, soft. Absent: tenderness - Extremities Exam Extremities exam: Absent: edema - Neurological Exam Neurological exam: Present: altered (sedated, does not respond to voice or touch this morning. ) - Skin Skin exam: Present: warm, dry Results - Labs CBC & BMP: 10/30/16 04:00 10/30/16 04:00 Lab Results: I have reviewed the past 24 hour labs Quality Measures - Stroke Onset of Symptoms Date: 10/07/16
[2016-10-30] MEDS ORDERED: SODIUM CHLORIDE 0.9% 250 ML IV PRN (11:32)
[2016-10-30] MEDS ORDERED: LEVOFLOXACIN INJ 750 MG in PREMIX 1 EACH IV SCH (12:00)
[2016-10-30] MEDS ORDERED: VANCOMYCIN INJ 1,750 MG in SODIUM CHLORIDE 0.9% 500 ML IV ONE (15:00)
--- NOTE | 2016-10-30 15:21 | Nephrology Progress Note ---
Nephrology - PN: Subj Interval history: Patient remains intubated and sedate. Physical exam general patient chronically ill-appearing, heart is regular rate and rhythm, he has trace thigh edema, lungs are coarse but clear to auscultation abdomen is soft with positive bowel sounds Assessment/plan 1. Acute renal failure-we will continue hemodialysis support 2. Cocaine intoxication 3. Hyperkalemia-patient's potassium should be improved postdialysis today 4. Metabolic acidosis-this should improve with dialysis as well 5. Fever-this patient had a catheter placed couple weeks ago is probably reasonable to take out this catheter out however in speaking with the nurse patient's creatinine multiple antibiotics and sounds like he may need a pressor support agent soon hence we may want to hold off on removing this catheter presently and just continue the IV antibiotics as ordered. Exam (PN)-Nephrology - Vital Signs Vital signs: Period Temp Pulse Resp BP Sys/Carbone Pulse Ox Last 24 Hr 97.4 F-101.9 F 103-146 24-48 79-182/52-136 92-100 - Lab 10/30/16 04:00 10/30/16 04:00 Most recent lab results ABG pH 7.369 (7.35-7.45) 10/30/16 03:15 ABG pCO2 24.4 MM HG (35-48) L 10/30/16 03:15 ABG pO2 76.6 MM HG (80-95) L 10/30/16 03:15 ABG HCO3 13.8 MMOL/L (20-26) L 10/30/16 03:15 ABG O2 Saturation 94.1 % (95-100) L 10/30/16 03:15 Calcium 7.3 MG/DL (8.5-10.1) L 10/30/16 04:00 Phosphorus 10.8 MG/DL (2.5-4.9) H 10/29/16 04:40 Magnesium 3.1 MG/DL (1.8-2.4) H 10/29/16 04:40 Assessment and Plan (1) Acute renal failure Status: Acute Assessment and plan: This patient presented with a creatinine of 11 is up to 13 mg/dL today. He had cocaine in his system his blood pressure has been at the low end of normal since admission. He is getting dobutamine. He has no history of kidney failure in the past. Will try and get some previous lab from Dr. Garrison's office. To see what his baseline creatinine is been. The patient is also noted to have an elevated CPK level. I would worry that he has an ATN injury related to his cocaine use also contributing could be his elevated CPK level. We will continue IV fluids for now and monitor for improvement. I do not see any acute indication for hemodialysis at this time. With his decreased urine output I am going to decrease his IV fluids to 150 cc an hour from 200 cc an hour. Current Visit: Yes Qualifiers: Acute renal failure type: with acute tubular necrosis Qualified Code(s): N17.0 - Acute kidney failure with tubular necrosis (2) Anemia Status: Acute Assessment and plan: Patient's hematocrit is 28% Current Visit: Yes (3) Acute respiratory failure Status: Acute Assessment and plan: Continue vent support Current Visit: Yes Qualifiers: Respiratory failure complication: hypoxia Qualified Code(s): J96.01 - Acute respiratory failure with hypoxia (4) Altered mental status Status: Acute Current Visit: Yes (5) Cocaine intoxication Status: Acute Current Visit: Yes (6) Hyperkalemia Status: Acute Assessment and plan: His potassium is returning to the normal range Current Visit: Yes (7) Dyslipidemia Status: Chronic Current Visit: Yes (8) Hypertension Status: Chronic Assessment and plan: Patient's blood pressures at the low end of normal he is on dobutamine Current Visit: Yes (9) Metabolic acidosis Status: Acute Assessment and plan: Patient's bicarb is improved to 22 from 20 Current Visit: Yes
[2016-10-30] MEDS ORDERED: MORPHINE 2 MG/1 ML SYRINGE ONE (20:28)
[2016-10-30] MEDS: MORPHINE 2 MG/1 ML SYRINGE IV PRN (20:33)
[2016-10-31] MEDS: ALBUTEROL/IPRATROPIUM 3 ML NEB RESP TX SCH ×4 (00:04→18:57)
[2016-10-31] MEDS: INSULIN REGULAR 100 UNIT/ML SUBCUT SCH ×4 (00:22→17:38)
[2016-10-31] MEDS: methylPREDNISolone SOD SUC 40 MG/1 ML VIAL IV SCH ×3 (00:31→16:33)
[2016-10-31] MEDS: PROPOFOL 1,000 MG/100 ML BOTTLE IV SCH ×5 (00:39→19:27)
[2016-10-31] MEDS: MORPHINE 2 MG/1 ML SYRINGE IV PRN ×4 (02:03→20:19)
[2016-10-31] MEDS: METOCLOPRAMIDE 10 MG/2 ML VIAL IV SCH ×3 (02:06→16:34)
[2016-10-31] MEDS: PANTOPRAZOLE 40 MG VIAL IV SCH (02:07)
[2016-10-31] MEDS: ZIPRASIDONE 20 MG/1 ML VIAL IM PRN (03:43)
[2016-10-31] MEDS: NOREPINEPHRINE 8 MG in SODIUM CHLORIDE 0.9% 242 ML IV SCH (06:35)
--- NOTE | 2016-10-31 08:12 | Pulmonology Progress Note ---
Pulmonary - PN: Subj Interval history: Patient is a 56-year-old black man that has a history of hypertension and alcohol abuse. He has had some chronic pain issues. He came into the emergency room lethargic and had positive drug screen for cocaine and opiates. He has been put on the ventilator. He has also developed acute renal failure. He did develop worsening infiltrates and was hard to ventilate. He likely has had a ARDS to a mild degree. He has been on the ventilator for several weeks and has a trach in place. He still is requiring a fairly high FiO2. He has not been able to wean yet. He may be responding a little better now. He did well with dialysis yesterday. Exam (Progress Note) - Constitutional Vitals: Period Temp Pulse Resp BP Sys/Carbone Pulse Ox Last 24 Hr 98.4 F-101.9 F 114-146 17-48 81-153/55-101 93-100 Exam: General appearance: normal weight, no acute distress (The patient is more comfortable and seems to be resting okay. His blood pressure is better.) - Head Head exam: Present: normal inspection, normocephalic - Eye Eye exam: Absent: scleral icterus Pupils: Present: constricted - ENT ENT exam: Present: Unremarkable - Neck Neck exam: Present: He has a tracheostomy tube in place now. He is not having any further bleeding. - Respiratory Respiratory exam: Present: He has good breath sounds bilaterally although they are coarse with some rhonchi. His lung compliance is still okay. - Cardiovascular Cardiovascular exam: Present: regular rate and rhythm. He has a sinus tachycardia. absent: gallop - GI/Abdominal GI/Abdominal exam: Present: hypoactive bowel sounds, soft. Absent: organomegaly , tenderness - Extremities Exam Extremities exam: He has minimal edema of the extremities and no tenderness. - Neurological Exam Neurological exam: Present: Patient will moves extremities but does not follow commands. He is not as alert now. - Psychiatric Psychiatric exam: he does look a little calmer today. - Skin Skin exam: Present: warm, dry, his skin rash is better. Results - Labs CBC & BMP: 10/30/16 04:00 10/30/16 04:00 Assessment and Plan (1) Acute respiratory failure Status: Acute Assessment and plan: Patient has respiratory failure and is still on 80% oxygen. We will continue ventilatory support. Current Visit: Yes Qualifiers: Respiratory failure complication: hypoxia Qualified Code(s): J96.01 - Acute respiratory failure with hypoxia (2) Acute renal failure Status: Acute Assessment and plan: The patient will continue to require dialysis. He did well with dialysis yesterday. Current Visit: Yes Qualifiers: Acute renal failure type: with acute tubular necrosis Qualified Code(s): N17.0 - Acute kidney failure with tubular necrosis (3) Cocaine intoxication Status: Acute Assessment and plan: Patient apparently has had cocaine abuse. He continues to have an encephalopathy. His prognosis is poor. Current Visit: Yes (4) Polysubstance abuse Status: Chronic Assessment and plan: The patient has a history of substance abuse. He has a significant encephalopathy now. Current Visit: Yes (5) Encephalopathy acute Status: Acute Assessment and plan: Patient is a little more awake at times now. He is moving his upper extremities. Current Visit: Yes (6) Anemia Status: Acute Assessment and plan: The patient has ongoing anemia. Current Visit: Yes
[2016-10-31] MEDS: SEVELAMER CARBONATE POWDER 2.4 GM PACK PO SCH ×4 (09:30→20:19)
[2016-10-31 09:51] LABS: Basophils % 0.1 % (0.0-0.8); Eosinophils % 0.2 % (0.00-10.9); Hematocrit 22.6 VOL% (42.0-52.0); Hemoglobin 8.3 GM/DL (14.0-18.0); Immature Granulocytes % 1.2 %; Immature Granulocytes Absolute 0.23 #; Lymphocytes # 0.6 10*3/uL (1.4-4.0); Lymphocytes % 2.8 % (21.2-54.2); Mean Corpuscular HGB Conc 36.7 GM/DL (32-36); Mean Corpuscular Hemoglobin 33 PG (27-34); Mean Corpuscular Volume 88.6 FL (87-102); Mean Platelet Volume 11.6 FL (9.6-12.0); Monocytes # 0.5 10*3/uL (0.11-0.8); Monocytes % 2.5 % (1.7-12.7); NRBC # 0.03 10*3/uL; Neutrophils # 18.4 10*3/uL (1.4-7.4); Neutrophils % 93.2 % (38.7-73.9); Platelet Count 232 T/CUMM (130-400); Red Blood Count 2.55 MC/CUMM (3.8-5.5); Red Cell Distribution Width 15.9 % (9.3-17.3); White Blood Count 19.7 T/CUMM (4-12)
[2016-10-31] MEDS: MULTIVITAMIN (CENTRUM) TABLET PO SCH (10:04)
[2016-10-31] MEDS: FOLIC ACID 1 MG TABLET PO SCH (10:04)
[2016-10-31] MEDS: DESITIN 4OZ/NYSTATIN 15 GRAM MIXTURE PASTE TOP SCH ×2 (10:05→20:19)
[2016-10-31 10:11] LABS: Band Neutrophils 3 % (0-10); Eosinophils 1 % (0-10); Giant Platelets Few; Lymphocytes 2 % (20-55); Platelet Estimate Adequate; Polychromasia Slight; Segmented Neutrophils 89 % (50-85); Total Cells Counted 100
[2016-10-31] MEDS: THIAMINE 200 MG/2 ML VIAL IV SCH (10:14)
[2016-10-31] MEDS: LORazepam 2 MG/1 ML VIAL IV PRN ×2 (10:16→20:46)
--- NOTE | 2016-10-31 10:57 | Hospitalist Progress Note ---
Assessment and Plan (1) Altered mental status Status: Acute Assessment and plan: 1)respiratory failure- now he has a trach. He is on His oxygenation is not as good today as it has been. he continues to have plugging. Last bronch was about a week ago per nurses. On nebs, antibiotics day 2, steroids day 7. On 60% O2 now, on 80% overnight. 2)fever- BCx and sputum culture pending from yesterday. UCx negative so far- he still makes some urine. WBC increased. Vanc and levaquin day 2- given worsened CXR infiltrates as this should cover pneumonia as well as other possible infections. Dr Durand to see. One concern is his subclavian HD catheter which has been used since admission. It has a port that we have used for infusions also. This could be possible source of infection. 3)metabolic encephalopathy- a little improved per nurses, more responsive when sedation turned down but not purposeful or responsive to interaction. 4)anemia- GIB happened early in course, no bleeding since. transfused a unit of PRBC yesterday, Hgb not up much. 5)nutrition- tolerating tube feeds well 6)polysubstance abuse- we suspect this is the cause of his encephalopathy. 7)acute renal failure- on HD since admission 3 weeks ago. Current Visit: Yes (2) Acute renal failure Status: Acute Current Visit: Yes Qualifiers: Acute renal failure type: with acute tubular necrosis Qualified Code(s): N17.0 - Acute kidney failure with tubular necrosis (3) Polysubstance abuse Status: Chronic Current Visit: Yes (4) Congestive heart failure Status: Chronic Current Visit: Yes (5) Encephalopathy acute Status: Acute Current Visit: Yes (6) Acute respiratory failure Status: Acute Current Visit: Yes Qualifiers: Respiratory failure complication: hypoxia Qualified Code(s): J96.01 - Acute respiratory failure with hypoxia (7) Elevated troponin Status: Acute Current Visit: Yes (8) Pneumonia Status: Resolved Current Visit: Yes Hospitalist: Subjective Interval history: Mr Day is about the same this morning. He has required geodon IM 3-4 times a day for several days and still has some agitation or tachypnea with CPAP trials. He opens his eyes, moves arms but does not follow commands or track with his eyes. Afebrile for 24 hours since antibiotics started back yesterday morning. I discussed the HD catheter with central line port with DR Rob yesterday and for now we are going to await blood cultures before changing the catheter pending Dr Durand's opinion. Exam - Constitutional Vitals: Period Temp Pulse Resp BP Sys/Carbone Pulse Ox Last 24 Hr 98.4 F-99.6 F 114-146 17-43 81-153/55-101 96-100 General appearance: no acute distress, over weight - Head Head exam: Present: normocephalic, atraumatic - Eye Eye exam: Present: EOMI. Absent: scleral icterus Pupils: Present: DAE - Respiratory Respiratory exam: Present: rhonchi - Cardiovascular Cardiovascular exam: Present: regular rate and rhythm - GI/Abdominal GI/Abdominal exam: Present: normal bowel sounds, soft. Absent: tenderness - Extremities Exam Extremities exam: Absent: edema Results - Labs CBC & BMP: 10/31/16 09:30 10/30/16 04:00 Lab Results: I have reviewed the past 24 hour labs Quality Measures - Stroke Onset of Symptoms Date: 10/07/16
--- NOTE | 2016-10-31 11:15 | Gastrointestinal Progress Note ---
<Lazara Clayton - Last Filed: 10/31/16 11:10> Assessment and Plan (1) Toxic metabolic encephalopathy Status: Acute Assessment and plan: 10/31-Inpatient since 10/12 with respiratory and renal failure with history of cocaine/substance abuse now with request for PEG tube placement. Pending consent , can proceed with this tomorrow if pt remains stable. Plan and addendum to follow by Dr Mario. Current Visit: Yes Gastroenterology - PN: Subj Interval history: CC:Resp failure/encephalopathy Pt is seen, awake however with no purposeful responses. Nursing staff is at bedside and states that pt will awaken, has spontaneous movements, however he cannot follow any commands. He was seen initially on admission for GI bleed however at that time he was too unstable to proceed with endoscopy. He has now been inpatient since 10/12 with renal and respiratory failure, on dialysis and now with trach placement and inability to wean from the vent. He has a history of cocaine/substance abuse and at this time is felt to be at his new baseline mental status. He is receiving NG tube feedings and has been tolerating these well. He is for possible transfer to LTAC however he remains a full code and request has been made for PEG placement prior to transfer. He does not require any pressor support at this time and has stabilized. Will inquire regarding family and consent to proceed with this on tomorrow with tentative plans for transfer on Saturday. Abdomen is soft, nontender. ROS: No acute distress noted Exam (Progress Note) - Constitutional Vitals: Period Temp Pulse Resp BP Sys/Carbone Pulse Ox Last 24 Hr 98.4 F-99.6 F 114-146 17-43 81-153/55-101 96-100 General appearance: normal weight, no acute distress - Head Head exam: Present: normal inspection, normocephalic - Eye Eye exam: Present: other (lids and conjunctuiva unremarkable). Absent: scleral icterus - ENT ENT exam: Present: normal exam, normal oropharynx - Neck Neck exam: Present: normal inspection - Respiratory Respiratory exam: Present: clear to auscultation bilaterally. Absent: rales, rhonchi, wheezes - Cardiovascular Cardiovascular exam: Present: regular rate and rhythm. Absent: diastolic murmur , JVD, systolic murmur - GI/Abdominal GI/Abdominal exam: Present: normal bowel sounds, soft. Absent: ascites, distended, mass, organomegaly, tenderness - Extremities Exam Extremities exam: Present: normal inspection - Back Exam Back exam: Present: normal inspection - Neurological Exam Neurological exam: Present: altered - Psychiatric Psychiatric exam: Present: other - Skin Skin exam: Present: normal color, warm, dry Results - Labs CBC & BMP: 10/31/16 09:30 10/30/16 04:00 Lab Results: I have reviewed the past 24 hour labs <Pancho Mario - Last Filed: 10/31/16 18:51> Exam (Progress Note) - Constitutional Vitals: Period Temp Pulse Resp BP Sys/Carbone Pulse Ox Last 24 Hr 98.4 F-103.4 F 114-149 17-48 75-153/48-94 91-100 Results - Labs CBC & BMP: 10/31/16 09:30 10/31/16 10:55
[2016-10-31] MEDS: ZIPRASIDONE 20 MG CAPSULE PO SCH ×2 (11:20→21:58)
[2016-10-31 11:30] LABS: Ammonia 75 UMOL/L (11-32); Calcium 8.1 MG/DL (8.5-10.1); Osmolality,Calculated 291.2 MOS/KG (273-304); Potassium 5.6 MMOL/L (3.5-5.1)
--- NOTE | 2016-10-31 11:40 | Infectious Disease Consult ---
Assessment and Plan (1) Fever Status: Acute Assessment and plan: New fever in patient who has been hospitalized for over 3 weeks. He is at risk for bloodstream infection [given presence of central line/dialysis catheter] and also ventilator associated pneumonia. Gram stain done yesterday was unimpressive with less than 25 white blood cells per low-power field though the sputum culture is growing gram-negative rods. Recommendations: I agree with empiric vancomycin and levofloxacin for now; fever curve seems down today since those antibiotics were started yesterday. May have to add an aminoglycoside depending on finalized cultures. Thank you very much for the consult. Will follow. Current Visit: Yes (2) Acute renal failure Status: Acute Assessment and plan: Remains on dialysis Current Visit: Yes Qualifiers: Acute renal failure type: with acute tubular necrosis Qualified Code(s): N17.0 - Acute kidney failure with tubular necrosis (3) Acute respiratory failure Status: Acute Assessment and plan: Patient failed extubation twice and now has tracheostomy. Awaiting transfer to [facility] in a couple days I am told. Current Visit: Yes Qualifiers: Respiratory failure complication: hypoxia Qualified Code(s): J96.01 - Acute respiratory failure with hypoxia (4) Altered mental status Status: Acute Assessment and plan: Mental status remains abnormal. Current Visit: Yes History of Present Illness Chief complaint: Fever, assist with antibiotics History of present illness: Mr. Day is a 56 year old male who is been in hospital for over 3 weeks. His admitted end of last month with confusion and ultimately ended up on the vent within 24 hours. He has polysubstance abuse history including cocaine and alcohol. He never was able to get off the vent and so he got tracheostomy. Though he is now arousable he remains confused and has not been able to follow commands since admission. I had seen him early on during his admission and he was treated for ventilator associated pneumonia due to Acinetobacter with 10 days of levofloxacin. He did have prolonged fevers but there were no other positive cultures apart from sputum. The patient developed a bad rash, specifically an erythematous macular rash generalized over his body. I was not sure that it was antibiotic induced however the rest of the team thought that likely meropenem and cephalosporins have caused the rash. Patient has been off antibiotics for a week and spiked fever yesterday to more than 101. He was put back on levofloxacin and also vancomycin added. I am asked to assist with treatment. Home Medications Medication Instructions Recorded Confirmed Type Acetic Acid 2% Otic Soln [Vosol 2% 5 drop LEFT EAR QID #15 ml 12/27/14 Rx Otic Soln] Amitriptyline [Elavil] 25 mg PO BEDTIME 12/27/14 12/27/14 History Atorvastatin [Lipitor] 40 mg PO DAILY 12/27/14 12/27/14 History Citalopram [CeleXA] 40 mg PO DAILY 12/27/14 12/27/14 History Lisinopril 40 mg PO DAILY 12/27/14 12/27/14 History Metoprolol Tartrate 50 mg PO BID 12/27/14 12/27/14 History Ranitidine Tab [Zantac Tab] 150 mg PO BID 12/27/14 12/27/14 History Trazodone HCl 100 mg PO BEDTIME PRN 12/27/14 12/27/14 History amLODIPine [Norvasc] 5 mg PO DAILY 12/27/14 12/27/14 History Buspirone HCl 10 mg PO 10/07/16 History Gabapentin Cap/Tab [Neurontin 400 mg PO BID 10/07/16 10/07/16 History Cap/Tab] Meloxicam 7.5 mg PO 10/07/16 History Rosuvastatin [Crestor] 40 mg PO DAILY 10/07/16 10/07/16 History Topiramate [Topamax] 50 mg PO BID 10/07/16 10/07/16 History hydroCHLOROthiazide 25 mg PO DAILY 10/07/16 10/07/16 History [Hydrochlorothiazide] Allergies Allergy/AdvReac Type Severity Reaction Status Date / Time Cephalosporins Allergy Severe RASH Verified 10/21/16 18:56 meropenem [From Merrem] Allergy Severe RASH Verified 10/21/16 18:52 ROS unobtainable: due to mental status (However nurse no diarrhea, no decubitus ulcers, patient remains on dialysis, he is a lot of oral secretions) Medical,Surgical,& Family Hx - Medical History Cardio: History of: Hypertension, Cardiovascular Problems (HEART MURMUR) Endocrine: History of: Dyslipidemia No history of: Diabetes Mellitus (IDDM), Diabetes Mellitus (NIDDM) Respiratory: No history of: Asthma, Bronchitis, Pneumonia Renal: No history of: Renal Failure, Renal Problems Gastrointestinal: No history of: Gastrointestinal Bleed, Liver Problems, GI Problems - Family History Family History: Reports;: Family Cancer, Family Diabetes, Family Heart Disease, Family Hematology, Family Hypertension, Family Stroke - Social History Smoking Status: Unknown if ever smoked Frequency of Alcohol Use: Unknown Type of Drug Use: Cocaine Infectious Disease Exam H&P - Constitutional Vitals: Vital Signs Temp Pulse Resp BP Pulse Ox 98.4 F 119 H 27 H 153/86 97 10/31/16 04:00 10/31/16 07:18 10/31/16 09:20 10/31/16 06:00 10/31/16 07:18 Intake and Output 10/30/16 10/31/16 10/31/16 23:59 07:59 15:59 Intake Total 745 / 745 260 / 260 250 / 250 Output Total 235 / 235 35 / 35 5 / 5 Balance 510 / 510 225 / 225 245 / 245 Intake: IV 640 / 640 200 / 200 100 / 100 DIPRIVAN 1,000 mg In 100 140 / 140 200 / 200 100 / 100 ml @ 5 MCG/KG/MIN 2.7 mls /hr IV TITRATE COUNTS INCLUDE 234 BEDS AT [facility] Rx#: [id number] Vancomycin Inj 5,000 mg 500 / 500 In Ns 500 ml @ 250 mls/hr IV ONCE ONE Rx#: [id number] Tube Feeding Supplement 45 / 45 Tube Feeding Flush 60 / 60 60 / 60 150 / 150 Output: Urine 35 / 35 35 / 35 5 / 5 Stool 200 / 200 Other: Tube Feeding 25 25 25 Voiding Method Indwelling Catheter Indwelling Catheter Indwelling Catheter Weight 83.461 kg Patient Weight 10/31/16 23:59 Weight 83.461 kg Exam: General: Patient agitated but no purposeful interaction, could not get him to follow commands HEENT: Mucous membranes pink and moist, anicteric acyanotic, DAE, no obvious oral exudates Neck: Supple, no thyroid gland enlargement, tracheostomy in situ, internal jugular central line which is also hemodialysis catheter Respiratory system: Breath sounds vesicular, scattered rhonchi Cardiovascular: Normal S1 and S2, no murmurs appreciated Abdomen: Normal bowel sounds, soft nontender throughout, no organomegaly or mass Genitourinary: No suprapubic pain or bladder distention Extremities: no edema Skin: No rash, exfoliation of skin from where she had a few weeks ago Reports - Labs CBC & BMP: 10/31/16 09:30 10/31/16 10:55 Labs: Laboratory Results - last 24 hr 10/30/16 10/30/16 10/30/16 11:32 12:05 18:25 WBC RBC Hgb Hct MCV MCH MCHC RDW Plt Count MPV Neut % (Auto) Lymph % (Auto) [place] % (Auto) Eos % (Auto) Baso % (Auto) Neut # (Auto) Lymph # (Auto) [place] # (Auto) Eos # (Auto) Baso # (Auto) Total Counted Immature Gran % Nucleated RBC % Immature Gran # Segmented Neutrophils Band Neutrophils Lymphocytes Monocytes Eosinophils Nucleated RBCs # Platelet Estimate Giant Platelets Immature Plt Fraction Polychromasia Sodium Potassium Chloride Carbon Dioxide Anion Gap BUN Creatinine GFR Calculation BUN/Creatinine Ratio Glucose POC Glucose 109 H 96 Calculated Osmolality Lactic Acid Calcium Ammonia Blood Type O POSITIVE Antibody Screen Negative Crossmatch See Detail 10/31/16 10/31/16 10/31/16 00:05 05:20 09:30 WBC 19.7 H RBC 2.55 L Hgb 8.3 L Hct 22.6 L MCV 88.6 MCH 33 MCHC 36.7 H RDW 15.9 Plt Count 232 MPV 11.6 Neut % (Auto) 93.2 H Lymph % (Auto) 2.8 L [place] % (Auto) 2.5 Eos % (Auto) 0.2 Baso % (Auto) 0.1 Neut # (Auto) 18.4 H Lymph # (Auto) 0.6 L [place] # (Auto) 0.5 Eos # (Auto) 0.0 Baso # (Auto) 0.0 Total Counted 100 Immature Gran % 1.2 Nucleated RBC % 0.2 Immature Gran # 0.23 Segmented Neutrophils 89 H Band Neutrophils 3 Lymphocytes 2 L Monocytes 5 Eosinophils 1 Nucleated RBCs # 0.03 Platelet Estimate Adequate Giant Platelets Few Immature Plt Fraction 0.0 Polychromasia Slight Sodium Potassium Chloride Carbon Dioxide Anion Gap BUN Creatinine GFR Calculation BUN/Creatinine Ratio Glucose POC Glucose 111 H 130 H Calculated Osmolality Lactic Acid Calcium Ammonia Blood Type Antibody Screen Crossmatch 10/31/16 10/31/16 10:55 10:55 WBC RBC Hgb Hct MCV MCH MCHC RDW Plt Count MPV Neut % (Auto) Lymph % (Auto) [place] % (Auto) Eos % (Auto) Baso % (Auto) Neut # (Auto) Lymph # (Auto) [place] # (Auto) Eos # (Auto) Baso # (Auto) Total Counted Immature Gran % Nucleated RBC % Immature Gran # Segmented Neutrophils Band Neutrophils Lymphocytes Monocytes Eosinophils Nucleated RBCs # Platelet Estimate Giant Platelets Immature Plt Fraction Polychromasia Sodium 127 L Potassium 5.6 H Chloride 91 L Carbon Dioxide 16 L Anion Gap 25.6 H BUN 109 H Creatinine 6.50 H GFR Calculation 11 BUN/Creatinine Ratio 16.00 Glucose 147 H POC Glucose Calculated Osmolality 291.2 Lactic Acid Calcium 8.1 L Ammonia 75 H Blood Type Antibody Screen Crossmatch - Reports Microbiology: Microbiology 10/30/16 10:25 Sputum Culture - Preliminary Sputum Gram Negative Rods Gram Stain - Final 10/30/16 09:32 Blood Culture - Preliminary Blood No growth at 1 day 10/30/16 09:32 Blood Culture - Preliminary Blood No growth at 1 day 10/28/16 Unknown Urine Culture - Final Urine,Catheterized No Growth at 48 hours. - Diagnostic Findings Procedure: Chest x-ray: image reviewed by me, report reviewed by me (Scattered interstitial opacities bilaterally)
--- NOTE | 2016-10-31 13:16 | Nephrology Progress Note ---
Nephrology - PN: Subj Interval history: Patient remains trached and sedate. He did move his lower extremity to palpation Physical exam general the patient is chronically ill-appearing, heart is regular rate and rhythm, he has trace pretibial edema, lungs are clear to auscultation anteriorly, abdomen is soft with positive bowel sounds Assessment/plan 1. Acute renal failure-we will continue hemodialysis support 2. Cocaine intoxication 3. Hyperkalemia this is improved 4. Metabolic acidosis-we will continue dialysis support 5. Respiratory failure continue vent support Exam (PN)-Nephrology - Vital Signs Vital signs: Period Temp Pulse Resp BP Sys/Carbone Pulse Ox Last 24 Hr 98.4 F-99.8 F 114-147 17-45 93-153/55-101 95-100 - Lab 10/31/16 09:30 10/31/16 10:55 Most recent lab results ABG pH 7.369 (7.35-7.45) 10/30/16 03:15 ABG pCO2 24.4 MM HG (35-48) L 10/30/16 03:15 ABG pO2 76.6 MM HG (80-95) L 10/30/16 03:15 ABG HCO3 13.8 MMOL/L (20-26) L 10/30/16 03:15 ABG O2 Saturation 94.1 % (95-100) L 10/30/16 03:15 Calcium 8.1 MG/DL (8.5-10.1) L 10/31/16 10:55 Phosphorus 10.8 MG/DL (2.5-4.9) H 10/29/16 04:40 Magnesium 3.1 MG/DL (1.8-2.4) H 10/29/16 04:40 Assessment and Plan (1) Acute renal failure Status: Acute Assessment and plan: This patient presented with a creatinine of 11 is up to 13 mg/dL today. He had cocaine in his system his blood pressure has been at the low end of normal since admission. He is getting dobutamine. He has no history of kidney failure in the past. Will try and get some previous lab from Dr. Garrison's office. To see what his baseline creatinine is been. The patient is also noted to have an elevated CPK level. I would worry that he has an ATN injury related to his cocaine use also contributing could be his elevated CPK level. We will continue IV fluids for now and monitor for improvement. I do not see any acute indication for hemodialysis at this time. With his decreased urine output I am going to decrease his IV fluids to 150 cc an hour from 200 cc an hour. Current Visit: Yes Qualifiers: Acute renal failure type: with acute tubular necrosis Qualified Code(s): N17.0 - Acute kidney failure with tubular necrosis (2) Anemia Status: Acute Assessment and plan: Patient's hematocrit is 28% Current Visit: Yes (3) Acute respiratory failure Status: Acute Assessment and plan: Continue vent support Current Visit: Yes Qualifiers: Respiratory failure complication: hypoxia Qualified Code(s): J96.01 - Acute respiratory failure with hypoxia (4) Altered mental status Status: Acute Current Visit: Yes (5) Cocaine intoxication Status: Acute Current Visit: Yes (6) Hyperkalemia Status: Acute Assessment and plan: His potassium is returning to the normal range Current Visit: Yes (7) Dyslipidemia Status: Chronic Current Visit: Yes (8) Hypertension Status: Chronic Assessment and plan: Patient's blood pressures at the low end of normal he is on dobutamine Current Visit: Yes (9) Metabolic acidosis Status: Acute Assessment and plan: Patient's bicarb is improved to 22 from 20 Current Visit: Yes
[2016-10-31] MEDS: ACETAMINOPHEN 325 MG TABLET PO PRN ×2 (15:40→23:50)
[2016-10-31] MEDS ORDERED: IBUPROFEN 600 MG TABLET PO PRN (17:44)
[2016-10-31] MEDS: PHENYLEPHRINE DRIP 40 MG/250 ML PREMIX IV SCH (17:45)
[2016-10-31] MEDS ORDERED: ZIPRASIDONE 20 MG/1 ML VIAL IM PRN (18:31)
--- NOTE | 2016-10-31 18:43 | Event Note ---
Combine nursing staff to evaluate patient for agitation and tachypnea to the 50s. Will restart his IM Geodon and see if this will help out. The p.o. did not seem to be doing the job. May also need to restart the paralytics. Discussed with Dr. Guevara.
[2016-10-31] MEDS ORDERED: MIDAZOLAM 100 MG in SODIUM CHLORIDE 0.9% 80 ML IV SCH ×2 (23:00→23:45)
[2016-10-31] MEDS: VECURONIUM 10 MG VIAL IV PRN (23:20)
[2016-11-01] MEDS ORDERED: NOREPINEPHRINE 4 MG/4 ML VIAL IV ONE (00:14)
[2016-11-01] MEDS: PHENYLEPHRINE DRIP 40 MG/250 ML PREMIX IV SCH (00:25)
[2016-11-01] MEDS ORDERED: NOREPINEPHRINE 16 MG in SODIUM CHLORIDE 0.9% 234 ML IV SCH (00:30)
[2016-11-01] MEDS ORDERED: NOREPINEPHRINE 8 MG in SODIUM CHLORIDE 0.9% 242 ML IV SCH (00:30)
[2016-11-01] MEDS: ALBUTEROL/IPRATROPIUM 3 ML NEB RESP TX SCH ×2 (00:32→07:20)
[2016-11-01] MEDS: INSULIN REGULAR 100 UNIT/ML SUBCUT SCH ×2 (00:38→05:22)
[2016-11-01] MEDS: methylPREDNISolone SOD SUC 40 MG/1 ML VIAL IV SCH ×2 (01:01→07:58)
[2016-11-01] MEDS ORDERED: PHENYLEPHRINE INJ 160 MG in SODIUM CHLORIDE 0.9% 234 ML IV SCH (02:00)
[2016-11-01] MEDS: PANTOPRAZOLE 40 MG VIAL IV SCH (02:12)
[2016-11-01] MEDS: METOCLOPRAMIDE 10 MG/2 ML VIAL IV SCH (02:13)
[2016-11-01 03:27] LABS: Allen Test Positive; Pt O2 Delivery Device Ventilator
[2016-11-01 03:28] LABS: ABG Base Excess -10.7 MMOL/L (-2.5-2.5); ABG HCO3 15.6 MMOL/L (20-26); ABG Oxygen Saturation 82.5 % (95-100); ABG PCO2 36.5 MM HG (35-48); ABG PH 7.249 (7.35-7.45); ABG PO2 51.7 MM HG (80-95); ABG TCO2 16.7 MMOL/L (23-27)
[2016-11-01] MEDS: MORPHINE 2 MG/1 ML SYRINGE IV PRN (03:41)
[2016-11-01 04:44] LABS: Basophils % 0.1 % (0.0-0.8); Eosinophils % 0.1 % (0.00-10.9); Hematocrit 23.4 VOL% (42.0-52.0); Hemoglobin 8.3 GM/DL (14.0-18.0); Immature Granulocytes % 0.5 %; Immature Granulocytes Absolute 0.08 #; Lymphocytes # 0.6 10*3/uL (1.4-4.0); Lymphocytes % 4.2 % (21.2-54.2); Mean Corpuscular HGB Conc 35.5 GM/DL (32-36); Mean Corpuscular Hemoglobin 32 PG (27-34); Mean Corpuscular Volume 90.3 FL (87-102); Mean Platelet Volume 11.9 FL (9.6-12.0); Monocytes # 0.4 10*3/uL (0.11-0.8); Monocytes % 2.4 % (1.7-12.7); NRBC # 0.23 10*3/uL; Neutrophils # 13.6 10*3/uL (1.4-7.4); Neutrophils % 92.7 % (38.7-73.9); Platelet Count 295 T/CUMM (130-400); Red Blood Count 2.59 MC/CUMM (3.8-5.5); White Blood Count 14.7 T/CUMM (4-12)
[2016-11-01 05:04] LABS: INR 1.2; PT Patient Result 12.7 SECS
[2016-11-01 05:24] LABS: Band Neutrophils 12 % (0-10); Giant Platelets Few; Lymphocytes 5 % (20-55); Metamyelocytes 1 %; Myelocytes 1 %; Nucleated Red Blood Cells 4 (0-5); Platelet Estimate Adequate; Segmented Neutrophils 80 % (50-85); Total Cells Counted 100
[2016-11-01 05:25] LABS: Microcytosis Slight
[2016-11-01 05:36] LABS: Albumin 1.8 G/DL (3.4-5.0); Bilirubin,Total 3.8 MG/DL (0.2-1.0); Calcium 8.5 MG/DL (8.5-10.1); Osmolality,Calculated 293.5 MOS/KG (273-304); Total Protein 5.7 G/DL (6.4-8.3)
[2016-11-01] MEDS: VECURONIUM 10 MG VIAL IV PRN (07:17)
--- NOTE | 2016-11-01 07:21 | Pulmonology Progress Note ---
Pulmonary - PN: Subj Interval history: Patient is a 56-year-old black man that has a history of hypertension and alcohol abuse. He has had some chronic pain issues. He came into the emergency room lethargic and had positive drug screen for cocaine and opiates. He has been put on the ventilator. He has also developed acute renal failure. He did develop worsening infiltrates and was hard to ventilate. His oxygenation is getting worse and he does have bilateral infiltrates. He is on 12 of PEEP and his PO2 is 51 on 100%. He looks like he has ARDS for sure now. His prognosis is terrible. He is unresponsive but very agitated and requiring some paralytics. He has multiorgan system failure and looks like he will not survive. Exam (Progress Note) - Constitutional Vitals: Period Temp Pulse Resp BP Sys/Carbone Pulse Ox Last 24 Hr 97.6 F-103.4 F 113-152 14-48 66-148/45-92 81-98 Exam: General appearance: normal weight, no acute distress (The patient is extremely tachypneic and requiring paralytics. He is on multiple pressors now.) - Head Head exam: Present: normal inspection, normocephalic - Eye Eye exam: Absent: scleral icterus Pupils: Present: constricted - ENT ENT exam: Present: Unremarkable - Neck Neck exam: Present: He has a tracheostomy tube in place now. He is not having any further bleeding. - Respiratory Respiratory exam: Present: He has coarse breath sounds bilaterally with bilateral rales. - Cardiovascular Cardiovascular exam: Present: regular rate and rhythm. He has a sinus tachycardia. absent: gallop - GI/Abdominal GI/Abdominal exam: Present: hypoactive bowel sounds, soft. Absent: organomegaly , tenderness - Extremities Exam Extremities exam: He has minimal edema of the extremities and no tenderness. - Neurological Exam Neurological exam: Present: Patient will moves extremities but does not follow commands. He does not respond very well at all. - Psychiatric Psychiatric exam: he has been extremely agitated and requiring multiple meds. - Skin Skin exam: Present: warm, dry, his skin rash is better. Results - Labs CBC & BMP: 11/01/16 03:45 11/01/16 03:45 Labs: His PO2 is 51 on 100% oxygen and 12 of PEEP. His PCO2 is 36. - Diagnostic Findings Procedure: Chest x-ray: image reviewed by me, report reviewed by me (He has worsening bilateral infiltrates.) Assessment and Plan (1) Acute respiratory failure Status: Acute Assessment and plan: Patient has respiratory failure and has worsening oxygenation now. His prognosis is terrible. Current Visit: Yes Qualifiers: Respiratory failure complication: hypoxia Qualified Code(s): J96.01 - Acute respiratory failure with hypoxia (2) Acute renal failure Status: Acute Assessment and plan: The patient will continue to require dialysis. He is on pressors and may not be able to dialyze now. Current Visit: Yes Qualifiers: Acute renal failure type: with acute tubular necrosis Qualified Code(s): N17.0 - Acute kidney failure with tubular necrosis (3) Cocaine intoxication Status: Acute Assessment and plan: Patient apparently has had cocaine abuse. He continues to have an encephalopathy. His prognosis is poor. Current Visit: Yes (4) Polysubstance abuse Status: Chronic Assessment and plan: The patient has a history of substance abuse. He has a significant encephalopathy now. Current Visit: Yes (5) Encephalopathy acute Status: Acute Assessment and plan: Patient is extremely agitated now and requiring multiple medications. Current Visit: Yes (6) Anemia Status: Acute Assessment and plan: The patient has ongoing anemia. His hematocrit is 23 today. Current Visit: Yes (7) Multi-organ system dysfunction Status: Acute Assessment and plan: The patient has ongoing multiorgan system dysfunction with renal failure, liver dysfunction, respiratory failure, and now circulatory shock. He also has an encephalopathy. His prognosis is very poor. Current Visit: Yes (8) ARDS (adult respiratory distress syndrome) Status: Acute Assessment and plan: The patient is very hard to oxygenate now and it looks like he is deteriorating rapidly. Current Visit: Yes
[2016-11-01] MEDS: THIAMINE 200 MG/2 ML VIAL IV SCH (08:01)
[2016-11-01] MEDS: MULTIVITAMIN (CENTRUM) TABLET PO SCH (08:04)
[2016-11-01] MEDS: ZIPRASIDONE 20 MG CAPSULE PO SCH (08:04)
[2016-11-01] MEDS: FOLIC ACID 1 MG TABLET PO SCH (08:04)
[2016-11-01] MEDS: DESITIN 4OZ/NYSTATIN 15 GRAM MIXTURE PASTE TOP SCH (08:05)
--- NOTE | 2016-11-01 08:05 | XRay Report ---
History is ventilator management Comparison 10/30/2016 Mediastinal contours unchanged. Tracheostomy remains There has been development of worsening more focal consolidation left base obscuring the left diaphragm There has been mild improvement of the more diffuse bilateral reticulonodular and hazy pulmonary opacities. The predominantly perihilar opacities remain bilaterally. Impression: 1. Interval development of consolidated infiltrate or atelectasis in the left lower lobe 2. Otherwise slight improvement with continued bilateral infiltrates versus edema PROCEDURE INTERPRETED AT [facility] DEPARTMENT OF RADIOLOGY Final Report Signed by: Dr. Alona Castillo
[2016-11-01] MEDS: SEVELAMER CARBONATE POWDER 2.4 GM PACK PO SCH (08:15)
[2016-11-01] MEDS ORDERED: INSULIN REGULAR 100 UNIT/ML IV ONE (08:45)
[2016-11-01 10:54] VITALS: BP 75/42
[2016-11-01] MEDS ORDERED: LEVOFLOXACIN INJ 500 MG in PREMIX 1 EACH IV SCH (12:00)
--- NOTE | 2016-11-01 13:08 | Discharge Summary ---
Hospital Course - Hospital Course Hospital Course: Mr Day presented on 10/08 with altered mentation and decreased level of consciousness, requiring emegent intubation and pressors. He was an alcoholic and his urine was cocaine positive also. Throughout his hospital stay he was in the CCU and on the vent. He has been trached. He has been treated for infection. At presentation he was in anuric acute renal failure and has been dialyzed throughout his stay. His mentation did not improve in significant ways over his stay. He did not follow commands or have purposeful movement. He was seen by many consultants. He developed ARDS and became very difficult to oxygenate over the last couple of days. His metabolic acidosis worsened. He became febrile. Despite our efforts to optimize his treatment and supportive care he became septic and hypotensive last night and this morning arrested. ACLS protocol was followed but spontaneous circulation was not restored. He this morning. Attempts were made to reach his sisters by phone as well as his daughter but I was unable to reach them. His sisters were already on their way to the hospital and learned of his on their arrival. - Cause of Cause of : multiorgan failure Diagnosis - Discharge Diagnosis (1) Altered mental status Status: Acute (2) Acute renal failure Status: Acute (3) Polysubstance abuse Status: Chronic (4) Congestive heart failure Status: Chronic (5) Encephalopathy acute Status: Acute (6) Acute respiratory failure Status: Acute (7) Elevated troponin Status: Acute (8) Cocaine intoxication Status: Acute (9) Hyperkalemia Status: Acute (10) Multi-organ system dysfunction Status: Acute (11) ARDS (adult respiratory distress syndrome) Status: Acute Discharge Plan - Discharge Data Disposition: - Discharge Medications No Action Lisinopril 40 mg PO DAILY Citalopram [CeleXA] 40 mg PO DAILY Amitriptyline [Elavil] 25 mg PO BEDTIME amLODIPine [Norvasc] 5 mg PO DAILY Atorvastatin [Lipitor] 40 mg PO DAILY Trazodone HCl 100 mg PO BEDTIME PRN PRN Reason: Sleep Metoprolol Tartrate 50 mg PO BID Ranitidine Tab [Zantac Tab] 150 mg PO BID Acetic Acid 2% Otic Soln [Vosol 2% Otic Soln] 5 drop LEFT EAR QID #15 ml Rosuvastatin [Crestor] 40 mg PO DAILY Gabapentin Cap/Tab [Neurontin Cap/Tab] 400 mg PO BID Meloxicam 7.5 mg PO Buspirone HCl 10 mg PO hydroCHLOROthiazide [Hydrochlorothiazide] 25 mg PO DAILY Topiramate [Topamax] 50 mg PO BID - Follow Up or Referral - Forms/Instructions Exam - Constitutional Vitals: Period Temp Pulse Resp BP Sys/Carbone Pulse Ox Last 24 Hr 97.1 F-103.4 F 68-152 12-48 66-148/39-92 81-98 Discharge Results Procedures and tests throughout hospitalization: Pending Orders 10/08/16 13:58 NE EEG adult over 1 hour Routine 10/09/16 18:15 Occult Blood, Stool Stat 10/30/16 09:32 Blood Culture Routine 10/30/16 10:25 Sputum Culture and Gram Stain Routine Labs on day of discharge: Labs from last 24 hours 11/01/16 11/01/16 11/01/16 05:20 03:45 03:45 WBC RBC Hgb Hct MCV MCH MCHC RDW Plt Count MPV Neut % (Auto) Lymph % (Auto) Cedar % (Auto) Eos % (Auto) Baso % (Auto) Neut # (Auto) Lymph # (Auto) Cedar # (Auto) Eos # (Auto) Baso # (Auto) Total Counted Immature Gran % Nucleated RBC % Immature Gran # Segmented Neutrophils Band Neutrophils Lymphocytes Monocytes Metamyelocytes Myelocytes Nucleated RBCs Nucleated RBCs # Platelet Estimate Giant Platelets Immature Plt Fraction Microcytosis INR 1.2 PT Patient/Control Mix 12.7 ABG pH ABG pCO2 ABG pO2 ABG HCO3 ABG Total CO2 ABG O2 Saturation ABG Base Excess FiO2 Sodium 125 L Potassium 7.0 H* D Chloride 87 L Carbon Dioxide 17 L Anion Gap 28.0 H BUN 128 H D Creatinine 7.80 H GFR Calculation 9 BUN/Creatinine Ratio 16.00 Glucose 133 H POC Glucose 112 H Calculated Osmolality 293.5 Calcium 8.5 Total Bilirubin 3.80 H AST 71 H ALT 36 Alkaline Phosphatase 120 H Total Protein 5.7 L Albumin 1.8 L Globulin 3.9 H Albumin/Globulin Ratio 0.4 L 11/01/16 11/01/16 11/01/16 03:45 03:09 00:15 WBC 14.7 H RBC 2.59 L Hgb 8.3 L Hct 23.4 L MCV 90.3 MCH 32 MCHC 35.5 RDW 16.0 Plt Count 295 D MPV 11.9 Neut % (Auto) 92.7 H Lymph % (Auto) 4.2 L Cedar % (Auto) 2.4 Eos % (Auto) 0.1 Baso % (Auto) 0.1 Neut # (Auto) 13.6 H Lymph # (Auto) 0.6 L Cedar # (Auto) 0.4 Eos # (Auto) 0.0 Baso # (Auto) 0.0 Total Counted 100 Immature Gran % 0.5 Nucleated RBC % 1.6 Immature Gran # 0.08 Segmented Neutrophils 80 Band Neutrophils 12 H Lymphocytes 5 L Monocytes 1 L Metamyelocytes 1 Myelocytes 1 Nucleated RBCs 4 Nucleated RBCs # 0.23 Platelet Estimate Adequate Giant Platelets Few Immature Plt Fraction 0.0 Microcytosis Slight INR PT Patient/Control Mix ABG pH 7.249 L ABG pCO2 36.5 ABG pO2 51.7 L ABG HCO3 15.6 L ABG Total CO2 16.7 L ABG O2 Saturation 82.5 L ABG Base Excess -10.7 L FiO2 100.00 Sodium Potassium Chloride Carbon Dioxide Anion Gap BUN Creatinine GFR Calculation BUN/Creatinine Ratio Glucose POC Glucose 120 H Calculated Osmolality Calcium Total Bilirubin AST ALT Alkaline Phosphatase Total Protein Albumin Globulin Albumin/Globulin Ratio 10/31/16 16:43 WBC RBC Hgb Hct MCV MCH MCHC RDW Plt Count MPV Neut % (Auto) Lymph % (Auto) Cedar % (Auto) Eos % (Auto) Baso % (Auto) Neut # (Auto) Lymph # (Auto) Cedar # (Auto) Eos # (Auto) Baso # (Auto) Total Counted Immature Gran % Nucleated RBC % Immature Gran # Segmented Neutrophils Band Neutrophils Lymphocytes Monocytes Metamyelocytes Myelocytes Nucleated RBCs Nucleated RBCs # Platelet Estimate Giant Platelets Immature Plt Fraction Microcytosis INR PT Patient/Control Mix ABG pH ABG pCO2 ABG pO2 ABG HCO3 ABG Total CO2 ABG O2 Saturation ABG Base Excess FiO2 Sodium Potassium Chloride Carbon Dioxide Anion Gap BUN Creatinine GFR Calculation BUN/Creatinine Ratio Glucose POC Glucose 119 H Calculated Osmolality Calcium Total Bilirubin AST ALT Alkaline Phosphatase Total Protein Albumin Globulin Albumin/Globulin Ratio Preliminary micro results at discharge 10/30/16 09:32 Blood Culture - Preliminary Blood Yeast 10/30/16 09:32 Blood Culture - Preliminary Blood Yeast 10/30/16 10:25 Sputum Culture - Preliminary Sputum Gram Negative Rods DS: Provider Date of admission: 10/08/16 00:15 Primary care physician: . No PCP Attending physician on admission: Nash Gonzalez MD Consults: 10/08/16 00:17 Consult to Physician [CONS] Routine Comment: Consulting Provider: Cardiology - [facility] When should Consulting Provider be notified: In am Person Notified: Bria Goode Date Notified: 10/08/16 Time Notified: 08:00 10/08/16 00:22 Consult to Physician [CONS] Routine Comment: kidney failure Consulting Provider: Nash Rob When should Consulting Provider be notified: Now Consult to Specialist Group: Nephrology 10/09/16 08:48 Consult to Dietitian [CONS] Routine Reason for Dietitian: TF-Initiate/Manage 10/10/16 12:16 Consult to Physician [CONS] Routine Comment: EEG pending, metabolic encephalopathy Consulting Provider: Shai Sierra 10/30/16 11:33 Consult to Pharmacy [CONS] Routine Reason for Pharmacy Consult: Dose/Manage Antibiotics Dose/Manage Vancomycin Comment: please adjust antibiotic doses for renal disease 10/30/16 14:39 Consult to Physician [CONS] Routine Comment: fever returned. antibiotic therapy. Consulting Provider: Tonia Durand 10/31/16 10:21 Consult to Physician [CONS] Routine Comment: PEG tube placement Consulting Provider: Pancho Mario Person Notified: Nazia Date Notified: 10/31/16 Time Notified: 10:31 Consult Notification Comment: PEG placement needed Discharging clinician: Mariana iLsa MD
[2016-11-01] MEDS ORDERED: VANCOMYCIN INJ 750 MG in SODIUM CHLORIDE 0.9% 250 ML IV PRN (18:00)
== END 2016-11-01 08:44 | disposition expired | DRG 4 ==
LOC: N.ED 19:50 → SUATTDRO 10-08 00:15 → N.EDINP 10-08 00:15 → N.CC 10-08 01:20
PROVIDERS: ADMIT Internal Medicine; ATTEND Internal Medicine